=== PATIENT | female | born 1940 | race Two or more races ===

== ENCOUNTER 2019-12-03 10:56 | Outpatient (REF) | payer MEDICARE, SELFPAY ==
--- NOTE | 2019-12-03 | MM_ITS ---
EXAMINATION: MM SCREENING DIGITAL BREAST TOMOSYNTHESIS, BILATERAL CLINICAL INFORMATION: Screening. Asymptomatic. The lifetime risk of breast cancer based on the Tyrer-Cuzick Model is under 2%. COMPARISON: Mammography: 11/30/2018, 11/28/2017, 11/18/2016, 11/13/2015, 11/04/2014 TECHNIQUE: Digital breast tomosynthesis is performed in both the craniocaudal and mediolateral oblique views along with computer-aided detection (CAD). Synthesized 2D images are generated from the tomosynthesis. FINDINGS: There are scattered areas of fibroglandular density (ACR BI-RADS breast composition Category b). Parenchymal pattern is similar to prior studies. Bilateral parenchymal asymmetries are stable. There is no developing density or interval mass or architectural abnormality. There are bilateral vascular calcifications again seen. The skin contours are smooth. No significant changes. MM/MM tomosynthesis screening BI IMPRESSION: No significant changes from prior exams. ASSESSMENT: BI-RADS 2: Benign RECOMMENDATION: Routine annual mammography screening. This patient's information was entered into a reminder system with a target due date for their next mammogram.
== END 2019-12-03 10:57 | disposition home or self-care (01) ==
LOC: HO.MAMMO 10:56
PROVIDERS: PCP Internal Medicine; Visit Provider Internal Medicine
DX: Z12.31 Encounter for screening mammogram for malignant neoplasm of breast (principal)
CPT/HCPCS: 77063; 77067

== ENCOUNTER 2020-12-17 13:21 | Outpatient (REF) | payer MEDICARE, SELFPAY ==
--- NOTE | ~2020-12-17 | MM_ITS ---
EXAMINATION: MM SCREENING DIGITAL BREAST TOMOSYNTHESIS, BILATERAL CLINICAL INFORMATION: Screening. Asymptomatic. The lifetime risk of breast cancer based on the Tyrer-Cuzick Model is 2%. COMPARISON: Mammography: 12/03/2019, 11/30/2018, 11/28/2017 TECHNIQUE: Digital breast tomosynthesis is performed in both the craniocaudal and mediolateral oblique views along with computer-aided detection (CAD). Synthesized 2D images are generated from the tomosynthesis. FINDINGS: There are scattered areas of fibroglandular density (ACR BI-RADS breast composition Category b). There are no significant masses, abnormal calcifications, or other abnormalities. MM/MM tomosynthesis screening BI IMPRESSION: No mammographic evidence of malignancy. ASSESSMENT: BI-RADS 1: Negative RECOMMENDATION: Routine annual mammography screening. This patient's information was entered into a reminder system with a target due date for their next mammogram.
== END 2020-12-17 13:22 | disposition home or self-care (01) ==
LOC: HO.MAMMO 13:21
PROVIDERS: Visit Provider Internal Medicine
DX: Z12.31 Encounter for screening mammogram for malignant neoplasm of breast (principal)
CPT/HCPCS: 77063; 77067

== ENCOUNTER 2021-03-26 08:59 | Outpatient (REF) | payer MEDICARE, SELFPAY ==
[2021-03-26 10:32] LABS: MANUAL DIFF FLAG NO
[2021-03-26 10:38] LABS: Basophils Absolute Auto 0.1 X10*3/uL (0.0-0.2); Eosinophils Absolute Auto 0.3 X10*3/uL (0.0-0.4); Eosinophils Percent Auto 4.9 % (0-4); Hematocrit 37.6 % (37.0-47.0); Hemoglobin 11.9 g/dl (12.0-16.0); Imm Gran Abs Auto 0.01 X10*3/uL (0.00-0.03); Imm Gran Pct Auto 0.2 % (0.0-0.4); Lymphocytes Absolute Auto 1.3 X10*3/uL (1.2-4.9); Mean Corpuscular HGB Conc 31.6 g/dl (31.0-35.0); Mean Corpuscular Volume 85.3 fL (80.0-98.0); Mean Platelet Volume 12.7 fL (9.4-12.3); Monocytes Absolute Auto 0.5 X10*3/uL (0.1-1.2); Monocytes Percent Auto 9.8 % (2-11); Neutrophils Percent Auto 59.1 % (45-73); Platelet Count 167 X10*3/uL (160-400); Red Blood Count 4.41 X10*6/uL (4.20-5.50); Red Cell Distribution Width 14.4 % (11.0-16.0); White Blood Count 5.1 X10*3/uL (4.8-10.8)
[2021-03-26 10:46] LABS: Estimated Average Glucose 143 mg/dL; Hemoglobin A1c % 6.6 %
[2021-03-26 11:13] LABS: Alanine Aminotransferase 11 U/L (0-31); Alkaline Phosphatase 44 U/L (39-117); Anion Gap 10 (12-20); Aspartate Amino Transferase 18 U/L (5-31); Bilirubin Total 1.4 mg/dL (0.0-1.0); Blood Urea Nitrogen 22 mg/dL (9-16); Calcium 9.7 mg/dL (8.4-10.2); Carbon Dioxide 34 mmol/L (22-29); Chloride 102 mmol/L (96-108); Cholesterol 155 mg/dL; Estimated Glomerular Filt Rate 50; Glucose Fasting 134 mg/dL (60-99); HDL Cholesterol 28 mg/dL; LDL Cholesterol Calculated 92 mg/dl; Potassium 3.9 mmol/L (3.3-5.1); Sodium 142 mmol/L (135-145); Triglycerides 177 mg/dL
== END 2021-03-26 09:00 | disposition home or self-care (01) ==
LOC: HO.10HDL 08:59
PROVIDERS: Visit Provider Internal Medicine
DX: E11.9 Type 2 diabetes mellitus without complications (principal); E78.00 Pure hypercholesterolemia, unspecified; J20.9 Acute bronchitis, unspecified; R80.0 Isolated proteinuria
CPT/HCPCS: 36415; 80053; 80061; 83036; 85025

== ENCOUNTER 2021-06-24 10:01 | Outpatient (REF) | payer MEDICARE, SELFPAY ==
[2021-06-24 10:52] LABS: Estimated Average Glucose 134 mg/dL; Hemoglobin A1c % 6.3 %
[2021-06-24 11:03] LABS: Alanine Aminotransferase 11 U/L (0-31); Albumin Level 3.9 g/dL (3.5-5.0); Alkaline Phosphatase 42 U/L (39-117); Anion Gap 13 (12-20); Aspartate Amino Transferase 16 U/L (5-31); Bilirubin Total 1.6 mg/dL (0.0-1.0); Blood Urea Nitrogen 16 mg/dL (9-16); Calcium 9.6 mg/dL (8.4-10.2); Carbon Dioxide 28 mmol/L (22-29); Chloride 103 mmol/L (96-108); Estimated Glomerular Filt Rate 59; Glucose Random 121 mg/dL (60-115); Potassium 3.9 mmol/L (3.3-5.1); Sodium 140 mmol/L (135-145)
== END 2021-06-24 10:02 | disposition home or self-care (01) ==
LOC: HO.10HDL 10:01
PROVIDERS: Visit Provider Internal Medicine
DX: E11.9 Type 2 diabetes mellitus without complications (principal); N18.9 Chronic kidney disease, unspecified; R80.0 Isolated proteinuria; E78.00 Pure hypercholesterolemia, unspecified; M54.50 Low back pain, unspecified
CPT/HCPCS: 36415; 80053; 83036

== ENCOUNTER 2021-06-25 14:18 | Outpatient (REF) | payer OTHER, SELFPAY ==
--- NOTE | ~2021-06-25 | XR_ITS ---
EXAMINATION: XR CHEST CLINICAL INFORMATION: Pneumonia COMPARISON: None TECHNIQUE: 2 views of the chest were obtained. FINDINGS: No significant abnormality is noted involving the heart, lungs, mediastinum, bony thorax or soft tissues. XR/XR chest 2V IMPRESSION: Unremarkable examination.
== END 2021-06-25 14:19 | disposition home or self-care (01) ==
LOC: HO.XRAY 14:18
PROVIDERS: PCP Internal Medicine; Visit Provider Internal Medicine
DX: J18.9 Pneumonia, unspecified organism (principal)
CPT/HCPCS: 71046

== ENCOUNTER 2021-06-29 11:52 | Outpatient (REF) | payer OTHER, SELFPAY ==
[2021-06-29 12:01] VITALS: BP 152/68; PULSE 61; RESP 16; TEMP 36.6; O2SAT 98
[2021-06-29 12:19] VITALS: BMI 21.6
== END 2021-06-29 11:53 | disposition home or self-care (01) ==
LOC: HO.MS 11:52
PROVIDERS: PCP Internal Medicine; Visit Provider Ophthalmology
PROC: (CPT 66821; principal; 2021-06-29 13:00)
DX: H26.491 Other secondary cataract, right eye (principal); Z96.1 Presence of intraocular lens; H35.09 Other intraretinal microvascular abnormalities; I10 Essential (primary) hypertension; E11.9 Type 2 diabetes mellitus without complications; Z79.84 Long term (current) use of oral hypoglycemic drugs; Z79.899 Other long term (current) drug therapy; Z88.8 Allergy status to other drugs, medicaments and biological substances
CPT/HCPCS: 66821

== ENCOUNTER 2022-01-11 12:51 | Emergency (ER) | payer OTHER, SELFPAY ==
--- NOTE | ~2022-01-11 | CT_ITS ---
EXAMINATION: CT ANGIOGRAM OF THE CHEST WITH AND WITHOUT CONTRAST (CT PULMONARY ANGIOGRAM FOR PE) CLINICAL INFORMATION: Reason for Exam pleuritic CP COMPARISON: CT chest earlier today TECHNIQUE: Prior to contrast administration, noncontrast localization images were obtained. Subsequently, multidetector volumetric imaging was performed from the thoracic inlet to below the diaphragms following the administration of 65 mL Omnipaque 350 intravenous contrast. No contrast reaction reported Sagittal, coronal, and MIP oblique sagittal reformatted images were obtained on the CT workstation, uploaded to PACS, and reviewed. This CT examination was performed using dose optimization techniques as appropriate, variously including the following: *Automated exposure control *Adjustment of mA and/or kV according to patient size (this includes techniques or standardized protocols for targeted exams where dose is matched to indication/reason for exam; i.e. extremities or head) *Use of iterative reconstruction technique Total exam dose-length product 227 mGy-cm FINDINGS: QUALITY OF STUDY/CONTRAST BOLUS: Satisfactory. PULMONARY ARTERIES: There is a small saddle embolus extending into the right upper lobe pulmonary artery as well as the right lower lobe pulmonary artery. No other definite emboli are seen. 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 No aortic dissection is seen. LUNG: Pulmonary changes are similar to that noted a few hours ago with a right upper lobe posterolateral infiltrate along with chronic lingular atelectasis/bronchiectasis and scattered tree-in-bud opacities PLEURA: No pleural effusion or pneumothorax. MEDIASTINUM: Heart size upper limits of normal. No pericardial effusion. No hilar or mediastinal lymphadenopathy. No evidence of septal bowing or right heart strain. CHEST WALL/AXILLA: No axillary or internal mammary lymphadenopathy. OSSEOUS STRUCTURES: Mild degenerative changes present throughout the spine. No acute or suspicious osseous abnormality. UPPER ABDOMEN: Unremarkable. No reflux of contrast into the hepatic veins to suggest elevated right heart pressures. CT/CT angio chest PE protocol IMPRESSION: Acute pulmonary emboli with small saddle embolus on the right involving the upper and lower lobe. No evidence of right heart strain. VTE: positive
--- NOTE | ~2022-01-11 | CT_ITS ---
EXAMINATION: CT CHEST WITHOUT CONTRAST CLINICAL INFORMATION: Right chest wall pain. COMPARISON: None TECHNIQUE: Multidetector volumetric CT imaging of the chest was done. Axial MIP volume rendering provided. Sagittal and coronal reformatted images were obtained. This CT examination was performed using dose optimization techniques as appropriate, variously including the following: *Automated exposure control *Adjustment of mA and/or kV according to patient size (this includes techniques or standardized protocols for targeted exams where dose is matched to indication/reason for exam; i.e. extremities or head) *Use of iterative reconstruction technique DLP: 738 mGy-cm FINDINGS: LUNGS: Focal, posterolateral right upper lobe interstitial and alveolar infiltrate (images 18 through 23, series 5). Scattered foci of bronchiectasis with associated fibrotic change and tree-in-bud densities, most notably involving the right upper lobe anterolaterally as well as the left upper lobe. The lingula is most involved of bronchiectasis with associated airspace disease. A cluster of tree-in-bud densities involves the superior segment right lower lobe medially as well. There are biapical fibrotic changes. The central bronchi appear patent. 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 Heart normal in size. No pericardial effusion. No evidence of adenopathy by size criteria. Approximately 1.7 cm left thyroid nodule (image 10, series 7). Calcification of the right carotid bulb, only partially imaged. CORONARY ARTERY CALCIFICATION: Moderate. PLEURA: Trace right pleural fluid. No pleural mass or thickening. AXILLA: No lymphadenopathy by size criteria. UPPER ABDOMEN: Please see separately dictated report of CT scan of the abdomen obtained the same day. OSSEOUS STRUCTURES: Unremarkable. 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 Focal, posterolateral right upper lobe interstitial and alveolar infiltrate. Cannot exclude pneumonia. Scattered foci of bronchiectasis with associated fibrotic change and tree-in-bud densities, most notably involving the right upper lobe anterolaterally as well as the left upper lobe. The lingula is most involved of bronchiectasis with associated airspace disease. A cluster of tree-in-bud densities involves the superior segment right lower lobe medially as well. Differential diagnosis includes, but is not limited to, infectious/inflammatory. Trace right pleural fluid. Approximately 1.7 cm left thyroid nodule. Dedicated thyroid ultrasound may be of use for further evaluation if clinically indicated. Additional findings, as above.
--- NOTE | ~2022-01-11 | CT_ITS ---
EXAMINATION: CT ABDOMEN AND PELVIS WITHOUT CONTRAST CLINICAL INFORMATION: Right upper quadrant pain. COMPARISON: CT scans dating between February 14, 2019 and October 20, 2006. TECHNIQUE: Multidetector volumetric imaging was performed from the superior aspect of the liver through the pubic symphysis. Sagittal and coronal reformatted images were obtained on the technologist's workstation. This CT examination was performed using dose optimization techniques as appropriate, variously including the following: *Automated exposure control *Adjustment of mA and/or kV according to patient size (this includes techniques or standardized protocols for targeted exams where dose is matched to indication/reason for exam; i.e. extremities or head) *Use of iterative reconstruction technique DLP: 738 mGy-cm FINDINGS: LUNG BASES: Please see separately dictated report for chest CT obtained the same day. LIVER, GALLBLADDER, AND BILIARY TREE: The liver appears unremarkable in size, shape, and attenuation. No focal hepatic lesion or biliary ductal dilatation is appreciated. Status post cholecystectomy. PANCREAS: Unremarkable SPLEEN: Unremarkable ADRENAL GLANDS: Unremarkable KIDNEYS AND URETERS: The kidneys appear unremarkable in size, shape, and attenuation. No hydronephrosis, hydroureter, or calculi seen. BLADDER: Incompletely distended, therefore suboptimally evaluated. Question mild diffuse thickening of the wall the urinary bladder, anteriorly more than posteriorly, difficult to compare with prior due to differences in distention, equivocal. GASTROINTESTINAL TRACT: The small and large bowel appear unremarkable. No diverticulosis. Normal-appearing distal ileum. No evidence of appendicitis. ABDOMINAL WALL: No significant hernia is appreciated. LYMPH NODES: No evidence of adenopathy by size criteria. VASCULAR: Atherosclerotic, mildly ectatic aorta. PELVIC VISCERA: Status post hysterectomy. OSSEOUS STRUCTURES: Unremarkable CT/CT abdomen pelvis wo IV con IMPRESSION: No right upper quadrant abdominal pathology identified. Incompletely distended urinary bladder, therefore suboptimally evaluated. Question mild diffuse thickening of the wall the urinary bladder, anteriorly more than posteriorly, difficult to compare with prior due to differences in distention, equivocal. Otherwise essentially unremarkable study.
[2022-01-11 13:00] VITALS: BP 164/78; PULSE 74; RESP 14; TEMP 36.4; O2SAT 97; BMI 21.1
--- NOTE | 2022-01-11 13:04 | ED_ITS ---
HPI - General Adult General Chief complaint: General Medical <Daya Lin MD - Last Filed: 01/11/22 13:10> Stated complaint: diff breathing <Daya Lin MD - Last Filed: 01/11/22 13:10> Time Seen by Provider: 01/11/22 16:31 <Daya Lin MD - Last Filed: 01/11/22 13:10> Source: patient <QUINTON Garcia - Last Filed: 01/11/22 19:26> Mode of arrival: ambulatory <QUINTON Garcia - Last Filed: 01/11/22 19:26> Limitations: other (poor historian patient and family ) <QUINTON Garcia - Last Filed: 01/11/22 19:26> History of Present Illness HPI narrative: This is an 81-year-old female past medical history significant for diabets, hypertension, hyperlipidemia, pulmonary embolism anticoagulated on Coumadin (per patient and family) presenting to the emergency department complaints of pleuritic chest pain, shortness of breath, abdominal pain x3 days.? Patient tells me they have all been gradually worsening over the past few days.? Patient tells me chest pain is worse with deep breathing, she reports shortness of breath both at rest and with exertion, she tells me she was recently placed on Coumadin because she had a pulmonary embolism last month.? Patient also reports abdominal pain but has a hard time telling me exactly rate is, she tells me she can not tell that her abdomen or if the pain is underneath her right rib, worse with deep breathing.? Patient also has vague complaints of weakness, fatigue malaise.? Patient denies nausea, vomiting, diarrhea, headache, vision changes, trauma. <QUINTON Garcia - Last Filed: 01/11/22 19:26> Related Data Allergies/adverse reactions: Allergies Allergy/AdvReac Type Severity Reaction Status Date / Time atorvastatin [Lipitor] Allergy Unknown body Verified 01/11/22 13:05 ache,rash,anorexia lisinopril Allergy Unknown cough Verified 01/11/22 13:05 nitrofurantoin [Macrobid] Allergy Unknown rash Verified 01/11/22 13:05 <Daya Lin MD - Last Filed: 01/11/22 13:10> Review of Systems Review of Systems: Constitutional : No Weight loss, No Fever, No Chills, No Fatigue, No Malaise ENT/Mouth : No sore throat, No Rhinorrhea Eyes: No Eye Pain, No Swelling, No Redness Cardiovascular : + Chest Pain, + SOB, No Dyspnea on Exertion, No Orthopnea, No Edema, No Palpitations Respiratory : No Cough, No Sputum, No Wheezing Gastrointestinal : No Nausea, No Vomiting, No Diarrhea, No Constipation, + abdominal Pain, No Hematochezia, No Melena Genitourinary : No Dysuria, No Urinary Frequency, No Hematuria, Musculoskeletal : No joint pain, No Myalgias, No Joint Swelling Skin : No Skin Lesions, No rash Neuro : No Weakness, No Numbness, No Dizziness, No Headache Psych : No Anxiety/Panic, No Depression <QUINTON Garcia - Last Filed: 01/11/22 19:26> Yes all other systems are reviewed and are negative <QUINTON Garcia - Last Filed: 01/11/22 19:26> [facility] Past Medical History Attestation statement: The following information was validated with the patient. <QUINTON Garcia - Last Filed: 01/11/22 19:26> Source: old records reviewed and nursing notes reviewed <QUINTON Garcia - Last Filed: 01/11/22 19:26> Social History Social History: Social History Alcohol intake: never Smoked in Last 30 Days: No Use of substances other than those prescribed or required for medical reasons: No Advance Directives: No Advance Directives Information Provided: No <Daya Lin MD - Last Filed: 01/11/22 13:10> Physical Exam ED Vital Signs: Vital Signs - 24 hr 01/11/22 13:00 01/11/22 16:27 01/11/22 18:00 Temperature 97.5 F 97.9 F 98.4 F Pulse Rate 74 72 85 Respiratory Rate 14 16 16 Blood Pressure 164/78 H 165/84 H 141/70 H Pulse Oximetry 97 98 97 Oxygen Delivery Method Room Air Room Air Room Air BMI result Body Mass Index 21.1 <Daya Lin MD - Last Filed: 01/11/22 13:10> Vital Signs - 24 hr 01/11/22 13:00 01/11/22 16:27 01/11/22 18:00 Temperature 97.5 F 97.9 F 98.4 F Pulse Rate 74 72 85 Respiratory Rate 14 16 16 Blood Pressure 164/78 H 165/84 H 141/70 H Pulse Oximetry 97 98 97 Oxygen Delivery Method Room Air Room Air Room Air BMI result Body Mass Index 21.1 vss <QUINTON Garcia - Last Filed: 01/11/22 19:26> Appearance: Alert.? Oriented X3.? No acute distress.? Head:? Normocephalic, atraumatic, no step-offs or deformities Eyes: Pupils equal, round and reactive to light.? CVS: Normal heart rate and rhythm.? Pulses normal.? Respiratory: No respiratory distress.? Breath sounds diminished b/l.? Abdomen: Soft and nontender, distended abd w/ normoactive bowel sounds Skin: Skin warm and dry.? Normal skin color.? Normal skin turgor.? Extremities: No lower extremity edema.? No calf ttp, negative melida b/l.? 5/5 strength to bilateral upper and lower extremities Neuro: Oriented X 3.? No motor deficit.? No sensory deficit. CN 2-12 intact <QUINTON Garcia - Last Filed: 01/11/22 19:26> Course Course Course Narrative: 81-year-old female with recent diagnosis of PE (01/05 at [facility]) and started on warfarin/Coumadin, now presents with lower right chest wall pain that started last night and worsenes with deep breathing and denies any traumatic event and denies any fever, chills, nausea, vomiting, urinary symptoms and is status post cholecystectomy several years back and is otherwise noted have a history of hypertension, diabetes. Patient has been taking all medications as prescribed. Vital signs reviewed GEN: moderate distress due to pain at right chest on deep breath HEENT: NC/AT, PERRLA, EOMI, ears wnl, throat wnl PULM: CTAB, no rales/wheeze/rhonchi, SpO2-97%, reproducible chest pain on palpation over anterolateral lower ribs without crepitus CVS: RRR, no murmurs - labs, imaging, EKG <Daya Lin MD - Last Filed: 01/11/22 13:10> Reevaluation(s) Reevaluation #1: CBC appears to be around patient's baseline within normocytic anemia, chemistry with electrolyte abnormalities requiring intervention, carbon dioxide 32 likely underlying COPD inpatient retaining.? Patient is noted have an elevated bilirubin 1.5, abdomen is not tender on palpation on physical exam.? Troponin negative, EKG nonischemic unlikely ACS.? Urine clean flu/COVID/RSV negative.? Patient noted to be supratherapeutic PTT 29.8, INR 2.5.? CT of the abdomen pelvis with no upper quadrant abdominal pathology, unremarkable study.? 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 There are focal and posterior lateral right upper lobe interstitial and alveolar infiltrates, steady states that cannot exclude pneumonia patient is not hypoxic, no fever satting well on room air clear breath sounds, no elevated white blood cell count therefore low suspicion for pneumonia.? There is a trace right pleural effusion noted.? And a left thyroid nodule.? Educated patient and family members on findings.? BNP and CTA of the chest to rule out PE pending. Since patient was recently discharged from [facility] will try to obtain records from [facility] as patient poor historian and unaware of her medical history. <QUINTON Garcia - Last Filed: 01/11/22 19:26> Time: 16:53 <QUINTON Garcia - Last Filed: 01/11/22 19:26> Reevaluation #2: CTA w/ kennethdle PE. [place] hospitalist tell me patient should go to another hospital with higher level of care. [facility] closed. [facility] closed. Spoke to family about transferring patient to a different state, [place], family verbalizes understanding of need of transfer. [facility] also closed to transfers patients family requesting call out to [facility]. Concerns for difficulties with transport via ambulance due to limited number of ambulances in town. [facility] declined transfer. Family telling me that patient is on Coumadin, patient also stating she is on Coumadin. Med rec shows that patient was last on Eliquis. Some confusion and patient's anticoagulation status. Patient will go to Medical ICU at [facility] ED Dr. William. <QUINTON Garcia - Last Filed: 01/11/22 19:26> Time: 18:56 <QUINTON Garcia - Last Filed: 01/11/22 19:26> Reevaluation #3: Per [facility] Dr. Lemus since patient hypodermically stable start heparin drip w/o bolus. Drip ordered, dose verified with my attending. ALS transport being arranged at this time. <QUINTON Garcia - Last Filed: 01/11/22 19:26> Time: 19:04 <QUINTON Garcia - Last Filed: 01/11/22 19:26> Medications Administered Discontinued Medications Generic Name Dose Route Start Last Admin Trade Name Freq PRN Reason Stop Dose Admin Iohexol 100 ml 01/11/22 17:50 01/11/22 17:50 Iohexol 350 Mg/Ml 100 Ml Infus..Btl IV 01/11/22 17:51 65 ml ONCE ONE Administration <Daya Lin MD - Last Filed: 01/11/22 13:10> Medications Administered Discontinued Medications Generic Name Dose Route Start Last Admin Trade Name Freq PRN Reason Stop Dose Admin Iohexol 100 ml 01/11/22 17:50 01/11/22 17:50 Iohexol 350 Mg/Ml 100 Ml Infus..Btl IV 01/11/22 17:51 65 ml ONCE ONE Administration <QUINTON Garcia - Last Filed: 01/11/22 19:26> Medical Decision Making Medical Decision Making [facility] Narrative: [id number] 81 year old female recently diagnosed with pulmonary embolism and started on Coumadin presents with pleuritic chest pain, shortness of breath, abdominal pain/right rib pain with deep breathing x3 days worsening. Physical examination diminished bs b/l. Distended abd w/ normal BS in all 4 quadrants . Concerns for possible recurrence of PE, pneumonia, CHF.? Unlikely ACS patient denies any chest pain however will obtain troponin, EKG. Plan at this time is labs, imaging, urine. <QUINTON Garcia - Last Filed: 01/11/22 19:26> Critical Care Time Critical Care Time Critical Care Time: Yes <QUINTON Garcia - Last Filed: 01/11/22 19:26> Total Critical Care Time: 60 <QUINTON Garcia - Last Filed: 01/11/22 19:26> Attestation: I attest to this time spent taking care of the patient, obtaining history, physical, reviewing labs, imaging, speaking to my attending, speaking to specialist. <QUINTON Garcia - Last Filed: 01/11/22 19:26> Discharge Plan Discharge Clinical Impression: Acute saddle pulmonary embolism, Chest pain, Shortness of breath <Daya Lin MD - Last Filed: 01/11/22 13:10> Patient Disposition: Still a Patient <Daya Lin MD - Last Filed: 01/11/22 13:10>
--- NOTE | 2022-01-11 13:04 | ECG_ITS ---
Test Reason : sob Blood Pressure : / mmHG Vent. Rate : 079 BPM Atrial Rate : 079 BPM P-R Int : 124 ms QRS Dur : 074 ms QT Int : 396 ms P-R-T Axes : -13 -12 068 degrees QTc Int : 454 ms Sinus rhythm with occasional Premature ventricular complexes Septal infarct , age undetermined Abnormal ECG When compared with ECG of 18-SEP-2007 15:42, Premature ventricular complexes are now Present Septal infarct is now Present Nonspecific T wave abnormality now evident in Lateral leads Referred By: Daya Lin Electronically Signed By:ROMERO CARRERA MD
[2022-01-11 13:35] LABS: MANUAL DIFF FLAG NO
[2022-01-11 13:38] LABS: Basophils Absolute Auto 0.1 X10*3/uL (0.0-0.2); Basophils Percent Auto 0.7 % (0-2); Eosinophils Absolute Auto 0.1 X10*3/uL (0.0-0.4); Eosinophils Percent Auto 1.7 % (0-4); Hematocrit 35.6 % (37.0-47.0); Hemoglobin 11.3 g/dl (12.0-16.0); Imm Gran Abs Auto 0.02 X10*3/uL (0.00-0.03); Imm Gran Pct Auto 0.3 % (0.0-0.4); Lymphocytes Absolute Auto 1.7 X10*3/uL (1.2-4.9); Lymphocytes Percent Auto 22.7 % (20-40); Mean Corpuscular HGB Conc 31.7 g/dl (31.0-35.0); Mean Corpuscular Hemoglobin 25.6 pg (27.0-33.0); Mean Corpuscular Volume 80.5 fL (80.0-98.0); Mean Platelet Volume 11.1 fL (9.4-12.3); Monocytes Absolute Auto 0.8 X10*3/uL (0.1-1.2); Monocytes Percent Auto 10.3 % (2-11); Neutrophils Absolute Auto 4.7 x10*3/uL (2.0-8.3); Neutrophils Percent Auto 64.3 % (45-73); Platelet Count 247 X10*3/uL (160-400); Red Blood Count 4.42 X10*6/uL (4.20-5.50); Red Cell Distribution Width 15.6 % (11.0-16.0); White Blood Count 7.3 X10*3/uL (4.8-10.8)
[2022-01-11 13:39] LABS: Appearance Urine Clear; Color Urine Yellow; Glucose Urine UA Negative (Negative); Leukocyte Esterase Urine Negative (Negative); Nitrite Urine Negative (Negative); Specific Gravity - Urine 1.015 (1.005-1.025); UMIC TRIGGER UACC YES; Urine Blood Negative (Negative); Urine Ketones Negative (Negative); Urine Protein 30 (1+) mg/dL (Neg-Trace)
[2022-01-11 13:44] LABS: Bacteria Urine None Seen (None Seen); Hyaline Casts Urine 0-2 /LPF (0-2); RBC Urine 0-2 /HPF (0-2); Squamous Epithelial Cell Urine 0-2 /HPF (0-2); WBC Urine 0-5 /HPF (0-5)
[2022-01-11 13:50] LABS: INTERNATIONAL NORM RATIO 2.5 (0.9-1.1); Prothrombin Time 29.8 SEC (10.0-13.1)
[2022-01-11 13:58] LABS: Troponin-I High Sensitivity < 3.5 ng/L (<3.5-17.0)
[2022-01-11 14:00] LABS: Alanine Aminotransferase 13 U/L (0-31); Alkaline Phosphatase 60 U/L (39-117); Anion Gap 11 (12-20); Aspartate Amino Transferase 15 U/L (5-31); Bilirubin Total 1.5 mg/dL (0.0-1.0); Blood Urea Nitrogen 14 mg/dL (9-16); Calcium 9.4 mg/dL (8.4-10.2); Carbon Dioxide 32 mmol/L (22-29); Chloride 102 mmol/L (96-108); Creatinine Clr Calc Pharmacy 47.3; Estimated Glomerular Filt Rate > 60; Glucose Random 107 mg/dL (60-115); Potassium 4.5 mmol/L (3.3-5.1); Sodium 140 mmol/L (135-145); Total Protein 7.3 g/dL (6.5-8.0)
[2022-01-11 14:04] LABS: IDNOW Serial# BCCEAD1C
[2022-01-11 14:05] LABS: COVID-19 Test Negative (Negative); IDNOW Serial# 16C4AD1C; Influenza A Negative (Negative); Influenza B2 Negative (Negative)
[2022-01-11 16:27] VITALS: BP 165/84; PULSE 72; RESP 16; TEMP 36.6; O2SAT 98
--- NOTE | 2022-01-11 16:37 | ED.GENADULT ---
HPI - General Adult General Chief complaint: General Medical Stated complaint: diff breathing Time Seen by Provider: 01/11/22 16:31 Source: patient Mode of arrival: ambulatory Limitations: other (Poor historian) History of Present Illness HPI narrative: This is an 81-year-old female past medical history significant for hypertension, pulmonary embolism anticoagulated on Coumadin presenting to the emergency department complaints of pleuritic chest pain, shortness of breath, abdominal pain pain x3 days. Patient tells me they have all been gradually worsening over the past few days. Patient tells me chest pain is worse with deep breathing, she reports shortness of breath both at rest and with exertion, she tells me she was recently placed on Coumadin because she had a pulmonary embolism last month. Patient also reports abdominal pain but has a hard time telling me exactly rate is, she tells me she can not tell that her abdomen or if the pain is underneath her right rib, worse with deep breathing. Patient also has vague complaints of weakness, fatigue malaise. Patient denies nausea, vomiting, diarrhea, headache, vision changes, trauma. Related Data Allergies Allergy/AdvReac Type Severity Reaction Status Date / Time atorvastatin [Lipitor] Allergy Unknown body Verified 01/11/22 13:05 ache,rash,anorexia lisinopril Allergy Unknown cough Verified 01/11/22 13:05 nitrofurantoin [Macrobid] Allergy Unknown rash Verified 01/11/22 13:05 Review of Systems Review of Systems: Constitutional : No Weight loss, No Fever, No Chills, No Fatigue, No Malaise ENT/Mouth : No sore throat, No Rhinorrhea Eyes: No Eye Pain, No Swelling, No Redness Cardiovascular : + Chest Pain, + SOB, No Dyspnea on Exertion, No Orthopnea, No Edema, No Palpitations Respiratory : No Cough, No Sputum, No Wheezing Gastrointestinal : No Nausea, No Vomiting, No Diarrhea, No Constipation, + abdominal Pain, No Hematochezia, No Melena Genitourinary : No Dysuria, No Urinary Frequency, No Hematuria, Musculoskeletal : No joint pain, No Myalgias, No Joint Swelling Skin : No Skin Lesions, No rash Neuro : No Weakness, No Numbness, No Dizziness, No Headache Psych : No Anxiety/Panic, No Depression All other systems reviewed and are negative Yes all other systems are reviewed and are negative [facility] Past Medical History Attestation statement: The following information was validated with the patient. Source: old records reviewed and nursing notes reviewed Physical Exam ED Vital Signs: Vital Signs - 24 hr 01/11/22 13:00 01/11/22 16:27 Temperature 97.5 F 97.9 F Pulse Rate 74 72 Respiratory Rate 14 16 Blood Pressure 164/78 H 165/84 H Pulse Oximetry 97 98 Oxygen Delivery Method Room Air Room Air BMI result Body Mass Index 21.1 vss Appearance: Alert.? Oriented X3.? No acute distress.? Head: Normocephalic, atraumatic, no step-offs or deformities Eyes: Pupils equal, round and reactive to light.? CVS: Normal heart rate and rhythm.? Pulses normal.? Respiratory: No respiratory distress.? Breath sounds diminished b/l.? Abdomen: Soft and nontender, distended abd w/ normoactive bowel sounds Skin: Skin warm and dry.? Normal skin color.? Normal skin turgor.? Extremities: No lower extremity edema.? No calf ttp, negative melida b/l. 5/5 strength to bilateral upper and lower extremities Neuro: Oriented X 3.? No motor deficit.? No sensory deficit. CN 2-12 intact Course Reevaluation(s) Reevaluation #1: CBC appears to be around patient's baseline within normocytic anemia, chemistry with electrolyte abnormalities requiring intervention, carbon dioxide 32 likely underlying COPD inpatient retaining. Patient is noted have an elevated bilirubin 1.5, abdomen is not tender on palpation on physical exam. Troponin negative, EKG nonischemic unlikely ACS. Urine clean flu/COVID/RSV negative. Patient noted to be supratherapeutic PTT 29.8, INR 2.5. CT of the abdomen pelvis with no upper quadrant abdominal pathology, unremarkable study. 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 There are focal and posterior lateral right upper lobe interstitial and alveolar infiltrates, steady states that cannot exclude pneumonia patient is not hypoxic, no fever satting well on room air clear breath sounds, no elevated white blood cell count therefore low suspicion for pneumonia. There is a trace right pleural effusion noted. And a left thyroid nodule. Educated patient and family members on findings. BNP and CTA of the chest to rule out PE pending. Since patient was recently discharged from [facility] will try to obtain records from [facility] as patient poor historian and unaware of her medical history. Time: 16:53 Medical Decision Making Medical Decision Making [facility] Narrative: [id number] 81 year old female recently diagnosed with pulmonary embolism and started on Coumadin presents with pleuritic chest pain, shortness of breath, abdominal pain/right rib pain with deep breathing x3 days worsening. Physical examination diminished bs b/l. Distended abd w/ normal BS in all 4 quadrants . Concerns for possible recurrence of PE, pneumonia, CHF. Unlikely ACS patient denies any chest pain however will obtain troponin, EKG. Plan at this time is labs, imaging, urine.
--- OUTSIDE RECORDS SUMMARY | 2022-01-11 17:00 | XMS_ITS | Continuity of Care Document ---
:1940 Author Organization [facility] Address [address] [address]- Care Team Providers Name Role Phone Demi Yost MD Primary Care Physician Encounter [facility] [place] Date(s): 08/04/21 - 09/03/21 [facility] [address] [facility] [address] [place] [id number] Allergies, Adverse Reactions, Alerts Substance Reaction Severity Status hydrochlorothiazide Active lisinopril Active Macrobid Lisinopril adverse reaction Acti ve Lipitor Active Immunizations Given and Recorded Vaccine Date Status Refusal Reason influenza virus vaccine, inactivated 11/14/19 Recorded influenza virus vaccine, inactivated 12/20/18 Recorded pneumococcal 23-valent vaccine 06/16/18 Recorded pneumococcal 13-valent vaccine 01/04/16 Recorded Not Given Vaccine Date Status Refusal Reason influenza virus vaccine, inactivated 04/19/21 Not Given Patient Refuses Medications Albuterol (Eqv-ProAir HFA) 90 mcg/inh inhalation aerosol INHALE 2 PUFFS BY MOUTH 4 TIMES A DAY Start Date: 07/15/21 Status: OrderedCrestor 20 mg oral tablet 1 tablet = 20 mg, By Mouth, Daily, # 30 tablet, 0 Refills, Maintenance, 02/13/20 21:57:00 EST, Tablet, Partial fill upon patient request if the prescription is for a schedule II opioid drug. Start Date: 02/13/20 Status: Orderedlidocaine 4% topical film 1 patch, Topically, 2 times a day, # 6 each, 3 Refills, Maintenance, 07/24/21 13:21:00 EDT, Film, [id number], Partial fill upon patient request if the prescription is for a schedule II opioid drug., 1 patch Topically 2 times a day, 165, cm, 06... Start Date: 07/24/21 Status: Orderedlidocaine 5% topical film 1 patch, Topically, Daily, PRN Pain , Mild, remove after 12 hours, # 13 each, 0 Refills, Maintenance, 07/23/21 11:32:00 EDT, Film, [facility], Partial fill upon patient request if the prescription is for a schedule II opioid drug., 1 pat... Start Date: 07/23/21 Status: OrderedmetFORMIN 850 mg oral tablet 1 tablet = 850 mg, By Mouth, 2 times a day, # 60 tablet, 0 Refills, Maintenance, 02/13/20 21:57:00 EST, Tablet, Partial fill upon patient request if the prescription is for a schedule II opioid drug. Start Date: 02/13/20 Status: OrderedMetoprolol Succinate ER 100 mg oral tablet, extended release 1 tablet = 100 mg, By Mouth, Daily, # 90 tablet, 0 Refills, Maintenance, 07/17/21 9:27:00 EDT, ER Tablet, Partial fill upon patient request if the prescription is for a schedule II opioid drug. Start Date: 07/17/21 Status: OrderedOxacillin IV 12 grams daily via continuous infusion for 14 days for MSSA bacteremia R78.81 Oxacillin IV 12 grams daily via continuous infusion for 14 days for MSSA bacteremia R78.81, See Instructions, # 168 Gm, Refills 0, Tot. Refills 0, Maintenance, Oxacillin IV 12 grams daily via continuous infusion through PICC line for 14 days for MSSA... Start Date: 07/16/21 Status: Orderedvalsartan 320 mg oral tablet 1 tablet = 320 mg, By Mouth, Daily, Take half tablet by mouth daily, until follow-up with primary care provider, # 30 tablet, 0 Refills, Maintenance, 02/13/20 21:54:00 EST, Tablet, Partial fill upon patient request if the prescription is for a schedul... Start Date: 02/13/20 Status: Ordered Problem List Condition Effective Dates Status Health Status Informant Asthma(Confirmed) Active Diabetes mellitus(Confirmed) Active Hyperlipidemia(Confirmed) Active Hypertension(Confirmed) Active Social History Social History Type Response Smoking Status Never (less than 100 in life time) entered on: 04/18/21 Sex
--- OUTSIDE RECORDS SUMMARY | 2022-01-11 17:00 | XMS_ITS | Continuity of Care Document ---
:1940 Author Organization [facility] Address [address] [place] [address]- Care Team Providers Name Role Phone Demi Yost MD Primary Care Physician [place] [facility] 07/28[place]21 - 08/27/21 [facility] [address] [place], [place] [id number] Allergies, Adverse Reactions, Alerts Substance Reaction [...] Refills, Maintenance, 07/24/21 13:21:00 EDT, Film, [id number], Partial fill upon patient request if the prescription is for a schedule II opioid drug., 1 patch Topically 2 times a day, 165, cm, 06... Start Date: 07/24/21 Status: Orderedlidocaine 5% topical film 1 patch, Topically, Daily, PRN Pain , Mild, remove after 12 hours, # 13 each, 0 Refills, Maintenance, 07/23/21 11:32:00 EDT, Film, [facility], Partial fill upon patient request if [...]
--- OUTSIDE RECORDS SUMMARY | 2022-01-11 17:00 | XMS_ITS | Continuity of Care Document ---
:1940 Author Organization [facility] Address [address] [place] [address]- Care Team Providers Name Role Phone Not on Staff, PCP Primary Care Physician Unavailable Encounter [place] Date(s): 10/02/21 - 11/01/21 [facility] [address] [place], [place] [address] Allergies, Adverse Reactions, Alerts Substance Reaction [...] Refills, Maintenance, 07/24/21 13:21:00 EDT, Film, [id number], Partial fill upon patient request if the prescription is for a schedule II opioid drug., 1 patch Topically 2 times a day, 165, cm, 06... Start Date: 07/24/21 Status: Orderedlidocaine 5% topical film 1 patch, Topically, Daily, PRN Pain , Mild, remove after 12 hours, # 13 each, 0 Refills, Maintenance, 07/23/21 11:32:00 EDT, Film, [facility], Partial fill upon patient request if [...] in life time) entered on: 04/18/21 Sex Care Team PersonnelName: Not on Staff, PCP
--- OUTSIDE RECORDS SUMMARY | 2022-01-11 17:00 | XMS_ITS | Continuity of Care Document ---
:1940 Author Organization [facility] Address [address] [place] [address]- Care Team Providers Name Role Phone Ritika EVANS, Demi Pena Primary Care Physician Encounter [facility] Date(s): 07/14/21 - 07/17/[address] [address] Discharge Disposition: A-D/C Home Attending Physician: Jesse Miller MD Admitting Physician: Cristhian De La Cruz MD Referring Physician: Not on Staff, Referring MD Allergies, Adverse Reactions, Alerts Substance Reaction Severity [...] opioid drug. Start Date: 02/13/20 Status: Orderedlidocaine 5% topical film See Instructions, 1 patch topically daily to left shoulder, # 14 patch, 0 Refills, Maintenance, 04/20/21 9:45:00 EDT[facility] upon patient request if the prescription is for a schedule II opioid drug., 1 patch top... Start Date: 04/20/21 Status: OrderedmetFORMIN 850 mg oral tablet 1 tablet = 850 mg, By Mouth, 2 times a day, # 60 tablet, 0 Refills, Maintenance, 02/13/20 21:57:00 EST, Tablet, Partial fill upon patient request if the prescription is for a schedule II opioid drug. Start Date: 02/13/20 Status: Orderedmetoprolol 25 mg oral tablet, extended release 100 mg, XL Tablet, By Mouth, 07/17/21 9:00:00 EDT Start Date: 07/17/21 Stop Date: 07/17/21 Status: CompletedMetoprolol Succinate ER 100 mg oral tablet, extended [...] for MSSA... Start Date: 07/16/21 Status: Orderedvalsartan 160 mg oral tablet 320 mg, Tablet, By Mouth, 07/17/21 9:00:00 EDT Start Date: 07/17/21 Stop Date: 07/17/21 Status: Completedvalsartan 320 mg oral tablet 1 tablet = [...] Diabetes mellitus(Confirmed) Active Hyperlipidemia(Confirmed) Active Hypertension(Confirmed) Active Results Orders for Microbiology Reports Name Date Blood Culture #2 07/14/21 Blood Culture 07/13/21 Blood Culture #2 07/13/21 Microbiology Reports TEST:Blood Culture, Second Order STATUS:Unauthenticated BODY SITE: SOURCE:Blood COLLECTED DATE/TIME:07/14/21 2:53 PMBlood Culture, Second Order SPECIMEN DESCRIPTION : BLOOD L HAND SPECIAL REQUESTS : NONE CULTURE : NO GROWTH 3 DAYS REPORT STATUS : PRELIMINARY REPORT TEST:Blood Culture STATUS:Auth (Verified) BODY SITE: SOURCE:Blood COLLECTED DATE/TIME:07/14/21 12:33 AMBlood Culture SPECIMEN DESCRIPTION : BLOOD L AC SPECIAL REQUESTS : CRITICAL VALUE CALLED AND VERIFIED BY READBACK FOR: GRAM POSITIVE RODS TO D3, 51956, 07/14/21, [id number] CRITICAL VALUE CALLED AND VERIFIED BY READBACK FOR: GRAM POSITIVE COCCI CALLED TO [id number] BY TECH [id number] CULTURE : STAPHYLOCOCCUS AUREUS. This isolate was identified using Maldi-TOF system BACILLUS SPECIES SUSCEPTIBILITY TESTING NOT ROUTINELY PERFORMED ON THIS ISOLATE. S. aureus was identified by multi-plex PCR. MecA NOT detected. The absence of the mecA gene is associated with susceptibility to methicillin (MSSA). REPORT STATUS : FINAL 07/16/2021 ORGANISM STAPHYLOCOCCUS AUREUS. This isolate was identified using Maldi-TOF system METHOD MIN. INHIB. CONC. (MCG/ML) CIPROFLOXACIN SUSCEPTIBLE CLINDAMYCIN RESISTANT ERYTHROMYCIN RESISTANT INDUCIBLE CLINDAMYCI POSITIVE LEVOFLOXACIN SUSCEPTIBLE OXACILLIN SUSCEPTIBLE PENICILLIN RESISTANT RIFAMPIN SUSCEPTIBLE RIFAMPIN RIFAMPIN SHOULD NOT BE USED ALONE FOR ANTIMICROBIAL RIFAMPIN THERAPY. TETRACYCLINE SUSCEPTIBLE TRIMETH/SULFAMETHOX SUSCEPTIBLE VANCOMYCIN SUSCEPTIBLETEST:Blood Culture, Second Order STATUS:Unauthenticated BODY SITE: SOURCE:Blood COLLECTED DATE/TIME:07/14/21 12:33 AMBlood Culture, Second Order SPECIMEN DESCRIPTION : BLOOD R ARM SPECIAL REQUESTS : NONE CULTURE : NO GROWTH 3 DAYS REPORT STATUS : PRELIMINARY REPORT Radiology Reports Exam Date Time Procedure Performing Provider Status 07/13/21 2:01 PM Chest 2 Views Frontal and Lat Cam Bazzi; Auth (Verified) Notes:(Chest 2 Views Frontal and Lat) Reason For Exam: AnginaRESULT: Chest 2 Views Frontal and Lat Chest 2 Views Frontal and Lat REASON: Angina; Clinical Question(s): CHF Hx of Present Illness: Pt presenting with chest pain q3hrs. Pt describes pain as pinching, pulling sesation. Pain comes and goes and is at a 9 10 at its worst. Pt states no percipitating factors; COMPARISON: Multiple priors, most recent chest x-ray 04/17/2021. Chest CT 04/18/2021. FINDINGS: LINES AND TUBES: None. LUNGS AND PLEURA: Left-sided airspace opacities in the lingula has increased from prior. Large lung volumes. No pleural effusion. No pneumothorax. HEART, MEDIASTINUM AND EDYTA: Heart is normal in size. Aorta is tortuous and partially calcified. BONES AND SOFT TISSUES: No acute abnormality. IMPRESSION: Patchy lingular airspace consolidations has increased from prior radiograph. Given nonresolution resolution from prior exam despite antibiotic treatment, consider chronic infectious causes such as fungal or nontuberculous mycobacterial. This should again be followed to ensure resolution. I have personally reviewed the images and I agree with this report. WSN: [id number] Ordering Physician: Sherry Saldana Dictated By: Gaurav Rendon DO Dictated Date/Time: 07/13/21 3:06 pm Reviewed By: Carlos Coto MD Signed By: Carlos Coto MD Signed Date/Time: 07/13/21 3:11 pm Transcribed By: BECKY Transcribed Date/Time: 07/13/21 2:13 pm Vital Signs Most recent to oldest 1 2 3 [Reference Range]: Height 165 cm 165 cm 165 cm (07/17/21 4:00 AM) (07/16/21 11:25 PM) (07/16/21 8:00 PM) Weight 59 kg 68.1 kg (07/14/21 1:48 AM) (07/14/21 1:46 AM) Oxygen Saturation [94-100 %] 99 % 100 % 100 % (07/17/21 9:00 AM) (07/17/21 7:34 AM) (07/17/21 4:0 0 AM) Pulse Rate [55-90 bpm] 69 bpm 69 bpm 65 bpm (07/17/21 10:04 AM) (07/17/21 9:00 AM) (07/17/21 7: 34 AM) Body Mass Index [18.5-24.99] 21.67 (07/14/21 1:48 AM) Blood Pressure [90-138/55-84 128/69 mm Hg 128/69 mm Hg 128 /69 mm Hg mm Hg] (07/17/21 10:04 AM) (07/17/21 10:04 AM) (07/17/21 9 :00 AM) Respiratory Rate [16-30 18 br/min 18 br/min 18 br/mi n br/min] (07/17/21 9:00 AM) (07/17/21 7:34 AM) (07/17/21 7:0 4 AM) Temperature [96.8-100.4 DegF] 97.4 DegF 98.6 DegF 98 .2 DegF (07/17/21 9:00 AM) (07/17/21 7:34 AM) (07/17/21 4:0 0 AM) Liters per Minute 0 L/min (07/13/21 2:56 PM) Mode of Delivery (Oxygen) Room air Room air Room a ir (07/17/21 9:00 AM) (07/17/21 7:34 AM) (07/17/21 4:0 0 AM) Blood pressure sites Arm, left Arm, left Arm, left (07/17/21 9:00 AM) (07/17/21 7:34 AM) (07/17/21 4:0 0 AM) Temperature Route Oral Oral Oral (07/17/21 9:00 AM) (07/17/21 7:34 AM) (07/17/21 4:0 0 AM) Dry Weight 59 kg (07/14/21 1:48 AM) Weight Obtained Via Bed scale (07/14/21 1:46 AM) Social History Social History Type Response Smoking Status Never (less than 100 in life time) entered on: 04/18/21 Sex
--- OUTSIDE RECORDS SUMMARY | 2022-01-11 17:00 | XMS_ITS ---
:1940 Author Care Team Providers Name Role Phone [facility] Referring Provider [phone] Allergies None recorded. Medications Name Status Start Date Stop Date ? ? acetaminophen 325 mg tablet Active ? Not available TAKE 3 TABLETS (975 MG) BY MOUTH EVERY 8 HOURS NEEDED FOR TEMPERATURE GREATER THAN 100.5. albuterol sulfate HFA 90 mcg/actuation aerosol inhaler Active ? Not available amlodipine 2.5 mg tablet Active ? Not kassie ilable amoxicillin 875 mg-potassium clavulanate 125 mg tablet Active ? Not available TAKE 1 TABLET BY MOUTH EVERY 12 HOURS FOR 7 DAYS azithromycin 250 mg tablet Active ? Not a vailable TAKE 2 TABLETS BY MOUTH TODAY, THEN TAKE 1 TABLET DAILY FOR 4 D AYS benzonatate 100 mg capsule Active ? Not a vailable TAKE 1 CAPSULE BY MOUTH THREE TIMES A DAY FOR 10 DAYS *NOT COVE RED* cephalexin 500 mg capsule Active ? Not av ailable TAKE 1 CAPSULE BY MOUTH EVERY 12 HOURS FOR 14 DAYS clobetasol 0.05 % topical cream Active ? Not available APPLY TO AFFECTED AREA(S) BY TOPICAL RO CIERRA TWICE DAILY FOR 14 DAYS THEN USE TWICE WEEKLY Flovent HFA 110 mcg/actuation aerosol inhaler Active ? Not available INHALE 2 PUFFS BY MOUTH TWICE A DAY FreeStyle Lancets 28 gauge Active ? Not a vailable USE DIRECTED TO CHECK BLOOD SUGAR TWICE DAILY. FreeStyle Lite Strips Active ? Not availa ble USE DIRECTED TO CHECK BLOOD SUGAR ONCE DAILY. loratadine 10 mg tablet Active ? Not avai lable TAKE 1 TABLET BY MOUTH EVERY DAY metformin 850 mg tablet Active ? Not avai lable TAKE 1 TABLET BY MOUTH TWICE A DAY metoprolol succinate ER 100 mg tablet,extended release 24 hr Act charles ? Not available TAKE 1 TABLET BY MOUTH EVERY DAY mirtazapine 7.5 mg tablet Active ? Not av ailable TAKE 1 TABLET BY MOUTH EVERYDAY AT BEDTIME oxacillin 10 gram solution for injection Active ? Not available oxycodone 5 mg tablet Active ? Not availa ble TAKE 1 TABLET BY MOUTH EVERY 6 HOURS NEEDED FOR SEVERE PAIN Paxlovid 300 mg (150 mg x 2)-100 mg tablets in a dose pack (EUA) Active ? Not available TAKE BY MOUTH DIRECTED ON PACKAGE TWICE DAILY prednisolone acetate 1 % eye drops,suspension Active ? Not available PLEASE SEE ATTACHED FOR DETAILED DIRECTIONS rosuvastatin 20 mg tablet Active ? Not av ailable TAKE 1 TABLET BY MOUTH EVERYDAY AT BEDTIME valsartan 320 mg-hydrochlorothiazide 25 mg tablet Active ? Not available TAKE 1 TABLET BY MOUTH EVERY DAY Problems None recorded. Procedures None recorded. Results Lab Results Date Name Specimen Result Interpretation Description Value Range Status Address ? 12/17/2021 Rapid SARS CoV 2 ? Rapid SARS CoV 2 positi ve ? ? Main - Ag, QL [place], Ag, QL [place], In sted: 30 Respiratory Respiratory [place] Specimen [facility] Past Encounters Encounter Date Diagnosis Provider 01/11/2022 History of Pulmonary Embolus Magno driscoll MD: [address] [place] [address] 0, Ph. 12/17/2021 Covid-19 Tae Mondragon MD: [address] [place] [address], Ph. Social History None recorded. Vaccine List None recorded. Plan of Care Reminders Provider Appointments None recorded. ? ? Lab None recorded. ? ? Referral None recorded. ? ? Procedures None recorded. ? ? Surgeries None recorded. ? ? Imaging None recorded. ? ? Vitals Height Weight Blood Pressure (1) 5 ft 6 in (1) 131 lbs (1) 105/63 mm[Hg] (2) 5 ft 6 in (2) 131 lbs (2) 105/63 mm[Hg]
--- OUTSIDE RECORDS SUMMARY | 2022-01-11 17:00 | XMS_ITS | Continuity of Care Document ---
:1940 Author Organization [facility] Address [address] [place] [address]- Care Team Providers Name Role Phone Demi Yost MD Primary Care Physician Encounter [facility] Date(s): 02/12/20 - 02/14/[address] [address] Discharge Disposition: A-D/C Home Attending Physician: Angela EVANS, Jesse Admitting Physician: Markos Trujillo MD Referring Physician: Not on Staff, Referring MD Allergies, Adverse Reactions, Alerts Substance Reaction Severity Status hydrochlorothiazide Active lisinopril Active Macrobid Lisinopril adverse reaction Acti ve Lipitor Active Medications Crestor 20 mg oral tablet 1 tablet = 20 mg, By Mouth, Daily, # 30 tablet, 0 Refills, Maintenance, 02/13/20 21:57:00 EST, Tablet, Partial fill upon patient request if the prescription is for a schedule II opioid drug. Start Date: 02/13/20 Status: OrderedmetFORMIN 850 mg oral tablet 1 tablet = 850 mg, By Mouth, 2 times a day, # 60 tablet, 0 Refills, Maintenance, 02/13/20 21:57:00 EST, Tablet, Partial fill upon patient request if the prescription is for a schedule II opioid drug. Start Date: 02/13/20 Status: Orderedmetoprolol 25 mg oral tablet, extended release 25 mg, XL Tablet, By Mouth, 02/14/20 9:00:00 EST Start Date: 02/14/20 Stop Date: 02/14/20 Status: Completedmetoprolol succinate 25 mg oral capsule, extended release 1 capsule = 25 mg, By Mouth, Daily, # 30 capsule, 0 Refills, Maintenance, 02/13/20 21:54:00 EST, ER Capsule, Partial fill upon patient request if the prescription is for a schedule II opioid drug. Start Date: 02/13/20 Status: Orderedvalsartan 320 mg oral tablet 1 tablet = 320 mg, By Mouth, Daily, # 30 tablet, 0 Refills, Maintenance, 02/13/20 21:54:00 EST, Tablet, Partial fill upon patient request if the prescription is for a schedule II opioid drug. Start Date: 02/13/20 Status: Ordered Results Radiology Reports Exam Date Time Procedure Performing Provider Status 02/13/20 6:04 PM Chest 2 Views Frontal and Lat Nichol Villaseñor; Harry (Verified) Notes:(Chest 2 Views Frontal and Lat) Reason For Exam: Pleuritic PainRESULT: Chest 2 Views Frontal and Lat Chest 2 Views Frontal and Lat Hx of Present Illness: 2-3 days of chest pain radiating to L posterior ribs flank. Headache, took BPat home, SBP 171 i got scared . Lives home alone, takes meds as prescribed; Reason: Pleuritic Pain;Clinical Question(s): Pneumothorax COMPARISON: 05/01/2015 FINDINGS: LINES AND TUBES: None. LUNGS AND PLEURA: Biapical pleural parenchymal scarring reidentified. No definite consolidation or overt pulmonary edema. Hyperinflation consistent with COPD. HEART, MEDIASTINUM AND EDYTA: Prominence of aortic knob more conspicuous than on the prior study. BONES AND SOFT TISSUES: No acute abnormality. IMPRESSION: No definite acute abnormality identified but aortic knob appears more slightly more prominent than on the prior study. Clinically correlate. Further imaging may be indicated. A [employer] message has been communicated via the [employer] system on 02/13/2020 6:08 PM, Message ID [id number]. WSN: [id number] Ordering Physician: Cam Alvarez Dictated By: Stephane Chaparro MD Dictated Date/Time: 02/13/20 6:08 pm Reviewed By: Stephane Chaparro MD Signed By: Stephane Chaparro MD Signed Date/Time: 02/13/20 6:08 pm Transcribed By: BECKY Transcribed Date/Time: 02/13/20 6:05 pm Vital Signs Most recent to oldest [Reference 1 2 3 Range]: Height 165 cm 165 cm 165 cm (02/14/20 11:59 AM) (02/14/20 8:13 AM) (02/14/20 3:45 AM) Weight 60.7 kg 61 kg (02/13/20 11:29 PM) (02/13/20 11:01 PM) Oxygen Saturation [94-100 %] 100 % 99 % 98 % (02/14/20 11:59 AM) (02/14/20 8:13 AM) (02/14/20 3:45 AM) Pulse Rate [55-90 bpm] 63 bpm 74 bpm 55 bpm (02/14/20 11:59 AM) (02/14/20 9:12 AM) (02/14/20 8:13 AM) Body Mass Index [18.5-24.99] 22.41 (02/13/20 11:01 PM) Blood Pressure [90-138/55-84 mm 146/67 mm Hg 134/62 mm Hg 134/62 mm Hg Hg] *H* (02/14/20 9:12 AM) (02/14/20 8:13 AM ) (02/14/20 11:59 AM) Respiratory Rate [16-30 br/min] 18 br/min 18 br/min 18 br/min (02/14/20 11:59 AM) (02/14/20 8:13 AM) (02/14/20 7:00 AM) Temperature [96.8-100.4 DegF] 98.2 DegF 98.2 DegF 98 .1 DegF (02/14/20 11:59 AM) (02/14/20 8:13 AM) (02/14/20 3:45 AM) Mode of Delivery (Oxygen) Room air Room air Room a ir (02/14/20 11:59 AM) (02/14/20 8:13 AM) (02/14/20 3:45 AM) Blood pressure sites Arm, left Arm, left Arm, left (02/14/20 11:59 AM) (02/14/20 8:13 AM) (02/14/20 3:45 AM) Temperature Route Oral Oral Oral (02/14/20 11:59 AM) (02/14/20 8:13 AM) (02/14/20 3:45 AM) Dry Weight 61 kg (02/13/20 11:01 PM) Weight Obtained Via Bed scale (02/13/20 11:29 PM)
--- OUTSIDE RECORDS SUMMARY | 2022-01-11 17:00 | XMS_ITS | Continuity of Care Document ---
:1940 Author Organization [facility] Address [address] [place] [address]- Care Team Providers Name Role Phone Demi Yost MD Primary Care Physician [place] [facility] [place] 07/16/21 - 08/15/[address] [address]- Attending Physician: Not on Staff, Attending MD Admitting Physician: Not on Staff, Admitting MD Referring Physician: Not on Staff, Referring [...] Refills, Maintenance, 07/24/21 13:21:00 EDT, Film, [id number], Partial fill upon patient request if the prescription is for a schedule II opioid drug., 1 patch Topically 2 times a day, 165, cm, 06... Start Date: 07/24/21 Status: Orderedlidocaine 5% topical film 1 patch, Topically, Daily, PRN Pain , Mild, remove after 12 hours, # 13 each, 0 Refills, Maintenance, 07/23/21 11:32:00 EDT, Film, [facility], Partial fill upon patient [...]
--- OUTSIDE RECORDS SUMMARY | 2022-01-11 17:00 | XMS_ITS | Continuity of Care Document ---
:1940 Author Organization [facility] Address [address] [place] [address]- Care Team Providers Name Role Phone Demi Yost MD Primary Care Physician Encounter 07/17/21 - 08/12/21 [facility] [address] [place] [address]- Discharge Disposition: CLIENT NO LONGER REQUIRES SKILLED CARE Allergies, Adverse Reactions, Alerts Substance Reaction Severity [...] Refills, Maintenance, 07/24/21 13:21:00 EDT, Film, [id number], Partial fill upon patient request if the prescription is for a schedule II opioid drug., 1 patch Topically 2 times a day, 165, cm, 06... Start Date: 07/24/21 Status: Orderedlidocaine 5% topical film 1 patch, Topically, Daily, PRN Pain , Mild, remove after 12 hours, # 13 each, 0 Refills, Maintenance, 07/23/21 11:32:00 EDT, Film, [facility], Partial fill upon patient [...]
--- OUTSIDE RECORDS SUMMARY | 2022-01-11 17:00 | XMS_ITS | Continuity of Care Document ---
:1940 Author Organization [facility] Address [address] [place] [address]- Care Team Providers Name Role Phone Not on Staff, PCP Primary Care Physician Unavailable Encounter [facility] Date(s): 01/05/22 - 01/06/[address] [address] Encounter Diagnosis Pulmonary embolism (Final) - 01/05/22 Discharge Disposition: A-D/C Home Attending Physician: Bradley EVANS, Reynaldo Admitting Physician: Perry Shepard MD Referring Physician: Not on Staff, Referring [...] TIMES A DAY Start Date: 07/15/21 Status: OrderedamLODIPine 2.5 mg oral tablet 1 tablet = 2.5 mg, By Mouth, Daily, 0 Refills, Maintenance, 01/05/22 21:20:00 EST, Partial fill uponpatient request if the prescription is for a schedule II opioid drug. Start Date: 01/05/22 Status: OrderedamLODIPine 5 mg oral tablet 5 mg, Tablet, By Mouth, 01/06/22 9:00:00 EST Start Date: 01/06/22 Stop Date: 01/06/22 Status: Completedapixaban Starter Pack 5 mg oral tablet 2 tablet = 10 mg, By Mouth, 2 times a day, take from 01/06 to 01/12., # 28 tablet, 0 Refills, Maintenance, 01/06/22 15:21:00 EST, Tablet, [facility]/pharmacy #[id number], Partial fill upon patient request if the prescription is for a schedule II opioid drug., 165,... Start Date: 01/06/22 Stop Date: 01/13/22 Status: Orderedapixaban Starter Pack 5 mg oral tablet 1 tablet = 5 mg, By Mouth, 2 times a day, take from 01/13 . for total 3 months ( last day 04/09/22), # 166 tablet, 2 Refills, Maintenance, 01/06/22 15:22:00 EST, Tablet, [facility]/pharmacy #[id number], Partial fillupon patient request if the prescription is for a... Start Date: 01/06/22 Stop Date: 09/12/22 Status: OrderedCrestor 20 mg oral tablet 1 tablet = 20 mg, By Mouth, Daily, # 30 tablet, 0 Refills, Maintenance, 02/13/20 21:57:00 EST, Tablet, Partial fill upon patient request if the prescription is for a schedule II opioid drug. Start Date: 02/13/20 Status: Orderedhydrochlorothiazide-valsartan 25 mg-320 mg oral tablet 1 tablet, By Mouth, Daily, # 30 tablet, 0 Refills, Maintenance, 01/05/22 21:19:00 EST, Tablet, Partial fill upon patient request if the prescription is for a schedule II opioid drug. Start Date: 01/05/22 Status: OrderedmetFORMIN 850 mg oral tablet 1 tablet = 850 mg, By Mouth, 2 times a day, # 60 tablet, 0 Refills, Maintenance, 02/13/20 21:57:00 EST, Tablet, Partial fill upon patient request if the prescription is for a schedule II opioid drug. Start Date: 02/13/20 Status: Orderedmetoprolol 100 mg oral tablet, extended release 100 mg, XL Tablet, By Mouth, 01/06/22 9:00:00 EST Start Date: 01/06/22 Stop Date: 01/06/22 Status: CompletedMetoprolol Succinate ER 100 mg oral tablet, extended release 1 tablet = 100 mg, By Mouth, Daily, # 90 tablet, 0 Refills, Maintenance, 07/17/21 9:27:00 EDT, ER Tablet, Partial fill upon patient request if the prescription is for a schedule II opioid drug. Start Date: 07/17/21 Status: Orderedmirtazapine 7.5 mg oral tablet TAKE 1 TABLET BY MOUTH EVERYDAY AT BEDTIME Start Date: 01/05/22 Status: OrderedTylenol 325 mg oral tablet 650 mg, 2, tablet, By Mouth, Every 6 hours, # 30 tablet, Refills 0, Tot. Refills 0, Acute 01/13/22 15:24:00 EST, 01/06/22 15:23:00 EST, Route to Pharmacy Electronically, [facility]/pharmacy #[id number], Partial fill upon patient request if the prescription is for... Start Date: 01/06/22 Stop Date: 01/13/22 Status: OrderedTylenol 325 mg oral tablet 975 mg, Tablet, By Mouth, 01/06/22 8:31:00 EST Start Date: 01/06/22 Stop Date: 01/06/22 Status: Completedvalsartan 320 mg oral tablet 1 tablet = 320 mg, By Mouth, Daily, # 90 tablet, 0 Refills, Maintenance, 01/05/22 21:30:00 EST, Tablet, Partial fill upon patient request if the prescription is for a schedule II opioid drug. Start Date: 01/05/22 Status: Ordered Problem List Condition Confirmation Course Effective Dates Status Health Stat us Informant Asthma Confirmed Active Diabetes mellitus Confirmed Active Hyperlipidemia Confirmed Active Hypertension Confirmed Active Results Radiology Reports Exam Date Time Procedure Performing Provider Status 01/05/22 4:[address] Lumbar Spine W/ Contrast Colon , Cyndee; Au th (Verified) Notes:(CT Lumbar Spine W/ Contrast) Reason For Exam: Spine fracture, lumbar, traumatic;Other:RESULT: CT Lumbar Spine W/ Contrast CT Abd/Pelvis W/ IV Contrast Only, CT Lumbar Spine W/ Contrast Hx of Present Illness: R back rib pain; Reason: Other:; RUQ abdomen; Clinical Question(s): Calculus;Order Comment: TECHNIQUE: Spiral CT through the abdomen and pelvis with IV contrast formatted in 3 planes. 100 cc of Omnipaque 300 was administered intravenously. This study was performed without oral contrast. Weight-based protocol using automatic tube modulation was used to optimize exposure parameters. CTDIvol Body: 12.00 mGy, DLP Body: 660 mGy*cm. COMPARISON: None. FINDINGS: Cardiac Cath Lab Technologist View Findings, Lines and Tubes: None. Visualized Chest: Acute pulmonary embolism in the right subsegmental arteries (coronal image 60 and axial images 1 and 5). Right pleural effusion with associated compressive atelectasis. Airless lung and bronchiectasis in the inferior left upper lobe. The heart is normal in size. No pericardial effusion. Diaphragm: Normal. Liver: Normal. Gallbladder: Absent consistent with prior cholecystectomy. Bile ducts: No biliary ductal dilation. Spleen: Normal. Pancreas: Normal. Adrenal glands: Normal. Kidneys and ureters: Bilateral renal cortical thinning. No hydronephrosis, stones, or suspicious masses. Bladder: Normal. Reproductive organs: Status post hysterectomy. Stomach, small bowel, and large bowel: Normal. Appendix: Normal. Peritoneum and retroperitoneum: No ascites or pneumoperitoneum. No omental or mesenteric lesions. Lymph nodes: No enlarged lymph nodes. Blood vessels: Moderate atherosclerotic vascular calcification. No aortic aneurysm. No evidence of venous thrombosis. Abdominal and pelvic wall: Unremarkable. Bones: Normal alignment of the lumbar spine. No acute fractures/dislocation. No spondylolysis or spondylolisthesis. Mild degenerative changes including degenerative disc disease at the levels of L1-L2 and L2-L3. IMPRESSION: Acute pulmonary embolism in the right subsegmental arteries. Right pleural effusion and probable atelectasis in the inferior left upper lobe. Bilateral renal cortical thinning. This result was communicated to Maria Teresa Lanier DO at 01/05/2022 4:31 PM. I have personally reviewed the images and I agree with this report. WSN: [id number] Ordering Physician: Maria Teresa Lanier Dictated By: Stanley Cho MD Dictated Date/Time: 01/05/22 5:21 pm Reviewed By: Nico Rivas MD Signed By: Nico Rivas MD Signed Date/Time: 01/05/22 5:26 pm Transcribed By: BECKY Transcribed Date/Time: 01/05/22 4:45 pm Exam Date Time Procedure Performing Provider Status 01/05/22 4:[address] Abd/Pelvis W/ IV Contrast Colon , Cyndee; A uth (Verified) Only Notes:(CT Abd/Pelvis W/ IV Contrast Only) Reason For Exam: RUQ abdomen;Other: RESULT: CT Abd/Pelvis W/ IV Contrast Only CT Abd/Pelvis W/ IV Contrast Only, CT Lumbar Spine W/ Contrast Hx of Present Illness: R back rib pain; Reason: Other:; RUQ abdomen; Clinical Question(s): Calculus;Order Comment: TECHNIQUE: Spiral CT through the abdomen and pelvis with IV contrast formatted in 3 planes. 100 cc of Omnipaque 300 was administered intravenously. This study was performed without oral contrast. Weight-based protocol using automatic tube modulation was used to optimize exposure parameters. CTDIvol Body: 12.00 mGy, DLP Body: 660 mGy*cm. COMPARISON: None. FINDINGS: Cardiac Cath Lab Technologist View Findings, Lines and Tubes: None. Visualized Chest: Acute pulmonary embolism in the right subsegmental arteries (coronal image 60 and axial images 1 and 5). Right pleural effusion with associated compressive atelectasis. Airless lung and bronchiectasis in the inferior left upper lobe. The heart is normal in size. No pericardial effusion. Diaphragm: Normal. Liver: Normal. Gallbladder: Absent consistent with prior cholecystectomy. Bile ducts: No biliary ductal dilation. Spleen: Normal. Pancreas: Normal. Adrenal glands: Normal. Kidneys and ureters: Bilateral renal cortical thinning. No hydronephrosis, stones, or suspicious masses. Bladder: Normal. Reproductive organs: Status post hysterectomy. Stomach, small bowel, and large bowel: Normal. Appendix: Normal. Peritoneum and retroperitoneum: No ascites or pneumoperitoneum. No omental or mesenteric lesions. Lymph nodes: No enlarged lymph nodes. Blood vessels: Moderate atherosclerotic vascular calcification. No aortic aneurysm. No evidence of venous thrombosis. Abdominal and pelvic wall: Unremarkable. Bones: Normal alignment of the lumbar spine. No acute fractures/dislocation. No spondylolysis or spondylolisthesis. Mild degenerative changes including degenerative disc disease at the levels of L1-L2 and L2-L3. IMPRESSION: Acute pulmonary embolism in the right subsegmental arteries. Right pleural effusion and probable atelectasis in the inferior left upper lobe. Bilateral renal cortical thinning. This result was communicated to Maria Teresa Lanier DO at 01/05/2022 4:31 PM. I have personally reviewed the images and I agree with this report. WSN: [id number] Ordering Physician: Maria Teresa Lanier Dictated By: Stanley Cho MD Dictated Date/Time: 01/05/22 5:21 pm Reviewed By: Nico Rivas MD Signed By: Nico Rivas MD Signed Date/Time: 01/05/22 5:26 pm Transcribed By: BECKY Transcribed Date/Time: 01/05/22 4:45 pm Exam Date Time Procedure Performing Provider Status 01/05/22 3:53 PM Chest 2 Views Frontal and Lat Cam Bazzi ; Harry (Verified) Notes:(Chest 2 Views Frontal and Lat) Reason For Exam: Chest Pain;Other:RESULT: Chest 2 Views Frontal and Lat Chest 2 Views Frontal and Lat HISTORY: Chest pain. COMPARISON: 07/13/2021. FINDINGS: LINES AND TUBES: None. LUNGS AND PLEURA: Persistent biapical pleural parenchymal scarring. Improved inferior lingular lobe consolidation, however mild persistent opacity. Trace bilateral pleural effusions. No pneumothorax. HEART, MEDIASTINUM AND EDYTA: Heart is normal in size. Aorta is mildly calcified. BONES AND SOFT TISSUES: No acute abnormality. Mild degenerative change at mid to lower thoracic spine. IMPRESSION: Trace bilateral pleural effusions. Mildly improved inferior lingular lobe consolidation, however mild persistent opacities. I have personally reviewed the images and I agree with this report. WSN: [id number] Ordering Physician: Adama Hernandez Dictated By: David Mcclure MD Dictated Date/Time: 01/05/22 4:13 pm Reviewed By: Dwayne Rojas MD, V Signed By: Dwayne Rojas MD, V Signed Date/Time: 01/05/22 4:18 pm Transcribed By: BECKY Transcribed Date/Time: 01/05/22 4:08 pm Vital Signs Most recent to oldest 1 2 3 [Reference Range]: Height 165 cm 165 cm (01/06/22 4:19 PM) (01/06/22 9:58 AM) Weight 59 kg (01/06/22 9:58 AM) Oxygen Saturation [94-100 100 % 99 % 99 % %] (01/06/22 4:19 PM) (01/06/22 9:58 AM) (01/06/22 9:01 AM) Pulse Rate [55-90 bpm] 79 bpm 77 bpm 81 bpm (01/06/22 4:19 PM) (01/06/22 9:58 AM) (01/06/22 9:44 AM) Body Mass Index 21.67 kg/m2 [18.5-24.99 kg/m2] (01/06/22 9:58 AM) Blood Pressure 118/61 mm Hg 154/77 mm Hg 142/80 mm Hg [90-138/55-84 mm Hg] (01/06/22 4:19 PM) *H* *H* (01/06/22 9:58 AM) (01/06/22 9:4 5 AM) Respiratory Rate [16-30 18 br/min 14 br/min 18 br/mi n br/min] (01/06/22 4:19 PM) *L* (01/06/22 9:5 8 AM) (01/06/22 10:44 AM) Temperature [96.8-100.4 97.4 DegF 97.6 DegF 97.6 Deg F DegF] (01/06/22 4:19 PM) (01/06/22 9:58 AM) (01/06/22 9:01 AM) Mode of Delivery (Oxygen) Room air Room air Room a ir (01/06/22 4:19 PM) (01/06/22 9:58 AM) (01/06/22 9:01 AM) Blood pressure sites Arm, left Arm, right Arm, right (01/06/22 4:19 PM) (01/06/22 9:58 AM) (01/06/22 9:01 AM) Temperature Route Oral Oral Oral (01/06/22 4:19 PM) (01/06/22 9:58 AM) (01/06/22 9:01 AM) Dry Weight 59 kg (01/06/22 9:58 AM) Weight Obtained Via Patient/family stated (01/06/22 9:58 AM) Dry Weight Obtained Via Patient/family stated (01/06/22 9:58 AM) Social History Social History Type Response Smoking Status Never (less than 100 in life time) entered on: 04/18/21 Sex History and physical note Gus Badillo MD: MODIFY, MODIFY, PERFORM Event Display: History and Physical Hospital Authored Date: [id number] Patient: ??GOMEZ NOLASCO ? Age:??81 Years?Sex:??Female?:??1940?? Chief Complaint/Reason for Consultation Pt is ghanaian speaking, coming from home c/o right sided flank pain since last night, denies any fever, no N/V. Pt called granddaughter crying in pain. Pt is able to stand and pivot for EMS.Pt also c/o chest pain History of Present Illness ?? 81-year-old female with a past medical history of hyperlipidemia, hypertension, diabetes mellitus who is Turkish-speaking female so information is obtained with the help of commission associate. ??She did come with a complaint of right flank pain from last 2 days. ??It was pleuritic pain getting worse 10/10 grade with a deep breath. ??She denied any fever, chills, dysuria, hematuria, diarrhea, constipation, abdominal pain. ? Complaint of some pressure-like chest discomfort lasted for 1 hour. ??Recently she was diagnosed COVID-19 infection and she was treated with Paxlovid. ??Complaint of mild shortness of breath. ?? Denies any calf tenderness, immobility, long drive, long flight.She is up-to-date with her mammogram, colonoscopy, Pap smear and as per her everything was normal. ? Chest x-ray showed minimal bilateral pleural effusion. ??CT lumbar spine was negative for any acutepathology. ??CT of the abdomen and pelvis was concerning of acute pulmonary embolism in the right subsegmental arteries. ??Lab work-up showed chronic anemia with negative troponin. ??She denied any blood in the stool. ? EKG showed normal sinus rhythm with occasional PVCs. ??She was given therapeutic dose of the Lovenox and admitted for further management. ??During my examination she was feeling much better but still have ongoing pleuritic kind of chest pain with deep breath. ? Review of Systems History of on and off dry cough but denied any fever, chills, nausea, vomiting, diarrhea, lightheadedness, dizziness. ??Denied any exertional anginal symptoms at her baseline. ??No history of any dysuria, hematuria. ??Otherwise all other review of system are obtained from the patient and are negativefor except as mentioned above. Objective Vital Signs?? Temperature: 98.7 DegF (01/05/22 21:47:00) Temperature Route: Oral (01/05/22:47:00) Pulse Rate: 72 bpm (01/05/22 21:47:00) Respiratory Rate: 18 br/min (01/05/22:47:00) Systolic Blood Pressure:??157 mm Hg??High (01/05/22:47:00) Diastolic Blood Pressure: 70 mm Hg (01/05/22:47:00) Blood pressure sites: Arm, left (01/05/22:47:00) Mean Arterial Pressure: 121 mm Hg (01/05/22 12:52:00) Pulse Pressure: 93 mm Hg (01/05/22 12:52:00) Oxygen Saturation: 96 % (01/05/22:47:00) Mode of Delivery (Oxygen): Room air (01/05/22:47:00) Early Warning Score: 3 (01/05/22:50:52) ? Physical Exam General Appearance: Moderately nourished, not in any apparent distress, alert, awake and oriented x3. Skin: No rash. ??Warm, dry, pink, no pallor, intact. Eye: ??Normal conjunctiva.?? HEENT: No JVP. ??Moist mucous membrane. Heart: ??S1, S2. ??Grade??1 systolic murmur??in the aortic area. ?On palpation of the right sideof the chest patient have significant tenderness. Respiratory: ??Clear to auscultation, no rhonchi, no wheezing, no crackles. GI: ??Abdomen is soft, nontender, nondistended. ??Bowel sounds are positive. ??No organomegaly. ??Right flank tenderness positive. Neurologic: ??Nonfocal neurological examination. ??Cranial nerves II through XII normal. ??Deep tendon reflexes normal. Extremities: ??No calf tenderness, no clubbing, no edema. Psychiatric: ??Appropriate affect. Musculoskeletal: Moving all extremities. Lymphatic system: No cervical lymphadenopathy. Assessment/Plan ? 81-year-old female with a past medical history of hyperlipidemia, hypertension, diabetes mellitus with a complaint of right-sided pleuritic kind of chest pain found to have right subsegmental pulmonary embolism. ?? Acute pulmonary embolism in the right subsegmental arteries. Pleuritic right-sided chest pain. Recent COVID-19 infection Patient is hemodynamically stable. ??No documented hypoxia. ??No concern of right heart strain. ??We will continue to monitor her in the telemetry unit. ??Right-sided chest discomfort is most likely due to PE. ??We will continue with the Lovenox and will have her transition to Eliquis in the morning time. ??Most likely patient have provoked pulmonary embolism due to recent COVID-19 infection. ??She is up-to-date with her mammogram, colonoscopy, Pap smear and as per her everything was normal.?? We will hold for echocardiogram now because it is not going to change the management. Diabetes mellitus type 2 [id number] Will continue to hold metformin and will continue insulin lispro sliding scale as per POC. Hyperlipidemia Depression Will continue with the mirtazapine, Crestor, amlodipine, metoprolol and Diovan. ??Will hold hydrochlorothiazide while in the hospital. ??At the time of discharge she can continue the combination of hydrochlorothiazide/valsartan. DVT prophylaxis. Patient is on therapeutic dose of Lovenox. ?? CODE STATUS: Full code. Disposition: To home in the morning time on Eliquis. ??Plan I discussed with her daughter. Disclaimer: ??This note ??was accomplished with use of [employer] voice recognition software, which is prone to medical and other word misidentifications and grammatical errors. ??The physician does strive to identify and correct these, but some could still be present. ??Please do not hesitate to contactthe physician for clarifications . ? Histories Allergies Allergies ?(Active and Proposed Allergies Only) hydrochlorothiazide? (Severity: Unknown severity, Onset: Unknown) Lipitor? (Severity: Unknown severity, Onset: Unknown) lisinopril? (Severity: Unknown severity, Onset: Unknown) Macrobid? (Severity: Unknown severity, Onset: Unknown) ?Reactions: Lisinopril adverse reaction ? Past Medical History/Problem List Recent COVID-19 infection Asthma Diabetes mellitus Hyperlipidemia Hypertension ? Past Surgical History Cholecystectomy Hysterectomy ?? Social History Alcohol Details:??Use: Never. Substance Abuse Details:??Use: Never. Tobacco Details:??Use: Never (less than 100 in lifetime). Electronic Cigarette/Vaping Details:??Electronic Cigarette Use: Never. ? Family History Mother: Diabetes mellitus ? Medications Home Medications Albuterol (Albuterol (Eqv-ProAir HFA) 90 mcg/inh inhalation aerosol)?INHALE 2 PUFFS BY MOUTH 4 TIMES A DAY Amlodipine (amLODIPine 2.5 mg oral tablet)?1?tab(s)?2.5?Milligram?By Mouth?Daily Hydrochlorothiazide-Valsartan (hydrochlorothiazide-valsartan 25 mg-320 mg oral tablet)?1?tab(s)?By Mouth?Daily Metformin (metFORMIN 850 mg oral tablet)?1?tab(s)?850?Milligram?By Mouth?2 times a day Metoprolol (Metoprolol Succinate ER 100 mg oral tablet, extended release)?1?tab(s)?100?Milligram?By Mouth?Daily Mirtazapine (mirtazapine 7.5 mg oral tablet)?TAKE 1 TABLET BY MOUTH EVERYDAY AT BEDTIME Rosuvastatin (Crestor 20 mg oral tablet)?1?tab(s)?20?Milligram?By Mouth?Daily Valsartan (valsartan 320 mg oral tablet)?1?tab(s)?320?Milligram?By Mouth?Daily ? Results Recent Labs BLOOD COUNT & DIFF WBC 7.9 k/mm3 ()?? 01/05/2022 13:42 RBC 4.24 m/mm3 ()?? 01/05/2022 13:42 Hgb 10.8 Gm/dL (Low)?? 01/05/2022 13:42 Hct 33.9 % (Low)?? 01/05/2022 13:42 MCV 80.0 femtoliters ()?? 01/05/2022 13:42 MCH 25.5 pg (Low)?? 01/05/2022 13:42 MCHC 31.9 g/dL (Low)?? 01/05/2022 13:42 Platelet Count 82 k/mm3 (Low)?? 01/05/2022 13:42 RDW-SD 43.9 femtoliters ()?? 01/05/2022 13:42 MPV 12.3 femtoliters ()?? 01/05/2022 13:42 Nucleated RBC (Automated) 0.0 #/100 WBC'S ()?? 01/05/2022 13:42 Abs. NRBC 0.0 k/mm3 ()?? 01/05/2022 13:42 Abs. Neut 6.0 k/mm3 ()?? 01/05/2022 13:42 Abs. Lymph 1.2 k/mm3 ()?? 01/05/2022 13:42 Abs. [place] 0.6 k/mm3 ()?? 01/05/2022 13:42 Abs. Eo 0.1 k/mm3 ()?? 01/05/2022 13:42 Abs. Baso 0.0 k/mm3 ()?? 01/05/2022 13:42 Neut % 75.5 % ()?? 01/05/2022 13:42 Lymph % 15.1 % ()?? 01/05/2022 13:42 [place] % 7.8 % ()?? 01/05/2022 13:42 Eos % 0.6 % ()?? 01/05/2022 13:42 Baso % 0.5 % ()?? 01/05/2022 13:42 Platelet Estimate DECREASED ()?? 01/05/2022 13:42 Imm Gran 0.5 % ()?? 01/05/2022 13:42 Abs. Imm Gran 0.0 k/mm3 ()?? 01/05/2022 13:42 ?? CARDIAC Nt-Probnp 569 pg/mL (High)?? 01/05/2022 13:42 High Sensitivity Troponin (HSTnT) 8 ng/L ()?? 01/05/2022 13:42 ?? CHEM GENERAL Sodium 140 mmol/L ()?? 01/05/2022 13:42 Potassium 4.1 mmol/L ()?? 01/05/2022 13:42 Chloride 101 mmol/L ()?? 01/05/2022 13:42 Bicarbonate Level 28 mmol/L ()?? 01/05/2022 13:42 Anion Gap 11 ()?? 01/05/2022 13:42 Glucose Level 133 mg/dL (High)?? 01/05/2022 13:42 Glucose, POC 126 mg/dL (High)?? 01/05/2022 13:01 BUN 15 mg/dL ()?? 01/05/2022 13:42 Creatinine-Blood 0.8 mg/dL ()?? 01/05/2022 13:42 Estimated GFR Creatinine 80 ML/MIN/1.73 M2 ()?? 01/05/2022 13:42 Calcium 9.4 mg/dL ()?? 01/05/2022 13:42 ?? HEME OTHER Hold Blue Top SPECIMEN DISCARDED AFTER 4 HOURS. ()?? 01/05/2022 13:42 ?? UA/URINALYSIS Appear/Color, Urine COLORLESS ()?? 01/05/2022 17:00 Specific [place], Urine 1.036 (High)?? 01/05/2022 17:00 pH, Urine 7.5 ()?? 01/05/2022 17:00 Albumin, Urine 1+ (Abnormal)?? 01/05/2022 17:00 Glucose, Urine NEGATIVE ()?? 01/05/2022 17:00 Ketones, Urine NEGATIVE ()?? 01/05/2022 17:00 Bilirubin, Urine NEGATIVE ()?? 01/05/2022 17:00 Hemoglobin, Urine NEGATIVE ()?? 01/05/2022 17:00 Nitrite, Urine NEGATIVE ()?? 01/05/2022 17:00 Leukocyte, Urine NEGATIVE ()?? 01/05/2022 17:00 Urobilinogen NORMAL mg/dL ()?? 01/05/2022 17:00 WBC's, Urine 2 /HPF ()?? 01/05/2022 17:00 RBC's, Urine 1 /HPF ()?? 01/05/2022 17:00 Squamous Epith 3 /HPF ()?? 01/05/2022 17:00 Hold Urine Culture Testing available 48 hours from time of collection. ()?? 01/05/2022 17:00 ?? VIROLOGY Influenza A PCR NEGATIVE ()?? 01/05/2022 16:22 Influenza B PCR NEGATIVE ()?? 01/05/2022 16:22 RSV PCR NEGATIVE ()?? 01/05/2022 16:22 COVID-19 PCR Specimen Source NASAL ()?? 01/05/2022 16:22 COVID-19 PCR Result NEGATIVE ()?? 01/05/2022 16:[address] ? [address] of the abdomen and pelvis:IMPRESSION:? Acute pulmonary embolism in the right subsegmental arteries. Right pleural effusion and probable atelectasis in the inferior left upper lobe. Bilateral renal cortical thinning. Hospital Progress note Mattie Amador RN: PERFORM, SIGN, VERIFY Event Display: Progress Note Hospital Authored Date: Patient: GOMEZ NOLASCO Age: 81 years Sex: Female : 1940 Associated Diagnoses: None Author: Mattie Amador RN Findings Narrative/Incidental Patient transferred to pending discharge;report given to Margoth Cuevas. Discharge Information Rehabilitation Discharge : Rehab Discharge Index 01/06/2022 8:31 EST Comments on treatment indicated 81 F admitted 2' right-sided pleuritic kind of chest pain found to have right subsegmental PE. WBAT. Skilled PT for amb c RW, transfers, strength, balance, safety. Rec home c services Walker: distance >50 Distance pt will ambulate > 100 feet c LRAD Full chart review completed Yes Other findings see comment Plan of care PT Gait training, Transfer training, Therapeutic exercise, Functional Activities, Balance training, Neuromuscular educationMattie Amador RN: PERFORM, SIGN, VERIFY Event Display: Progress Note Hospital Authored Date: Patient: GOMEZ NOLASCO Age: 81 years Sex: Female : 1940 Associated Diagnoses: None Author: Mattie Amador RN Findings Nursing Data Vital Signs : VITAL SIGNS SECTION 01/06/2022 9:58 EST Temperature 97.6 DegF Temperature Route Oral Pulse Rate 77 bpm Respiratory Rate 18 br/min Systolic Blood Pressure 154 mm Hg H Diastolic Blood Pressure 77 mm Hg Blood pressure sites Arm, right Mean Arterial Pressure 103 mm Hg Pulse Pressure 77 mm Hg Oxygen Saturation 99 % Mode of Delivery (Oxygen) Room air . Narrative/Incidental Patient admitted to unit from ED; A/O, ghanaian speaking; use of stratus for admssion. Oriented to room, bed function and call light; safety measures in place and call light within reach. . Discharge Information Rehabilitation Discharge : Rehab Discharge Index 01/06/2022 8:31 EST Comments on treatment indicated 81 F admitted 2' right-sided pleuritic kind of chest pain found to have right subsegmental PE. WBAT. Skilled PT for amb c RW, transfers, strength, balance, safety. Rec home c services Walker: distance >50 Distance pt will ambulate > 100 feet c LRAD Full chart review completed Yes Other findings see comment Plan of care PT Gait training, Transfer training, Therapeutic exercise, Functional Activities, Balance training, Neuromuscular educationCa Lopez RN: PERFORM, SIGN, VERIFY Event Display: Progress Note Hospital Authored Date: Patient: GOMEZ NOLASCO Age: 81 years Sex: Female : 1940 Associated Diagnoses: None Author: Ca Lopez RN Findings Evaluation Patient is alert and oriented she is primarily ghanaian speaking .Pt complains of pain to her upper mid back to the right side. MD made aware lidocaine patch applied and tylenol given results pending.Ptlung sounds are clear she is stand by assist out of bed she is ambulatory and continent of urine. Ptskin is intact she moves all extremities moderate strength equal .Call [facility] bed alarm on .Will continue to monitor at this time.. Note Jojo Huff RN: PERFORM Event Display: Discharge/Transfer Note Hospital Authored Date: Nursing Discharge Note Entered On: 01/06/2022 17:27 EST Performed On: 01/06/2022 17:26 EST by Jojo Huff RN Nursing Discharge Note 2 Discharge Time : 01/06/2022 18:02 EST Jojo Huff RN - 01/06/2022 18:02 EST Discharge Level of Care at Discharge : Home/Shelter/Foster Care Patient Left Unit Via : Wheelchair Patient Accompanied Off Unit with : Responsible adult DC Instructions Provided & Signed by Pt : Yes Jojo Huff RN - 01/06/2022 17:32 EST Patient Understands D/C Instructions : Yes Jojo Huff RN - 01/06/2022 17:26 EST Verbalized Understanding of D/C Plan By : Family, Patient Patient Instructions Discharge Signed : Yes Jojo Huff RN - 01/06/2022 17:32 EST Did Pt have Specialty Bed or Wound Vac : Yes Jojo Huff RN - 01/06/2022 17:26 ESTBradley EVANS, Noor: PERFORM Event Display: Discharge/Transfer Note Hospital Authored Date: Patient: ??GOMEZ NOLASCO ? Age:??81 Years?Sex:??Female?:??1940?? Patient Information Discharge Location: Primary Care Physician: Not on Staff, PCP Admit Date/Time: 01/05/22 17:43 Discharge Disposition Discharge Disposition: Home with Home Health Discharge Diagnosis Pulmonary embolism (I26.99) ?? _ Discharge Medications Acetaminophen (Tylenol 325 mg oral tablet)?650?Milligram?2?tablet?By Mouth?Every 6hours Albuterol (Albuterol (Eqv-ProAir HFA) 90 mcg/inh inhalation aerosol)?INHALE 2 PUFFS BY MOUTH 4 TIMES A DAY Amlodipine (amLODIPine 2.5 mg oral tablet)?1?tab(s)?2.5?Milligram?By Mouth?Daily apixaban (apixaban Starter Pack 5 mg oral tablet)?2?tab(s)?10?Milligram?By Mouth?2times a day?for 7?Days?take from 01/06 to 01/12. apixaban (apixaban Starter Pack 5 mg oral tablet)?1?tab(s)?5?Milligram?By Mouth?2 times a day?for 83?Days?take from 01/13 . for total 3 months ( last day 04/09/22) Hydrochlorothiazide-Valsartan (hydrochlorothiazide-valsartan 25 mg-320 mg oral tablet)?1?tab(s)?By Mouth?Daily Metformin (metFORMIN 850 mg oral tablet)?1?tab(s)?850?Milligram?By Mouth?2 times aday Metoprolol (Metoprolol Succinate ER 100 mg oral tablet, extended release)?1?tab(s)?100?Milligram?By Mouth?Daily Mirtazapine (mirtazapine 7.5 mg oral tablet)?TAKE 1 TABLET BY MOUTH EVERYDAY AT BEDTIME Rosuvastatin (Crestor 20 mg oral tablet)?1?tab(s)?20?Milligram?By Mouth?Daily Valsartan (valsartan 320 mg oral tablet)?1?tab(s)?320?Milligram?By Mouth?Daily ? Medications Started Eliquis starter pack??for acute PE for 3 months Allergies Allergies ?(Active and Proposed Allergies Only) hydrochlorothiazide? (Severity: Unknown severity, Onset: Unknown) Lipitor? (Severity: Unknown severity, Onset: Unknown) lisinopril? (Severity: Unknown severity, Onset: Unknown) Macrobid? (Severity: Unknown severity, Onset: Unknown) ?Reactions: Lisinopril adverse reaction ? PCP Follow-Up/Heads-Up Follow-up for PE Future Appointments Tuesday 11:00 AM EST ?? With: Cortez EVANS, Lois Cortes Where: [facility] [address] [place] [address]- Hospital Course 81-year-old female with a past medical history of hyperlipidemia, hypertension, diabetes mellitus with a complaint of right-sided pleuritic kind of chest pain found to have right subsegmental pulmonaryembolism??on CTA chest.?Patient has had recent COVID-19 infection. Patient is hemodynamically stable. No documented hypoxia. No concern of right heart strain.??Right-sided chest discomfort is most likely due to PE.??She was started on therapeutic dose of Lovenox??which is now being transitioned to Eliquis??.?I confirmed with??pharmacy??she has 0 co-pay for Eliquis.?held echocardiogram now because it is not going to change the management. Currently patient is hemodynamically stable her pain is controlled.??Labs??unremarkable,??PT recommended home with [facility]??has patient is being discharged home with following recommendations. ?? -Her Pulmonary elbolism??seems to be provoked in the setting of recent COVID infection.??She will need to be on anticoagulation for at least 3 months -Take Eliquis??10 mg??twice daily starting from tonight??after discharge.??And take it for total 7 days. -After 7 days:??Start taking 5 mg??Eliquis twice daily??for total of 3 months. -Meanwhile follow-up with your primary care physician??for follow-up. -Continue taking rest of home medications as before ?? Objective Assessment and Plan Assessment:? Acute pulmonary embolism in the right subsegmental arteries. Pleuritic right-sided chest pain. Recent COVID-19 infection Patient is hemodynamically stable. No documented hypoxia. No concern of right heart strain. We will continue to monitor her in the telemetry unit. Right-sided chest discomfort is most likely due to PE.We will continue with the Lovenox and will have her transition to Eliquis in the morning time. Most likely patient have provoked pulmonary embolism due to recent COVID-19 infection. She is up-to-date with her mammogram, colonoscopy, Pap smear and as per her everything was normal. We will hold for echocardiogram now because it is not going to change the management. ?? Diabetes mellitus type 2 [id number] Hyperlipidemia Depression Will continue with the mirtazapine, Crestor, amlodipine, metoprolol and Diovan.? Vital Signs?? Temperature: 97.6 DegF (01/06/22 09:58:00) Temperature Route: Oral (01/06/22 09:58:00) Pulse Rate: 77 bpm (01/06/22 09:58:00) Respiratory Rate:??14 br/min??Low (01/06/22 10:44:00) Systolic Blood Pressure:??154 mm Hg??High (01/06/22 09:58:00) Diastolic Blood Pressure: 77 mm Hg (01/06/22 09:58:00) Blood pressure sites: Arm, right (01/06/22 09:58:00) Mean Arterial Pressure: 103 mm Hg (01/06/22 09:58:00) Pulse Pressure: 77 mm Hg (01/06/22 09:58:00) Oxygen Saturation: 99 % (01/06/22 09:58:00) Mode of Delivery (Oxygen): Room air (01/06/22 09:58:00) Early Warning Score: 2 (01/06/22 13:37:40) ? . Physical Exam Heart: ??S1, S2. ??Grade??1 systolic murmur??in the aortic area.? Respiratory: ??Clear to auscultation, no rhonchi, no wheezing, no crackles. GI: ??Abdomen is soft, nontender, nondistended. ??Bowel sounds are positive. Pending Results No Pending Results Follow-Up Appointments Added Follow Up ?Time Frame ?Comments Not on Staff, PCP?1 to 2 weeks Patient Instructions -Her Pulmonary elbolism??seems to be provoked in the setting of recent COVID infection. She will need to be on anticoagulation for at least 3 months -Take Eliquis 10 mg twice daily starting from tonight after discharge. And take it for total 7 days. -After 7 days: Start taking 5 mg Eliquis twice daily for total of 3 months. -Meanwhile follow-up with your primary care physician for follow-up. -Continue taking rest of home medications as before Post Discharge Care Diet: Diabetic Diet Code Status: ?? Full Resuscitation Condition: ?? Fair Prognosis: Fair Discharge ?01/06/22 15:09:00 EST Discharge Prescriptions ?ePrescribed, ??01/06/22 15:09:00 EST Home Health Face to Face *Denotes mandatory bertrand ?? *I certify that this patient is under my care and that I or an allowed non- physician working with jarethd a face to face encounter with the patient on this date:??01/06/2022 15:30 ?? *The encounter with the patient was in whole, or in part, for the following medical condition, whichis the primary diagnosis(es) for home health care:??Pulmonary embolism (I26.99) ? *Select the indications for the discipline/s that are being arranged for this patient. Nursing (select all that apply): [_] None [_x] Medication management (reconciliation, teaching)?? [_x] Chronic disease management?? [_] Wound care and treatment?? [_] Home safety evaluation [_] Administer SQ/IM/IV medications?? [_] Cath care?? [_] Drain care?? [_] Trach or GT care?? Other _ Occupation Therapy (select all that apply): [_] None [_] ADL Management [_] Fall prevention training [_] Energy conservation [_] Cognitive training Other _ Physical Therapy (select all that apply): [_] None [x_] Functional mobility training [x_] Home exercise program to strengthen [x_] Increase ROM?? [_] Falls prevention training [_] Home maintenance program for chronic disease Other _ Speech Therapy (select all that apply): [_] None [_] Swallow evaluation and training [_] Speech and language training [_] Cognitive training to process, organize, and/or recall information Other _ ? *Homebound due to (select all that apply): [_] Inability to leave home without assistance/supervision [_] Inability to ambulate without assistance [_] Pain [x_] Decreased strength and endurance [x_] Unsteady gait [_] Severe SOB and fatigue [_] Impaired transfers [_] Inability to negotiate stairs [_] Limited weight bearing [_] Mental status change? *Physician Signature: _ reynaldo huerta ?? *By signing this, I certify that I have personally evaluated the patient and agree with the findingsand recommendations as documented above. ? Results Discharge Labs BLOOD COUNT & DIFF WBC 7.1 k/mm3 ()?? 01/06/2022 08:21 RBC 4.67 m/mm3 ()?? 01/06/2022 08:21 Hgb 11.7 Gm/dL ()?? 01/06/2022 08:21 Hct 37.2 % ()?? 01/06/2022 08:21 MCV 79.7 femtoliters (Low)?? 01/06/2022 08:21 MCH 25.1 pg (Low)?? 01/06/2022 08:21 MCHC 31.5 g/dL (Low)?? 01/06/2022 08:21 Platelet Count 193 k/mm3 ()?? 01/06/2022 08:21 RDW-SD 44.1 femtoliters ()?? 01/06/2022 08:21 MPV 11.8 femtoliters ()?? 01/06/2022 08:21 Nucleated RBC (Automated) 0.0 #/100 WBC'S ()?? 01/06/2022 08:21 Abs. NRBC 0.0 k/mm3 ()?? 01/06/2022 08:21 Abs. Neut 4.7 k/mm3 ()?? 01/06/2022 08:21 Abs. Lymph 1.5 k/mm3 ()?? 01/06/2022 08:21 Abs. [place] 0.7 k/mm3 ()?? 01/06/2022 08:21 Abs. Eo 0.2 k/mm3 ()?? 01/06/2022 08:21 Abs. Baso 0.1 k/mm3 ()?? 01/06/2022 08:21 Neut % 65.8 % ()?? 01/06/2022 08:21 Lymph % 21.0 % ()?? 01/06/2022 08:21 [place] % 9.5 % ()?? 01/06/2022 08:21 Eos % 2.7 % ()?? 01/06/2022 08:21 Baso % 0.7 % ()?? 01/06/2022 08:21 Platelet Estimate DECREASED ()?? 01/05/2022 13:42 Imm Gran 0.3 % ()?? 01/06/2022 08:21 Abs. Imm Gran 0.0 k/mm3 ()?? 01/06/2022 08:21 ? CARDIAC Nt-Probnp 569 pg/mL (High)?? 01/05/2022 13:42 High Sensitivity Troponin (HSTnT) 10 ng/L ()?? 01/06/2022 02:08 ?? CHEM GENERAL Sodium 141 mmol/L ()?? 01/06/2022 08:21 Potassium 3.9 mmol/L ()?? 01/06/2022 08:21 Chloride 102 mmol/L ()?? 01/06/2022 08:21 Bicarbonate Level 30 mmol/L (High)?? 01/06/2022 08:21 Anion Gap 9 ()?? 01/06/2022 08:21 Glucose Level 133 mg/dL (High)?? 01/05/2022 13:42 Glucose, POC 113 mg/dL (High)?? 01/06/2022 12:24 BUN 14 mg/dL ()?? 01/06/2022 08:21 Creatinine-Blood 0.7 mg/dL ()?? 01/06/2022 08:21 Estimated GFR Creatinine 87 ML/MIN/1.73 M2 ()?? 01/06/2022 08:21 Calcium 9.4 mg/dL ()?? 01/05/2022 13:42 ? HEME OTHER Hold Blue Top SPECIMEN DISCARDED AFTER 4 HOURS. ()?? 01/05/2022 13:42 ? UA/URINALYSIS Appear/Color, Urine COLORLESS ()?? 01/05/2022 17:00 Specific [place], Urine 1.036 (High)?? 01/05/2022 17:00 pH, Urine 7.5 ()?? 01/05/2022 17:00 Albumin, Urine 1+ (Abnormal)?? 01/05/2022 17:00 Glucose, Urine NEGATIVE ()?? 01/05/2022 17:00 Ketones, Urine NEGATIVE ()?? 01/05/2022 17:00 Bilirubin, Urine NEGATIVE ()?? 01/05/2022 17:00 Hemoglobin, Urine NEGATIVE ()?? 01/05/2022 17:00 Nitrite, Urine NEGATIVE ()?? 01/05/2022 17:00 Leukocyte, Urine NEGATIVE ()?? 01/05/2022 17:00 Urobilinogen NORMAL mg/dL ()?? 01/05/2022 17:00 WBC's, Urine 2 /HPF ()?? 01/05/2022 17:00 RBC's, Urine 1 /HPF ()?? 01/05/2022 17:00 Squamous Epith 3 /HPF ()?? 01/05/2022 17:00 Hold Urine Culture Testing available 48 hours from time of collection. ()?? 01/05/2022 17:00 ? VIROLOGY Influenza A PCR NEGATIVE ()?? 01/05/2022 16:22 Influenza B PCR NEGATIVE ()?? 01/05/2022 16:22 RSV PCR NEGATIVE ()?? 01/05/2022 16:22 COVID-19 PCR Specimen Source NASAL ()?? 01/05/2022 16:22 COVID-19 PCR Result NEGATIVE ()?? 01/05/2022 16:22 ? 25 ??minutes spent on discharge Jojo Huff RN: PERFORM Event Display: Patient Education/Instruction Authored Date: [id number] Inpatient Adult Discharge Instructions [address] [address] Name: GOMEZ NOLASCO : 1940 Visit: 01/05/2022 17:43:00 Current Date: 01/06/2022 17:22 Account: [id number] Inpatient Adult Discharge Instructions We would like to thank you for allowing us to assist you with your healthcare needs. The following includes patient education materials and information regarding your injury/illness. Our entire staff strives to provide an excellent experience for our patients and their families. PLEASE ENSURE YOU FOLLOW-UP PER THE INSTRUCTIONS BELOW! ?? YOUR OPINION IS IMPORTANT TO US! Please complete the survey you may receive by mail or email. Your feedback will be used to make improvements to the healthcare experiences of our patients and their families. Surveys are administered by [employer] ?? If further treatment with your primary care physician or another doctor is recommended, it is important for you to keep the appointment. Call your primary care physician or return to the Emergency Department immediately if your condition worsens, fails to improve, or new symptoms develop. If you need to find a doctor, you can call [facility] [employer] for a referral at [phone] or toll free at [phone] ([phone]) or log in to [email or web address].. ?? You can view and manage your care through the patient portal or by using a health care taurus of your choosing. [employer] is a website that allows you to securely view your medical information including your hospital discharge summary, office visit summaries, medications and follow-up visits. You can also request appointments, renew medications, and request access to your medical information using a health care taurus of your choosing, or just ask a question. You can enroll at [email or web address] or register during your next office visit. You have been discharged from [facility], Patient Care Unit: S3. If you have any questions regarding these instructions after you leave, please call us and we will be happy to assist you. [facility] Your Care Team Attending Physician Bradley EVANS, Reynaldo Discharging Providers Lou Huerta MDor Reason for Admission Pt is ghanaian speaking, coming from home c/o right sided flank pain since last night, denies any fever, no N/V. Pt called granddaughter crying in pain. Pt is able to stand and pivot for EMS.Pt also c/o chest pain Your Diagnosis Pulmonary embolism Tests Performed Below is a partial list of the tests performed during your hospitalization. You may have had other tests and procedures not included in this list. Please discuss all test results with your provider. B Type Natriuretic Peptide Basic Metabolic Panel BUN CBC w/ Differential COVID-19, RSV, and Flu A/B, Rapid PCR Creatinine Electrolytes GLUCOSE POC High??Sensitivity??Troponin T Hold Blue Top Tube Troponin T, High Sensitivity Urinalysis w/hold for Urine Culture CT Abd/Pelvis W/ IV Contrast Only CT Lumbar Spine W/ Contrast XR Chest 2 Views Frontal and Lat Primary Care Provider Not on Staff, PCP Advance Directive Health Care Proxy on File Yes - Health Care Proxy No qualifying data available. Discharge Vitals Temperature: 97.4 DegF Height: 165 cm Pulse Rate: 79 bpm Weight: 59 kg Respiratory Rate: 18 br/min Body Mass Index: 21.67 kg/m2 Systolic Blood Pressure: 118 mm Hg Body surface area: 1.64 Diastolic Blood Pressure: 61 mm Hg ?? Oxygen Saturation: 100 % ?? Studies Pending All tests and labs ordered during this hospital stay have been completed unless listed below. Pleasediscuss all pending results with your provider listed above in these instructions. ?? No incomplete studies found What to do next Instructions From Your Doctor -Her Pulmonary elbolism??seems to be provoked in the setting of recent COVID infection. She will need to be on anticoagulation for at least 3 months -Take Eliquis 10 mg twice daily starting from tonight after discharge. And take it for total 7 days. -After 7 days: Start taking 5 mg Eliquis twice daily for total of 3 months. -Meanwhile follow-up with your primary care physician for follow-up. -Continue taking rest of home medications as before Discharge Orders Diet:??Diabetic Diet Code Status:?? Full Resuscitation Condition:?? Fair Prognosis:??Fair Scheduled Follow-Up Appointments Tuesday 11:00 AM EST ?? With: Cortez EVANS, Lois Cortes Where: [facility] [address] [place] [address]- You Need to Schedule the Following Appointments Follow Up with??Not on Staff, PCP When??Within 1 to 2 weeks Where: Discharge Medications CONSTANCEGOMEZ :1940 Visit Date:01/05/2022 Medications: Please continue your medications until treatment is completed or stopped by your provider. Medications not listed below should be discontinued. Discuss any questions related to medications with your provider. What How Much When Instructions Next Dose New Acetaminophen (Tylenol 325 mg oral tablet) 2 tab(s) Oral Every 6 hours Pickup at [facility]/pharmacy #[id number] New apixaban (apixaban Starter Pack 5 mg oral tablet) 2 tab(s) Oral Twice a day Duration: 7 Days take from to 01/12. ?? Pickup at [facility]/pharmacy #[id number] 01/06?? PM New apixaban (apixaban Starter Pack 5 mg oral tablet) 1 tab(s) Oral Twice a day Duration: 83 Days Refills: 2 take from 01/13 . for total 3 months ( last day ) ?? Pickup at [facility]/pharmacy #[id number] start 01/13 Changed Valsartan (valsartan 320 mg oral tablet) 1 tab(s) Oral Daily as prescribed Unchanged Albuterol (Albuterol (Eqv-ProAir HFA) 90 mcg/ inh inhalation aerosol) INHALE 2 PUFFS BY MOUTH 4 TIMES A DAY ?? as prescribed Unchanged Amlodipine (amLODIPine 2.5 mg oral tablet) 1 tab(s) Oral Daily 01/07?? AM Unchanged Hydrochlorothiazide-Valsartan (hydrochlorothiazide-valsartan 25 mg- 320 mg oral tablet) 1 tab(s) Oral Daily as prescribed Unchanged Metformin (metFORMIN 850 mg oral tablet) 1 tab(s) Oral Twice a day as prescribed Unchanged Metoprolol (Metoprolol Succinate ER 100 mg oral tablet, extended release) 1 tab(s) Oral Daily 01/07?? AM Unchanged Mirtazapine (mirtazapine 7.5 mg oral tablet) TAKE 1 TABLET BY MOUTH EVERYDAY AT BEDTIME ?? 01/07?? PM Unchanged Rosuvastatin (Crestor 20 mg oral tablet) 1 tab(s) Oral Daily 01/07?? PM Pharmacy Information [facility]/pharmacy #[id number]: [address] [place] [address] [phone] ?? What How Much When Comments Stop Taking Lidocaine Topical (lidocaine 4% topical film) 1 patch(es) Topically Twice a day Stop Taking Lidocaine Topical (lidocaine 5% topical film) 1 patch(es) Topically Daily as needed for Pain , Mild remove after 12 hours ?? Test Results Below is a partial list of the most recent Laboratory test results done prior to this discharge. You may have had other tests and procedures not included in this list. Please discuss all test results with your provider. B Type Natriuretic Peptide (01/05/2022) ???Nt-Probnp - 569 pg/mL Basic Metabolic Panel (01/05/2022) ???Sodium - 140 mmol/L???Potassium - 4.1 mmol/L???Chloride - 101 mmol/L???Bicarbonate Level - 28 mmol/L???Anion Gap - 11???Glucose Level - 133 mg/dL???BUN - 15 mg/dL???Creatinine-Blood - 0.8 mg/dL???Estimated GFR Creatinine - 80 ML/MIN/1.73 M2???Calcium - 9.4 mg/dL BUN (01/06/2022) ???BUN - 14 mg/dL CBC w/ Differential (01/06/2022) ???WBC - 7.1 k/mm3???RBC - 4.67 m/mm3???Hgb - 11.7 Gm/dL???Hct - 37.2 %???MCV - 79.7 femtoliters???MCH - 25.1 pg???MCHC - 31.5 g/dL???Platelet Count - 193 k/mm3???RDW-SD - 44.1 femtoliters???MPV - 11.8femtoliters???Nucleated RBC (Automated) - 0.0 #/100 WBC'S???Abs. NRBC - 0.0 k/mm3???Abs. Neut - 4.7 k /mm3???Abs. Lymph - 1.5 k/mm3???Abs. [place] - 0.7 k/mm3???Abs. Eo - 0.2 k/mm3???Abs. Baso - 0.1 k/mm3???Neut % - 65.8 %???Lymph % - 21.0 %???[place] % - 9.5 %???Eos % - 2.7 %???Baso % - 0.7 %???Imm Gran - 0.3 %???Abs. Imm Gran - 0.0 k/mm3 COVID-19, RSV, and Flu A/B, Rapid PCR (01/05/2022) ???Influenza A PCR - NEGATIVE???Influenza B PCR - NEGATIVE???RSV PCR - NEGATIVE???COVID-19 PCR Specimen Source - NASAL???COVID-19 PCR Result - NEGATIVE Creatinine (01/06/2022) ???Creatinine-Blood - 0.7 mg/dL???Estimated GFR Creatinine - 87 ML/MIN/1.73 M2 Electrolytes (01/06/2022) ???Sodium - 141 mmol/L???Potassium - 3.9 mmol/L???Chloride - 102 mmol/L???Bicarbonate Level - 30 mmol/L???Anion Gap - 9 GLUCOSE POC (01/06/2022) ???Glucose, POC - 149 mg/dL High??Sensitivity??Troponin T (01/05/2022) ???High Sensitivity Troponin (HSTnT) - 8 ng/L Hold Blue Top Tube (01/05/2022) ???Hold Blue Top - SPECIMEN DISCARDED AFTER 4 HOURS. Troponin T, High Sensitivity (01/06/2022) ???High Sensitivity Troponin (HSTnT) - 10 ng/L Urinalysis w/hold for Urine Culture (01/05/2022) ???Appear/Color, Urine - COLORLESS???Specific [place], Urine - 1.036???pH, Urine - 7.5???Albumin, Urine - 1+???Glucose, Urine - NEGATIVE???Ketones, Urine - NEGATIVE???Bilirubin, Urine - NEGATIVE???Hemoglobin, Urine - NEGATIVE???Nitrite, Urine - NEGATIVE???Leukocyte, Urine - NEGATIVE???Urobilinogen - NORMAL???WBC's, Urine - 2 /HPF???RBC's, Urine - 1 /HPF???Squamous Epith - 3 /HPF???Hold Urine Culture - Testing available 48 hours from time of collection. Allergies (NKA means No Known Allergies) Lipitor Macrobid??(Lisinopril adverse reaction) hydrochlorothiazide lisinopril Problems Active Problems??(4) Asthma?? Diabetes mellitus?? Hyperlipidemia?? Hypertension?? Education Materials Below is the list of Educational Leaflet Providered with your Discharge Instructions. Discharge Instructions for Pulmonary Embolism?? Pulmonary Embolism (PE)?? Valuables and Belongings I fully understand and agree that [facility] accepts no responsibility for all my personal property including clothing, toilet articles, radios, jewelry, dentures, hearing aids, rings, money, or any other property that is in my possession or is brought to me after admission. I understand certain valuables may be placed in a hospital safe for a short period of time. I understand that the hospital is not liable for loss or damage due to accident, fire, or other natural occurrence while said property is in the safe. I accept full responsibility for any personal property that I keep with me, and will not hold the hospital responsible in case of loss or disappearance. I acknowledge that i have been encouraged to send valuables and belongings home. ?? No Valuables/Belongings: No valuables/belongings present Review of Valuable and Belonging List: With patient Date for Pt to Sign Valuables/Belongings: 01/06/22 16:19:00 ?? Other Discharge Information ? Pulmonary Rehab Status?? Pulmonary Rehab Discharge Status?? Respiratory Rate: 18 br/min ? Common Emergency Awareness Tips IS IT A STROKE? Act FAST and Check for these signs: FACE Does the face look uneven? ARM Does one arm drift down? SPEECH Does their speech sound strange? TIME Call at any sign of stroke ?? Heart Attack Signs Chest discomfort: Most heart attacks involve discomfort in the center of the chest and lasts more than a few minutes, or goes away and comes back. It can feel like uncomfortable pressure, squeezing, fullness or pain. Discomfort in upper body: Symptoms can include pain or discomfort in one or both arms, back, neck, jaw or stomach. Shortness of breath: With or without discomfort. Other signs: Breaking out in a cold sweat, nausea, or lightheaded. Remember, MINUTES DO MATTER. If you experience any of these heart attack warning signs, call to get immediate medical attention! ?? Smoking can increase your chances of developing chronic health problems and can cause harmful effects to other family members in your house. If you smoke, you are strongly encouraged to quit. Please call [employer] at 575-449-6231 or 2-683-235-[facility] (1956) or log in to [email or web address] for referrals to smoking cessation programs. ?? The National Suicide Prevention Hotline is available 30/08 if you or someone you know needs to find areason to keep living. By calling 9-709-845-tfji (0752) you'll be connected to a skilled, trained counselor at a crisis center in your area. INPATIENT DISCHARGE INSTRUCTIONS SIGNATURE PAGE GOMEZ NOLASCO Location:[facility] Registration Date and Time:01/05/2022 17:43 EST Primary Care Physician: Not on Staff, PCP Martha NOLASCOGOMEZ, have received the above patient education materials/instructions and have verbalizedunderstanding. If ambulance or transport services are being used I further acknowledge being given achoice of service. ?? If you need to contact me, please call me at this number: . Patient/Critical Care Clinical Nurse Specialist Name: Patient/Critical Care Clinical Nurse Specialist Signature: Relationship to Patient: Witness Name/Signature: Date: Jojo Huff RN: PERFORM Event Display: Patient Education Leaflets Authored Date: [id number] Discharge Instructions for Pulmonary Embolism ?? 85786 Discharge Instructions for Pulmonary Embolism A deep vein thrombosis (DVT) is a blood clot in a large vein deep in a leg, arm, or elsewhere in the body. The clot can separate from the vein, travel to the lungs, and cut off blood flow. This is a pulmonary embolism (PE).??Pulmonary embolism is very serious and may cause if the clot is large or there are multiple clots.?? Home care Taking care of yourself is very important. To help prevent more blood clots from forming, follow your healthcare provider's instructions. Do the following: ??? Take your medicines exactly??as instructed. Don???t skip doses.??If you miss a dose, call your healthcare provider and ask what you should do. ??? Have all lab tests as recommended. This is very important when you take medicines to prevent blood clots.? If your healthcare provider has instructed you to do so, wear elastic (compression stockings). ??? Get up and get moving. ??? While sitting for long periods of time, move your knees, ankles, feet, and toes. ?? Lifestyle changes To help prevent problems with your heart and blood vessels, do the following:? If you smoke, get help to quit. Talk with your healthcare provider about medicines and programs that can help. ??? Stay at a healthy weight.??If you are overweight, talk to your healthcare provider about losing weight. ??? Try to exercise at least 30 minutes on most days. Before starting an exercise program,??talk with your healthcare provider. ??? When traveling by car, make frequent stops??to??get??up??and move around. ??? On long airplane rides,??get up and move around when possible.??If you can???t get up, wiggle your toes, move your ankles, and tighten your calves to keep your blood moving. ?? Follow-up care Make a follow-up appointment as directed. Have your lab work done as directed. ?? When to call your healthcare provider Call your healthcare provider right away??if you have: ??? Pain, swelling, and redness in your leg,arm, or other body area. These symptoms may mean another blood clot. ??? Blood in your urine ??? Bleeding with bowel movements ??? Bleeding from the nose, gums, a cut, or vagina ?? Call 911 Call?? 911 if you have??symptoms of a blood clot in the lungs:? Chest pain ??? Trouble breathing ??? Coughing (may cough up blood) ??? Fast heartbeat ??? Sweating ??? Fainting Also call 911 if you have heavy or uncontrolled bleeding. If you are taking a blood thinner, you have an increased chance of bleeding. ?? Last Reviewed Date: 2021 ?? [employer]. All rights reserved. This information is not intended as a substitute for professional medical care. Always follow your healthcare professional's instructions. ??Jojo Huff RN: PERFORM Event Display: Patient Education Leaflets Authored Date: [id number] Pulmonary Embolism (PE) ?? 02606 Pulmonary Embolism (PE) A pulmonary embolus is most often due to a blood clot that develops in a deep vein of the leg (deepvein thrombosis). If that clot breaks loose and travels to the lung, it's called a pulmonary embolism (PE). This can cut off blood flow in the lungs. A blood clot in the lungs is a medical emergency and may cause .?? Healthcare providers use the term??venous thromboembolism (VTE)??to describe these 2 conditions: deep vein thrombosis and??pulmonary embolism.??They use the term VTE because the 2 conditions are very closely linked. And because their prevention and treatment are also closely linked.?? A pulmonary embolism occurs when a blood clot forms in a vein and travels to the lungs. How is pulmonary embolism diagnosed? Your healthcare provider examines you and asks about your??symptoms and health history. You may also have one or more of the following: ??? Blood tests??to check for blood clotting or other problems ??? Imaging tests??to??look for clots in the veins or lung ??? Electrocardiography (ECG)??to test how well the heart is working ?? How is pulmonary embolism treated? Blood-thinning medicines (anticoagulants). These medicines thin the blood. They may be given as a pill,??as an injection, or through a tube into a vein??(intravenous or??IV). Blood thinners help prevent more blood clots from forming. They also help to??prevent an existing clot from getting larger. ??? Thrombolysis. Thrombolytic medicines are??used to quickly dissolve a blood clot. A long, narrow tube (catheter) is used to deliver medicine directly to the clot.??Thrombolytic medicines increase the risk of bleeding. So they are used very carefully. ??? Inferiorvena cava (IVC) filter surgery. The vena cava is the body???s largest vein. It carries blood from the body to the heart. A small filter traps blood clots in the lower body and prevents them from traveling to the lungs. The filter is inserted into the vein through a catheter. The filter may be used if?? blood thinners can't be taken or if they don't work.? Pulmonary embolectomy. This is a procedure to remove a blood clot in the lungs. It may be done with surgery or with a catheter inserted in thebody. It may be done when other treatments aren't safe or don't work. ?? What are the long-term concerns? With treatment, blood clots are often dissolved or removed. Some treatments can even help prevent future clots. But??having a PE can put you at risk for another life-threatening blood clot. So, you will likely need to take anticoagulants to help keep blood clots from forming again. You may need to take this medicine for months or years. You may also need to make lifestyle changes. This may include getting more active and eating healthier.??You may??need to wear elastic (compression) stockings and take breaks on long trips. ?? Call 911 Call 911 or get emergency help if you have: ??? Heavy or uncontrolled bleeding ??? Symptoms of a blood clot that has traveled to the lungs, including: o Chest pain o Trouble breathing o Coughing (may cough up blood) o Fainting o Fast heartbeat o Sweating ?? When to call your healthcare provider Call your healthcare provider if you have swelling or pain in your leg, arm, or other area. These are symptoms of a blood clot. You may have bleeding if you take medicine to help prevent blood clots. Call your provider if you have symptoms of bleeding. This includes: ??? Blood in your pee ??? Bleeding with your poop (stool or bowel movements) ??? Bleeding from the nose, gums, vagina, or a cut ?? Last Reviewed Date: 2021 ?? [employer]. All rights reserved. This information is not intended as a substitute for professional medical care. Always follow your healthcare professional's instructions. ??[facility] , CIS S: TRANSCRIDavid Galicia MD: SIGN Dwayne Rojas MD, V: VERIFY Event Display: Result: Authored Date: Chest 2 Views Frontal and Lat HISTORY: Chest pain. COMPARISON: 07/13/2021. FINDINGS: LINES AND TUBES: None. LUNGS AND PLEURA: Persistent biapical pleural parenchymal scarring. Improved inferior lingular lobe consolidation, however mild persistent opacity. Trace bilateral pleural effusions. No pneumothorax. HEART, MEDIASTINUM AND EDYTA: Heart is normal in size. Aorta is mildly calcified. BONES AND SOFT TISSUES: No acute abnormality. Mild degenerative change at mid to lower thoracic spine. IMPRESSION: Trace bilateral pleural effusions. Mildly improved inferior lingular lobe consolidation, however mild persistent opacities. I have personally reviewed the images and I agree with this report. WSN: [id number] Ordering Physician: Adama Hernandez Dictated By: David Mcclure MD Dictated Date/Time: 01/05/22 4:13 pm Reviewed By: Dwayne Rojas MD, V Signed By: Dwayne Rojas MD, V Signed Date/Time: 01/05/22 4:18 pm Transcribed By: BECKY Transcribed Date/Time: 01/05/22 4:[address] Lumbar spine W contrast IV [facility] , CIS S: TRANSCNico Negrete MD: VERIFY Stanley Cho MD: SIGN Event Display: Result: Authored Date: CT Abd/Pelvis W/ IV Contrast Only, CT Lumbar Spine W/ Contrast Hx of Present Illness: R back rib pain; Reason: Other:; RUQ abdomen; Clinical Question(s): Calculus;Order Comment: TECHNIQUE: Spiral CT through the abdomen and pelvis with IV contrast formatted in 3 planes. 100 cc of Omnipaque 300 was administered intravenously. This study was performed without oral contrast. Weight-based protocol using automatic tube modulation was used to optimize exposure parameters. CTDIvol Body: 12.00 mGy, DLP Body: 660 mGy*cm. COMPARISON: None. FINDINGS: Cardiac Cath Lab Technologist View Findings, Lines and Tubes: None. Visualized Chest: Acute pulmonary embolism in the right subsegmental arteries (coronal image 60 and axial images 1 and 5). Right pleural effusion with associated compressive atelectasis. Airless lung and bronchiectasis in the inferior left upper lobe. The heart is normal in size. No pericardial effusion. Diaphragm: Normal. Liver: Normal. Gallbladder: Absent consistent with prior cholecystectomy. Bile ducts: No biliary ductal dilation. Spleen: Normal. Pancreas: Normal. Adrenal glands: Normal. Kidneys and ureters: Bilateral renal cortical thinning. No hydronephrosis, stones, or suspicious masses. Bladder: Normal. Reproductive organs: Status post hysterectomy. Stomach, small bowel, and large bowel: Normal. Appendix: Normal. Peritoneum and retroperitoneum: No ascites or pneumoperitoneum. No omental or mesenteric lesions. Lymph nodes: No enlarged lymph nodes. Blood vessels: Moderate atherosclerotic vascular calcification. No aortic aneurysm. No evidence of venous thrombosis. Abdominal and pelvic wall: Unremarkable. Bones: Normal alignment of the lumbar spine. No acute fractures/dislocation. No spondylolysis or spondylolisthesis. Mild degenerative changes including degenerative disc disease at the levels of L1-L2 and L2-L3. IMPRESSION: Acute pulmonary embolism in the right subsegmental arteries. Right pleural effusion and probable atelectasis in the inferior left upper lobe. Bilateral renal cortical thinning. This result was communicated to Maria Teresa Lanier DO at 01/05/2022 4:31 PM. I have personally reviewed the images and I agree with this report. WSN: [id number] Ordering Physician: Maria Teresa Lanier Dictated By: Stanley Cho MD Dictated Date/Time: 01/05/22 5:21 pm Reviewed By: Nico Rivas MD Signed By: Nico Rivas MD Signed Date/Time: 01/05/22 5:26 pm Transcribed By: BECKY Transcribed Date/Time: 01/05/22 4:[address] Abdomen and Pelvis W contrast IV [facility] , CIS S: TRANSCRIBE Nico Rivas MD: VERIFY Stanley Cho MD: SIGN Event Display: Result: Authored Date: [id number] CT Abd/Pelvis W/ IV Contrast Only, CT Lumbar Spine W/ Contrast Hx of Present Illness: R back rib pain; Reason: Other:; RUQ abdomen; Clinical Question(s): Calculus;Order Comment: TECHNIQUE: Spiral CT through the abdomen and pelvis with IV contrast formatted in 3 planes. 100 cc of Omnipaque 300 was administered intravenously. This study was performed without oral contrast. Weight-based protocol using automatic tube modulation was used to optimize exposure parameters. CTDIvol Body: 12.00 mGy, DLP Body: 660 mGy*cm. COMPARISON: None. FINDINGS: Cardiac Cath Lab Technologist View Findings, Lines and Tubes: None. Visualized Chest: Acute pulmonary embolism in the right subsegmental arteries (coronal image 60 and axial images 1 and 5). Right pleural effusion with associated compressive atelectasis. Airless lung and bronchiectasis in the inferior left upper lobe. The heart is normal in size. No pericardial effusion. Diaphragm: Normal. Liver: Normal. Gallbladder: Absent consistent with prior cholecystectomy. Bile ducts: No biliary ductal dilation. Spleen: Normal. Pancreas: Normal. Adrenal glands: Normal. Kidneys and ureters: Bilateral renal cortical thinning. No hydronephrosis, stones, or suspicious masses. Bladder: Normal. Reproductive organs: Status post hysterectomy. Stomach, small bowel, and large bowel: Normal. Appendix: Normal. Peritoneum and retroperitoneum: No ascites or pneumoperitoneum. No omental or mesenteric lesions. Lymph nodes: No enlarged lymph nodes. Blood vessels: Moderate atherosclerotic vascular calcification. No aortic aneurysm. No evidence of venous thrombosis. Abdominal and pelvic wall: Unremarkable. Bones: Normal alignment of the lumbar spine. No acute fractures/dislocation. No spondylolysis or spondylolisthesis. Mild degenerative changes including degenerative disc disease at the levels of L1-L2 and L2-L3. IMPRESSION: Acute pulmonary embolism in the right subsegmental arteries. Right pleural effusion and probable atelectasis in the inferior left upper lobe. Bilateral renal cortical thinning. This result was communicated to Maria Teresa Lanier DO at 01/05/2022 4:31 PM. I have personally reviewed the images and I agree with this report. WSN: [id number] Ordering Physician: Maria Teresa Lanier Dictated By: Stanley Cho MD Dictated Date/Time: 01/05/22 5:21 pm Reviewed By: Nico Rivas MD Signed By: Nico Rivas MD Signed Date/Time: 01/05/22 5:26 pm Transcribed By: BECKY Transcribed Date/Time: 01/05/22 4:45 pm Patient Care team information Care Team PersonnelName: Gomez Castillo RN Position: [facility] RN Member Role: Primary Care Nurse Name: Robel Miranda Position: [facility] Outreach Member Role: Lifetime Consulting Physician Name: Ca Lopez RN Position: [facility] RN Member Role: Primary Care Nurse Name: Verna Guerrero RN Position: [facility] RN Member Role: Primary Care Nurse Name: Not on Staff, PCP Position: [facility] Physician (General Medicine) Member Role: PCP Name: Myriam Moy RN Position: [facility] RN Member Role: Primary Care Nurse Name: Maria Teresa Santos RN Position: [facility] RN Member Role: Primary Care Nurse Name: Irma Motta RN Position: [facility] RN Member Role: Primary Care Nurse Name: [facility] Attending Position: [facility] ED Medicine MD Name: Radha Mondragon Position: [facility] ED TA [facility] Member Role: Patient Care Provider Name: Alonzo Fraser RN Position: [facility] ED RN W/OE and Tasks Member Role: Patient Care Provider Name: Maria Teresa Lanier DO Position: [facility] Resident Member Role: ED Resident Address: Address: [address] [place] [address] Emergency [place], [place] [address]R[place] Name: Flavio Wong RN Position: [facility] ED RN W/OE and Tasks Member Role: Patient Care Provider Care Team Related PersonsName: OSIEL OAKLEY Name: MAVIS GARCIA Address: [place] [address]
--- OUTSIDE RECORDS SUMMARY | 2022-01-11 17:00 | XMS_ITS | Continuity of Care Document ---
:1940 Author Organization [facility] Address [address] [place] [id number]- Care Team Providers Name Role Phone Ritika EVANS, Demi S Primary Care Physician Encounter [facility] [place] [place] Date(s): 04/20/21 - 04/21/[address] [id number] Encounter Diagnosis Chest pain (Final) - 04/18/21 Discharge Disposition: A-D/C Home Attending Physician: Emil EVANS, [facility] Admitting Physician: Jennifer Hoff MD Referring Physician: Not on Staff, Referring [...] inactivated 04/19/21 Not Given Patient Refuses Medications acetaminophen 325 mg oral tablet 975 mg, By Mouth, Every 8 hours, for 7 days, Temperature Greater than 100.5, # 63 tablet, Refills 0,Tot. Refills 0, Acute 04/27/21 10:06:00 EDT, 04/20/21 10:06:00 EDT, Route to Pharmacy Electronically, [facility], Partial fill upon steve... Start Date: 04/20/21 Stop Date: 04/27/21 Status: OrderedAugmentin 875 mg-125 mg oral tablet 1 tablet, By Mouth, Every 12 hours, for 7 days, # 14 tablet, 0 Refills, Acute 04/27/21 9:44:00 EDT, 04/20/21 9:44:00 EDT, Tablet, [facility], Partial fill upon patient request if the prescription is for a schedule II opioid drug., 165, c... Start Date: 04/20/21 Stop Date: 04/27/21 Status: OrderedCrestor 20 mg oral tablet 1 [...] 0 Refills, Maintenance, 04/20/21 9:45:00 EDT, Patch, [facility], Partial fill upon patient request [...] mg oral tablet, extended release 25 mg, Tablet, By Mouth, Hold for: sbp<100, 04/21/21 9:00:00 EDT Start Date: 04/21/21 Stop Date: 04/21/21 Status: Completedmetoprolol succinate 25 mg oral capsule, extended release 1 capsule = 25 mg, By Mouth, Daily, # 30 capsule, 0 Refills, Maintenance, 02/13/20 21:54:00 EST, ER Capsule, Partial fill upon patient request if the prescription is for a schedule II opioid drug. Start Date: 02/13/20 Status: OrderedoxyCODONE 5 mg oral tablet 5 mg, Tablet, By Mouth, Every 6 hours, Hold for: hold for sbp or oversedation or rr<1 2, PRN for Pain , Severe, Routine, 04/19/21 8:54:00 EDT Start Date: 04/19/21 Stop Date: 04/26/21 Status: OrderedoxyCODONE 5 mg oral tablet 5 mg, 1, tablet, By Mouth, Every 6 hours, PRN, for 5 days, # 20 tablet, Refills 0, Tot. Refills 0, Acute 04/25/21 9:38:00 EDT, Pain , Severe, 04/20/21 9:38:00 EDT, Print Requisition, Partial fill upon patient request if the prescription is for a sched... Start Date: 04/20/21 Stop Date: 04/25/21 Status: Orderedvalsartan 160 mg oral tablet 160 mg, Tablet, By Mouth, Hold for: sbp<100, 04/21/21 9:00:00 EDT Start Date: 04/21/21 Stop Date: 04/21/21 Status: Completedvalsartan 320 mg oral tablet 1 tablet = 320 mg, By Mouth, Daily, Take half tablet by mouth daily, until follow-up with primary care provider, # 30 tablet, 0 Refills, Maintenance, 02/13/20 21:54:00 EST, Tablet, Partial fill upon patient request if the prescription is for a schedul... Start Date: 02/13/20 Status: Ordered Results Orders for Microbiology Reports Name Date Sputum Culture w/ Gram Smear 04/18/21 Microbiology Reports TEST:Sputum Culture STATUS:Auth (Verified) BODY SITE: SOURCE:EXPECT COLLECTED DATE/TIME:04/18/21 5:06 PMSputum Culture SPECIMEN DESCRIPTION : EXPECTORATED SPUTUM SPECIAL REQUESTS : NONE GRAM STAIN : 3+ SQ.EPITHELIAL CELLS 2+ POLYMORPHONUCLEAR LEUKOCYTES 4+ GRAM POSITIVE RODS 4+ GRAM NEGATIVE RODS 3+ GRAM POSITIVE COCCI CULTURE : MICROSCOPIC EXAM SHOWS SQUAMOUS EPITHELIAL CELLS INDICATIVE OF OROPHARYNGEAL CONTAMINATION. PLEASE RECOLLECT APPROPRIATE SPECIMEN FOR CULTURE IF CLINICALLY INDICATED. REPORT STATUS : FINAL 2Radiology Reports Exam Date Time Procedure Performing Provider Status 04/19/21 5:08 PM Shoulder Min 2 Views Left Ajay Santoyo; Auth ( Verified) Notes:(Shoulder Min 2 Views Left) Reason For Exam: PainRESULT: Shoulder Min 2 Views Left Shoulder Min 2 Views Left Reason: Pain; Clinical Question(s): Fracture COMPARISON: None. FINDINGS: Bones are osteopenic. No fracture or dislocation. No arthritic change of the glenohumeral joint. Mild degenerative changes of the acromioclavicular joint. The portion of the clavicle included on the exam is normal. Minor calcific tendinopathy at lateral humeral head. Degenerative changes involve the visualized thoracic spine. IMPRESSION: No acute osseous abnormality. Mild degenerative changes. WSN: [id number] Ordering Physician: Mehrdad Stein Dictated By: Ryland Magana MD Dictated Date/Time: 04/19/21 5:39 pm Reviewed By: Ryland Magana MD Signed By: Ryland Magana MD Signed Date/Time: 04/19/21 5:39 pm Transcribed By: BECKY Transcribed Date/Time: 04/19/21 5:38 pm Exam Date Time Procedure Performing Provider Status 04/17/21 11:48 PM Chest 2 Views Frontal and Lat Ephraim Ortega ; Harry (Verified) Notes:(Chest 2 Views Frontal and Lat) Reason For Exam: Pleuritic PainRESULT: Chest 2 Views Frontal and Lat Chest 2 Views Frontal and Lat Hx of Present Illness: Had sudden onset of midsternal CP with nausea tonight. Denies SOB. Was given asa and one SL nitro in route; Reason: Pleuritic Pain; Clinical Question(s): CHF COMPARISON: 02/13/2020 FINDINGS: LINES AND TUBES: None. LUNGS AND PLEURA: Clear lungs. Normal pulmonary vascularity. No pleural effusion. No pneumothorax. HEART, MEDIASTINUM AND EDYTA: Heart is normal in size. Aorta is tortuous and partially calcified. BONES AND SOFT TISSUES: No acute abnormality. IMPRESSION: No acute abnormality. WSN: [id number] Ordering Physician: Miquel Arthur Dictated By: Tristin Ivory MD Dictated Date/Time: 04/17/21 11:51 p Reviewed By: Tristin Ivory MD Signed By: Tristin Ivory MD Signed Date/Time: 04/17/21 11:51 pm Transcribed By: BECKY Transcribed Date/Time: 04/17/21 11:49 pm Vital Signs Most recent to oldest 1 2 3 [Reference Range]: Height 165 cm 165 cm 165 cm (04/21/21 11:08 AM) (04/21/21 7:37 AM) (04/21/21 3: 36 AM) Weight 62.2 kg (04/18/21 2:57 AM) Oxygen Saturation [94-100 %] 96 % 96 % 95 % (04/21/21 11:08 AM) (04/21/21 7:37 AM) (04/21/21 3: 36 AM) Pulse Rate [55-90 bpm] 76 bpm 77 bpm 72 bpm (04/21/21 11:08 AM) (04/21/21 10:11 AM) (04/21/21 7 :37 AM) Body Mass Index [18.5-24.99] 22.85 (04/18/21 2:57 AM) Blood Pressure [90-138/55-84 104/49 mm Hg 113/62 mm Hg 113 /58 mm Hg mm Hg] (04/21/21 11:08 AM) (04/21/21 10:11 AM) (04/21/21 1 0:11 AM) Respiratory Rate [16-30 18 br/min 18 br/min 18 br/mi n br/min] (04/21/21 1:04 PM) (04/21/21 11:08 AM) (04/21/21 7: 50 AM) Temperature [96.8-100.4 97.6 DegF 97.9 DegF 97.9 Deg F DegF] (04/21/21 11:08 AM) (04/21/21 7:37 AM) (04/21/21 3: 36 AM) Mode of Delivery (Oxygen) Room air Room air Room a ir (04/21/21 11:08 AM) (04/21/21 7:37 AM) (04/21/21 3: 36 AM) Blood pressure sites Arm, left Arm, left Arm, left (04/21/21 11:08 AM) (04/21/21 7:37 AM) (04/21/21 3: 36 AM) Temperature Route Oral Oral Oral (04/21/21 11:08 AM) (04/21/21 7:37 AM) (04/21/21 3: 36 AM) Dry Weight 61 kg (04/18/21 2:57 AM) Weight Obtained Via Bed scale (04/18/21 2:57 AM) Social History Social History Type Response Smoking Status Never (less than 100 in life time) entered on: 04/18/21 Sex
--- OUTSIDE RECORDS SUMMARY | 2022-01-11 17:00 | XMS_ITS | Encounter Summary ---
:1940 Author Care Team Providers Name Role Phone Cca Primary Care Referring Provider [phone] Reason for Visit cough Cough, Shortness of Breath/Dyspnea Assessment and Plan Assessment Note I have reviewed and agree with the asse ssment and plan as documented by the cmv driver. I provided real time medical direction for this encounter and was immediately available to provide additional phon e based assistance as needed. History as noted by cmv driver. Pt with 3 days of cough productive of wh ite sputum, chest pain with cough only, and intermittent SOB. She is also feeling feverish. She has had mild nausea and some loose stool but no vomiting or documented fevers. On exam, pt appears well and comfortable , no distress. Vitals are normal, O2 sat normal 97%. Lungs clear. Rapid Covid-19 Ag positive. Impression: Pt with acute Covid-19 infection with 3 days of symptoms. She appears well with normal vitals and clear lungs. No indication for ED visit or hospitalization. Pt is unvaccinated for Covid-19. I discuss treatment with Paxlovid with t he pt and she is interested (family is helping to translate). Adverse effects of paxlovid discussed. Pt with no known history of renal diseas e. I review the pt's current medication lis t. She is told that she will have to stop taking her rosuvastatin and amlodipine (only taking 2.5 mg dose) for 8 days after starting the Paxlovid. Pt is also taki ng Valsartan. This can continued but the recommendation is that the pt's K+ be monitored. Paxlovid is prescribed as well as benzon atate prn cough. Patient's primary care team needs to f/u with the pt in the next 2-3 days to ensure she is improved on the Paxlovid. They also need to arrange a home visit t o have her BMP checked to monitor her K+ on the Paxlovid. Pt and her son instructed to go to the E D if she develops any worsening symptoms. 1. COVID-19 ? rapid SARS CoV 2 Ag, QL IA, respirato ry specimen ? Paxlovid 300 mg (150 mg x 2)-100 mg t ablets in a dose pack (EUA) ? benzonatate 100 mg capsule Discussion Note: None recorded.Patient educational handouts: No information available. Plan of Care Reminders Provider Appointments None recorded. ? ? Lab Rapid SARS CoV 2 Ag, QL IA, 12/17/2021 Ma in - Inst[facility] Respiratory Specimen Referral None recorded. ? ? Procedures None recorded. ? ? Surgeries None recorded. ? ? Imaging None recorded. ? ? Medications Name Start Date ? ? acetaminophen 325 mg tablet ? TAKE 3 TABLETS (975 MG) BY MOUTH EVERY 8 HOURS NEEDED FOR TEMPERATURE GREATER THAN 100.5. albuterol sulfate HFA 90 mcg/actuation aerosol inhaler ? INHALE 2 PUFFS BY MOUTH 4 TIMES A DAY amlodipine 2.5 mg tablet ? TAKE 1 TABLET BY MOUTH EVERY DAY amoxicillin 875 mg-potassium clavulanate 125 mg tablet ? TAKE 1 TABLET BY MOUTH EVERY 12 HOURS FOR 7 DAYS azithromycin 250 mg tablet ? TAKE 2 TABLETS BY MOUTH TODAY, THEN TAKE 1 TABLET RAYMOND LY FOR 4 DAYS benzonatate 100 mg capsule ? TAKE 1 CAPSULE BY MOUTH THREE TIMES A DAY FOR 10 DAYS *NOT COVERED* cephalexin 500 mg capsule ? TAKE 1 CAPSULE BY MOUTH EVERY 12 HOURS FOR 14 DAYS clobetasol 0.05 % topical cream ? APPLY TO AFFECTED AREA(S) BY TOPICAL RO CIERRA TWICE DAILY FOR 14 DAYS THEN USE TWICE WEEKLY Flovent HFA 110 mcg/actuation aerosol inhaler ? INHALE 2 PUFFS BY MOUTH TWICE A DAY FreeStyle Lancets 28 gauge ? USE DIRECTED TO CHECK BLOOD SUGAR TWICE DAILY. FreeStyle Lite Strips ? USE DIRECTED TO CHECK BLOOD SUGAR ONCE DAILY. loratadine 10 mg tablet ? TAKE 1 TABLET BY MOUTH EVERY DAY metformin 850 mg tablet ? TAKE 1 TABLET BY MOUTH TWICE A DAY metoprolol succinate ER 100 mg tablet,extended release 24 hr ? TAKE 1 TABLET BY MOUTH EVERY DAY mirtazapine 7.5 mg tablet ? TAKE 1 TABLET BY MOUTH EVERYDAY AT BEDTIME oxacillin 10 gram solution for injection ? oxycodone 5 mg tablet ? TAKE 1 TABLET BY MOUTH EVERY 6 HOURS NEEDED FOR SE ALMA PAIN Paxlovid 300 mg (150 mg x 2)-100 mg tablets in a dose pack (EUA) ? TAKE BY MOUTH DIRECTED ON PACKAGE TWICE DAILY prednisolone acetate 1 % eye drops,suspension ? PLEASE SEE ATTACHED FOR DETAILED DIRECTIONS rosuvastatin 20 mg tablet ? TAKE 1 TABLET BY MOUTH EVERYDAY AT BEDTIME valsartan 320 mg-hydrochlorothiazide 25 mg tablet ? TAKE 1 TABLET BY MOUTH EVERY DAY Medications Administered None recorded. Vitals Height Weight Blood Pressure (1) 5 ft 6 in (1) 131 lbs (1) 105/63 mm[Hg] (2) 5 ft 6 in (2) 131 lbs (2) 105/63 mm[Hg] Results Lab Results Date Name Specimen Result Interpretation Description Value Range Status Address ? 12/17/2021 Rapid SARS CoV 2 ? Rapid SARS CoV 2 positi ve ? ? Main - Ag, QL IA, Ag, QL IA, In sted: 30 Respiratory Respiratory [place] Specimen [facility] Allergies None recorded. Problems None recorded. Procedures None recorded. Vaccine List None recorded. Social History None recorded. Functional Status Unknown. Past Encounters Encounter Date Diagnosis Provider 12/17/2021 Covid-19 Tae Mondragon MD: [address] [place] [address], Ph. History of Present Illness Note: <div>This was a supervised home visit with cmv driver Emily Rivera. </div><div>
</div><div>
</div><p><strong>CRC Nursing Assessment: < /strong></p><div>
</div><p>Patient Reports: Cough, fever greaterthan 2 days ; Sputum increase ; Cough; Shortness of breath with exertion</p><div><div& gt;Denies:</div><div>
</div></div><ul><li><div>Lower extremity swelling</div><div>
</div></li><li><div>History of asthma, increased use of inhaler</div><div>
</div></li><l i><div>COPD</div><div>
</div></li><li><div>COVID Exposure</div><div>
</div></li><li><div>Pain with insp iration</div><div>
</div><div>Chief Complaints: Cough, Shortness of Breath/Dyspnea</div><div>PMH: Diabetes, Hypertension, Other</div><div>Allergies: No Known</div><div>Comments: Member c/o Cough/ SOB / F/C for 3 days . Member c/o Nausea , loose stool yesterday .Member is unable to eat or drink well . Member has a PMH OF HLD / HTN / D M</div></li></ul><div>
</div><p>........................ ................................................................................ .....................................

<strong>Machine Candle Molder Note: </strong>

Sent to a call for a pt complaining of cough, sob, and fever/chills x 3 days. SC8 arrives on scene, pt is alert and oriented. Airway is patent. No respiratory distress noted. Pt complains of headache, rhinorrhea, productive cough (white phlegm), sore throat, cp w/coughing, intermittent sob x 3 days; nausea, and diffuse abd pain, loose stool (2 BM) yesterday. Pt reports a normal BM today. Pt denies dizziness, vomiting, or fever. Pt has decreased appetite, but is staying hydrated. BP:105/63, P:68, RR:18, SpO2:97% RA, T:97.7; Head: no sinus tenderness; Oropharynx: erythema, no edema or exudate; Lung so unds: clear bilaterally; Abdomen: soft, slight tenderness (epigastric), no distention, (+)bowel sounds; Skin: pink, warm, dry; Rapid flu test: neg, rapid strep test: neg, rapid covid test: positive; [facility] sends script to pt's pharmacy for Paxlovid and cough medicine. Pt advised to stop Rosuvastatin and Amlodipine x 1 week. [facility] will request PCP to follow up with pt to check K+ level due to Valsartan. Red flags discussed. Pt/family has no further questions.
............................. ................................................................................ ................................

<strong>Disposition: </strong>

Fulfilled</p>Review of Systems: ROS as noted in the HPI Review of Systems None recorded. Physical Exam ? Notes: <div>Alert, no respiratory d istress. Vital signs normal, afebrile, O2 sat normal. Lungs clear. Abdomen soft and non tender. </div>
--- OUTSIDE RECORDS SUMMARY | 2022-01-11 17:00 | XMS_ITS | Continuity of Care Document ---
:1940 Author Organization [facility] Address [address] [address]- Care Team Providers Name Role Phone Not on Staff, PCP Primary Care Physician Unavailable [place] [facility] [place] 11/16/21 - 12/16/21 [facility] [address] [facility] [address] [place], [place] [address] Allergies, Adverse Reactions, Alerts Substance Reaction Severity [...] Refills, Maintenance, 07/24/21 13:21:00 EDT, Film, [id number], Partial fill upon patient request if the prescription is for a schedule II opioid drug., 1 patch Topically 2 times a day, 165, cm, 06... Start Date: 07/24/21 Status: Orderedlidocaine 5% topical film 1 patch, Topically, Daily, PRN Pain , Mild, remove after 12 hours, # 13 each, 0 Refills, Maintenance, 07/23/21 11:32:00 EDT, Film, [facility], Partial fill upon patient [...] Date: 02/13/20 Status: Ordered Problem List Condition Confirmation Course Effective Dates Status Health Stat us Informant Asthma Confirmed Active Diabetes mellitus Confirmed Active Hyperlipidemia Confirmed Active Hypertension Confirmed Active Social History Social History Type Response Smoking Status Never (less than 100 in life time) entered on: 04/18/21 Sex Patient Care team information Care Team PersonnelName: Gomez Castillo RN Position: [facility] RN Member Role: Primary Care Nurse Name: Miranda Huston Position: [facility] Outreach Member Role: Lifetime Consulting Physician Name: Verna Guerrero RN Position: [facility] RN Member Role: Primary Care Nurse Name: Not on Staff, PCP Position: [facility] Physician (General Medicine) Member Role: PCP Name: Myriam Moy RN Position: [facility] RN Member Role: Primary Care Nurse Name: Maria Teresa Santos RN Position: [facility] RN Member Role: Primary Care Nurse Name: Irma Motta RN Position: [facility] RN Member Role: Primary Care Nurse Care Team Related PersonsName: OSIEL OAKLEY Name: MAVIS GARCIA Address: [place] [id number]
--- OUTSIDE RECORDS SUMMARY | 2022-01-11 17:00 | XMS_ITS | Encounter Summary ---
:1940 Author Care Team Providers Name Role Phone Cca Primary Care Referring Provider [phone] Reason for Visit Chest Pain, Shortness of Breath/Dyspnea Assessment and Plan 1. History of pulmonary embolus This 81-year-old female was recently ho spitalized with a PE and treatment was initiated with Eliquis. Today she called [facility] complaining of right sided pleuritic chest pain and dyspnea. I am concerned a bout another PE and recommended she be sent to the ER for further evaluation and parish atment. The patient agreed with this plan. Discussion Note: None recorded.Patient educational handouts: No [...] EVERY DAY Medications Administered None recorded. Vitals None recorded. Results Lab Results None recorded. Allergies None recorded. Problems None recorded. Procedures None recorded. Vaccine List None recorded. Social History None recorded. Functional Status Unknown. Past Encounters Encounter Date Diagnosis Provider 01/11/2022 History of Pulmonary Embolus Magno driscoll MD: [address] [place], [place] [phone], Ph. 12/17/2021 Covid-19 Tae Mondragon MD: [address] [place], [place] [phone], Ph. History of Present Illness Note: <p><strong>CRC Nursing Assessment: </strong>

Chief Complaints:Chest Pain, Shortness of Breath/Dyspnea
PMH: Diabetes, Hypertension, Other
Allergies: No Known
Comments: Daughter states that member was recently hospitalized last week with dx of a heart embolism. Started taking coumadin. Since yesterday, member has been experiencing constant R sided chest pain with sob. Member refusing 911 after education of life threatening risks, verbalize understanding. Would like [facility] visit today after education of recommendation to go to ER </p>Review of Systems: ROS as noted in the HPI Review of Systems None recorded. Physical Exam ? Notes: <div>Her exam is at her base line.</div>
--- OUTSIDE RECORDS SUMMARY | 2022-01-11 17:00 | XMS_ITS | Continuity of Care Document ---
:1940 Author Organization [facility] Address [address] [place] [address]- Care Team Providers Name Role Phone Demi Yost MD Primary Care Physician [place] [facility] [place](s[place] 07/22/21 - 07/24/[address] [address] Discharge Disposition: A-D/C Home Attending Physician: Joana Dhillon DO Admitting Physician: Rene Fink DO Referring Physician: Not on Staff, Referring MD Allergies, Adverse Reactions, Alerts Substance Reaction Severity Status hydrochlorothiazide Active lisinopril Active Lipitor Active Macrobid Lisinopril adverse reaction Acti ve Immunizations Given and Recorded Vaccine Date Status [...] Refills, Maintenance, 07/24/21 13:21:00 EDT, Film, [id number], Partial fill upon patient request if the prescription is for a schedule II opioid drug., 1 patch Topically 2 times a day, 165, cm, 06... Start Date: 07/24/21 Status: Orderedlidocaine 5% topical film 1 patch, Topically, Daily, PRN Pain , Mild, remove after 12 hours, # 13 each, 0 Refills, Maintenance, 07/23/21 11:32:00 EDT, Film, [facility], Partial fill upon patient request [...] release 100 mg, XL Tablet, By Mouth, 07/24/21 9:00:00 EDT Start Date: 07/24/21 Stop Date: 07/24/21 Status: CompletedMetoprolol Succinate ER 100 mg oral [...] 07/16/21 Status: Orderedvalsartan 160 mg oral tablet 160 mg, Tablet, By Mouth, 07/24/21 9:00:00 EDT Start Date: 07/24/21 Stop Date: 07/24/21 Status: Completedvalsartan 320 mg oral tablet 1 [...] Diabetes mellitus(Confirmed) Active Hyperlipidemia(Confirmed) Active Hypertension(Confirmed) Active Procedures Procedure Date Related Diagnosis Body Site Status Cholecystectomy1 Completed 115 years ago Results Orders for Microbiology Reports Name Date Blood Culture 07/22/21 Blood Culture #2 07/22/21 Microbiology Reports TEST:Blood Culture, Second Order STATUS:Unauthenticated BODY SITE: SOURCE:Blood COLLECTED DATE/TIME:07/22/21 5:25 PMBlood Culture, Second Order SPECIMEN DESCRIPTION : BLOOD NO SITE SPECIAL REQUESTS : NONE CULTURE : NO GROWTH AFTER 48 HOURS REPORT STATUS : PRELIMINARY REPORT TEST:Blood Culture STATUS:Unauthenticated BODY SITE: SOURCE:Blood COLLECTED DATE/TIME:07/22/21 4:11 PMBlood Culture SPECIMEN DESCRIPTION : BLOOD L HAND SPECIAL REQUESTS : NONE CULTURE : NO GROWTH AFTER 48 HOURS REPORT STATUS : PRELIMINARY REPORT Vital Signs Most recent to oldest 1 2 3 [Reference Range]: Height 165 cm 165 cm 165 cm (07/24/21 7:29 AM) (07/24/21 4:38 AM) (07/23/21 11: 06 PM) Weight 59 kg (07/22/21 11:11 PM) Oxygen Saturation [94-100 %] 97 % 100 % 98 % (07/24/21 9:00 AM) (07/24/21 7:29 AM) (07/24/21 4:3 8 AM) Pulse Rate [55-90 bpm] 60 bpm 53 bpm 54 bpm (07/24/21 11:00 AM) *L* *L* (07/24/21 9:00 AM) (07/24/21 9:00 AM) Body Mass Index [18.5-24.99] 21.67 (07/22/21 11:11 PM) Blood Pressure [90-138/55-84 153/61 mm Hg 153/61 mm Hg 153 /61 mm Hg mm Hg] *H* *H* *H* (07/24/21 10:08 AM) (07/24/21 9:00 AM) (07/24/21 9: 00 AM) Respiratory Rate [16-30 18 br/min 18 br/min 19 br/mi n br/min] (07/24/21 9:00 AM) (07/24/21 7:44 AM) (07/24/21 7:2 9 AM) Temperature [96.8-100.4 DegF] 97.8 DegF 97.6 DegF 97 .9 DegF (07/24/21 9:00 AM) (07/24/21 7:29 AM) (07/24/21 4:3 8 AM) Mode of Delivery (Oxygen) Room air Room air Room a ir (07/24/21 9:00 AM) (07/24/21 7:29 AM) (07/24/21 4:3 8 AM) Blood pressure sites Arm, left Arm, left Arm, left (07/24/21 9:00 AM) (07/24/21 7:29 AM) (07/24/21 4:3 8 AM) Temperature Route Oral Oral Oral (07/24/21 9:00 AM) (07/24/21 7:29 AM) (07/24/21 4:3 8 AM) Dry Weight 59 kg (07/22/21 11:11 PM) Social History Social History Type Response Smoking Status Never (less than 100 in life time) entered on: 04/18/21 Sex
--- OUTSIDE RECORDS SUMMARY | 2022-01-11 17:00 | XMS_ITS | Continuity of Care Document ---
:1940 Author Organization [facility] Address [address] [address]- Care Team Providers Name Role Phone Not on Staff, PCP Primary Care Physician Unavailable [place] [facility] [place]s): 09/21/21 - 10/21/21 [facility] [address] [facility] [address] [place], [place] [address] Attending Physician: Fran Gary Admitting Physician: Fran Gary Referring Physician: Fran Gary Allergies, Adverse Reactions, Alerts Substance Reaction Severity [...] Refills, Maintenance, 07/24/21 13:21:00 EDT, Film, [id number], Partial fill upon patient request if the prescription is for a schedule II opioid drug., 1 patch Topically 2 times a day, 165, cm, 06... Start Date: 07/24/21 Status: Orderedlidocaine 5% topical film 1 patch, Topically, Daily, PRN Pain , Mild, remove after 12 hours, # 13 each, 0 Refills, Maintenance, 07/23/21 11:32:00 EDT, Film, [facility], Partial fill upon patient [...]
--- OUTSIDE RECORDS SUMMARY | 2022-01-11 17:00 | XMS_ITS | Continuity of Care Document ---
:1940 Author Organization [facility] Address [address] [place] [address]- Care Team Providers Name Role Phone Not on Staff, PCP Primary Care Physician Unavailable Encounter [facility] [place] Date(s): 09/23/21 - 09/23/[address] [address] Discharge Disposition: A-D/C Home Attending Physician: Rosario Garcia MD Admitting Physician: Rosario Garcia MD Referring Physician: Rosario Garcia MD Allergies, Adverse Reactions, Alerts Substance Reaction [...] Refills, Maintenance, 07/24/21 13:21:00 EDT, Film, [id number], Partial fill upon patient request if the prescription is for a schedule II opioid drug., 1 patch Topically 2 times a day, 165, cm, 06... Start Date: 07/24/21 Status: Orderedlidocaine 5% topical film 1 patch, Topically, Daily, PRN Pain , Mild, remove after 12 hours, # 13 each, 0 Refills, Maintenance, 07/23/21 11:32:00 EDT, Film, [facility], Partial fill upon patient [...] Results Orders for Microbiology Reports Name Date Lower Resp Tract Culture w/ Gram Smear 09/23/21 Microbiology Reports TEST:Lower Respiratory Tract Culture STATUS:Unauthenticated BODY SITE: SOURCE:BRONCH COLLECTED DATE/TIME:09/23/21 1:30 PMLower Respiratory Tract Culture SPECIMEN DESCRIPTION : BRONCHIAL ALVEOLAR LAVAGE LUNG LT UPPER LOBE SPECIAL REQUESTS : NONE GRAM STAIN : 4+ POLYMORPHONUCLEAR LEUKOCYTES NO ORGANISMS SEEN REPORT STATUS : PRELIMINARY REPORT Vital Signs Most recent to oldest 1 2 3 [Reference Range]: Height 167.6 cm (09/23/21 11:45 AM) Weight 58 kg (09/23/21 11:45 AM) Oxygen Saturation [94-100 %] 100 % 100 % 100 % (09/23/21 2:03 PM) (09/23/21 2:01 PM) (09/23/21 1:5 2 PM) Pulse Rate [55-90 bpm] 69 bpm (09/23/21 11:45 AM) Body Mass Index [18.5-24.99] 20.65 (09/23/21 11:45 AM) Blood Pressure [90-138/55-84 139/71 mm Hg 139/72 mm Hg 142 /67 mm Hg mm Hg] *H* *H* *H* (09/23/21 2:03 PM) (09/23/21 2:01 PM) (09/23/21 1:5 2 PM) Respiratory Rate [16-30 15 br/min 15 br/min 14 br/mi n br/min] *L* *L* *L* (09/23/21 2:03 PM) (09/23/21 2:01 PM) (09/23/21 1:5 2 PM) Temperature [96.8-100.4 DegF] 96.5 DegF 97.9 DegF *L* (09/23/21 11:45 AM) (09/23/21 1:52 PM) Liters per Minute 3 L/min (09/23/21 1:52 PM) Mode of Delivery (Oxygen) Room air Room air Simple face mask (09/23/21 2:03 PM) (09/23/21 2:01 PM) (09/23/21 1:5 2 PM) Blood pressure sites Arm, left Arm, left Arm, left (09/23/21 2:03 PM) (09/23/21 2:01 PM) (09/23/21 1:5 2 PM) Temperature Route Temporal Temporal (09/23/21 1:52 PM) (09/23/21 11:45 AM) Social History Social History Type Response Smoking Status Never (less than 100 in life time) entered on: 04/18/21 Sex
--- NOTE | 2022-01-11 17:20 | PC.NURSE ---
[facility] Medical Records called [address] for records on last visit per Taty ALCANTARA
[2022-01-11 17:21] LABS: B Type Natriuretic Peptide 52 pg/mL (<100)
[2022-01-11] MEDS: iohexoL 350 MG/ML 100 ML INFUS..BTL IV (17:50)
[2022-01-11 18:00] VITALS: BP 141/70; PULSE 85; RESP 16; TEMP 36.9; O2SAT 97
--- NOTE | 2022-01-11 18:34 | PC.NURSE ---
[facility] Transfer Line called [address] per Taty ALCANTARA.spoke with Tomasa barone pt demographics,awaiting a call back.
--- NOTE | 2022-01-11 18:36 | PC.NURSE ---
At 1834 [facility] called and spoke with Taty ALCANTARA was told they are closed to Medical Transfers.
--- NOTE | 2022-01-11 18:53 | PC.NURSE ---
Addendum entered by Vera Snow RN 01/11/22 21:44: per Dr. Mendosa, not to give pt heparin bolus, just to start the drip Addendum entered by Vera Snow RN 01/11/22 20:31: per Ray Harrison to start pt at 57.6kg, this RN told her that her actual weight is 56.8kg. pharmacy stated that is ok to start pt at ordered weight. this RN made supervisor propellant charge loading aware report given to transport team report given to PENELOPE Horner at [facility] Original Note: report received from PENELOPE Barrientos
--- NOTE | 2022-01-11 19:22 | PC.NURSE ---
[facility] Transfer Line called at 1838 per Taty ALCANTARA,Gave patient demographics speaking with provider at this time. At 1845 accepted patient to the ER at [place].
--- NOTE | 2022-01-11 19:27 | PC.NURSE ---
[facility] Transfer Line was called at 1921 per Taty Christiansen,spoke with Karlee she stated that they are closed to transfers. Kuldip Posey aware.
--- NOTE | 2022-01-11 19:39 | PC.NURSE ---
[facility] called for a stat transfer at 1931 per Taty ALCANTARA patient is going to [facility] ER to ER. ETA within 30mins RN aware
--- NOTE | 2022-01-11 19:39 | PC.NURSE ---
Iv placed, pt weight on bed scale, notified pharmacy for heparin drip protocol. PENELOPE Gamez notified
[2022-01-11 19:40] VITALS: BMI 20.8
[2022-01-11] MEDS: Heparin Sodium,Porcine/1/2NS 25,000 UNIT/250 ML IV.SOLN 8.07 UNIT IVCONT (19:47)
--- NOTE | 2022-01-11 19:49 | PC.NURSE ---
[facility] arrived [facility] [address] to transport patient.Rn at bedside
[2022-01-11 19:53] VITALS: BP 165/78; PULSE 82; RESP 15; TEMP 37; O2SAT 96
[2022-01-11 19:57] LABS: Troponin-I High Sensitivity 3.9 ng/L (<3.5-17.0)
== END 2022-01-11 20:00 | disposition short-term general hospital (02) ==
PROVIDERS: Physician Assistant; Student in an Organized Health Care Education/Training Program; Emergency Provider Emergency Medicine; PCP Internal Medicine
DX: I26.92 Saddle embolus of pulmonary artery without acute cor pulmonale (principal); R07.89 Other chest pain; R06.02 Shortness of breath; R10.2 Pelvic and perineal pain; Z20.822 Contact with and (suspected) exposure to COVID-19; Z79.899 Other long term (current) drug therapy
CPT/HCPCS: 36415; 71250; 71275; 74176; 80053; 81001; 83880; 84484; 85025; 85610; 87502; 87635; 93005; 96374; 99285; Q9967

== ENCOUNTER 2022-07-28 14:27 | Outpatient (REF) | payer OTHER, SELFPAY ==
--- NOTE | ~2022-07-28 | MM_ITS ---
EXAMINATION: MM SCREENING DIGITAL BREAST TOMOSYNTHESIS, BILATERAL CLINICAL INFORMATION: Screening. Asymptomatic. The lifetime risk of breast cancer based on the Tyrer-Cuzick Model is 1%. COMPARISON: Mammography: 12/17/2020, 12/03/2019, 11/30/2018, 11/28/2017. TECHNIQUE: Digital breast tomosynthesis is performed in both the craniocaudal and mediolateral oblique views along with computer-aided detection (CAD). Synthesized 2D images are generated from the tomosynthesis. Additional right exaggerated CC view is provided. FINDINGS: There are scattered areas of fibroglandular density (ACR BI-RADS breast composition Category b). Parenchymal pattern is similar to prior studies and there is no developing density or architectural abnormality. Again, there are scattered bilateral asymmetries similar to prior studies. There are no significant masses, abnormal calcifications, or other abnormalities. Bilateral vascular calcifications again seen. The axilla and skin contours are unremarkable. MM/MM tomosynthesis screening BI IMPRESSION: No mammographic evidence of malignancy. ASSESSMENT: BI-RADS 2: Benign RECOMMENDATION: Routine annual mammography screening. This patient's information was entered into a reminder system with a target due date for their next mammogram.
== END 2022-07-28 14:28 | disposition home or self-care (01) ==
LOC: HO.MAMMO 14:27
PROVIDERS: Visit Provider Internal Medicine
DX: Z12.31 Encounter for screening mammogram for malignant neoplasm of breast (principal)
CPT/HCPCS: 77063; 77067

== ENCOUNTER 2023-08-12 11:04 | Outpatient (REF) | payer OTHER, SELFPAY | END 2023-08-12 11:05 | disposition home or self-care (01) | LOC: HO.MAMMO 11:04 | PROVIDERS: PCP Internal Medicine; Visit Provider Internal Medicine | DX: Z12.31 Encounter for screening mammogram for malignant neoplasm of breast (principal) | CPT/HCPCS: 77063; 77067 ==

== ENCOUNTER → 2023-08-12 11:30 | Outpatient (BNV) | payer OTHER, SELFPAY | PROVIDERS: PCP Internal Medicine; Visit Provider Radiology Diagnostic Radiology | DX: Z12.31 Encounter for screening mammogram for malignant neoplasm of breast (principal) | CPT/HCPCS: 77063; 77067 ==

== ENCOUNTER 2024-08-02 19:16 | Inpatient (IN) | payer OTHER, SELFPAY ==
--- NOTE | ~2024-08-02 | US_ITS ---
CLINICAL HISTORY: hx PE, r o DVT Bilateral lower extremity venous duplex ultrasound Comparison: None available Findings: The visualized deep veins are fully compressible with normal flow. No popliteal cyst. Impression: No deep vein thrombosis. This document has been electronically signed by: Mague Barnes MD on 08/05/2024 16:25:08
--- NOTE | ~2024-08-02 | CT_ITS ---
CLINICAL HISTORY: New onset seizure CT head without contrast Comparison: None provided Findings: No intra-axial mass, midline shift, hydrocephalus, or acute hemorrhage. [id number] atrophy-like change and white matter disease. There is no sinus or mastoid fluid. The orbits are within normal limits. There is no acute fracture. IMPRESSION: 1. No acute intracranial findings. This document has been electronically signed by: Bonita Boyd MD on 08/02/2024 22:32:21
--- NOTE | ~2024-08-02 | CT_ITS ---
CLINICAL HISTORY: Syncope episode? PE CT angiography chest with contrast. With MIP MPR Postprocessing. Comparison: None provided Findings: No central pulmonary embolism accounting for artifacts. Abnormal soft tissue of the upper mediastinum is nonspecific and may reflect aortic arch anatomy variant with essentially ectasia of the common origin of the brachiocephalic artery and left common carotid artery in this PE study. Calcified and noncalcified plaque involving the imaged aorta and its branches. Coronary artery calcifications noted with mild-moderate cardiomegaly. Bilateral pulmonary opacities are nonspecific and multifocal. Differential considerations include pneumonitis and multifocal pneumonia. Bronchiectasis also noted including laterally in the right upper lobe. Predominately centrilobular opacities include lateral segment of the lingula. Mild bibasilar atelectasis and scarring noted. Mild emphysematous changes and moderate scarring of the lucencies. No pneumothorax. No pleural effusion. Degenerative changes include imaged shoulders and imaged spine. Contrast refluxes into hepatic veins as can be seen with poor cardiac output. Mild volume loss of the partially imaged pancreas in the imaged abdomen. Mild rib deformities appear old/chronic. IMPRESSION: 1. No central pulmonary embolism. 2. 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 Considered dedicated aorta imaged, if clinically indicated. 3. Multifocal pulmonary opacities nonspecific. Differential considerations include pneumonitis and multifocal pneumonia. Recommend attention on follow-up to ensure resolution. This document has been electronically signed by: Rodrigue Figueroa MD on 08/03/2024 02:54:56
--- NOTE | ~2024-08-02 | US_ITS ---
CLINICAL HISTORY: near syncope event US Bilateral Carotid Duplex Comparison: None provided Findings: [id number] atherosclerotic echogenic plaquing of the carotid systems bilaterally. Peak systolic velocities: Right CCA: 59 cm/s. Right ICA: 67 cm/s. ICA/CCA ratio: Normal. Right ECA: 99.3 cm/s. Right vertebral artery flow antegrade. Left CCA: 65 cm/s. Left ICA: 72 cm/s. ICA/CCA ratio: Normal. Left ECA: 62.4 cm/s. Left vertebral artery flow antegrade. IMPRESSION: [id number] atherosclerotic plaquing of the carotid systems bilaterally without hemodynamically significant stenosis (0-49% stenosis). This document has been electronically signed by: Sedrick Malhotra MD on 08/04/2024 11:17:48
[2024-08-02 19:25] VITALS: BP 179/77; BP 180/73; PULSE 69; PULSE 71; RESP 16; TEMP 36.8; O2SAT 97; O2SAT 99; BMI 22.7
--- NOTE | 2024-08-02 19:44 | PC.NURSE ---
Pt NGOCA from home, A&OX3, pt reported feeling dizzy, cold, and stiff to family members who called EMS for her. VSS w/ some HTN. 22g placed n right forearm, labs drawn and sent to lab, EKG performed and given to provider. No acute distress noted at this time, call light given for safety.
[2024-08-02 19:55] LABS: Basophils Absolute Auto 0.1 X10*3/uL (0.0-0.2); Basophils Percent Auto 1.4 % (0-2); Eosinophils Absolute Auto 0.2 X10*3/uL (0.0-0.4); Eosinophils Percent Auto 3.9 % (0-4); Hematocrit 36.5 % (37.0-47.0); Hemoglobin 11.9 g/dl (12.0-16.0); Imm Gran Abs Auto 0.01 X10*3/uL (0.00-0.03); Imm Gran Pct Auto 0.2 % (0.0-0.4); Lymphocytes Absolute Auto 1.7 X10*3/uL (1.2-4.9); Lymphocytes Percent Auto 33.9 % (20-40); Mean Corpuscular HGB Conc 32.6 g/dl (31.0-35.0); Mean Corpuscular Hemoglobin 26.2 pg (27.0-33.0); Mean Corpuscular Volume 80.2 fL (80.0-98.0); Mean Platelet Volume 12.2 fL (9.4-12.3); Monocytes Absolute Auto 0.4 X10*3/uL (0.1-1.2); Monocytes Percent Auto 7.8 % (2-11); Neutrophils Absolute Auto 2.7 x10*3/uL (2.0-8.3); Neutrophils Percent Auto 52.8 % (45-73); Platelet Count 140 X10*3/uL (160-400); Red Blood Count 4.55 X10*6/uL (4.20-5.50); White Blood Count 5.1 X10*3/uL (4.8-10.8)
[2024-08-02 20:00] LABS: MANUAL DIFF FLAG NO
[2024-08-02 20:01] LABS: SLIDE REVIEW VERIFIED
[2024-08-02 20:13] LABS: Troponin-I High Sensitivity < 2.7 ng/L (<3.5-17.0)
[2024-08-02 20:30] LABS: Influenza A PCR NEGATIVE (Negative); Influenza B PCR NEGATIVE (Negative); Resp Syncy Virus RNA Qual PCR NEGATIVE (Negative); SARS COV2 PCR INHOUSE NEGATIVE (Negative)
[2024-08-02 20:37] LABS: Appearance Urine Clear; Color Urine Yellow; Glucose Urine UA Negative (Negative); Leukocyte Esterase Urine Negative (Negative); Nitrite Urine Negative (Negative); PH 8.5 (5.0-9.0); Specific Gravity - Urine <= 1.005 (1.005-1.025); Urine Blood Negative (Negative); Urine Ketones Negative (Negative); Urine Protein Trace mg/dL (Neg-Trace)
[2024-08-02 20:42] LABS: Bacteria Urine None Seen (None Seen); Hyaline Casts Urine 0-2 /LPF (0-2); RBC Urine 0-2 /HPF (0-2); Squamous Epithelial Cell Urine 0-2 /HPF (0-2); WBC Urine 0-5 /HPF (0-5)
--- NOTE | 2024-08-02 20:46 | ED_ITS ---
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 at this time with a apparently in stable health having get together for the birthday alliance party at home fell lightheaded and passed out family was next to her and held her in the room without any significant injuries patient is was laid down slowly family noticed that patient had little twitching movements with up rolling of the eyes patient is confused after the episode and more lethargic no incontinence no tongue bite patient denied any shortness a breath no history of seizures in the past saturating 99% at room air Related Data Allergies Allergy/AdvReac Type Severity Reaction Status Date / Time atorvastatin (Lipitor) Allergy Unknown body Verified 08/02/24 19:30 ache,rash,anorexia lisinopril Allergy Unknown cough Verified 08/02/24 19:30 nitrofurantoin (Macrobid) Allergy Unknown rash Verified 08/02/24 19:30 Review of Systems 2 Review of Systems: Yes all other systems are reviewed and are negative [facility] Past Medical History Medical History (Updated 08/03/24 @ 01:26 by David Domínguez MD) Saddle pulmonary embolus Hypertension Diabetes mellitus Social History Social History Alcohol intake: never Smoked in Last 30 Days: No Use of substances other than those prescribed or required for medical reasons: No Advance Directives: No Advance Directives Information Provided: Yes Physical Exam ED Vital Signs: Vital Signs - 24 hr 08/02/24 19:25 08/02/24 23:20 Temperature 98.3 F 98.0 F Pulse Rate 71 60 Respiratory Rate 16 15 Blood Pressure 179/77 H 158/68 H Pulse Oximetry 99 98 Oxygen Delivery Method Room Air Room Air BMI result Body Mass Index 22.7 Appearance: Alert. Oriented X3. No acute distress. Eyes: PERRLA, No Nystagmus ENT: Pharynx normal. Oral Mucosa moist Neck: Normal inspection. Neck supple. CVS: Normal heart rate and rhythm. Pulses normal. Respiratory: No respiratory distress. Equal air entry bilateral, no wheezing/rales/rhonchi Abdomen: Soft and nontender. Bowel sounds are present, no mass palpable, no CVA tenderness Skin: Skin warm and dry. Normal skin color. Normal skin turgor. Extremities: No lower extremity edema. No calf tenderness Neuro: Oriented X 3. No motor deficit. No sensory deficit.No cerebellar signs , cranial nerves II-XII intact Medications Administered Discontinued Medications Generic Name Dose Route Start Last Admin Trade Name Miltonq PRN Reason Stop Dose Admin Iohexol 75 ml 08/03/24 01:26 08/03/24 01: Iohexol 350 Mg/Ml 100 Ml Infus..Btl IV 08/03/24: 75 ml ONCE ONE Administration Medical Decision Making Medical Decision Making [facility] Narrative: Patient with syncope episode with questionable up rolling of the eyes and jerking movements possible she had a seizure patient does have history of saddle emboli in 2021 not on any anticoagulation at this time saturating 99% at room air possibly patient has a seizure episode, will do D-dimer. To rule out saddle emboli of the patient's does not have any shortness a breath Patient's D-dimer was elevated CTA chest did not reveal any saddle emboli will admit patient for syncope Differential Diagnosis Differential Diagnoses: The differential diagnosis associated with the presentation includes Syncope/seizure/saddle emboli/cardiac arrhythmia Admission/Observation Consideration of admission/observation: Escalation of care including admission/observation considered Consult Healthcare Provider Management of the patient was discussed with: Hospitalist Lab Data [facility] Lab Attestation statement: I reviewed the patient's lab results. 08/02/24 19:39 08/02/24 20:24 Labs: Lab Results 08/02/24 08/02/24 08/02/24 Range/Units 19:39 20:24 20:31 WBC 5.1 (4.8-10.8) X10*3/uL RBC 4.55 (4.20-5.50) X10*6/uL Hgb 11.9 L (12.0-16.0) g/dl Hct 36.5 L (37.0-47.0) % MCV 80.2 (80.0-98.0) fL MCH 26.2 L (27.0-33.0) pg MCHC 32.6 (31.0-35.0) g/dl RDW 15.0 (11.0-16.0) % Plt Count 140 L D (160-400) X10*3/uL MPV 12.2 (9.4-12.3) fL Immature Gran % (Auto) 0.2 (0.0-0.4) % Neut % (Auto) 52.8 (45-73) % Lymph % (Auto) 33.9 (20-40) % [place] % (Auto) 7.8 (2-11) % Eos % (Auto) 3.9 (0-4) % Baso % (Auto) 1.4 (0-2) % Lymph # (Auto) 1.7 (1.2-4.9) X10*3/uL [place] # (Auto) 0.4 (0.1-1.2) X10*3/uL Eos # (Auto) 0.2 (0.0-0.4) X10*3/uL Baso # (Auto) 0.1 (0.0-0.2) X10*3/uL Abs Immat Gran (auto) 0.01 (0.00-0.03) X10*3/uL Absolute Neuts (auto) 2.7 (2.0-8.3) x10*3/uL Absolute Nucleated RBC 0.000 (0.0-0.012) X10*3/uL Nucleated RBC % (auto) 0.0 (0.0-0.2) /100WBC Smear Tech's Comments VERIFIED PT (10.9-12.4) SEC INR (0.9-1.1) APTT (26.0-36.8) SEC D-Dimer High Sensitivty NG/ML Sodium 140 (135-145) mmol/L Potassium 4.4 (3.3-5.1) mmol/L Chloride 104 (96-108) mmol/L Carbon Dioxide 30 H (22-29) mmol/L Anion Gap 10 L (12-20) BUN 15 (9-16) mg/dL Creatinine 0.95 (0.5-1.4) mg/dL Estim Creat Clear Calc 39.6 Estimated GFR 56 Random Glucose 172 H (60-115) mg/dL Calcium 9.7 (8.4-10.2) mg/dL Total Bilirubin 1.6 H (0.0-1.0) mg/dL AST 30 (5-31) U/L ALT 20 (0-31) U/L Alkaline Phosphatase 38 L (39-117) U/L Troponin I High Sens < 2.7 (<3.5-17.0) ng/L Total Protein 7.1 (6.5-8.0) g/dL Albumin 4.1 (3.5-5.0) g/dL Lipase 42 (8-78) U/L Urine Color Yellow Urine Appearance Clear Urine pH 8.5 (5.0-9.0) Ur Specific [place] <= 1.005 (1.005-1.025) Urine Protein Trace (Neg-Trace) mg/dL Urine Glucose (UA) Negative (Negative) mg/dL Urine Ketones Negative (Negative) mg/dL Urine Blood Negative (Negative) Urine Nitrite Negative (Negative) Ur Leukocyte Esterase Negative (Negative) Urine RBC 0-2 (0-2) /HPF Urine WBC 0-5 (0-5) /HPF Ur Squamous Epith Cells 0-2 (0-2) /HPF Urine Bacteria None Seen (None Seen) Hyaline Casts 0-2 (0-2) /LPF Influenza Type A (PCR) NEGATIVE (Negative) Influenza Type B (PCR) NEGATIVE (Negative) RSV RNA Qual (PCR) NEGATIVE (Negative) SARS-CoV-2 RNA (RT-PCR) NEGATIVE (Negative) 08/02/24 Range/Units 23:19 WBC (4.8-10.8) X10*3/uL RBC (4.20-5.50) X10*6/uL Hgb (12.0-16.0) g/dl Hct (37.0-47.0) % MCV (80.0-98.0) fL MCH (27.0-33.0) pg MCHC (31.0-35.0) g/dl RDW (11.0-16.0) % Plt Count (160-400) X10*3/uL MPV (9.4-12.3) fL Immature Gran % (Auto) (0.0-0.4) % Neut % (Auto) (45-73) % Lymph % (Auto) (20-40) % [place] % (Auto) (2-11) % Eos % (Auto) (0-4) % Baso % (Auto) (0-2) % Lymph # (Auto) (1.2-4.9) X10*3/uL [place] # (Auto) (0.1-1.2) X10*3/uL Eos # (Auto) (0.0-0.4) X10*3/uL Baso # (Auto) (0.0-0.2) X10*3/uL Abs Immat Gran (auto) (0.00-0.03) X10*3/uL Absolute Neuts (auto) (2.0-8.3) x10*3/uL Absolute Nucleated RBC (0.0-0.012) X10*3/uL Nucleated RBC % (auto) (0.0-0.2) /100WBC Smear Tech's Comments PT 10.7 L (10.9-12.4) SEC INR 0.9 (0.9-1.1) APTT 27.0 (26.0-36.8) SEC D-Dimer High Sensitivty 1119 NG/ML Sodium (135-145) mmol/L Potassium (3.3-5.1) mmol/L Chloride (96-108) mmol/L Carbon Dioxide (22-29) mmol/L Anion Gap (12-20) BUN (9-16) mg/dL Creatinine (0.5-1.4) mg/dL Estim Creat Clear Calc Estimated GFR Random Glucose (60-115) mg/dL Calcium (8.4-10.2) mg/dL Total Bilirubin (0.0-1.0) mg/dL AST (5-31) U/L ALT (0-31) U/L Alkaline Phosphatase (39-117) U/L Troponin I High Sens (<3.5-17.0) ng/L Total Protein (6.5-8.0) g/dL Albumin (3.5-5.0) g/dL Lipase (8-78) U/L Urine Color Urine Appearance Urine pH (5.0-9.0) Ur Specific [place] (1.005-1.025) Urine Protein (Neg-Trace) mg/dL Urine Glucose (UA) (Negative) mg/dL Urine Ketones (Negative) mg/dL Urine Blood (Negative) Urine Nitrite (Negative) Ur Leukocyte Esterase (Negative) Urine RBC (0-2) /HPF Urine WBC (0-5) /HPF Ur Squamous Epith Cells (0-2) /HPF Urine Bacteria (None Seen) Hyaline Casts (0-2) /LPF Influenza Type A (PCR) (Negative) Influenza Type B (PCR) (Negative) RSV RNA Qual (PCR) (Negative) SARS-CoV-2 RNA (RT-PCR) (Negative) Independent Interpretation I performed an independent interpretation of an: EKG Interpretation: Normal sinus rhythm ventricular rate 72 beats per minute poor progression of R- wave no acute STT wave changes no acute ischemia Critical Care Time Critical Care Time Critical Care Time: Yes Total Critical Care Time: 55 Attestation: Time is exclusive of separately billable procedures. Time includes: direct patient care, patient reassessment, coordination of patient care, interpretation of data (laboratory data, pulse oximetry, arterial blood gases and chest xrays), review of patient's medical records, medical consultation and documentation of patient care. Procedures excluded from critical care time: central intravenous line placement and electrocardiography. Discharge Plan Discharge Clinical Impression: Syncope and collapse Patient Disposition: Admitted As Inpatient Print Language: Faroese
[2024-08-02 21:05] LABS: Alanine Aminotransferase 20 U/L (0-31); Albumin Level 4.1 g/dL (3.5-5.0); Alkaline Phosphatase 38 U/L (39-117); Anion Gap 10 (12-20); Aspartate Amino Transferase 30 U/L (5-31); Bilirubin Total 1.6 mg/dL (0.0-1.0); Blood Urea Nitrogen 15 mg/dL (9-16); Calcium 9.7 mg/dL (8.4-10.2); Carbon Dioxide 30 mmol/L (22-29); Chloride 104 mmol/L (96-108); Creatinine Clr Calc Pharmacy 39.6; Estimated Glomerular Filt Rate 56; Glucose Random 172 mg/dL (60-115); Lipase 42 U/L (8-78); Potassium 4.4 mmol/L (3.3-5.1); Sodium 140 mmol/L (135-145); Total Protein 7.1 g/dL (6.5-8.0)
--- NOTE | 2024-08-02 22:35 | PC.NURSE ---
purewick placed per pt request, tolerated well.
[2024-08-02 23:20] VITALS: BP 158/68; PULSE 60; RESP 15; TEMP 36.7; O2SAT 98
[2024-08-02 23:54] LABS: INTERNATIONAL NORM RATIO 0.9 (0.9-1.1); Prothrombin Time 10.7 SEC (10.9-12.4)
[2024-08-02 23:56] LABS: D Dimer High Sensitivity 1119 NG/ML
[2024-08-03] VITALS (14 sets, daily range): BP systolic 139–168; BP diastolic 68–77; PULSE 59–78; RESP 12–22; TEMP 36.6–37.3; O2SAT 93–98
--- NOTE | 2024-08-03 | ECG_ITS ---
Test Reason : CP Blood Pressure : */* mmHG Vent. Rate : 69 BPM Atrial Rate : 69 BPM P-R Int : 142 ms QRS Dur : 88 ms QT Int : 420 ms P-R-T Axes : * 2 47 degrees QTcB Int : 450 ms Normal sinus rhythm Nonspecific ST abnormality Borderline ECG When compared with ECG of 02-Aug-2024 19:26, No significant change was found Referred By: Darnell Mcclellan Electronically Signed By: DAYDAY BOWDEN
--- NOTE | 2024-08-03 | ECG_ITS ---
Test Reason : DIZZY Blood Pressure : */* mmHG Vent. Rate : 72 BPM Atrial Rate : 72 BPM P-R Int : 156 ms QRS Dur : 80 ms QT Int : 398 ms P-R-T Axes : 104 7 55 degrees QTcB Int : 435 ms Normal sinus rhythm Cannot rule out Anterior infarct (cited on or before 11-Jan-2022) Abnormal ECG When compared with ECG of 11-Jan-2022 13:20, Premature ventricular complexes are no longer Present Referred By: Liliana Cox Electronically Signed By: DAYDAY BOWDEN
[2024-08-03] MEDS: iohexoL 350 MG/ML 100 ML INFUS..BTL 75 ML IV (01:26)
--- NOTE | 2024-08-03 02:28 | P.HPHOSP_ITS ---
History of Present Illness Date of Service: 08/03/24 Attending physician on admission: Darnell Mcclellan Chief Complaint: witnessed syncopal event possible seizure Paper Plate Machine Tender used for HPI and exam. Pt is an 84 yo female Turkish- speaking only with PMH DMII, ascending aortic aneurysm, chronic kidney disease, hysterectomy, hypoglycemia, urinary tract infection, atrophic vaginitis, cholecystectomy, sinus surgery, umbilical hernia repair, saddle PE stopped anticoagulation 3-6 months prior was brought in by ambulance status post a witnessed near syncopal episode that occurred with her family during the birthday republican. Patient states she was walking from the kitchen to the living room and began to feel very dizzy. Patient's son-in-law was able to catch patient before she fell to the floor. Patient states she denies any loss of consciousness. Patient does remember the entire event. Patient was feeling tremulous afterwards. Patient denied any chest pain or sweating. Patient states she has been feeling quite a bit of phlegm prior to the episode and continues to experience production of phlegm, white in color. Pt denies dyspahgia but is edentualous. Patient states she has had pneumonia in the past. There was consideration that patient may have also had a seizure but based on patient's history of events and clinical examination, low threshold for seizure activity. Patient states she had a similar episode 1 month prior and was seen at [facility]. Records from [facility] have been requested. Initially chest x-ray was negative for any acute findings. Based on patient's history of previous PE and no longer on anticoagulation, CTA was ordered and is currently negative for central PE. There is evidence of multifocal pneumonia. 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 Patient is not having any hypoxia. Patient has been on room air since arrival. Cardiology consulted, Echo and carotid dopplers ordered. Neurology also consulted as there is consideration of possible seizure like activity. Review of Systems 2 Review of Systems: Patient currently denies any chest pain, chest pressure or shortness breath at rest. Patient is reporting some mild abdominal discomfort nonspecific. Patient denies any current nausea or vomiting, diarrhea or constipation. Patient denies any flank pain or burning with urination. Patient does have chronic itching in the vaginal area and received treatment in the outpatient setting. Yes all other systems are reviewed and are negative [facility] Medical History (Updated 08/03/24 @ 03:19 by BRISEYDA Alvarez) UTI (urinary tract infection) Hypoglycemia Atrophic vaginitis HLD (hyperlipidemia) Saddle pulmonary embolus Hypertension Diabetes mellitus Cognitive capacity: Alert and orientated x3 Functional capacity: uses cane/walker Patient : No Surgical History (Updated 08/03/24 @ 03:17 by BRISEYDA Alvarez) H/O sinus surgery H/O umbilical hernia repair H/O hysterectomy for benign disease Social History Alcohol intake: never Smoked in Last 30 Days: No Use of substances other than those prescribed or required for medical reasons: No Advance Directives: No Advance Directives Information Provided: Yes Patient : No Ebola Risk: Travel/Contact With Anyone From Affected Area/s: No Has Patient Experienced Ebola Symptoms: No Meds Allergies Allergy/AdvReac Type Severity Reaction Status Date / Time atorvastatin (Lipitor) Allergy Unknown body Verified 08/02/24 19:30 ache,rash,anorexia lisinopril Allergy Unknown cough Verified 08/02/24 19:30 nitrofurantoin (Macrobid) Allergy Unknown rash Verified 08/02/24 19:30 Active Medications: Current Medications Acetaminophen (Acetaminophen 325 Mg Tablet) 650 mg PO Q6H PRN PRN Reason: Pain, Mild 1-3,fever,headache Albuterol/Ipratropium (Albuterol/Iprat 2.5/0.5mg 3 Ml Ampul.Neb) 3 ml INHALE Q4H PRN PRN Reason: Shortness of Breath/Wheezing Calcium Carbonate (Calcium Carbonate 750 Mg Tab.Chew) 750 mg PO Q4H PRN PRN Reason: Heartburn Enoxaparin Sodium (Enoxaparin Sodium 40 Mg/0.4 Ml Syringe) 40 mg SUBCUT Q24H LORETA Magnesium Hydroxide (Milk Of Magnesia 30 Ml Oral.Susp) 30 ml PO DAILY PRN PRN Reason: Constipation Melatonin (Melatonin 3 Mg Tablet) 6 mg PO BEDTIME PRN PRN Reason: Insomnia Ondansetron HCl (Ondansetron Hcl 4 Mg/2 Ml Vial) 4 mg IVPUSH Q8H PRN PRN Reason: Nausea and Vomiting Polyethylene Glycol (Polyethylene Glycol 3350 17 Gm Powd.Pack) 17 gm PO DAILY PRN PRN Reason: Constipation Senna (Sennosides 8.6 Mg Tablet) 17.2 mg PO BEDTIME LORETA Sodium Chloride (0.9 % Sodium Chloride Flush 3 Ml Syringe) 3 ml IVFLUSH QSHIFT LORETA Physical Exam 2 Vital Signs and Narrative: Vital Signs: Last Vital Signs Temp 98.5 F 08/03/24 02:07 Pulse 59 08/03/24 02:07 Resp 15 08/03/24 02:07 BP 168/69 H 08/03/24 02:07 Pulse Ox 98 08/03/24 02:07 O2 Del Method Room Air 08/03/24 02:07 BMI result Body Mass Index 22.7 Alert and orientated X3, able to give good history. 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 Neuro: CN II-X11 intact, no deficits, visual acuity intact m right eye proptosis, otherwise neuro exam reassuring EYES: PERRLA, EOM intact, sclerae nonicteric, conjunctiva pink ENT: hearing intact, no issues with swallowing, uvula midline, lips moist, nares patent no epistaxis Cardiac: S1 S2 RRR, no murmur, no JVD, no edema in Lower ext Pulmonary: lungs diminished bilaterally, rhonchi upper left lobe Abdominal: BS active in all 4 quadrants, no guarding, tenderness, rebounding, mild distention MSK: strength 3/5 upper and lower extremities : no CVA tenderness no bladder distension Extremities: no edema in lower extremities, PT and DP pulses palpable +2 Psych: mood stable, judgement and insight good Skin: Intact no report of open wounds Results Labs 08/02/24 19:39 08/02/24 20:24 Labs: Laboratory Results - last 24 hr 08/02/24 08/02/24 08/02/24 19:39 20:24 20:31 MCV 80.2 MCH 26.2 L MCHC 32.6 RDW 15.0 Plt Count 140 L D MPV 12.2 Immature Gran % (Auto) 0.2 Neut % (Auto) 52.8 Lymph % (Auto) 33.9 Saunders % (Auto) 7.8 Eos % (Auto) 3.9 Baso % (Auto) 1.4 Lymph # (Auto) 1.7 Saunders # (Auto) 0.4 Eos # (Auto) 0.2 Baso # (Auto) 0.1 Abs Immat Gran (auto) 0.01 Absolute Neuts (auto) 2.7 Absolute Nucleated RBC 0.000 Nucleated RBC % (auto) 0.0 Smear Tech's Comments VERIFIED PT INR APTT D-Dimer High Sensitivty Anion Gap 10 L Estim Creat Clear Calc 39.6 Estimated GFR 56 Random Glucose 172 H Calcium 9.7 Total Bilirubin 1.6 H AST 30 ALT 20 Alkaline Phosphatase 38 L Troponin I High Sens < 2.7 Total Protein 7.1 Albumin 4.1 Lipase 42 Urine Color Yellow Urine Appearance Clear Urine pH 8.5 Ur Specific [place] <= 1.005 Urine Protein Trace Urine Glucose (UA) Negative Urine Ketones Negative Urine Blood Negative Urine Nitrite Negative Ur Leukocyte Esterase Negative Urine RBC 0-2 Urine WBC 0-5 Ur Squamous Epith Cells 0-2 Urine Bacteria None Seen Hyaline Casts 0-2 Influenza Type A (PCR) NEGATIVE Influenza Type B (PCR) NEGATIVE RSV RNA Qual (PCR) NEGATIVE SARS-CoV-2 RNA (RT-PCR) NEGATIVE 08/02/24 23:19 MCV MCH MCHC RDW Plt Count MPV Immature Gran % (Auto) Neut % (Auto) Lymph % (Auto) Saunders % (Auto) Eos % (Auto) Baso % (Auto) Lymph # (Auto) Saunders # (Auto) Eos # (Auto) Baso # (Auto) Abs Immat Gran (auto) Absolute Neuts (auto) Absolute Nucleated RBC Nucleated RBC % (auto) Smear Tech's Comments PT 10.7 L INR 0.9 APTT 27.0 D-Dimer High Sensitivty 1119 Anion Gap Estim Creat Clear Calc Estimated GFR Random Glucose Calcium Total Bilirubin AST ALT Alkaline Phosphatase Troponin I High Sens Total Protein Albumin Lipase Urine Color Urine Appearance Urine pH Ur Specific [place] Urine Protein Urine Glucose (UA) Urine Ketones Urine Blood Urine Nitrite Ur Leukocyte Esterase Urine RBC Urine WBC Ur Squamous Epith Cells Urine Bacteria Hyaline Casts Influenza Type A (PCR) Influenza Type B (PCR) RSV RNA Qual (PCR) SARS-CoV-2 RNA (RT-PCR) ECG Attestation: I personally reviewed and interpreted this ECG as follows: Prior ECG tracings: not available for review Imaging Radiologist's Impressions: CTA IMPRESSION: 1. No central pulmonary embolism. 2. 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 Considered dedicated aorta imaged, if clinically indicated. 3. Multifocal pulmonary opacities nonspecific. Differential considerations include pneumonitis and multifocal pneumonia. Recommend attention on follow-up to ensure resolution. CXR no acute findings Assessment and Plan (1) PNA (pneumonia): Qualifiers: Laterality: left Lung location: lower lobe of lung Pneumonia type: due to unspecified organism Qualified Code(s): J18.9 - Pneumonia, unspecified organism Status: Acute (2) Near syncope: Status: Acute Plan Paper Plate Machine Tender used for HPI and exam. Pt is an 84 yo female Turkish- speaking only with PMH DMII, ascending aortic aneurysm, chronic kidney disease, hysterectomy, hypoglycemia, urinary tract infection, atrophic vaginitis, cholecystectomy, sinus surgery, umbilical hernia repair, saddle PE stopped anticoagulation 3-6 months prior being admitted with near syncopal event, rule out seizure activity and pneumonia multifocal. New PE ruled out. Multifocal PNA -Low likelihood of aspiration, Bedside swallow and ST eval ordered - pt is partially edentulous -Aspiration Precautions -Ceftriaxone and Azithromycin ordered -BC X2 done prior -Sputum culture ordered (pt may not be able to produce sample) -Duo Nebds -Budesonide BID -Mucinex -Incentive Spirometer -Supportive Care -No issues with sepsis or hypoxia Near Syncope Vs Seizure -Previosu near syncopal episode 1 month prior, records from [facility] requested -Cardiology consult -Neurology consulted -Seizure precautions -No indication for antiseizure medications at this time as patient can recall all events -Orthostatics ordered to start in the a.m. -TEDS -Telemetry and continuous pulse ox -CT of the head negative for any acute findings -Carotid Dopplers ordered -CTA notes ascending aortic aneurysm with left artery and brachiocephalic artery involvement, no current echocardiogram -Echo ordered Hx of Saddle PE, not on AC - DDIMER elevated, R/O PE -CTA negative for new PE DMII -SSI -Diabetic Diet HLD -Allergy to Statin -Lipid panel in AM HTN -Hydrlazine prn -MED REC pending CKD (pt reports she follows with branch officer) -GFR 56, CR CL 39.6 -UA neg for UTI, Trace proteinuria -Use caution with nephrotoxic meds -Avoid hypotension DVT prophylaxis: lovenox PPI prophylaixs: omeperazole MED REC pending Full Code Status Quality Stroke Does the patient have a stroke diagnosis?: No Reason for No Anti-thrombotic by Day Two: N/A - Med Ordered VTE Prior VTE?: Yes VTE Risk Level:: Medical - moderate - high VTE Device Contraindication: N/A - Device Ordered VTE Drug Contraindication: N/A - Med Ordered
--- NOTE | 2024-08-03 03:17 | PC.NURSE ---
poultry hatchery manager at bedside, swallow eval completed with pt, pt tolerated well with no difficulty.
[2024-08-03] MEDS: Azithromycin 500 MG in 0.9 % Sodium Chloride 250 ML 125 MG IV (03:46)
[2024-08-03] MEDS: cefTRIAXone sodium 1 GM VIAL IVPUSH (03:46)
--- NOTE | 2024-08-03 03:57 | PC.NURSE ---
Addendum entered by Mague Iqbal 08/03/24 04:01: provider Kat duran Original Note: phlebotomy at the bedside to recieve AM labs, pt refused
--- NOTE | 2024-08-03 07:00 | CA_ITS ---
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 The visually estimated ejection fraction is between 55-60%. - No obvious valvular pathology seen on this study. Findings Procedure Information Contrast agent, definity, is being given per protocol without apparent complications. Left Ventricle Normal left ventricular cavity size. There is mildly increased left ventricular wall thickness. The left ventricular systolic function is normal. The visually estimated ejection fraction is between 55-60%. There is no evidence of regional wall motion abnormalities. Evidence suggests grade I (mild) diastolic dysfunction. Right Ventricle Normal right ventricular cavity size and systolic function. Atria Both atria are normal in size. Aortic Valve There is a normal trileaflet aortic valve. There is no aortic valve stenosis. There is mild aortic valve regurgitation. Mitral Valve The mitral valve appears normal. There is trace mitral valve regurgitation. There is no mitral valve stenosis. Pulmonic Valve The pulmonic valve is likely normal. Tricuspid Valve There is no tricuspid valve regurgitation. Tricuspid regurgitation envelope is inadequate for calculation of right ventricular systolic pressure. Great Vessels The asc aorta is normal in size. Venous The inferior vena cava is normal in size and collapses greater than 50% with inspiration. Pericardium/Pleural There is no evidence of pericardial effusion. Prior Study Comparison No significant change compared to prior study dated: 10/01/2014. Recommendations, Care & Conclusions No obvious valvular pathology seen on this study. Measurements 2D Linear Measurements IVSd: 1.22 0.6-0.9/0.6-1.0 cm LVIDd: 3.92 3.9-5.3/4.2-5.9 cm LVIDd Index: 2.33 2.4-3.2/2.2-3.1 cm/m2 LVIDs: 2.43 2.0-3.6 cm LVPWd: 1.24 0.7-1.1 cm Ao Root: 3.70 2.1-3.5 cm LA Diam: 2.10 2.7-3.8/3.0-4.0 cm LAIDs Index: 1.25 1.5-2.3 cm/m2 LV Mass: 207.44 67-162/88-224 g LV Mass Index: 123.47 43-95/49-115 g/m2 LVOT Diam: 2.10 3.0+(-)1.3 cm 2D Systolic Function EF 4C: 61.00 >55% EF 2C: 57.70 >55% EF BiP: 60.40 >55% Mitral Valve MV Pk E: 0.60 MV PK A: 0.89 MV Decel Time: 319.00 E/A: 0.70 E'Medial: 3.70 E/E' Med: 16.20 PHT: 93.00 MVA PHT: 2.37 Decel [place]: 1.88 Aortic Valve AoV Pk Gianluca: 1.39 AoV Mn Gianluca: 0.82 AoV VTI: 0.34 AoV Pk Grad: 8.00 Aov Mn Grad: 3.00 ELIN Cont.VTI: 2.04 LVOT LVOT Pk Gianluca: 0.69 LVOT Mn Gianluca: 0.45 LVOT VTI: 0.20 LVOT Pk Grad: 2.00 LVOT Mn Grad: 1.00 LVOT Diam: 2.10 LVOT Area: 3.46 Diastolic Function MV Pk E: 0.60 MV Pk A: 0.89 E/A: 0.70 E'Medial: 3.70 E/E' Med: 16.20 Right Ventricle TAPSE (mm): 19.00 TVS' Gianluca: 14.80 Tricuspid Valve TR Pk Gianluca: 1.77 TR Pk Grad: 13.00 Great Vessels Aorta Ao Root-2D: 3.70 2.0-3.7 cm Ao Asc: 3.60 2.1-3.4 cm Pulmonary Valve PV Pk Gianluca: 0.79 Peak PV Grad: 2.00 Updated in Other Vendor System with Status of Final Lenin Gonzalez MD electronically signed on 08/04/2024 10:41:49 AM with status of Final
[2024-08-03 07:16] LABS: Glucose, Whole Blood 124 mg/dL (60-115)
[2024-08-03] MEDS: Budesonide 0.5 MG/2 ML AMPUL.NEB INHALE ×2 (07:53→20:34)
[2024-08-03 08:54] LABS: MANUAL DIFF FLAG NO
[2024-08-03 08:56] LABS: Basophils Percent Auto 0.5 % (0-2); Eosinophils Absolute Auto 0.1 X10*3/uL (0.0-0.4); Eosinophils Percent Auto 2.1 % (0-4); Hematocrit 33.8 % (37.0-47.0); Hemoglobin 11.2 g/dl (12.0-16.0); Imm Gran Abs Auto 0.02 X10*3/uL (0.00-0.03); Imm Gran Pct Auto 0.4 % (0.0-0.4); Lymphocytes Absolute Auto 1.1 X10*3/uL (1.2-4.9); Lymphocytes Percent Auto 19.3 % (20-40); Mean Corpuscular HGB Conc 33.1 g/dl (31.0-35.0); Mean Corpuscular Volume 78.6 fL (80.0-98.0); Mean Platelet Volume 11.3 fL (9.4-12.3); Monocytes Absolute Auto 0.4 X10*3/uL (0.1-1.2); Monocytes Percent Auto 6.9 % (2-11); Neutrophils Percent Auto 70.8 % (45-73); Platelet Count 144 X10*3/uL (160-400); Red Cell Distribution Width 14.9 % (11.0-16.0); White Blood Count 5.6 X10*3/uL (4.8-10.8)
[2024-08-03] MEDS: 0.9 % Sodium Chloride Flush 3 ML SYRINGE IVFLUSH ×2 (09:11→17:18)
[2024-08-03] MEDS: Enoxaparin Sodium 40 MG/0.4 ML SYRINGE SUBCUT (09:12)
[2024-08-03] MEDS: guaiFENesin LA 600 MG TAB.ER.12H PO ×2 (09:12→21:40)
--- NOTE | 2024-08-03 09:12 | PHA.MEDREC ---
Pharmacy Consult ? Medication Reconciliation Pharmacy has completed the medication reconciliation. Spoke with pt at bedside to confirm medications. She confirmed she splits chlorhtadidone. Metfromin was confirmed by pt, but has not filled since 01/02/24; but pt did state it was previously 850mg, but is now 500mg BID, which claims shows to be accurate.
[2024-08-03 09:18] LABS: Alanine Aminotransferase 19 U/L (0-31); Albumin Level 3.8 g/dL (3.5-5.0); Alkaline Phosphatase 36 U/L (39-117); Aspartate Amino Transferase 29 U/L (5-31); Bilirubin Total 1.2 mg/dL (0.0-1.0); Blood Urea Nitrogen 12 mg/dL (9-16); Cholesterol 100 mg/dL (<200); Creatinine Clr Calc Pharmacy 43.8; Estimated Glomerular Filt Rate > 60; Glucose Random 185 mg/dL (60-115); HDL Cholesterol 29 mg/dL (>40); LDL Cholesterol Calculated 51 mg/dL (<100); Total Protein 6.6 g/dL (6.5-8.0); Triglycerides 100 mg/dL (<150)
[2024-08-03 09:28] LABS: Anion Gap 13 (12-20); Carbon Dioxide 29 mmol/L (22-29); Chloride 103 mmol/L (96-108); Potassium 3.5 mmol/L (3.3-5.1); Sodium 141 mmol/L (135-145)
--- NOTE | 2024-08-03 10:41 | P.CONCA_ITS ---
History of Present Illness History of Present Illness Date of Service: 08/03/24 Chief complaint: syncope Narrative: This is a cardiology consultation regarding question of syncope. Discussed with patient using foreign language interpreter. Patient with many comorbidities. She has been brought with a question of witnessed syncopal episode. She was apparently at about the body and it seems she was walking from the kitchen to the living room when she became dizzy. Patient's son-in-law was able to catch her before she fell to the floor. Patient was feeling tremulous after that. She has been having some expectoration. She has had pneumonia in the past. Apparently a similar episode a month ago and was seen at [facility]. Currently, just nonspecific weakness but nothing clear-cut cardiac. Denies any angina or shortness of breath or anything specific from the cardiac standpoint. Discussed with the physical therapist who was at her bedside. Apparently when she tried to walk her, she almost fell back and that is suggestive of weakness and losing balance. Review of Systems 2 Review of Systems: Yes all other systems are reviewed and are negative Constitutional: Constitutional: Reports as per HPI, Reports no additional constitutional complaints and Reports weakness Eyes: Eyes: Reports as per HPI and Denies no additional eye complaints ENT: Denies system reviewed and no additional complaints, except as documented and Reports as per HPI Cardiovascular: Cardiovascular: Reports as per HPI, Reports no additional cardiovascular complaints, Denies acrocyanosis, Denies cool extremities, Denies chest pain, Denies leg edema, Denies lightheadedness, Denies palpitations and Denies dyspnea Respiratory: Respiratory: Reports as per HPI, Denies no additional respiratory complaints and Denies dyspnea Gastrointestinal: Gastrointestinal: Reports as per HPI and Denies no additional gastrointestinal complaints Genitourinary: Genitourinary: Reports as per HPI Musculoskeletal: Musculoskeletal: Reports no additional musculoskeletal complaints and Reports as per HPI Integumentary/Breasts: Skin/Breast: Reports system reviewed and no additional complaints, except as docu Neurologic: Reports system reviewed and no additional complaints, except as documented, Reports as per HPI and Reports weakness Psychiatric: Psychiatric: Reports no additional psychiatric complaints and Reports as per HPI Endocrine: Endocrine: Reports no additional endocrine complaints, Reports as per HPI and Denies palpitations Hematologic/Lymphatic: Hematologic/Lymphatic: Reports no additional hematologic/lymphatic complaints and Reports as per HPI Allergic/Immunologic: Allergic/Immunologic: Reports no additional allergic/immunologic complaints and Reports as per HPI PMFSH Past Medical History Medical History (Updated 08/03/24 @ 03:19 by BRISEYDA Alvarez) UTI (urinary tract infection) Hypoglycemia Atrophic vaginitis HLD (hyperlipidemia) Saddle pulmonary embolus Hypertension Diabetes mellitus Family History Pertinent family history: No pertinent family history Surgical History Surgical History (Updated 08/03/24 @ 03:17 by BRISEYDA Alvarez) H/O sinus surgery H/O umbilical hernia repair H/O hysterectomy for benign disease Social History Social History Alcohol intake: never Patient Tobacco Use Status: Never used Tobacco Smoked in Last 30 Days: No Use of substances other than those prescribed or required for medical reasons: No Advance Directives: No Advance Directives Information Provided: Yes Nutrition Risks: No Nutritional Risk Patient : No Travel History Ebola Risk: Travel/Contact With Anyone From Affected Area/s: No Has Patient Experienced Ebola Symptoms: No Meds Allergies Allergy/AdvReac Type Severity Reaction Status Date / Time atorvastatin (Lipitor) Allergy Unknown body Verified 08/02/24 19:30 ache,rash,anorexia lisinopril Allergy Unknown cough Verified 08/02/24 19:30 nitrofurantoin (Macrobid) Allergy Unknown rash Verified 08/02/24 19:30 Active Medications: Current Medications Acetaminophen (Acetaminophen 325 Mg Tablet) 650 mg PO Q6H PRN PRN Reason: Pain, Mild 1-3,fever,headache Albuterol/Ipratropium (Albuterol/Iprat 2.5/0.5mg 3 Ml Ampul.Neb) 3 ml INHALE Q4H PRN PRN Reason: Shortness of Breath/Wheezing Budesonide (Budesonide 0.5 Mg/2 Ml Ampul.Neb) 0.5 mg INHALE RBID [facility] Last Admin: 08/03/24 07:53 Dose: 0.5 mg Calcium Carbonate (Calcium Carbonate 750 Mg Tab.Chew) 750 mg PO Q4H PRN PRN Reason: Heartburn Ceftriaxone Sodium (Ceftriaxone Sodium 1 Gm Vial) 1 gm IVPUSH Q24H [facility] Last Admin: 08/03/24 03:46 Dose: 1 gm Dextrose (Dextrose 50 % 25 Gm/50 Ml Syringe) 25 gm IVPUSH Q15M PRN; Protocol PRN Reason: per Hypoglycemia Standing Ord. Enoxaparin Sodium (Enoxaparin Sodium 40 Mg/0.4 Ml Syringe) 40 mg SUBCUT Q24H [facility] Last Admin: 08/03/24 09:12 Dose: 40 mg Glucose (Glucose Gel 15 Gm Gel..Gram.) 15 gm PO Q15M PRN; Protocol PRN Reason: per Hypoglycemia Standing Ord. Guaifenesin (Guaifenesin La 600 Mg Tab.Er.12h) 600 mg PO BID [facility] Last Admin: 08/03/24 09:12 Dose: 600 mg Hydralazine HCl (Hydralazine Hcl 20 Mg/Ml Vial) 10 mg IVPUSH Q6H PRN; Protocol PRN Reason: SBP > 160 Azithromycin 500 mg/ Sodium (Chloride) 250 mls @ 125 mls/hr IV Q24H [facility] Last Infusion: 08/03/24 05:46 Dose: Infused Insulin Human Lispro (Insulin Lispro 100 Unit/Ml 3 Ml Vial) 0 unit SUBCUT QIDACHS [facility]; Protocol Last Admin: 08/03/24 08:33 Dose: Not Given Magnesium Hydroxide (Milk Of Magnesia 30 Ml Oral.Susp) 30 ml PO DAILY PRN PRN Reason: Constipation Melatonin (Melatonin 3 Mg Tablet) 6 mg PO BEDTIME PRN PRN Reason: Insomnia Ondansetron HCl (Ondansetron Hcl 4 Mg/2 Ml Vial) 4 mg IVPUSH Q8H PRN PRN Reason: Nausea and Vomiting Polyethylene Glycol (Polyethylene Glycol 3350 17 Gm Powd.Pack) 17 gm PO DAILY PRN PRN Reason: Constipation Senna (Sennosides 8.6 Mg Tablet) 17.2 mg PO BEDTIME [facility] Sodium Chloride (0.9 % Sodium Chloride Flush 3 Ml Syringe) 3 ml IVFLUSH QSHIFT [facility] Last Admin: 08/03/24 09:11 Dose: 3 ml Home Medications ?Medication ?Instructions ?Recorded ?Confirmed ?Last Taken ?Type chlorthalidone 25 mg tablet 12.5 mg PO DAILY 08/03/24 08/03/24 Unknown History metformin 500 mg tablet 500 mg PO BID 08/03/2408/03 Unknown History olmesartan 40 mg tablet 40 mg PO DAILY 08/03/24/08/31 Unknown History Physical Exam 2 Vital Signs: Vital Signs: Last Vital Signs Temp 98.4 F 08/03/24 05:04 Pulse 68 08/03/24 07:54 Resp 16 08/03/24 07:54 BP 152/77 H 08/03/24 07:08 Pulse Ox 98 08/03/24 07:08 O2 Del Method Room Air 08/03/24 07:08 BMI result Body Mass Index 22.7 Const: General: comfortable and no acute distress O rientation/consciousness: patient oriented x3 HEENT: Other: Unremarkable Head: Yes normal to inspection Neck: Neck: Yes normal visual inspection Chest: Chest palpation & inspection: normal inspection of the chest Resp: Auscultation: clear to auscultation bilaterally Cardio: Palpation: normal PMI Heart sounds: S1 normal heart sound present, S2 normal heart sound present, no gallops, no murmurs and no rubs GI: Palpation (GI): Soft to palpation Back/Spine/Pelvis: Other: unremarkable Skin: General skin exam: no rashes or lesions noted Neuro: General: patient oriented x3 Extrem: General: Yes normal to inspection Psych: Mental Status: mental status grossly normal Objective Labs and Meds 08/03/24 08:49 08/03/24 08:49 Lab results: Laboratory Results - last 24 hr 08/02/24 08/02/24 08/02/24 19:39 20:24 20:31 WBC 5.1 RBC 4.55 Hgb 11.9 L Hct 36.5 L MCV 80.2 MCH 26.2 L MCHC 32.6 RDW 15.0 Plt Count 140 L D MPV 12.2 Immature Gran % (Auto) 0.2 Neut % (Auto) 52.8 Lymph % (Auto) 33.9 [place] % (Auto) 7.8 Eos % (Auto) 3.9 Baso % (Auto) 1.4 Lymph # (Auto) 1.7 [place] # (Auto) 0.4 Eos # (Auto) 0.2 Baso # (Auto) 0.1 Abs Immat Gran (auto) 0.01 Absolute Neuts (auto) 2.7 Absolute Nucleated RBC 0.000 Nucleated RBC % (auto) 0.0 Smear Tech's Comments VERIFIED PT INR APTT D-Dimer High Sensitivty Sodium 140 Potassium 4.4 Chloride 104 Carbon Dioxide 30 H Anion Gap 10 L BUN 15 Creatinine 0.95 Estim Creat Clear Calc 39.6 Estimated GFR 56 POC Glucose Random Glucose 172 H Calcium 9.7 Total Bilirubin 1.6 H AST 30 ALT 20 Alkaline Phosphatase 38 L Troponin I High Sens < 2.7 Total Protein 7.1 Albumin 4.1 Triglycerides Cholesterol LDL Cholesterol, Calc HDL Cholesterol Lipase 42 Urine Color Yellow Urine Appearance Clear Urine pH 8.5 Ur Specific [place] <= 1.005 Urine Protein Trace Urine Glucose (UA) Negative Urine Ketones Negative Urine Blood Negative Urine Nitrite Negative Ur Leukocyte Esterase Negative Urine RBC 0-2 Urine WBC 0-5 Ur Squamous Epith Cells 0-2 Urine Bacteria None Seen Hyaline Casts 0-2 Influenza Type A (PCR) NEGATIVE Influenza Type B (PCR) NEGATIVE RSV RNA Qual (PCR) NEGATIVE SARS-CoV-2 RNA (RT-PCR) NEGATIVE 08/02/24 08/03/24 08/03/24 23:19 07:07 08:49 WBC 5.6 RBC 4.30 Hgb 11.2 L Hct 33.8 L MCV 78.6 L MCH 26.0 L MCHC 33.1 RDW 14.9 Plt Count 144 L MPV 11.3 Immature Gran % (Auto) 0.4 Neut % (Auto) 70.8 Lymph % (Auto) 19.3 L [place] % (Auto) 6.9 Eos % (Auto) 2.1 Baso % (Auto) 0.5 Lymph # (Auto) 1.1 L [place] # (Auto) 0.4 Eos # (Auto) 0.1 Baso # (Auto) 0.0 Abs Immat Gran (auto) 0.02 Absolute Neuts (auto) 4.0 Absolute Nucleated RBC 0.000 Nucleated RBC % (auto) 0.0 Smear Tech's Comments PT 10.7 L INR 0.9 APTT 27.0 D-Dimer High Sensitivty 1119 Sodium 141 Potassium 3.5 D Chloride 103 Carbon Dioxide 29 Anion Gap 13 BUN 12 Creatinine 0.86 Estim Creat Clear Calc 43.8 Estimated GFR > 60 POC Glucose 124 H Random Glucose 185 H Calcium 9.0 D Total Bilirubin 1.2 H AST 29 ALT 19 Alkaline Phosphatase 36 L Troponin I High Sens Total Protein 6.6 Albumin 3.8 Triglycerides 100 Cholesterol 100 LDL Cholesterol, Calc 51 HDL Cholesterol 29 L Lipase Urine Color Urine Appearance Urine pH Ur Specific [place] Urine Protein Urine Glucose (UA) Urine Ketones Urine Blood Urine Nitrite Ur Leukocyte Esterase Urine RBC Urine WBC Ur Squamous Epith Cells Urine Bacteria Hyaline Casts Influenza Type A (PCR) Influenza Type B (PCR) RSV RNA Qual (PCR) SARS-CoV-2 RNA (RT-PCR) ECG Interpretation: EKG with underlying sinus rhythm at 72/Min; cannot exclude old anterior infarct; normal AK and corrected QT. Assessment and Plan (1) Near syncope: Status: Acute Plan Recorded blood pressures seem to be rather on the higher side and there is no low blood pressure readings. Unremarkable EKG. Unremarkable high sensitivity troponin. When physical therapy tried to ambulate her, it seems she almost fell back. Hence suspect she may just have generalized weakness and lack of strength and less likely true cardiogenic syncope. So far no definitive evidence of the same. We will review the echocardiogram once completed. Procedures Date of Service Date of Service: 08/03/24
--- NOTE | 2024-08-03 10:44 | PM.NEUROCN ---
History of Present Illness Data of Consult Service Date: 08/03/24 Primary Care Provider: Demi Yost MD [facility] Reason for consult: Syncope 84 years old woman with multiple underlying medical issues was with family in a constitution party when apparently she was noted to be almost passed out while walking. She did not pass out and was supported by family member to avoid fall. She remembered the event. There was no previous history of seizure disorder. There was no headache. There was no neck pain or loss of bowel bladder control. Review of Systems Review of Systems: No recent cold or flu-like illness PMFSH Past Medical History Medical History (Updated 08/03/24 @ 03:19 by BRISEYDA Alvarez) UTI (urinary tract infection) Hypoglycemia Atrophic vaginitis HLD (hyperlipidemia) Saddle pulmonary embolus Hypertension Diabetes mellitus Surgical History Surgical History (Updated 08/03/24 @ 03:17 by BRISEYDA Alvarez) H/O sinus surgery H/O umbilical hernia repair H/O hysterectomy for benign disease Social History Social History Alcohol intake: never Patient Tobacco Use Status: Never used Tobacco Smoked in Last 30 Days: No Use of substances other than those prescribed or required for medical reasons: No Advance Directives: No Advance Directives Information Provided: Yes Nutrition Risks: No Nutritional Risk Patient : No Travel History Ebola Risk: Travel/Contact With Anyone From Affected Area/s: No Has Patient Experienced Ebola Symptoms: No Meds Allergies Allergy/AdvReac Type Severity Reaction Status Date / Time atorvastatin (Lipitor) Allergy Unknown body Verified 08/02/24 19:30 ache,rash,anorexia lisinopril Allergy Unknown cough Verified 08/02/24 19:30 nitrofurantoin (Macrobid) Allergy Unknown rash Verified 08/02/24 19:30 Active Medications: Current Medications Acetaminophen (Acetaminophen 325 Mg Tablet) 650 mg PO Q6H PRN PRN Reason: Pain, Mild 1-3,fever,headache Albuterol/Ipratropium (Albuterol/Iprat 2.5/0.5mg 3 Ml Ampul.Neb) 3 ml INHALE Q4H PRN PRN Reason: Shortness of Breath/Wheezing Budesonide (Budesonide 0.5 Mg/2 Ml Ampul.Neb) 0.5 mg INHALE RBID [facility] Last Admin: 08/03/24 07:53 Dose: 0.5 mg Calcium Carbonate (Calcium Carbonate 750 Mg Tab.Chew) 750 mg PO Q4H PRN PRN Reason: Heartburn Ceftriaxone Sodium (Ceftriaxone Sodium 1 Gm Vial) 1 gm IVPUSH Q24H [facility] Last Admin: 08/03/24 03:46 Dose: 1 gm Dextrose (Dextrose 50 % 25 Gm/50 Ml Syringe) 25 gm IVPUSH Q15M PRN; Protocol PRN Reason: per Hypoglycemia Standing Ord. Enoxaparin Sodium (Enoxaparin Sodium 40 Mg/0.4 Ml Syringe) 40 mg SUBCUT Q24H [facility] Last Admin: 08/03/24 09:12 Dose: 40 mg Glucose (Glucose Gel 15 Gm Gel..Gram.) 15 gm PO Q15M PRN; Protocol PRN Reason: per Hypoglycemia Standing Ord. Guaifenesin (Guaifenesin La 600 Mg Tab.Er.12h) 600 mg PO BID [facility] Last Admin: 08/03/24 09:12 Dose: 600 mg Hydralazine HCl (Hydralazine Hcl 20 Mg/Ml Vial) 10 mg IVPUSH Q6H PRN; Protocol PRN Reason: SBP > 160 Azithromycin 500 mg/ Sodium (Chloride) 250 mls @ 125 mls/hr IV Q24H [facility] Last Infusion: 08/03/24 05:46 Dose: Infused Insulin Human Lispro (Insulin Lispro 100 Unit/Ml 3 Ml Vial) 0 unit SUBCUT QIDACHS [facility]; Protocol Last Admin: 08/03/24 08:33 Dose: Not Given Magnesium Hydroxide (Milk Of Magnesia 30 Ml Oral.Susp) 30 ml PO DAILY PRN PRN Reason: Constipation Melatonin (Melatonin 3 Mg Tablet) 6 mg PO BEDTIME PRN PRN Reason: Insomnia Ondansetron HCl (Ondansetron Hcl 4 Mg/2 Ml Vial) 4 mg IVPUSH Q8H PRN PRN Reason: Nausea and Vomiting Polyethylene Glycol (Polyethylene Glycol 3350 17 Gm Powd.Pack) 17 gm PO DAILY PRN PRN Reason: Constipation Senna (Sennosides 8.6 Mg Tablet) 17.2 mg PO BEDTIME [facility] Sodium Chloride (0.9 % Sodium Chloride Flush 3 Ml Syringe) 3 ml IVFLUSH QSHIFT [facility] Last Admin: 08/03/24 09:11 Dose: 3 ml Home Medications ?Medication ?Instructions ?Recorded ?Confirmed ?Last Taken ?Type chlorthalidone 25 mg tablet 12.5 mg PO DAILY 08/03/24 08/03/24 Unknown History metformin 500 mg tablet 500 mg PO BID 08/03/24 08/03/24 Unknown History olmesartan 40 mg tablet 40 mg PO DAILY 08/03/24 08/03/24 Unknown History Physical Exam Vital Signs: Vital Signs: Last Vital Signs Temp 98.4 F 08/03/24 05:04 Pulse 68 08/03/24 07:54 Resp 16 08/03/24 07:54 BP 152/77 H 08/03/24 07:08 Pulse Ox 98 08/03/24 07:08 O2 Del Method Room Air 08/03/24 07:08 BMI result Body Mass Index 22.7 Neuro: Other: She is alert and awake following commands with normal speech or language. Face is symmetrical. Visual bertrand are full. There was no focal arm or leg weakness. Plantars are flexor. Results Labs 08/03/24 08:49 08/03/24 08:49 Labs: Short CBC 08/02/24 08/03/24 Range/Units 19:39 08:49 WBC 5.1 5.6 (4.8-10.8) X10*3/uL Hgb 11.9 L 11.2 L (12.0-16.0) g/dl Hct 36.5 L 33.8 L (37.0-47.0) % Plt Count 140 L D 144 L (160-400) X10*3/uL BMP 08/02/24 08/03/24 20:24 08:49 Sodium 140 141 Potassium 4.4 3.5 D Chloride 104 103 Carbon Dioxide 30 H 29 BUN 15 12 Creatinine 0.95 0.86 Calcium 9.7 9.0 D Liver Function 08/02/24 08/03/24 Range/Units 20:24 08:49 Total Bilirubin 1.6 H 1.2 H (0.0-1.0) mg/dL AST 30 29 (5-31) U/L ALT 20 19 (0-31) U/L Alkaline Phosphatase 38 L 36 L (39-117) U/L Albumin 4.1 3.8 (3.5-5.0) g/dL Urine 06/26/25 Range/Units 20:31 Urine Color Yellow Urine Appearance Clear Urine pH 8.5 (5.0-9.0) Ur Specific [place] <= 1.005 (1.005-1.025) Urine Protein Trace (Neg-Trace) mg/dL Urine Glucose (UA) Negative (Negative) mg/dL Head CT revealed moderate chronic microvascular ischemic changes. CTA did not reveal any cerebral vascular stenosis. Assessment and Plan (1) Syncope and collapse: Status: Acute Unclear etiology of symptoms. Differential diagnosis is broad and included seizure disorder. An EEG can be considered for screening and can be schedule as an outpatient if that was not a possibility today. She was at risk for seizure disorder because of previous significant chronic microvascular cerebral disease. Procedures Date of Service Date of Service: 08/03/24
--- NOTE | 2024-08-03 11:34 | MHC.EDTECH ---
new purewick placed, pt repositioned to right lateral d/t slight pink/redness on coccyx bone, vitals obtained, call walters and bedside table within reach. RN aware
[2024-08-03 13:28] LABS: Glucose, Whole Blood 101 mg/dL (60-115)
--- NOTE | 2024-08-03 13:30 | PC.NURSE ---
Patient noted to have cramping in feet, Foot massage was able to alleviate the cramps. Will monitor for additional cramps
--- NOTE | 2024-08-03 14:48 | MHC.CM.PN ---
IMM 08/03/24, Pt lives alone, she has [employer] assistance 14 hrs per week. Her PCP is Ba Abraham at [facility] in [place]. For DME, she has a cane, walker and a nebulizer. Dtr to transport home at DC. DCP: home, with services. CM to follow for DC needs.
--- NOTE | 2024-08-03 15:05 | MHC.EDTECH ---
pt is clean, repositioned to left lateral, vitals obtained, orthostatics documented
--- NOTE | 2024-08-03 17:55 | PC.NURSE ---
Patient room changed to ED22 and placed in hospital bed for comfort.
--- NOTE | 2024-08-03 17:55 | MHC.EDTECH ---
pt transferred from ED4 to ED22, transferred into a hospital bed, repositioned to right lateral with pillows behind her
[2024-08-03 17:57] LABS: Glucose, Whole Blood 189 mg/dL (60-115)
[2024-08-03] MEDS: Insulin Lispro 100 UNIT/ML 3 ML VIAL SUBCUT (18:37)
--- NOTE | 2024-08-03 19:16 | HO.PM.IMPN ---
Subjective Subjective Date of Service: 08/03/24 Interval History: Feeling a little bit better Feels weak and feet hurt, reports could not stand or walk more than 2 steps with PT Chronic abdominal pain around baseline Breathing okay, little cough Review of Systems Review of Systems: Yes all other systems are reviewed and are negative Physical Exam Vital Signs: Vital Signs: Last Vital Signs Temp 98.4 F 08/03/24 18:03 Pulse 68 08/03/24 18:03 Resp 19 08/03/24 18:03 BP 162/72 H 08/03/24 18:03 Pulse Ox 94 08/03/24 18:03 O2 Del Method Room Air 08/03/24 18:03 BMI result Body Mass Index 22.7 General: AOx3, appears chronically weak and frail, in no acute distress Resp: CTA bilaterally though diminished CVS: S1, S2, RRR GI: +BS, NT, no distention Skin: Warm, dry Neuro: Cranial nerves II-XII grossly intact bilaterally. Motor grossly intact bilaterally. Sensation to light touch intact of lower extremities bilaterally. 2/5 symmetric strength of lower extremities bilaterally Extremities: No edema Psych: Appropriate affect Objective Data Active Medications Acetaminophen (Acetaminophen 325 Mg Tablet) 650 mg PO Q6H PRN PRN Reason: Pain, Mild 1-3,fever,headache Albuterol/Ipratropium (Albuterol/Iprat 2.5/0.5mg 3 Ml Ampul.Neb) 3 ml INHALE Q4H PRN PRN Reason: Shortness of Breath/Wheezing Budesonide (Budesonide 0.5 Mg/2 Ml Ampul.Neb) 0.5 mg INHALE RBID [facility] Last Admin: 08/03/24 07:53 Dose: 0.5 mg Documented By: OG Calcium Carbonate (Calcium Carbonate 750 Mg Tab.Chew) 750 mg PO Q4H PRN PRN Reason: Heartburn Ceftriaxone Sodium (Ceftriaxone Sodium 1 Gm Vial) 1 gm IVPUSH Q24H [facility] Last Admin: 08/03/24 03:46 Dose: 1 gm Documented By: KLEVER Dextrose (Dextrose 50 % 25 Gm/50 Ml Syringe) 25 gm IVPUSH Q15M PRN; Protocol PRN Reason: per Hypoglycemia Standing Ord. Enoxaparin Sodium (Enoxaparin Sodium 40 Mg/0.4 Ml Syringe) 40 mg SUBCUT Q24H [facility] Last Admin: 08/03/24 09:12 Dose: 40 mg Documented By: DAMIEN Glucose (Glucose Gel 15 Gm Gel..Gram.) 15 gm PO Q15M PRN; Protocol PRN Reason: per Hypoglycemia Standing Ord. Guaifenesin (Guaifenesin La 600 Mg Tab.Er.12h) 600 mg PO BID [facility] Last Admin: 08/03/24 09:12 Dose: 600 mg Documented By: DAMIEN Hydralazine HCl (Hydralazine Hcl 20 Mg/Ml Vial) 10 mg IVPUSH Q6H PRN; Protocol PRN Reason: SBP > 160 Azithromycin 500 mg/ Sodium (Chloride) 250 mls @ 125 mls/hr IV Q24H [facility] Last Infusion: 08/03/24 05:46 Dose: Infused Documented By: KLEVER Insulin Human Lispro (Insulin Lispro 100 Unit/Ml 3 Ml Vial) 0 unit SUBCUT QIDACHS [facility]; Protocol Last Admin: 08/03/24 18:37 Dose: 2 unit Documented By: REANNA Magnesium Hydroxide (Milk Of Magnesia 30 Ml Oral.Susp) 30 ml PO DAILY PRN PRN Reason: Constipation Melatonin (Melatonin 3 Mg Tablet) 6 mg PO BEDTIME PRN PRN Reason: Insomnia Ondansetron HCl (Ondansetron Hcl 4 Mg/2 Ml Vial) 4 mg IVPUSH Q8H PRN PRN Reason: Nausea and Vomiting Polyethylene Glycol (Polyethylene Glycol 3350 17 Gm Powd.Pack) 17 gm PO DAILY PRN PRN Reason: Constipation Senna (Sennosides 8.6 Mg Tablet) 17.2 mg PO BEDTIME [facility] Sodium Chloride (0.9 % Sodium Chloride Flush 3 Ml Syringe) 3 ml IVFLUSH QSHIFT [facility] Last Admin: 08/03/24 17:18 Dose: 3 ml Documented By: DAMIEN Labs 08/03/24 08:49 08/03/24 08:49 Labs: Laboratory Results - last 24 hr 08/02/24 08/02/24 08/02/24 19:39 20:24 20:31 MCV 80.2 MCH 26.2 L MCHC 32.6 RDW 15.0 Plt Count 140 L D MPV 12.2 Immature Gran % (Auto) 0.2 Neut % (Auto) 52.8 Lymph % (Auto) 33.9 Glad[place] % (Auto) 7.8 Eos % (Auto) 3.9 Baso % (Auto) 1.4 Lymph # (Auto) 1.7 [place] # (Auto) 0.4 Eos # (Auto) 0.2 Baso # (Auto) 0.1 Abs Immat Gran (auto) 0.01 Absolute Neuts (auto) 2.7 Absolute Nucleated RBC 0.000 Nucleated RBC % (auto) 0.0 Smear Tech's Comments VERIFIED PT INR APTT D-Dimer High Sensitivty Anion Gap 10 L Estim Creat Clear Calc 39.6 Estimated GFR 56 POC Glucose Random Glucose 172 H Calcium 9.7 Total Bilirubin 1.6 H AST 30 ALT 20 Alkaline Phosphatase 38 L Troponin I High Sens < 2.7 Total Protein 7.1 Albumin 4.1 Triglycerides Cholesterol LDL Cholesterol, Calc HDL Cholesterol Lipase 42 Urine Color Yellow Urine Appearance Clear Urine pH 8.5 Ur Specific [place] <= 1.005 Urine Protein Trace Urine Glucose (UA) Negative Urine Ketones Negative Urine Blood Negative Urine Nitrite Negative Ur Leukocyte Esterase Negative Urine RBC 0-2 Urine WBC 0-5 Ur Squamous Epith Cells 0-2 Urine Bacteria None Seen Hyaline Casts 0-2 Influenza Type A (PCR) NEGATIVE Influenza Type B (PCR) NEGATIVE RSV RNA Qual (PCR) NEGATIVE SARS-CoV-2 RNA (RT-PCR) NEGATIVE 08/02/24 08/03/24 08/03/24 23:19 07:07 08:49 MCV 78.6 L MCH 26.0 L MCHC 33.1 RDW 14.9 Plt Count 144 L MPV 11.3 Immature Gran % (Auto) 0.4 Neut % (Auto) 70.8 Lymph % (Auto) 19.3 L Glad[place] % (Auto) 6.9 Eos % (Auto) 2.1 Baso % (Auto) 0.5 Lymph # (Auto) 1.1 L [place] # (Auto) 0.4 Eos # (Auto) 0.1 Baso # (Auto) 0.0 Abs Immat Gran (auto) 0.02 Absolute Neuts (auto) 4.0 Absolute Nucleated RBC 0.000 Nucleated RBC % (auto) 0.0 Smear Tech's Comments PT 10.7 L INR 0.9 APTT 27.0 D-Dimer High Sensitivty 1119 Anion Gap 13 Estim Creat Clear Calc 43.8 Estimated GFR > 60 POC Glucose 124 H Random Glucose 185 H Calcium 9.0 D Total Bilirubin 1.2 H AST 29 ALT 19 Alkaline Phosphatase 36 L Troponin I High Sens Total Protein 6.6 Albumin 3.8 Triglycerides 100 Cholesterol 100 LDL Cholesterol, Calc 51 HDL Cholesterol 29 L Lipase Urine Color Urine Appearance Urine pH Ur Specific [place] Urine Protein Urine Glucose (UA) Urine Ketones Urine Blood Urine Nitrite Ur Leukocyte Esterase Urine RBC Urine WBC Ur Squamous Epith Cells Urine Bacteria Hyaline Casts Influenza Type A (PCR) Influenza Type B (PCR) RSV RNA Qual (PCR) SARS-CoV-2 RNA (RT-PCR) 08/03/24 08/03/24 13:21 17:53 MCV MCH MCHC RDW Plt Count MPV Immature Gran % (Auto) Neut % (Auto) Lymph % (Auto) Gladwin % (Auto) Eos % (Auto) Baso % (Auto) Lymph # (Auto) Gladwin # (Auto) Eos # (Auto) Baso # (Auto) Abs Immat Gran (auto) Absolute Neuts (auto) Absolute Nucleated RBC Nucleated RBC % (auto) Smear Tech's Comments PT INR APTT D-Dimer High Sensitivty Anion Gap Estim Creat Clear Calc Estimated GFR POC Glucose 101 189 H Random Glucose Calcium Total Bilirubin AST ALT Alkaline Phosphatase Troponin I High Sens Total Protein Albumin Triglycerides Cholesterol LDL Cholesterol, Calc HDL Cholesterol Lipase Urine Color Urine Appearance Urine pH Ur Specific [place] Urine Protein Urine Glucose (UA) Urine Ketones Urine Blood Urine Nitrite Ur Leukocyte Esterase Urine RBC Urine WBC Ur Squamous Epith Cells Urine Bacteria Hyaline Casts Influenza Type A (PCR) Influenza Type B (PCR) RSV RNA Qual (PCR) SARS-CoV-2 RNA (RT-PCR) Assessment and Plan (1) Near syncope: Status: Acute Plan Pt is an 84 yo female Bel[place]an-speaking only with PMH DMII, ascending aortic aneurysm, chronic kidney disease, hysterectomy, hypoglycemia, urinary tract infection, atrophic vaginitis, cholecystectomy, sinus surgery, umbilical hernia repair, saddle PE stopped anticoagulation 3-6 months prior being admitted with near syncopal event, rule out seizure activity and pneumonia multifocal. New PE ruled out. Multifocal PNA Continue ceftriaxone and Azithromycin, day 2 Duonebs, Budesonide BID, Mucinex, Incentive Spirometer Supportive Care No sepsis or hypoxia Near Syncope Vs Seizure Previous near syncopal episode 1 month prior at [facility] No indication for antiseizure medications at this time as patient can recall all events TA notes ascending aortic aneurysm with left artery and brachiocephalic artery involvement, no current echocardiogram Orthostatics negative CT of the head negative for any acute findings Seizure precautions Check Carotid Dopplers and echo Cardiology consulted, thinks cardiogenic cause unlikely; more likely physical deconditioning Neurology consulted, seizure unlikely but not ruled out; EEG outpatient PT evalaution Monitor on telemetry Hx of Saddle PE, not on AC - DDIMER elevated, R/O PE CTA negative for new PE DMII SSI Diabetic Diet HLD Allergy to Statin Lipid panel with low HDL HTN Hydrlazine prn MED REC pending CKD (pt reports she follows with manager assessment) GFR 56, CR CL 39.6 UA neg for UTI, Trace proteinuria Use caution with nephrotoxic meds Avoid hypotension DVT prophylaxis: lovenox PPI prophylaixs: omeperazole Full Code Status Pt will require continued hospitalization for near syncope workup, cardiac monitoring, and PT evaluation for safe disposition Quality Stroke Does the patient have a stroke diagnosis?: No Reason for No Anti-thrombotic by Day Two: N/A - Med Ordered VTE Prior VTE?: Yes VTE Risk Level:: Medical - moderate - high VTE Device Contraindication: N/A - Device Ordered VTE Drug Contraindication: N/A - Med Ordered
--- NOTE | 2024-08-03 20:28 | PC.NURSE ---
Update given to family.
[2024-08-03] MEDS: Acetaminophen 325 MG TABLET 650 MG PO (21:40)
[2024-08-03] MEDS: Sennosides 8.6 MG TABLET 17.2 MG PO (21:40)
--- NOTE | 2024-08-03 21:50 | PC.NURSE ---
assumed care of pt. Daughters at bedside. Pt medicated per APR.Tolerated medication and water well. no insulin given per protocol as POC was 95
--- NOTE | 2024-08-03 22:00 | PC.NURSE ---
late entry- pt medicated with prn tylenol for 6/10 pain reported by pt. pt family and pt requested tylenol for pain management
[2024-08-03 22:05] LABS: Glucose, Whole Blood 95 mg/dL (60-115)
[2024-08-03 22:08] LABS: Troponin-I High Sensitivity 7.8 ng/L (<3.5-17.0)
--- NOTE | 2024-08-03 23:20 | MHC.EDTECH ---
unable to obtain orthos, patient is extremely unsteady and weak. RN aware
[2024-08-04] VITALS (12 sets, daily range): BP systolic 156–185; BP diastolic 70–97; PULSE 63–110; RESP 16–20; TEMP 36.3–36.9; O2SAT 94–97; BMI 22.5
[2024-08-04] MEDS: cefTRIAXone sodium 1 GM VIAL IVPUSH (03:50)
[2024-08-04] MEDS: Azithromycin 500 MG in 0.9 % Sodium Chloride 250 ML 125 MG IV (03:50)
[2024-08-04 07:04] LABS: Glucose, Whole Blood 117 mg/dL (60-115)
[2024-08-04] MEDS: Budesonide 0.5 MG/2 ML AMPUL.NEB INHALE ×2 (08:13→21:03)
[2024-08-04] MEDS: Valsartan 160 MG TABLET PO (08:27)
[2024-08-04] MEDS: Enoxaparin Sodium 40 MG/0.4 ML SYRINGE SUBCUT (08:28)
[2024-08-04] MEDS: hydroCHLOROthiazide 25 MG TABLET PO (08:28)
[2024-08-04] MEDS: 0.9 % Sodium Chloride Flush 3 ML SYRINGE IVFLUSH ×3 (08:29→20:37)
[2024-08-04] MEDS: guaiFENesin LA 600 MG TAB.ER.12H PO ×2 (08:29→20:35)
[2024-08-04 11:00] LABS: Glucose, Whole Blood 140 mg/dL (60-115)
--- NOTE | 2024-08-04 14:00 | P.PNIM_ITS ---
Subjective Subjective Date of Service: 08/04/24 Interval History: no dizziness no seizure-like activity no chest pain very weak This history was taken in Cambodian from the patient. Review of Systems Review of Systems: Yes all other systems are reviewed and are negative Physical Exam 2 Vital Signs: Vital Signs: Last Vital Signs Temp 97.3 F 08/04/24 11:05 Pulse 73 08/04/24 11:05 Resp 18 08/04/24 11:05 BP 170/70 H 08/04/24 11:05 Pulse Ox 94 08/04/24 11:05 O2 Del Method Room Air 08/04/24 11:05 BMI result Body Mass Index 22.5 Gen: in no acute distress HEENT: sclera anicteric, moist mucus membranes Neck: supple Lungs: clear to auscultation bilaterally Heart: regular rate and rhythm, no murmurs Abd: soft, non-tender, non-distended Ext: no edema Skin: warm/well-perfused Neuro: alert and oriented x3, no focal findings Psych: appropriate affect Objective Data Active Medications Acetaminophen (Acetaminophen 325 Mg Tablet) 650 mg PO Q6H PRN PRN Reason: Pain, Mild 1-3,fever,headache Last Admin: 08/03/24 21:40 Dose: 650 mg Documented By: DAVID Albuterol/Ipratropium (Albuterol/Iprat 2.5/0.5mg 3 Ml Ampul.Neb) 3 ml INHALE Q4H PRN PRN Reason: Shortness of Breath/Wheezing Budesonide (Budesonide 0.5 Mg/2 Ml Ampul.Neb) 0.5 mg INHALE ID [facility] Last Admin: 08/04/24 08:13 Dose: 0.5 mg Documented By: ADRIANA Calcium Carbonate (Calcium Carbonate 750 Mg Tab.Chew) 750 mg PO Q4H PRN PRN Reason: Heartburn Ceftriaxone Sodium (Ceftriaxone Sodium 1 Gm Vial) 1 gm IVPUSH Q24H [facility] Last Admin: 08/04/24 03:50 Dose: 1 gm Documented By: SOCORRO Dextrose (Dextrose 50 % 25 Gm/50 Ml Syringe) 25 gm IVPUSH Q15M PRN; Protocol PRN Reason: per Hypoglycemia Standing Ord. Enoxaparin Sodium (Enoxaparin Sodium 40 Mg/0.4 Ml Syringe) 40 mg SUBCUT Q24H [facility] Last Admin: 08/04/24 08:28 Dose: 40 mg Documented By: RONNADIAN Glucose (Glucose Gel 15 Gm Gel..Gram.) 15 gm PO Q15M PRN; Protocol PRN Reason: per Hypoglycemia Standing Ord. Guaifenesin (Guaifenesin La 600 Mg Tab.Er.12h) 600 mg PO BID [facility] Last Admin: 08/04/24 08:29 Dose: 600 mg Documented By: RONNADIAN Hydralazine HCl (Hydralazine Hcl 20 Mg/Ml Vial) 10 mg IVPUSH Q6H PRN; Protocol PRN Reason: SBP > 160 Hydrochlorothiazide (Hydrochlorothiazide 25 Mg Tablet) 25 mg PO DAILY [facility] Last Admin: 08/04/24 08:28 Dose: 25 mg Documented By: RONNADIROSA ISELA Azithromycin 500 mg/ Sodium (Chloride) 250 mls @ 125 mls/hr IV Q24H [facility] Last Infusion: 08/04/24 08:43 Dose: Infused Documented By: LORETO Insulin Human Lispro (Insulin Lispro 100 Unit/Ml 3 Ml Vial) 0 unit SUBCUT QIDACHS [facility]; Protocol Last Admin: 08/04/24 11:53 Dose: Not Given Documented By: FELECIA.ARNOLD Non-Admin Reason: No Insulin Coverage Magnesium Hydroxide (Milk Of Magnesia 30 Ml Oral.Susp) 30 ml PO DAILY PRN PRN Reason: Constipation Melatonin (Melatonin 3 Mg Tablet) 6 mg PO BEDTIME PRN PRN Reason: Insomnia Ondansetron HCl (Ondansetron Hcl 4 Mg/2 Ml Vial) 4 mg IVPUSH Q8H PRN PRN Reason: Nausea and Vomiting Polyethylene Glycol (Polyethylene Glycol 3350 17 Gm Powd.Pack) 17 gm PO DAILY PRN PRN Reason: Constipation Senna (Sennosides 8.6 Mg Tablet) 17.2 mg PO BEDTIME [facility] Last Admin: 08/03/24 21:40 Dose: 17.2 mg Documented By: DAVID Sodium Chloride (0.9 % Sodium Chloride Flush 3 Ml Syringe) 3 ml IVFLUSH QSHIFT [facility] Last Admin: 08/04/24 08:29 Dose: 3 ml Documented By: RONNADIROSA ISELA Valsartan (Valsartan 160 Mg Tablet) 160 mg PO DAILY [facility] Last Admin: 08/04/24 08:27 Dose: 160 mg Documented By: LORETO Labs 08/03/24 08:49 08/03/24 08:49 Labs: Laboratory Results - last 24 hr 08/03/24 08/03/24 08/03/24 17:53 21:35 21:39 POC Glucose 189 H 95 Troponin I High Sens 7.8 D 08/04/24 08/04/24 07:00 10:50 POC Glucose 117 H 140 H Troponin I High Sens Microbiology Microbiology Results: Microbiology 08/03/24 23:10 Gram Stain - Final Sputum - Expectorated 08/03/24 03:38 Blood Culture - Preliminary Blood - Venous No growth after 24 hours. 08/03/24 03:38 Blood Culture - Preliminary Blood - Venous No growth after 24 hours. Assessment and Plan (1) Near syncope: Status: Acute Plan d2 for 84yo F with DM2, ascending aortic aneurysm, CKD3, hx saddle PE now off anticoagulation, admitted with near-syncopal episode with possibility of seizure, also found to have multifocal PNA; no new PE on CTA multifocal PNA - 08/03- ceftriaxone + azithromycin, nebs, pulmonary toilet, not septic or hypoxic; follow BCx near-syncope vs seizure - prior near-syncopal episode worked up at [facility] - no full LOC - TTE 08/03: - The left ventricular systolic function is normal. The visually estimated ejection fraction is between 55-60%. - No obvious valvular pathology seen on this study. - Cardiology consulted; likely physical deconditioning - Neurology consulted; unlikely seizure but can do EEG, outpatient if necessary - PT eval: was not unable to walk, recommend STR hx saddle PE - CTA negative for new PE DM2 - mynor-dose lispro CKD3 - SCr at baseline HTN - valsartan + HCTZ VTE ppx - enoxaparin dispo - STR recommended In my clinical judgment, the patient requires continued inpatient hospitalization for the following reasons: placement, IV ABX Total time managing care of this patient today: 35 minutes. Quality Stroke Does the patient have a stroke diagnosis?: No Reason for No Anti-thrombotic by Day Two: N/A - Med Ordered VTE Prior VTE?: Yes VTE Risk Level:: Medical - moderate - high VTE Device Contraindication: N/A - Device Ordered VTE Drug Contraindication: N/A - Med Ordered
[2024-08-04 16:02] LABS: Glucose, Whole Blood 122 mg/dL (60-115)
[2024-08-04 21:06] LABS: Glucose, Whole Blood 135 mg/dL (60-115)
[2024-08-05] VITALS (16 sets, daily range): BP systolic 126–167; BP diastolic 67–80; PULSE 87–138; RESP 16–20; TEMP 36.3–37.4; O2SAT 94–98; BMI 22.1
[2024-08-05] MEDS: cefTRIAXone sodium 1 GM VIAL IVPUSH (04:30)
[2024-08-05] MEDS: Azithromycin 500 MG in 0.9 % Sodium Chloride 250 ML 125 MG IV (04:33)
[2024-08-05 07:03] LABS: Glucose, Whole Blood 125 mg/dL (60-115)
[2024-08-05 08:00] LABS: Hemoglobin 12.3 g/dl (12.0-16.0); Mean Corpuscular HGB Conc 32.4 g/dl (31.0-35.0); Mean Corpuscular Hemoglobin 25.7 pg (27.0-33.0); Mean Corpuscular Volume 79.5 fL (80.0-98.0); Mean Platelet Volume 10.8 fL (9.4-12.3); Platelet Count 156 X10*3/uL (160-400); Red Blood Count 4.78 X10*6/uL (4.20-5.50); Red Cell Distribution Width 15.1 % (11.0-16.0); White Blood Count 6.4 X10*3/uL (4.8-10.8)
[2024-08-05 08:14] LABS: B Type Natriuretic Peptide 19 pg/mL (<100)
[2024-08-05 08:15] LABS: Anion Gap 12 (12-20); Blood Urea Nitrogen 18 mg/dL (9-16); Calcium 9.4 mg/dL (8.4-10.2); Carbon Dioxide 27 mmol/L (22-29); Chloride 104 mmol/L (96-108); Creatinine Clr Calc Pharmacy 39.6; Estimated Glomerular Filt Rate 56; Glucose Random 125 mg/dL (60-115); Potassium 3.4 mmol/L (3.3-5.1); Sodium 140 mmol/L (135-145)
[2024-08-05] MEDS: Budesonide 0.5 MG/2 ML AMPUL.NEB INHALE ×2 (08:18→20:13)
[2024-08-05 08:32] LABS: Procalcitonin 0.04 ng/mL
[2024-08-05] MEDS: 0.9 % Sodium Chloride Flush 3 ML SYRINGE IVFLUSH ×2 (09:45→16:52)
[2024-08-05] MEDS: Enoxaparin Sodium 40 MG/0.4 ML SYRINGE SUBCUT (09:45)
[2024-08-05] MEDS: Valsartan 160 MG TABLET PO (09:46)
[2024-08-05] MEDS: guaiFENesin LA 600 MG TAB.ER.12H PO ×2 (09:47→22:07)
[2024-08-05 10:59] LABS: Glucose, Whole Blood 167 mg/dL (60-115)
[2024-08-05] MEDS: Insulin Lispro 100 UNIT/ML 3 ML VIAL SUBCUT (11:33)
--- NOTE | 2024-08-05 12:11 | P.PNIM_ITS ---
Subjective Subjective Date of Service: 08/05/24 Interval History: This history was taken in Albanian from the patient. Minimal cough, feels much better; no dizziness/lightheadedness. A little tachycardic. Lives alone. Still quite weak. Review of Systems Review of Systems: Yes all other systems are reviewed and are negative Physical Exam 2 Vital Signs: Vital Signs: Last Vital Signs Temp 97.9 F 08/05/24 11:09 Pulse 108 H 08/05/24 11:09 Resp 18 08/05/24 11:09 BP 137/71 08/05/24 11:09 Pulse Ox 95 08/05/24 11:09 O2 Del Method Room Air 08/05/24 11:09 BMI result Body Mass Index 22.1 Gen: in no acute distress HEENT: sclera anicteric, moist mucus membranes Neck: supple Lungs: clear to auscultation bilaterally Heart: regular rate and rhythm, no murmurs Abd: soft, non-tender, non-distended Ext: no edema Skin: warm/well-perfused Neuro: alert and oriented x3, no focal findings Psych: appropriate affect Objective Data Active Medications Acetaminophen (Acetaminophen 325 Mg Tablet) 650 mg PO Q6H PRN PRN Reason: Pain, Mild 1-3,fever,headache Last Admin: 08/03/24 21:40 Dose: 650 mg Documented By: DAVID Albuterol/Ipratropium (Albuterol/Iprat 2.5/0.5mg 3 Ml Ampul.Neb) 3 ml INHALE Q4H PRN PRN Reason: Shortness of Breath/Wheezing Budesonide (Budesonide 0.5 Mg/2 Ml Ampul.Neb) 0.5 mg INHALE RBID [facility] Last Admin: 08/05/24 08:18 Dose: 0.5 mg Documented By: CEASAR Calcium Carbonate (Calcium Carbonate 750 Mg Tab.Chew) 750 mg PO Q4H PRN PRN Reason: Heartburn Ceftriaxone Sodium (Ceftriaxone Sodium 1 Gm Vial) 1 gm IVPUSH Q24H [facility] Last Admin: 08/05/24 04:30 Dose: 1 gm Documented By: SHEY Dextrose (Dextrose 50 % 25 Gm/50 Ml Syringe) 25 gm IVPUSH Q15M PRN; Protocol PRN Reason: per Hypoglycemia Standing Ord. Enoxaparin Sodium (Enoxaparin Sodium 40 Mg/0.4 Ml Syringe) 40 mg SUBCUT Q24H [facility] Last Admin: 08/05/24 09:45 Dose: 40 mg Documented By: LORETO Glucose (Glucose Gel 15 Gm Gel..Gram.) 15 gm PO Q15M PRN; Protocol PRN Reason: per Hypoglycemia Standing Ord. Guaifenesin (Guaifenesin La 600 Mg Tab.Er.12h) 600 mg PO BID [facility] Last Admin: 08/05/24 09:47 Dose: 600 mg Documented By: LORETO Hydralazine HCl (Hydralazine Hcl 20 Mg/Ml Vial) 10 mg IVPUSH Q6H PRN; Protocol PRN Reason: SBP > 160 Hydrochlorothiazide (Hydrochlorothiazide 25 Mg Tablet) 25 mg PO DAILY [facility] On Hold: 08/05/24 07:50 Last Admin: 08/04/24 08:28 Dose: 25 mg Documented By: LORETO Azithromycin 500 mg/ Sodium (Chloride) 250 mls @ 125 mls/hr IV Q24H [facility] Last Infusion: 08/05/24 06:33 Dose: Infused Documented By: SHEY Insulin Human Lispro (Insulin Lispro 100 Unit/Ml 3 Ml Vial) 0 unit SUBCUT QIDACHS [facility]; Protocol Last Admin: 08/05/24 11:33 Dose: 2 unit Documented By: LORETO Magnesium Hydroxide (Milk Of Magnesia 30 Ml Oral.Susp) 30 ml PO DAILY PRN PRN Reason: Constipation Melatonin (Melatonin 3 Mg Tablet) 6 mg PO BEDTIME PRN PRN Reason: Insomnia Ondansetron HCl (Ondansetron Hcl 4 Mg/2 Ml Vial) 4 mg IVPUSH Q8H PRN PRN Reason: Nausea and Vomiting Polyethylene Glycol (Polyethylene Glycol 3350 17 Gm Powd.Pack) 17 gm PO DAILY PRN PRN Reason: Constipation Senna (Sennosides 8.6 Mg Tablet) 17.2 mg PO BEDTIME [facility] Last Admin: 08/04/24 20:38 Dose: Not Given Documented By: SHEY Non-Admin Reason: Patient Refused Sodium Chloride (0.9 % Sodium Chloride Flush 3 Ml Syringe) 3 ml IVFLUSH QSHIFT [facility] Last Admin: 08/05/24 09:45 Dose: 3 ml Documented By: LORETO Valsartan (Valsartan 160 Mg Tablet) 160 mg PO DAILY [facility] Last Admin: 08/05/24 09:46 Dose: 160 mg Documented By: LORETO Labs 08/05/24 07:43 08/05/24 07:43 Labs: Laboratory Results - last 24 hr 08/04/24 08/04/24 08/05/24 15:59 21:00 06:53 MCV MCH MCHC RDW Plt Count MPV Absolute Nucleated RBC Nucleated RBC % (auto) Anion Gap Estim Creat Clear Calc Estimated GFR POC Glucose 122 H 135 H 125 H Random Glucose Calcium B-Natriuretic Peptide Procalcitonin 08/05/24 08/05/24 07:43 10:50 MCV 79.5 L MCH 25.7 L MCHC 32.4 RDW 15.1 Plt Count 156 L MPV 10.8 Absolute Nucleated RBC 0.000 Nucleated RBC % (auto) 0.0 Anion Gap 12 Estim Creat Clear Calc 39.6 Estimated GFR 56 POC Glucose 167 H Random Glucose 125 H Calcium 9.4 B-Natriuretic Peptide 19 Procalcitonin 0.04 Microbiology Microbiology Results: Microbiology 08/03/24 23:10 Gram Stain - Final Sputum - Expectorated Sputum Culture - Preliminary Culture in progress. 08/03/24 03:38 Blood Culture - Preliminary Blood - Venous No growth after 48 hours. 08/03/24 03:38 Blood Culture - Preliminary Blood - Venous No growth after 48 hours. Assessment and Plan (1) Near syncope: Status: Acute Plan d3 for 84yo F with DM2, ascending aortic aneurysm, CKD3, hx saddle PE now off anticoagulation, admitted with near-syncopal episode with possibility of seizure, also found to have multifocal PNA; no new PE on CTA multifocal PNA - 08/03- ceftriaxone + azithromycin, nebs, pulmonary toilet, not septic or hypoxic; BCx negative, PCT low; MRSA swab + urinary antigens for Legionella and pneumococcus near-syncope vs seizure - prior near-syncopal episode worked up at [facility] - no full LOC - TTE 08/03: - The left ventricular systolic function is normal. The visually estimated ejection fraction is between 55-60%. - No obvious valvular pathology seen on this study. - Cardiology consulted; likely physical deconditioning - Neurology consulted; unlikely seizure but can do EEG, outpatient if necessary - PT eval: was not unable to walk, recommend STR hx saddle PE - CTA negative for new PE DM2 - mynor-dose lispro CKD3 - SCr at baseline HTN - valsartan; hold HCTZ and will give 1L NS as appears a little dehydrated VTE ppx - enoxaparin dispo - STR recommended In my clinical judgment, the patient requires continued inpatient hospitalization for the following reasons: placement, IV ABX Total time managing care of this patient today: 35 minutes. Quality Stroke Does the patient have a stroke diagnosis?: No Reason for No Anti-thrombotic by Day Two: N/A - Med Ordered VTE Prior VTE?: Yes VTE Risk Level:: Medical - moderate - high VTE Device Contraindication: N/A - Device Ordered VTE Drug Contraindication: N/A - Med Ordered
[2024-08-05] MEDS: 0.9 % Sodium Chloride 1,000 ML 50 ML IVCONT (12:18)
[2024-08-05 13:57] LABS: MRSA Nasal PCR NEGATIVE (Negative); SA Nasal PCR NEGATIVE (Negative)
[2024-08-05 15:27] LABS: TSH reflex Free T4 1.17 uIU/mL (0.32-4.0)
[2024-08-05 16:05] LABS: Glucose, Whole Blood 124 mg/dL (60-115)
[2024-08-05 20:48] LABS: Glucose, Whole Blood 133 mg/dL (60-115)
--- NOTE | 2024-08-06 | EEG_ITS ---
This is a 16-channel EEG with an EKG lead. The patient is reported awake during the tracing. Background EEG rhythm is mixed theta beta, medium amplitude with no obvious asymmetry or paroxysmal tendency. Photic stimulation does not produce any significant abnormality. Hyperventilation is not performed. Cardiac lead does not reveal any obvious abnormality. No definite sharp wave spikes or paroxysmal tendency noted. Some lead and muscle artifacts are noted. IMPRESSION: Generalized slowing with no evidence of seizure disorder. MD LEONIDAS Addison/JARED / [phone]
[2024-08-06 03:03] VITALS: BP 134/64; PULSE 101; RESP 20; TEMP 36.9; O2SAT 96
[2024-08-06] MEDS: cefTRIAXone sodium 1 GM VIAL IVPUSH (03:30)
[2024-08-06] MEDS: Azithromycin 500 MG in 0.9 % Sodium Chloride 250 ML 125 MG IV (03:30)
[2024-08-06 06:00] VITALS: BP 148/76; PULSE 95; BMI 20.8
[2024-08-06 07:20] VITALS: BP 140/71; PULSE 98; RESP 18; TEMP 36.6; O2SAT 97
[2024-08-06] MEDS: Budesonide 0.5 MG/2 ML AMPUL.NEB INHALE (07:28)
[2024-08-06 07:29] VITALS: PULSE 98; RESP 18; O2SAT 95
[2024-08-06 07:30] LABS: Glucose, Whole Blood 107 mg/dL (60-115)
[2024-08-06] MEDS: Valsartan 160 MG TABLET PO (08:13)
[2024-08-06] MEDS: guaiFENesin LA 600 MG TAB.ER.12H PO (08:13)
[2024-08-06] MEDS: Enoxaparin Sodium 40 MG/0.4 ML SYRINGE SUBCUT (08:13)
[2024-08-06] MEDS: 0.9 % Sodium Chloride Flush 3 ML SYRINGE IVFLUSH (08:14)
[2024-08-06 11:13] VITALS: BP 146/73; PULSE 100; RESP 17; TEMP 36.5; O2SAT 97
[2024-08-06 11:16] VITALS: BP 151/73; PULSE 81; RESP 16; TEMP 36.1; O2SAT 95
[2024-08-06 11:18] LABS: Glucose, Whole Blood 131 mg/dL (60-115)
--- NOTE | 2024-08-06 11:55 | P.F2F_ITS ---
Service Date Service Date: 08/06/24 Encounter Date of encounter: 08/06/24 Reasons for Services Signs and symptoms assessed: balance, weakness Reason for assisted: medication management, medication treatment and teach disease management Reason for physical therapy: home safety and mobility, therapeutic exercises, gait/transfer training, assess need for DME, ADL training and energy conservation Overseeing Care: Demi Yost Homebound: Leaving the home is medically contraindicated at this time without the asist of a device and/or another person due th the listed conditions above and below. Reason homebound: weakness related to hospital stay and unable to drive Certification: Based on the above findings, I certify that this patient is confined to the home and needs intermittent assisted care, physical therapy and/or speech therapy, or continues to need occupational therapy. The patient is under my care, and I have initiated the establishment of the plan of care. The patient will be followed by a physician who will periodically review the plan of care. Time Spent With Patient Time: Total time managing care of this patient today ____ minutes.
--- NOTE | 2024-08-06 11:56 | PM.DS ---
DS: Providers Provider Date of Service: 08/06/24 Date of admission: 08/03/24 01:52 Date of discharge: 08/06/24 Primary care physician: Demi Yost MD Consults: 08/03/24 02:27 Consult to Cardiology Routine Consulting Provider: [facility] Reason for consultation: syncope witnessed vs seizure Has provider been notified: No Consult to Neurology Routine Consulting Provider: [facility] Reason for consultation: seizure vs syncope Has provider been notified: No DS: Diagnosis Discharge Diagnosis (1) Near syncope: Status: Acute (2) PNA (pneumonia): Status: Acute DS: Summary Hospital Course Hospital Course: From the history and physical by the admitting hospitalist, Kat Cox NP, 08/03/24: Pt is an 84 yo female Yi-speaking only with PMH DMII, ascending aortic aneurysm, chronic kidney disease, hysterectomy, hypoglycemia, urinary tract infection, atrophic vaginitis, cholecystectomy, sinus surgery, umbilical hernia repair, saddle PE stopped anticoagulation 3-6 months prior was brought in by ambulance status post a witnessed near syncopal episode that occurred with her family during the birthday alliance party. Patient states she was walking from the kitchen to the living room and began to feel very dizzy. Patient's son-in-law was able to catch patient before she fell to the floor. Patient states she denies any loss of consciousness. Patient does remember the entire event. Patient was feeling tremulous afterwards. Patient denied any chest pain or sweating. Patient states she has been feeling quite a bit of phlegm prior to the episode and continues to experience production of phlegm, white in color. Pt denies dyspahgia but is edentualous. Patient states she has had pneumonia in the past. There was consideration that patient may have also had a seizure but based on patient's history of events and clinical examination, low threshold for seizure activity. Patient states she had a similar episode 1 month prior and was seen at [facility]. Records from [facility] have been requested. Initially chest x-ray was negative for any acute findings. Based on patient's history of previous PE and no longer on anticoagulation, CTA was ordered and is currently negative for central PE. There is evidence of multifocal pneumonia. 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 Patient is not having any hypoxia. Patient has been on room air since arrival. Cardiology consulted, Echo and carotid dopplers ordered. Neurology also consulted as there is consideration of possible seizure like activity. 84yo F with DM2, ascending aortic aneurysm, CKD3, hx saddle PE now off anticoagulation, admitted with near-syncopal episode with possibility of seizure, also found to have multifocal PNA; no new PE on CTA and no DVT on Duplex US. Hospital course by problem: multifocal PNA - Treated with ceftriaxone + azithromycin 08/03-08/06. Not septic or hypoxic. Blood cultures negative; procalcitonin low. MRSA swab negative; urinary antigens for Legionella and pneumococcus pending at the time of discharge. near-syncope vs seizure - prior near-syncopal episode worked up at [facility] - no full LOC per history - TTE 08/03: - The left ventricular systolic function is normal. The visually estimated ejection fraction is between 55-60%. - No obvious valvular pathology seen on this study. - Cardiology consulted; episode likely physical deconditioning; doubt cardiogenic - Neurology consulted; unlikely seizure; EEG pending at the time of discahrge - STR recommended by PT and medical team but patient adamantly refused and instead was discharged home with VNA services/ home PT CKD3 - SCr at baseline HTN - valsartan; d/c'ed chlorthalidone to avoid dehydration Time Attestation Discharge Coordination Time (in mins): 45 Quality: Safe Use of Opioids Does Pt have an Active Cancer Diagnosis on the Problem List?: No Quality: Stroke Does the patient have a stroke diagnosis?: No Physical Exam Vital Signs: Vital Signs: Last Vital Signs Temp 97.0 F 08/06/24 11:16 Pulse 81 08/06/24 11:16 Resp 16 08/06/24 11:16 BP 151/73 H 08/06/24 11:16 Pulse Ox 95 08/06/24 11:16 O2 Del Method Room Air 08/06/24 11:16 BMI result Body Mass Index 20.8 Gen: in no acute distress HEENT: sclera anicteric, moist mucus membranes Neck: supple Lungs: clear to auscultation bilaterally Heart: regular rate and rhythm, no murmurs Abd: soft, non-tender, non-distended Ext: no edema Skin: warm/well-perfused Neuro: alert and oriented x3, no focal findings Psych: appropriate affect DS: Data Data Completed and Pending Labs on day of discharge: Laboratory Results WBC 6.4 X10*3/uL (4.8-10.8) 08/05/24 07:43 RBC 4.78 X10*6/uL (4.20-5.50) 08/05/24 07:43 Hgb 12.3 g/dl (12.0-16.0) 08/05/24 07:43 Hct 38.0 % (37.0-47.0) 08/05/24 07:43 MCV 79.5 fL (80.0-98.0) L 08/05/24 07:43 MCH 25.7 pg (27.0-33.0) L 08/05/24 07:43 MCHC 32.4 g/dl (31.0-35.0) 08/05/24 07:43 RDW 15.1 % (11.0-16.0) 08/05/24 07:43 Plt Count 156 X10*3/uL (160-400) L 08/05/24 07:43 MPV 10.8 fL (9.4-12.3) 08/05/24 07:43 Immature Gran % (Auto) 0.4 % (0.0-0.4) 08/03/24 08:49 Neut % (Auto) 70.8 % (45-73) 08/03/24 08:49 Lymph % (Auto) 19.3 % (20-40) L 08/03/24 08:49 [place] % (Auto) 6.9 % (2-11) 08/03/24 08:49 Eos % (Auto) 2.1 % (0-4) 08/03/24 08:49 Baso % (Auto) 0.5 % (0-2) 08/03/24 08:49 Lymph # (Auto) 1.1 X10*3/uL (1.2-4.9) L 08/03/24 08:49 [place] # (Auto) 0.4 X10*3/uL (0.1-1.2) 08/03/24 08:49 Eos # (Auto) 0.1 X10*3/uL (0.0-0.4) 08/03/24 08:49 Baso # (Auto) 0.0 X10*3/uL (0.0-0.2) 08/03/24 08:49 Abs Immat Gran (auto) 0.02 X10*3/uL (0.00-0.03) 08/03/24 08:49 Absolute Neuts (auto) 4.0 x10*3/uL (2.0-8.3) 08/03/24 08:49 Absolute Nucleated RBC 0.000 X10*3/uL (0.0-0.012) 08/05/24 07:43 Nucleated RBC % (auto) 0.0 /100WBC (0.0-0.2) 08/05/24 07:43 Smear Tech's Comments VERIFIED 08/02/24 19:39 PT 10.7 SEC (10.9-12.4) L 08/02/24 23:19 INR 0.9 (0.9-1.1) 08/02/24 23:19 APTT 27.0 SEC (26.0-36.8) 08/02/24 23:19 D-Dimer High Sensitivty 1119 NG/ML 08/02/24 23:19 Sodium 140 mmol/L (135-145) 08/05/24 07:43 Potassium 3.4 mmol/L (3.3-5.1) 08/05/24 07:43 Chloride 104 mmol/L (96-108) 08/05/24 07:43 Carbon Dioxide 27 mmol/L (22-29) 08/05/24 07:43 Anion Gap 12 (12-20) 08/05/24 07:43 BUN 18 mg/dL (9-16) H 08/05/24 07:43 Creatinine 0.95 mg/dL (0.5-1.4) 08/05/24 07:43 Estim Creat Clear Calc 39.6 08/05/24 07:43 Estimated GFR 56 08/05/24 07:43 POC Glucose 131 mg/dL (60-115) H 08/06/24 11:13 Random Glucose 125 mg/dL (60-115) H 08/05/24 07:43 Calcium 9.4 mg/dL (8.4-10.2) 08/05/24 07:43 Total Bilirubin 1.2 mg/dL (0.0-1.0) H 08/03/24 08:49 AST 29 U/L (5-31) 08/03/24 08:49 ALT 19 U/L (0-31) 08/03/24 08:49 Alkaline Phosphatase 36 U/L (39-117) L 08/03/24 08:49 Troponin I High Sens 7.8 ng/L (<3.5-17.0) D 08/03/24 21:39 B-Natriuretic Peptide 19 pg/mL (<100) 08/05/24 07:43 Total Protein 6.6 g/dL (6.5-8.0) 08/03/24 08:49 Albumin 3.8 g/dL (3.5-5.0) 08/03/24 08:49 Triglycerides 100 mg/dL (<150) 08/03/24 08:49 Cholesterol 100 mg/dL (<200) 08/03/24 08:49 LDL Cholesterol, Calc 51 mg/dL (<100) 08/03/24 08:49 HDL Cholesterol 29 mg/dL (>40) L 08/03/24 08:49 Lipase 42 U/L (8-78) 08/02/24 20:24 Procalcitonin 0.04 ng/mL 08/05/24 07:43 TSH 1.17 uIU/mL (0.32-4.0) 08/05/24 07:43 Urine Color Yellow 08/02/24 20:31 Urine Appearance Clear 08/02/24 20:31 Urine pH 8.5 (5.0-9.0) 08/02/24 20:31 Ur Specific [place] <= 1.005 (1.005-1.025) 08/02/24 20:31 Urine Protein Trace mg/dL (Neg-Trace) 08/02/24 20:31 Urine Glucose (UA) Negative mg/dL (Negative) 08/02/24 20:31 Urine Ketones Negative mg/dL (Negative) 08/02/24 20:31 Urine Blood Negative (Negative) 08/02/24 20:31 Urine Nitrite Negative (Negative) 08/02/24 20:31 Ur Leukocyte Esterase Negative (Negative) 08/02/24 20:31 Urine RBC 0-2 /HPF (0-2) 08/02/24 20:31 Urine WBC 0-5 /HPF (0-5) 08/02/24 20:31 Ur Squamous Epith Cells 0-2 /HPF (0-2) 08/02/24 20:31 Urine Bacteria None Seen (None Seen) 08/02/24 20:31 Hyaline Casts 0-2 /LPF (0-2) 08/02/24 20:31 Nasal Screen MRSA (PCR) NEGATIVE (Negative) 08/05/24 12:33 Nasal S. aureus Screen NEGATIVE (Negative) 08/05/24 12:33 Nasal MRSA/S.aureus Interp SEE NOTE 08/05/24 12:33 Influenza Type A (PCR) NEGATIVE (Negative) 08/02/24 19:39 Influenza Type B (PCR) NEGATIVE (Negative) 08/02/24 19:39 RSV RNA Qual (PCR) NEGATIVE (Negative) 08/02/24 19:39 SARS-CoV-2 RNA (RT-PCR) NEGATIVE (Negative) 08/02/24 19:39 Discharge Plan Discharge Anticipated Discharge Date/Time: 08/06/24 11:51 Patient Disposition: Home Health Service Discharge Diagnosis: near-syncope, pneumonia Referrals: Demi Yost MD [Primary Care Provider, Internal Medicine] - 1 Week Discharge Medications: New cefdinir 300 mg capsule 300 mg PO BID Qty: 8 0RF azithromycin 250 mg tablet 250 mg PO DAILY 2 Days Qty: 2 0RF Rx Instructions: start on day 2 of therapy Continued olmesartan 40 mg tablet 40 mg PO DAILY metformin 500 mg tablet 500 mg PO BID Discontinued chlorthalidone 25 mg tablet 12.5 mg PO DAILY Discharge Orders: Discharge Order (Routine); Ordered 08/06/24 Ordered By: Jessica Winkler Diet: Low salt diet Activity on Discharge: As tolerated Stand Alone Forms: Patient Portal Discharge page Print Language: Yi Care Plan Goals: treat pneumonia avoid syncope Health Concerns: near-syncope, pneumonia Plan of Treatment: Recommended short-term rehab but declined; home with VNA/home PT take cefdinir 300 mg twice daily for 4 days plus azithromycin 250 mg once daily for 2 days stop chlorthalidone Please follow up with your primary care doctor within 1 week. Return to the hospital if you experience recurrent or worsening symptoms. EEG results pending; follow up with primary care doctor for results Assessment: See Discharge Summary.
--- NOTE | 2024-08-06 12:40 | MHC.CM.PN ---
Second IMM 08/06/24, Pt declined to go to [facility], her family is in agreement. She will go home via family transport and have home care services from [facility].
[2024-08-09 01:18] LABS: Strep Pneumo Ag urine Not Detected (Not Detected)
[2024-08-13 01:08] LABS: Legionella Ag Urine Not Detected (Not Detected)
== END 2024-08-06 14:17 | disposition home health service (06) | DRG 195 ==
LOC: HO.ED 08-03 01:26 → HO.EDOVER 08-03 02:34 → HO.IMC 08-04 00:34
PROVIDERS: Nurse Practitioner Family; Student in an Organized Health Care Education/Training Program; Admitting Provider Student in an Organized Health Care Education/Training Program; Emergency Provider Internal Medicine; Visit Provider Family Medicine
DX: J18.9 Pneumonia, unspecified organism (principal); I12.9 Hypertensive chronic kidney disease with stage 1 through stage 4 chronic kidney disease, or unspecified chronic kidney disease; R55 Syncope and collapse; N18.30 Chronic kidney disease, stage 3 unspecified; E11.22 Type 2 diabetes mellitus with diabetic chronic kidney disease; Z20.822 Contact with and (suspected) exposure to COVID-19; Z86.711 Personal history of pulmonary embolism; Z79.84 Long term (current) use of oral hypoglycemic drugs; Z79.899 Other long term (current) drug therapy
CPT/HCPCS: 0241U; 36415; 70450; 71275; 80048; 80053; 80061; 81001; 82947; 83690; 83880; 84145; 84443; 84484; 85025; 85027; 85379; 85610; 85730; 87040; 87070; 87205; 87449; 87640; 87641; 87899; 93005; 93306; 93880; 93970; 94640; 95816; 97161; 99285; J0456; J0696; J1650; Q9967

== ENCOUNTER → 2024-08-02 21:16 | Outpatient (BNV) | payer OTHER, SELFPAY | PROVIDERS: Emergency Provider Internal Medicine; PCP Internal Medicine; Visit Provider Radiology Diagnostic Radiology | DX: R56.9 Unspecified convulsions (principal) | CPT/HCPCS: 70450 ==

== ENCOUNTER → 2024-08-03 00:10 | Outpatient (BNV) | payer OTHER, SELFPAY | PROVIDERS: Admitting Provider Student in an Organized Health Care Education/Training Program; Emergency Provider Internal Medicine; PCP Internal Medicine; Visit Provider Radiology Neuroradiology | DX: R55 Syncope and collapse (principal) | CPT/HCPCS: 71275; 93880 ==

== ENCOUNTER 2024-08-03 01:52 | Outpatient (BNV) | payer OTHER, SELFPAY | END 2024-08-05 14:48 | PROVIDERS: Admitting Provider Student in an Organized Health Care Education/Training Program; Emergency Provider Internal Medicine; PCP Internal Medicine; Visit Provider Radiology Diagnostic Radiology | DX: Z86.711 Personal history of pulmonary embolism (principal) | CPT/HCPCS: 93970 ==

== ENCOUNTER → 2024-08-03 01:52 | Outpatient (BNV) | payer OTHER, SELFPAY | PROVIDERS: Admitting Provider Student in an Organized Health Care Education/Training Program; Emergency Provider Internal Medicine; PCP Internal Medicine; Visit Provider Internal Medicine | DX: R55 Syncope and collapse (principal); R94.31 Abnormal electrocardiogram [ECG] [EKG] | CPT/HCPCS: 93010; 93306; 99223 ==

== ENCOUNTER → 2024-08-03 01:52 | Outpatient (BNV) | payer OTHER, SELFPAY | PROVIDERS: Admitting Provider Student in an Organized Health Care Education/Training Program; Emergency Provider Internal Medicine; PCP Internal Medicine; Visit Provider Psychiatry & Neurology Neurology | DX: R55 Syncope and collapse (principal) | CPT/HCPCS: 99221 ==

== ENCOUNTER → 2024-08-03 01:52 | Outpatient (BNV) | payer OTHER, SELFPAY | PROVIDERS: Admitting Provider Student in an Organized Health Care Education/Training Program; Emergency Provider Internal Medicine; PCP Internal Medicine; Visit Provider Nurse Practitioner Family | DX: J18.9 Pneumonia, unspecified organism (principal); R55 Syncope and collapse | CPT/HCPCS: 99223; 99232 ==

== ENCOUNTER 2024-08-14 17:18 | Emergency (ER) | payer OTHER, SELFPAY ==
[2024-08-14 17:37] VITALS: BP 160/90; PULSE 113; O2SAT 97
[2024-08-14 17:44] VITALS: BP 143/85; PULSE 108; RESP 16; O2SAT 98; BMI 21.4
--- NOTE | 2024-08-14 17:49 | ECG_ITS ---
Test Reason : TACHYCARDIA Blood Pressure : */* mmHG Vent. Rate : 98 BPM Atrial Rate : 98 BPM P-R Int : 162 ms QRS Dur : 82 ms QT Int : 364 ms P-R-T Axes : 32 14 59 degrees QTcB Int : 464 ms Normal sinus rhythm Septal infarct , age undetermined Abnormal ECG When compared with ECG of 03-Aug-2024 21:19, Septal infarct is now Present Referred By: Generic ED Physician Electronically Signed By: Arslan Mohr
[2024-08-14 17:56] LABS: Glucose, Whole Blood 113 mg/dL (60-115)
--- NOTE | 2024-08-14 17:58 | PC.NURSE ---
Patient's daughter Ofelia called asking for patient update, informed ofelia work up has just started, not even seen by a provider yet. Asked Ofelia if she had any insight into why patient is in the hospital today. Per Ofelia, NAJMAA suddenly stopped metoprolol at home by unknown doctor's orders, sent to ED because VNA Nurse said that patient's BP is elevated and pulse is elevated. Informed Ofelia BP and pulse are okay at this time. Ofelia requesting to be called w/ updates [phone]
--- NOTE | 2024-08-14 18:04 | ED.GENADULT ---
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 Patient has [employer] services to her home, they called for assistance secondary to noted elevated blood pressures. Per EMS, the [employer] was advised to discontinue her metoprolol, by an unknown ??. She is now on olmesartan. The patient states she has had palpitations today. Denies cough or cold symptoms, fever, chest pain, shortness of breath, abdominal pain, nausea vomiting. She does states it palacios when she urinates at times. Related Data Home Medications ?Medication ?Instructions ?Recorded ?Confirmed metformin 500 mg tablet 500 mg PO BID 08/03/24 08/03/24 olmesartan 40 mg tablet 40 mg PO DAILY 08/03/24 08/03/24 Previous Rx's ?Medication ?Instructions ?Recorded azithromycin 250 mg tablet 250 mg PO DAILY 2 days #2 tabs 08/06/24 cefdinir 300 mg capsule 300 mg PO BID #8 caps 08/06/24 Allergies Allergy/AdvReac Type Severity Reaction Status Date / Time atorvastatin (Lipitor) Allergy Unknown body Verified 08/14/24 17:48 ache,rash,anorexia lisinopril Allergy Unknown cough Verified 08/14/24 17:48 nitrofurantoin (Macrobid) Allergy Unknown rash Verified 08/14/24 17:48 Review of Systems Review of Systems: Yes all other systems are reviewed and are negative Constitutional: Constitutional: Denies fatigue and Denies fever(s) Cardiovascular: Cardiovascular: Denies chest pain, Reports palpitations and Denies dyspnea Respiratory: Respiratory: Denies cough and Denies dyspnea Gastrointestinal: Gastrointestinal: Denies abdominal pain, Denies nausea and Denies vomiting Genitourinary: Genitourinary: Reports dysuria Endocrine: Endocrine: Denies fatigue and Reports palpitations PMFSH Past Medical History Attestation statement: The following information was validated with the patient. Medical History (Updated 08/14/24 @ 19:28 by QUINTON Ventura) Syncope and collapse UTI (urinary tract infection) Hypoglycemia Atrophic vaginitis HLD (hyperlipidemia) Saddle pulmonary embolus Hypertension Diabetes mellitus Surgical History (Updated 08/03/24 @ 03:17 by BRISEYDA Alvarez) H/O sinus surgery H/O umbilical hernia repair H/O hysterectomy for benign disease Social History Social History Household Members: None Housing: Apartment Do you presently have visiting nurse or other home services: Yes Alcohol intake: never Patient Tobacco Use Status: Never used Tobacco Do you have a plan to hurt others: No Plan service: No Physical Exam ED Vital Signs: Vital Signs - 24 hr 08/14/24 17:44 08/14/24 19:13 08/14/24 19:21 Temperature 98.7 F 98.1 F Pulse Rate 108 H 98 Respiratory Rate 16 15 Blood Pressure 143/85 H 139/71 Pulse Oximetry 98 99 Oxygen Delivery Method Room Air Room Air BMI result Body Mass Index 21.4 Const Other: Alert well-appearing Orientation/consciousness: patient oriented x3 Resp Effort & Inspection: normal respiratory effort Cardio Other: Normal peripheral perfusion GI Other: Abdomen is soft nontender no guarding Skin Other: Warm dry no rash Neuro General: patient oriented x3, gait normal, no focal motor deficits and CN's II-XI intact bilaterally Psych Other: Cooperative Medical Decision Making Medical Decision Making MDM Narrative: 84-year-old female with a history of hyperlipidemia, hypertension, diabetes who presents with elevated blood pressure. Patient has [employer] services to her home, they called for assistance secondary to noted elevated blood pressures. Per EMS, the [employer] was advised to discontinue her metoprolol, by an unknown ??. She is now on olmesartan. The patient states she has had palpitations today. Denies cough or cold symptoms, fever, chest pain, shortness of breath, abdominal pain, nausea vomiting. She does states it palacios when she urinates at times. Problem: Age, diabetes History: Per patient and EMS I have considered the following differential diagnoses: Palpitations, rebound tachycardia secondary to abrupt cessation of a beta srikanth, UTI, anemia, dehydration, ACS , fever Plan: The patient's blood pressure is not elevated, she is mildly tachycardic at 98. Checked a rectal temp she is not febrile to account for the tachycardia. She does state she has had medication changes, this is the likely cause. to err on the side of caution, screening basic labs, assessing for underlying organic causes that could be contributing to tachycardia, IE dehydration, electrolyte abnormality, anemia, I am including a cardiac enzyme as we do not know how long she has been tachycardic,, EKG already obtained, and reveals an old septal infarct that was not present days ago.......... obtaining a UA as she does have dysuria. I have independently reviewed the following tests: Labs: No leukocytosis, not anemic, no electrolyte abnormality, troponin at baseline, urine not infected EKG: Normal sinus rhythm, rate of 98, no active ischemic changes no ectopy, old septal infarct now present Lab Data 08/14/24 18:38 08/14/24 18:38 Labs: Lab Results 08/14/24 08/14/24 08/14/24 Range/Units 17:52 18:38 18:56 WBC 4.6 L (4.8-10.8) X10*3/uL RBC 4.11 L (4.20-5.50) X10*6/uL Hgb 10.7 L (12.0-16.0) g/dl Hct 33.0 L (37.0-47.0) % MCV 80.3 (80.0-98.0) fL MCH 26.0 L (27.0-33.0) pg MCHC 32.4 (31.0-35.0) g/dl RDW 15.4 (11.0-16.0) % Plt Count 168 (160-400) X10*3/uL MPV 10.9 (9.4-12.3) fL Immature Gran % (Auto) 0.2 (0.0-0.4) % Neut % (Auto) 62.3 (45-73) % Lymph % (Auto) 25.2 (20-40) % [place] % (Auto) 9.0 (2-11) % Eos % (Auto) 2.4 (0-4) % Baso % (Auto) 0.9 (0-2) % Lymph # (Auto) 1.2 (1.2-4.9) X10*3/uL [place] # (Auto) 0.4 (0.1-1.2) X10*3/uL Eos # (Auto) 0.1 (0.0-0.4) X10*3/uL Baso # (Auto) 0.0 (0.0-0.2) X10*3/uL Abs Immat Gran (auto) 0.01 (0.00-0.03) X10*3/uL Absolute Neuts (auto) 2.9 (2.0-8.3) x10*3/uL Absolute Nucleated RBC 0.000 (0.0-0.012) X10*3/uL Nucleated RBC % (auto) 0.0 (0.0-0.2) /100WBC Sodium 142 (135-145) mmol/L Potassium 3.9 (3.3-5.1) mmol/L Chloride 107 (96-108) mmol/L Carbon Dioxide 30 H (22-29) mmol/L Anion Gap 9 L (12-20) BUN 12 (9-16) mg/dL Creatinine 1.07 (0.5-1.4) mg/dL Estim Creat Clear Calc 35.2 Estimated GFR 49 POC Glucose 113 (60-115) mg/dL Random Glucose 108 (60-115) mg/dL Calcium 9.2 (8.4-10.2) mg/dL Magnesium 2.0 (1.6-2.6) mg/dL Total Bilirubin 0.9 (0.0-1.0) mg/dL AST 25 (5-31) U/L ALT 18 (0-31) U/L Alkaline Phosphatase 38 L (39-117) U/L Troponin I High Sens 5.3 (<3.5-17.0) ng/L Total Protein 6.5 (6.5-8.0) g/dL Albumin 3.8 (3.5-5.0) g/dL Urine Color Yellow Urine Appearance Clear Urine pH 8.0 (5.0-9.0) Ur Specific [place] <= 1.005 (1.005-1.025) Urine Protein 100 (2+) H (Neg-Trace) mg/dL Urine Glucose (UA) Negative (Negative) mg/dL Urine Ketones Negative (Negative) mg/dL Urine Blood Negative (Negative) Urine Nitrite Negative (Negative) Ur Leukocyte Esterase Negative (Negative) Discharge Plan Discharge Clinical Impression: Palpitations Patient Disposition: Home, Self-Care Instructions: Heart Palpitations (ED) Additional Instructions: All of your screening labs including a cardiac enzymes were normal, your urine is not infected. There were no concerning changes on the EKG. You are likely having palpitations due to your blood pressure medication change, this can cause rebound elevated heart rate. You should speak with your primary care provider about this issue. And, your blood pressure has been normal here in the emergency room. Call tomorrow to schedule a follow up appointment. Prescriptions: No Action olmesartan 40 mg tablet 40 mg PO DAILY metformin 500 mg tablet 500 mg PO BID cefdinir 300 mg capsule 300 mg PO BID Qty: 8 0RF azithromycin 250 mg tablet 250 mg PO DAILY 2 Days Qty: 2 0RF Rx Instructions: start on day 2 of therapy Print Language: Yi
[2024-08-14 18:42] LABS: MANUAL DIFF FLAG NO
[2024-08-14 18:43] LABS: Hematocrit 33.0 % (37.0-47.0); Hemoglobin 10.7 g/dl (12.0-16.0); Imm Gran Abs Auto 0.01 X10*3/uL (0.00-0.03); Imm Gran Pct Auto 0.2 % (0.0-0.4); Lymphocytes Absolute Auto 1.2 X10*3/uL (1.2-4.9); Mean Corpuscular HGB Conc 32.4 g/dl (31.0-35.0); Mean Corpuscular Hemoglobin 26.0 pg (27.0-33.0); Mean Corpuscular Volume 80.3 fL (80.0-98.0); NRBC Abs Auto 0.000 X10*3/uL (0.0-0.012); NRBC Pct Auto 0.0 /100WBC (0.0-0.2); Platelet Count 168 X10*3/uL (160-400); Red Blood Count 4.11 X10*6/uL (4.20-5.50); White Blood Count 4.6 X10*3/uL (4.8-10.8)
[2024-08-14 18:57] LABS: Alanine Aminotransferase 18 U/L (0-31); Albumin Level 3.8 g/dL (3.5-5.0); Alkaline Phosphatase 38 U/L (39-117); Anion Gap 9 (12-20); Aspartate Amino Transferase 25 U/L (5-31); Blood Urea Nitrogen 12 mg/dL (9-16); Calcium 9.2 mg/dL (8.4-10.2); Carbon Dioxide 30 mmol/L (22-29); Chloride 107 mmol/L (96-108); Creatinine Clr Calc Pharmacy 35.2; Estimated Glomerular Filt Rate 49; Magnesium 2.0 mg/dL (1.6-2.6); Potassium 3.9 mmol/L (3.3-5.1); Sodium 142 mmol/L (135-145); Total Protein 6.5 g/dL (6.5-8.0)
[2024-08-14 19:04] LABS: Appearance Urine Clear; Glucose Urine UA Negative (Negative); PH 8.0 (5.0-9.0); Specific Gravity - Urine <= 1.005 (1.005-1.025); UMIC TRIGGER UACC YES
[2024-08-14 19:04] LABS: Troponin-I High Sensitivity 5.3 ng/L (<3.5-17.0)
[2024-08-14 19:13] VITALS: TEMP 37.1
[2024-08-14 19:21] VITALS: BP 139/71; PULSE 98; RESP 15; TEMP 36.7; O2SAT 99
[2024-08-14 19:55] VITALS: BP 139/71; PULSE 98; RESP 15; TEMP 36.7; O2SAT 99
== END 2024-08-14 19:45 | disposition home or self-care (01) ==
PROVIDERS: Physician Assistant Medical; Emergency Provider Emergency Medicine
DX: R00.2 Palpitations (principal); E11.9 Type 2 diabetes mellitus without complications; I10 Essential (primary) hypertension; E78.5 Hyperlipidemia, unspecified; Z79.84 Long term (current) use of oral hypoglycemic drugs; Z79.899 Other long term (current) drug therapy
CPT/HCPCS: 36415; 80053; 81001; 81003; 82947; 83735; 84484; 85025; 93005; 99283; 99284

== ENCOUNTER → 2024-08-14 17:49 | Outpatient (BNV) | payer OTHER, SELFPAY | PROVIDERS: Emergency Provider Emergency Medicine; Visit Provider Internal Medicine Cardiovascular Disease | DX: R94.31 Abnormal electrocardiogram [ECG] [EKG] (principal); R00.0 Tachycardia, unspecified | CPT/HCPCS: 93010 ==

== ENCOUNTER 2025-02-06 11:55 | Emergency (ER) | payer OTHER, SELFPAY ==
--- OUTSIDE RECORDS SUMMARY | 2025-02-01 08:30 | XMS_ITS | Encounter Summary ---
Author Organization [facility] Address [address] [place] [address] Care Team Providers Care Industrial Custodian Name Role Phone Gloria Whitt MD Primary Care Provider [phone] Reason for Referral * Imaging (Routine) - Pending Review Specialty Diagnoses / Procedures Referred By Contac t Referred To Contact Radiology Diagnoses Subclavian artery stenosis, right ([facility] V24) Procedures CT Angio Chest wo and/or w Contrast Carmel Ta MD [address] [place] [phone] Phone: tel: fax: [address] [phone] Phone: tel: Referral ID Status Reason Start Date Expiration Date V isits Requested Visits Authorized [id number] Pending Review 02/01/2025 02/01/2026 1 1 Reason for Visit * Reason Comments subclavian stenosis * Consultation (Routine) - Closed Specialty Diagnoses / Procedures Referred By Contac t Referred To Contact Vascular Surgery Diagnoses Ascending aorta dilatation ([facility] V24) Zacarias Wisdom MD Phone: tel: fax: [facility] [place] [address] [place] [address] Phone: tel: fax: Referral ID Status Reason Start Date Expiration Date V isits Requested Visits Authorized [id number] Closed Specialty Services Required 08/20/2024 08/20/2025 1 1 Encounter Details Date Type Department Care Team (Late st Contact Info) Description 02/01/2025 8:30 AM EST Office Visit [facility] [place] [address] [place] [address] Carmel Ta MD [address] [place] [phone] Subclavian artery stenosis, right (CMS/HCC V24) (Primary Dx) Social History Tobacco Use Types Packs/Day Years Used Date Smoking Tobacco: Never Smokeless Tobacco: Never Alcohol Use Standard Drinks/Week Comments Not Currently 0 (1 standard drink = 0.6 oz pur e alcohol) Comments No Sex and Gender Information Value Date Recorded Sex Assigned at Not on file Legal Sex Female 10:47 PM EST Gender Identity Not on file Sexual Orientation Not on file documented as of this encounter Last Filed Vital Signs Vital Sign Reading Time Taken Comments Blood Pressure 110/60 02/01/2025 8:39 AM EST Pulse 72 02/01/2025 8:39 AM EST Temperature - - Respiratory Rate 16 02/01/2025 8:39 AM EST Oxygen Saturation - - Inhaled Oxygen Concentration - - Weight 57.6 kg (127 lb) 02/01/2025 8:39 AM EST Height 165.1 cm (5' 5 ) 02/01/2025 8:39 AM EST Body Mass Index 21.13 02/01/2025 8:39 AM EST documented in this encounter Progress Notes * Miosés Rodrigues [place] - 02/01/2025 8:30 AM EST Images from the original note were not included. Dl Gomez Ramírez Procedures: CT Angio Chest wo and/or w Contrast Accession Number: [id number] Date of Study: 06/25/2024 Ordering Provider: Carmel Ta MD Clinical Indications: subclavian stenosis, subclavian stenosis Reading Physicians Performing Staff Nola Badillo MD Tech: Cindy Campbell Patient Information Patient Name Gomez Nolasco Legal Sex Female (84 y.o.) PACS Images Show images for CT Angio Chest wo and/or w Contrast Diagnosis Priority: Routine Subclavian artery stenosis, right (CMS/HCC V24) [I77.1 (ICD-10-CM)] Performing Physician Performing Physician/Midlevel: None Interpretation Summary PROCEDURE: CT ANGIO CHEST INDICATION: subclavian stenosis COMPARISON: 04/27/2023 TECHNIQUE: CT pulmonary angiogram performed following uneventful IV administration of ISOVUE contrast material with bolus timing technique from the thoracic inlet through the lung bases. 3-D multiplanar reformations were obtained by the technologist on an independent workstation. [employer] dose reduction utilizing iterative reconstruction. Total exam DLP 177 (mGy-cm) FINDINGS: There is no acute pulmonary embolism. Coronary artery calcifications. Cardiomegaly. Tortuous aorta with aberrant origin of the right subclavian artery with stable aneurysm of the subclavian artery at its origin with peripheral mural thrombus/atherosclerotic plaque. This roughly measures 3.4 x 2.9 cm on the sagittal view which is similar compared to prior examination accounting for differences in slice selection. Stable descending thoracic aortic dilation measuring up to 3.8 cm. Reactive nodes. Stable dilated azygos vein favored over retrocrural node. Small peripheral consolidations and nodular opacities are stable compared to 2023. No new consolidation. There are no pleural effusions. The visualized portion of the upper abdomen demonstrates no acute findings however technique was not optimized for evaluation for more subtle lesions. Degenerative changes. No acute osseous abnormality. IMPRESSION: No significant change compared to 04/27/2023. Stable aneurysmal dilation at the origin of the aberrant right subclavian artery. -------- FINAL REPORT -------- Dictated By: Nola Badillo Dictated Date: 06/26/2024 00:32 ET Assigned Physician: Nola Badillo Reviewed and Electronically Signed By: Nola Badillo Signed Date: 06/26/2024 00:41 ET Workstation ID: [id number] Transcribed By: Self Edit Transcribed Date: 06/26/2024 00:32 ET * Carmel Ta MD - 02/01/2025 8:30 AM EST PATIENT: Gomez Nolasco ENCOUNTER: 02/01/2025 EMRN: [id number] : 1940 PCP: Gloria Whitt MD CHIEF COMPLAINT: subclavian stenosis HPI: This is a 84 y.o. 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 Patient denies any chest or back pain. Patient denies any right upper extremity symptoms other than intermittent numbness. She denies any difficulty swallowing food. Patient denies any focal neurological deficits. Patient follows up with updated CTA of the chest. See findings below. She also has previous CTA chest abdomen and pelvis. Her daughter is present today. Patient on statin but no antiplatelet. She has no history of smoking. PAST MEDICAL HISTORY: (reviewed and unchanged) Problem List[1] PAST SURGICAL HISTORY: (reviewed and unchanged) Surgical History[2] MEDICATIONS: (reviewed, flow sheet updated) Medications Taking[3] SOCIAL HISTORY: Social History[4] FAMILY HISTORY: Family History[5] ALLERGIES: (reviewed, flow sheet updated) Allergies[6] ROS: GENERAL: No malaise, significant weight loss or fever NECK: No lumps, goiter, pain or significant neck swelling RESPIRATORY: No cough, wheezing or shortness of breath CARDIAC: No chest pain or palpitations GI: No abdominal discomfort MUSCULOSKELETAL: SEE HPI SKIN: No lesions, rash or itching NEURO: No persistent headache, syncope, seizures, weakness or numbness VASCULAR: SEE HPI PHYSICAL EXAM: Vitals: 02/01/25 0839 BP: 110/60 Pulse: 72 Resp: 16 Weight: 57.6 kg (127 lb) Height: 1.651 m (65 ) General: Alert and oriented by 3 no acute distress, xthin but well-nourished HEENT: Normocephalic atraumatic Neck: No JVD, no carotid bruit, carotid pulses present Chest: Clear to auscultation bilaterally Cardiac: Regular rate rhythm Abdomen: Soft, nontender, nondistended, no widened aortic pulse Extremity: -Right upper extremity: 2+ RA -Left upper extremity: 2+ RA -Right lower extremity: 2+ femoral, DP, and PT pulse palpable. Foot warm. Ankle swelling. -Left lower extremity: 2+ femoral, DP, and PT pulse palpable. Foot warm. Ankle swelling. Integumentary: No wounds Lymphatics: No lymphadenopathy Neuro: Grossly intact DIAGNOSTIC TESTING: Gomez Nolasco Procedures: CT Angio Chest wo and/or w Contrast Accession Number: [id number] Date of Study: 06/25/2024 Ordering Provider: Carmel aT MD Clinical Indications: subclavian stenosis, subclavian stenosis Reading Physicians Performing Staff Nola Badillo MD Tech: Cindy Helmsailin Patient Information Patient Name Gomez Nolasco Legal Sex Female (84 y.o.) PACS Images Show images for CT Angio Chest wo and/or w Contrast Diagnosis Priority: Routine Subclavian artery stenosis, right ([facility] V24) [I77.1 (ICD-10-CM)] Performing Physician Performing Physician/Midlevel: None Interpretation Summary PROCEDURE: CT ANGIO CHEST INDICATION: subclavian stenosis COMPARISON: 04/27/2023 TECHNIQUE: CT pulmonary angiogram performed following uneventful IV administration of ISOVUE contrast material with bolus timing technique from the thoracic inlet through the lung bases. 3-D multiplanar reformations were obtained by the technologist on an independent workstation. [employer] V[employer] dose reduction utilizing iterative reconstruction. Total exam DLP 177 (mGy-cm) FINDINGS: There is no acute pulmonary embolism. Coronary artery calcifications. Cardiomegaly. Tortuous aorta with aberrant origin of the right subclavian artery with stable aneurysm of the subclavian artery at its origin with peripheral mural thrombus/atherosclerotic plaque. This roughly measures 3.4 x 2.9 cm on the sagittal view which is similar compared to prior examination accounting for differences in slice selection. Stable descending thoracic aortic dilation measuring up to 3.8 cm. Reactive nodes. Stable dilated azygos vein favored over retrocrural node. Small peripheral consolidations and nodular opacities are stable compared to 2023. No new consolidation. There are no pleural effusions. The visualized portion of the upper abdomen demonstrates no acute findings however technique was not optimized for evaluation for more subtle lesions. Degenerative changes. No acute osseous abnormality. IMPRESSION: No significant change compared to 04/27/2023. Stable aneurysmal dilation at the origin of the aberrant right subclavian artery. -------- FINAL REPORT -------- Dictated By: Nola Badillo Dictated Date: 06/26/2024 00:32 ET Assigned Physician: Nola Badillo Reviewed and Electronically Signed By: Nola Badillo Signed Date: 06/26/2024 00:41 ET Workstation ID: [id number] Transcribed By: Self Edit Transcribed Date: 06/26/2024 00:32 ET [facility] Diagnostic Imaging Department [address] [place] [id number] Patient: GOMEZ NOLASCO Darrell Lara./Age/Sex: 1940 - 83 - F Unit#: [id number] Location/Status: SPDICAT/REG CLI Mnemonic/Ordering Site: CTACHEST/SPCT Ordering Physician: CARMEL TA MD CT Chest Angiography - 04/27/23 - 902 Report Status:Signed PROCEDURE: CT of the chest, abdomen and pelvis with IV contrast INDICATION: Ascending aortic dilatation. Preop EVAR. TECHNIQUE: Chest, abdomen and pelvis CT following the intravenous administration of 90cc ISOVUE. CTangiogram was performed throughout. Multiplanar reformats were created and interpreted. The examination was performed utilizing dose reduction techniques. COMPARISON: CT chest, abdomen and pelvis June 2022. FINDINGS: CT CHEST: LUNGS/PLEURA: Again noted is mild mosaic attenuation in the lungs as well as scattered regions of nodularity and tree-in-bud nodularity in the periphery of the right chest that appear similar to the previous examination and likely represent ongoing infectious/inflammatory process. No effusion. VASCULAR: Again noted is atherosclerotic disease of the aorta. As noted previously, there is an aberrant origin of the right subclavian artery that travels posterior to the esophagus. There is a partially thrombosed aneurysmal dilatation of the origin of the artery that measures 3.1 cm, stable fromprior examination in June 2022. Atherosclerotic disease throughout the thoracic aorta with no other regions of aneurysmal dilatation noted. Ascending aorta measures 3.6 cm at the level the pulmonary arteries. Mid descending thoracic aorta measures 3.2 cm.. MEDIASTINUM: No mediastinal or hilar lymphadenopathy. Heart is normal in size. No pericardial effusion. CHEST WALL: No axillary lymphadenopathy. BONES: Mild degenerative changes in the thoracic spine. CT ABDOMEN AND PELVIS: HEPATOBILIARY: Liver appears normal. Cholecystectomy. No significant biliary dilatation. SPLEEN: Spleen appears normal PANCREAS: Mild atrophy noted of the pancreas. No ductal dilatation. ADRENALS: Appear normal without nodules KIDNEYS/URETERS: No hydronephrosis, stones, or mass. PELVIC ORGANS/BLADDER: Bladder appears normal. RETROPERITONEUM: No retroperitoneal lymphadenopathy. VESSELS: Atherosclerotic disease of the abdominal aorta. Minimal ectasia is noted. Aorta measures up to 2.4 cm. Plaque at the left renal artery causes mild stenosis. Plaque at the origin of the celiac artery appears causes at least mild stenosis. BOWEL: Diverticulosis of the distal colon. No acute inflammatory changes. No obstruction. MESENTERY: Appears normal. No ascites. BONES AND SOFT TISSUES: Mild degenerative changes are noted in the hips as well as in the spine. IMPRESSION: 1. Aortic atherosclerotic disease and aneurysmal dilatation at the origin of an aberrant right subclavian artery that appears stable as detailed above. 2. Stable appearance of ill-defined nodularity in the right chest that likely represents ongoing infectious/inflammatory process. 3. No acute inflammatory process in the abdomen or pelvis. Dictating Physician: ARIANA BARAJAS MD Electronically Signed by: ARIANA BARAJAS MD Dic Date/Time: 04/27/23 1447 Sign date/Time: 04/27/23 [id number] [facility] Diagnostic Imaging Department [address] [place] [address] Patient: GOMEZ NOLASCO /Age/Sex: 1940 - 83 - F Unit#: [id number] Location/Status: SPDICAT/REG CLI Mnemonic/Ordering Site: [facility] Ordering Physician: CARMEL TA MD CT Ang Abd and Pel W WO or W - 04/27/23 - 902 Report Status:Signed PROCEDURE: CT of the chest, abdomen and pelvis with IV contrast INDICATION: Ascending aortic dilatation. Preop EVAR. TECHNIQUE: Chest, abdomen and pelvis CT following the intravenous administration of 90cc ISOVUE. CTangiogram was performed throughout. Multiplanar reformats were created and interpreted. The examination was performed utilizing dose reduction techniques. COMPARISON: CT chest, abdomen and pelvis June 2022. FINDINGS: CT CHEST: LUNGS/PLEURA: Again noted is mild mosaic attenuation in the lungs as well as scattered regions of nodularity and tree-in-bud nodularity in the periphery of the right chest that appear similar to the previous examination and likely represent ongoing infectious/inflammatory process. No effusion. VASCULAR: Again noted is atherosclerotic disease of the aorta. As noted previously, there is an aberrant origin of the right subclavian artery that travels posterior to the esophagus. There is a partially thrombosed aneurysmal dilatation of the origin of the artery that measures 3.1 cm, stable fromprior examination in June 2022. Atherosclerotic disease throughout the thoracic aorta with no other regions of aneurysmal dilatation noted. Ascending aorta measures 3.6 cm at the level the pulmonary arteries. Mid descending thoracic aorta measures 3.2 cm.. MEDIASTINUM: No mediastinal or hilar lymphadenopathy. Heart is normal in size. No pericardial effusion. CHEST WALL: No axillary lymphadenopathy. BONES: Mild degenerative changes in the thoracic spine. CT ABDOMEN AND PELVIS: HEPATOBILIARY: Liver appears normal. Cholecystectomy. No significant biliary dilatation. SPLEEN: Spleen appears normal PANCREAS: Mild atrophy noted of the pancreas. No ductal dilatation. ADRENALS: Appear normal without nodules KIDNEYS/URETERS: No hydronephrosis, stones, or mass. PELVIC ORGANS/BLADDER: Bladder appears normal. RETROPERITONEUM: No retroperitoneal lymphadenopathy. VESSELS: Atherosclerotic disease of the abdominal aorta. Minimal ectasia is noted. Aorta measures up to 2.4 cm. Plaque at the left renal artery causes mild stenosis. Plaque at the origin of the celiac artery appears causes at least mild stenosis. BOWEL: Diverticulosis of the distal colon. No acute inflammatory changes. No obstruction. MESENTERY: Appears normal. No ascites. BONES AND SOFT TISSUES: Mild degenerative changes are noted in the hips as well as in the spine. IMPRESSION: 1. Aortic atherosclerotic disease and aneurysmal dilatation at the origin of an aberrant right subclavian artery that appears stable as detailed above. 2. Stable appearance of ill-defined nodularity in the right chest that likely represents ongoing infectious/inflammatory process. 3. No acute inflammatory process in the abdomen or pelvis. Dictating Physician: ARIANA BARAJAS MD Electronically Signed by: ARIANA BARAJAS MD Dic Date/Time: 04/27/23 1605 Sign date/Time: 04/27/23 [id number] I independently reviewed the studies along with the images. ASSESSMENT: 1. Subclavian artery stenosis, right (CMS/HCC V24) PLAN: 84 y.o. 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 Size of Kommerell diverticulum appears stable since CTA of the chest in June 2022. Findings were discussed with the patient and her daughter. After extensive conversation and reviewing the anatomy and deferred any intervention. I agree as this is reasonable given patient's age and currentlack of symptoms. Whether repair will be recommended in the future or not, will largely be dependant on symptom severity, risk of rupture, patient's overall functional status, and risk versus benefits. Follow-up in 1 year with repeat CTA of the chest. 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 Patient was educated on the disease process. Patient was counseled on risk factor modification. 35 minutes spent on patient encounter including time spent with patient, chart review, review of imaging/diagnostic studies, all necessary communications and documentation. [1] Patient Active Problem List Diagnosis Acute deep vein thrombosis (DVT) of left peroneal vein (CMS/HCC V24, CMS/HCC V28) Age related osteoporosis Ascending aorta dilatation (CMS/HCC V24) Diabetes mellitus, type II (CMS/HCC V24, CMS/HCC V28) Essential hypertension Hyperlipidemia Pulmonary nodule, left Single subsegmental pulmonary embolism without acute cor pulmonale (CMS/HCC V24, CMS/HCC V28) CKD stage 3a, GFR 45-59 ml/min (CMS/HCC V24, CMS/HCC V28) Type 2 DM with CKD stage 3 and hypertension (CMS/HCC V24, CMS/HCC V28) Cyst of right kidney [2] Past Surgical History: Procedure Laterality Date CHOLECYSTECTOMY PROCEDURE: HISTORICAL CHOLECYSTECTOMY HERNIA REPAIR PROCEDURE:HERNIA REPAIR OTHER SURGICAL HISTORY PROCEDURE: DE TOTAL ABDOMINAL HYSTERECT W/WO RMVL TUBE OVARY [3] Outpatient Medications Marked as Taking for the 02/01/25 encounter (Office Visit) with Carmel Ta MD Medication Sig Dispense Refill chlorthalidone (HYGROTON) 25 mg tablet TAKE 1/2 TABLET (12.5 MG) BY MOUTH 1 (ONE) TIME EACH DAY. 15tablet 3 cholecalciferol (Vitamin D3) 25 mcg (1,000 unit) tablet Take 1 tablet (1,000 Units total) by mouth 1 (one) time each day in the morning. 90 tablet 1 cyanocobalamin (VITAMIN B-12) 1,000 mcg tablet Take 1 tablet (1,000 mcg total) by mouth 1 (one) time each day. 90 tablet 1 metFORMIN (GLUCOPHAGE) 500 mg tablet Take 1 tablet (500 mg total) by mouth 2 (two) times a day withmeals. 180 tablet 1 metoprolol succinate (TOPROL-XL) 100 mg 24 hr tablet Take 1 tablet (100 mg total) by mouth at bedtime. 90 tablet 0 olmesartan (BENICAR) 40 mg tablet Take 1 tablet (40 mg total) by mouth 1 (one) time each day. 90 tablet 1 rosuvastatin (CRESTOR) 20 mg tablet Take 1 tablet (20 mg total) by mouth 1 (one) time each day. *blister pack* 90 tablet 0 [4] Social History Tobacco Use Smoking status: Never Smokeless tobacco: Never Substance Use Topics Alcohol use: Not Currently Drug use: Never [5] Family History Problem Relation Name Age of Onset Asthma Sister [6] Allergies Allergen Reactions Atorvastatin Itching Hydrochlorothiazide Lisinopril Nitrofurantoin Monohyd/M-Cryst documented in this encounter Plan of Treatment Upcoming Encounters Date Type Department Care Team (Late st Contact Info) Description 04/22/2025 10:00 AM EDT Office Visit [facility] [address] [place] [address] [place] [phone] Diego Galeana MD [address] [place] [address] [address] [place] [phone] 02/14/2026 1:00 PM EST Office Visit [facility] [place] [address] [place] [phone] Carmel Ta MD [address] [place] [phone] Scheduled Orders Name Type Priority Associated Diagnoses Orde r Schedule CT Angio Chest wo and/or w Contrast Cardiac CT/MRI Routine Subclavian artery stenosis, right ([facility] V24) Expected: 01/02/2026, Expires: 02/01/2027 BUN Lab Routine Subclavian artery stenosis, right ([facility]/HCC V24) Expected: 12/02/2025, Expires: 02/01/2026 Creatinine Lab Routine Subclavian artery stenosis, right ([facility]CC V24) Expected: 12/02/2025, Expires: 02/01/2026 documented as of this encounter Visit Diagnoses Diagnosis Subclavian artery stenosis, right (CMS/HCC V24)- Primary Atherosclerosis of other specified arteries documented in this encounter Orders Outpatient Referral Count Last Ordered Date Fir st Ordered Date AMB REFERRAL TO VASCULAR SURGERY 1 02/02/20 25 documented in this encounter Care Teams Industrial Custodian Relationship Specialty Start Date End Date Gloria Whitt MD [facility] [place] [address] PCP - General Internal Medicine 11/01/24 documented as of this encounter
--- NOTE | ~2025-02-06 | CT_ITS ---
EXAMINATION: CT CHEST ANGIOGRAPHY WITH IV CONTRAST INDICATION: elevated d dimer, dyspnea, chest pain COMPARISON: Previous chest CTA exams most recent July 2024 TECHNIQUE: Helical CT scan of the chest was performed following administration of intravenous contrast (65 mL Omnipaque 350). The contrast bolus was timed to optimally opacify the pulmonary arteries. Thin sections were obtained through the pulmonary arteries. Coronal and sagittal reformatted images were generated. 3D/MIP reconstructed images are also obtained and reviewed. This CT exam was performed with one or more of the following dose reduction techniques: automated exposure control, adjustment of the mA and/or kV according to patient size, use of iterative reconstruction technique. DLP: 263 mGy-cm CHEST: THYROID: 19 cm left thyroid nodule. This is similar to previous exams. Question small right thyroid nodule. PULMONARY ARTERIES: No evidence of acute pulmonary embolism. There is a small filling defect or wall thickening in a subsegmental right lower lobe pulmonary artery branch against the wall questionable for changes from old pulmonary embolism. This is seen axial image 276 series 6. This is new from recent CTA July 2022. No other evidence of pulmonary embolism. Pulmonary arteries are normal in size, and pulmonary artery measuring 2.5 cm. No reflux of contrast into the liver. LUNGS: 2 biapical pleural and parenchymal scarring. There are scattered areas of atelectasis or consolidation, air bronchograms and clustered tree-in-bud nodules and mucous plugging in the right upper lobe, for example axial image 125 series 6 that appears similar to prior exam. An infectious or inflammatory process is favored. Minimal atelectasis or consolidation and bronchiectasis in the inferior segment of the lingula for example axial image 332 series 6 also unchanged. Central airways are clear. MEDIASTINUM: Enlarged heart. In particular, the right ventricle is enlarged. There is borderline evidence of right heart strain. There is no pericardial effusion. There is moderate coronary artery calcification. Normal caliber ascending thoracic aorta. Dilated aortic arch and descending thoracic aorta measuring 3.6 cm. 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 This does not appear appreciably changed from previous exams. Lymph nodes: No enlarged lymph nodes. PLEURA: There is no pleural effusion. No pneumothorax. MAIN AIRWAYS: The mainstem bronchi and proximal branches are patent. AXILLA: No chest wall mass or enlarged axillary lymph nodes. There are collateral vessels seen in the right upper anterior chest wall. UPPER ABDOMEN: Severe atherosclerotic disease. BONES AND SOFT TISSUES: Degenerative changes of the spine. CT/CT angio chest PE protocol IMPRESSION: No evidence of acute pulmonary embolism. Wall thickening or filling defect against the wall of a right lower lobe subsegmental pulmonary artery questionable for changes from old pulmonary embolism. This is new in the interval from July 2024 exam. Enlarged heart with particular enlargement of the right ventricle. Borderline evidence of right heart strain. 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 This does not appear appreciably changed from recent exams. Moderate coronary artery calcification. Patchy infiltrates and areas of bronchiectasis and mucous plugging greatest in the right upper lobe similar to prior exams are to represent an infectious or inflammatory process. No acute pulmonary findings. Stable left thyroid nodule measuring up to 1.9 cm in length. Consider follow-up thyroid ultrasound. Electronically signed by: Daya Guevara MD 02/06/2025 03:58 PM [facility] [place]
--- NOTE | ~2025-02-06 | XR_ITS ---
EXAMINATION: XR CHEST CLINICAL INFORMATION: cough 1 mo COMPARISON: 06/25/2021. TECHNIQUE: 2 views of the chest were obtained. FINDINGS: The cardiac, hilar, and mediastinal contours are normal. Aortic mural calcifications. Lungs are hyperaerated and hyperlucent with flattening of the hemidiaphragms suggesting COPD. There is biapical pleural thickening/scarring, unchanged. There is a nodular opacity in the right upper lung, new from prior. There is opacity in the right lower lung suggesting pneumonia. Left lung appears clear. There is no pneumothorax or pleural effusion. There is no focal osseous or soft tissue abnormality. There are degenerative changes throughout the spine. XR/XR chest 2V IMPRESSION: 1. COPD. Findings suggesting right lower lobe pneumonia. 2. Nodular opacity in the right upper lung, new from prior. Cannot exclude lung nodule versus additional pneumonic process. Recommend close interval follow-up radiographs after treatment. 3. Stable chronic biapical changes. Electronically signed by: Mau Fortune MD 02/06/2025 01:11 PM [facility]
--- NOTE | 2025-02-06 12:08 | ECG_ITS ---
Test Reason : SOB / CHEST PAIN Blood Pressure : */* mmHG Vent. Rate : 71 BPM Atrial Rate : 71 BPM P-R Int : 168 ms QRS Dur : 84 ms QT Int : 392 ms P-R-T Axes : 116 -4 62 degrees QTcB Int : 425 ms Normal sinus rhythm Septal infarct (cited on or before 14-Aug-2024) Abnormal ECG When compared with ECG of 14-Aug-2024 17:53, No significant change was found Referred By: Dorita Almodovar Electronically Signed By: DAYDAY BOWDEN
--- NOTE | 2025-02-06 12:08 | ED_ITS ---
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 She is also complaining of associated chest pain with coughing. She denies fevers. Family reported to EMS that patient recently tested positive for influenza, however, patient denies this. She reports that she also was recently diagnosed and treated for pneumonia. MD complaint: cough and chest pain Related Data Home Medications ?Medication ?Instructions ?Recorded ?Confirmed metformin 500 mg tablet 500 mg PO BID 08/03/2408/03 olmesartan 40 mg tablet 40 mg PO DAILY 08/03/2407/09 Previous Rx's ?Medication ?Instructions ?Recorded azithromycin 250 mg tablet 250 mg PO DAILY 2 days #2 t abs 08/06/24 cefdinir 300 mg capsule 300 mg PO BID #8 caps amoxicillin 500 mg capsule 1,000 mg (2 x 500 mg) PO TI D 5 02/06/25 days #30 caps apixaban 5 mg tablet (Eliquis) 5 mg PO BID #70 tabs azithromycin 250 mg tablet 250 mg PO DAILY 4 days #4 t abs 02/06/25 Allergies Allergy/AdvReac Type Severity Reaction Status Date / Time atorvastatin (Lipitor) Allergy Unknown body Verified 02/06/25 12:15 ache,rash,anorexia lisinopril Allergy Unknown cough Verified 02/06/25 12:15 nitrofurantoin (Macrobid) Allergy Unknown rash Verified 02/06/25 12:15 Review of Systems 2 Review of Systems: as per HPI Yes all other systems are reviewed and are negative Constitutional: Constitutional: Reports as per HPI [facility] Past Medical History Medical History (Updated 02/06/25 @ 16:40 by Dorita Almodovar NP) Syncope and collapse UTI (urinary tract infection) Hypoglycemia Atrophic vaginitis HLD (hyperlipidemia) Saddle pulmonary embolus Hypertension Diabetes mellitus Surgical History (Updated 08/03/24 @ 03:17 by BRISEYDA Alvarez) H/O sinus surgery H/O umbilical hernia repair H/O hysterectomy for benign disease Social History Social History Household Members: None Housing: Apartment Do you presently have visiting nurse or other home services: Yes Alcohol intake: never Patient Tobacco Use Status: Never used Tobacco Advance Directives: No Advance Directives Information Provided: Yes service: No Physical Exam ED Vital Signs: Vital Signs - 24 hr 02/06/25 12:09 Temperature 98.5 F Pulse Rate 75 Respiratory Rate 20 Blood Pressure 157/77 H Pulse Oximetry 98 Oxygen Delivery Method Nasal Cannula BMI result Body Mass Index 21.4 Vital signs have been reviewed and appear to be correct. Blood pressure elevated. Heart rate normal. Respiratory rate normal. Temperature normal. Oxygen saturation normal. Const General: cooperative, healthy appearing and no acute distress Orientation/consciousness: oriented to person, oriented to place, oriented to time and patient oriented x3 Limitations: no limitations HENMT Head: Yes normocephalic and Yes atraumatic Ears: external ears normal General nose exam: Normal external nose present Face and sinus: Yes face symmetric Mouth: oropharynx normal and moist mucous membranes Throat: Yes uvula midline Eyes Pupils: Equal, round and reactive pupils present Neck Neck: Yes normal visual inspection and Yes supple Resp Effort & Inspection: normal respiratory effort and able to speak in complete sentences Auscultation: rhonchi throughout Cardio Rate: regular rate Rhythm: regular rhythm Heart sounds: S1 normal heart sound present and S2 normal heart sound present GI Palpation (GI): Soft to palpation and nontender Auscultation: normoactive bowel sounds General: Yes no CVA tenderness Back/Spine/Pelvis Back: no CVA tenderness Skin General skin exam: elasticity normal and turgor normal Neuro General: oriented to person, oriented to place, oriented to time, patient oriented x3, moves all extremities, no focal motor deficits and CN's II-XI intact bilaterally Cranial nerves: Yes Equal, round and reactive pupils present Cognition (Neuro): normal cognition Extrem General: Yes full ROM, Yes no pedal edema and Yes no calf tenderness Psych Mental Status: mental status grossly normal Affect: normal affect Thought process: Normal thought process present Medications Administered Discontinued Medications Generic Name Dose Route Start Last Admin Trade Name Vijaya PRN Reason Stop Dose Admin Amoxicillin 1,000 mg 02/06/25 13:21 02/06/25 14:11 Amoxicillin 500 Mg Capsule PO 02/06/25 13:22 1,000 mg ONCE ONE Administration Azithromycin 500 mg 02/06/25 13:21 02/06/25 14:11 Azithromycin 500 Mg Tablet PO 02/06/25 13:22 500 mg ONCE ONE Administration Iohexol 100 ml 02/06/25 15:24 02/06/25 15:26 Iohexol 350 Mg/Ml 100 Ml Infus..Btl IV 02/06/25 15:25 65 ml ONCE ONE Administration Medical Decision Making Medical Decision Making MDM Narrative: Patient is an 84-year-old female with 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 On exam patient is awake, A+Ox3, VS WNL, afebrile, normal neurological exam without focal deficits, physical exam findings as above. Given reported symptoms and physical exam findings, initial differential includes but is not limited to viral illness, Covid, flu, RSV, bronchitis, pneumonia. Given pmhx of saddle PE, will check d-dimer. EKG shows normal sinus rhythm. Labs appear at baseline. X-ray chest notable for right lower lobe pneumonia as well as nodular opacity to right upper lung which is new from prior exams. CTA Chest notable for wall thickening or filling defect against the wall of a right lower lobe subsegmental pulmonary artery questionable for changes from old PE, new in the interval from July 27, 2024 exam. My interpretation is in agreement with the radiologist's interpretation. CT results discussed with attending, Dr. Fox, who recommends starting patient on Eliquis if she is not a high fall risk. Patient and family deny that patient is a fall risk. Will refer to Dr. Hercules for follow up. Will also treat with amox and azithromycin for RLL pna. Return precautions discussed at bedside. Patient and family verbalized understanding of and agreement with plan. Differential Diagnosis Differential Diagnoses: The differential diagnosis associated with the presentation includes as per mdm Admission/Observation Consideration of admission/observation: Escalation of care including admission/observation considered Patient would have been admitted to the hospital and transferred to appropriate facility had their clinical presentation warranted hospital admission. Lab Data [facility] Lab Attestation statement: I reviewed the patient's lab results. as per [facility] 02/06/25 12:43 02/06/25 12:43 Labs: Lab Results 02/06/25 02/06/25 02/06/25 Range/Units 12:38 12:43 13:53 WBC 8.4 (4.8-10.8) X10*3/uL RBC 4.54 (4.20-5.50) X10*6/uL Hgb 11.7 L (12.0-16.0) g/dl Hct 36.8 L (37.0-47.0) % MCV 81.1 (80.0-98.0) fL MCH 25.8 L (27.0-33.0) pg MCHC 31.8 (31.0-35.0) g/dl RDW 15.1 (11.0-16.0) % Plt Count 160 (160-400) X10*3/uL MPV 11.3 (9.4-12.3) fL Immature Gran % (Auto) 0.4 (0.0-0.4) % Neut % (Auto) 76.8 H (45-73) % Lymph % (Auto) 13.2 L (20-40) % Grainger % (Auto) 7.5 (2-11) % Eos % (Auto) 1.4 (0-4) % Baso % (Auto) 0.7 (0-2) % Lymph # (Auto) 1.1 L (1.2-4.9) X10*3/uL Grainger # (Auto) 0.6 (0.1-1.2) X10*3/uL Eos # (Auto) 0.1 (0.0-0.4) X10*3/uL Baso # (Auto) 0.1 (0.0-0.2) X10*3/uL Abs Immat Gran (auto) 0.03 (0.00-0.03) X10*3/uL Absolute Neuts (auto) 6.4 (2.0-8.3) x10*3/uL Absolute Nucleated RBC 0.000 (0.0-0.012) X10*3/uL Nucleated RBC % (auto) 0.0 (0.0-0.2) /100WBC D-Dimer High Sensitivty 1152 NG/ML Sodium 142 (135-145) mmol/L Potassium 3.4 (3.3-5.1) mmol/L Chloride 103 (96-108) mmol/L Carbon Dioxide 33 H (22-29) mmol/L Anion Gap 9 L (12-20) BUN 15 (9-16) mg/dL Creatinine 0.94 (0.5-1.4) mg/dL Estim Creat Clear Calc 40.0 Estimated GFR 57 Random Glucose 142 H (60-115) mg/dL Calcium 9.7 (8.4-10.2) mg/dL Total Bilirubin 1.6 H (0.0-1.0) mg/dL AST 22 (5-31) U/L ALT 12 (0-31) U/L Alkaline Phosphatase 36 L (39-117) U/L Troponin I High Sens < 2.7 (<3.5-17.0) ng/L Total Protein 7.3 (6.5-8.0) g/dL Albumin 4.4 (3.5-5.0) g/dL Urine Color Yellow Urine Appearance Clear Urine pH 8.5 (5.0-9.0) Ur Specific [place] 1.010 (1.005-1.025) Urine Protein 30 (1+) H (Neg-Trace) mg/dL Urine Glucose (UA) Negative (Negative) mg/dL Urine Ketones Negative (Negative) mg/dL Urine Blood Negative (Negative) Urine Nitrite Negative (Negative) Ur Leukocyte Esterase Negative (Negative) Urine RBC 0-2 (0-2) /HPF Urine WBC 0-5 (0-5) /HPF Ur Squamous Epith Cells 0-2 (0-2) /HPF Urine Bacteria None Seen (None Seen) Hyaline Casts 0-2 (0-2) /LPF Influenza Type A (PCR) NEGATIVE (Negative) Influenza Type B (PCR) NEGATIVE (Negative) RSV RNA Qual (PCR) NEGATIVE (Negative) SARS-CoV-2 RNA (RT-PCR) NEGATIVE (Negative) Independent Interpretation I performed an independent interpretation of an: EKG (Normal sinus rhythm, rate 71 beats per minute, normal NC interval and QTC), Plain X-Ray and CT Scan Interpretation: Chest x-ray notable for right lower lobe pneumonia as well as nodular opacity to right upper lung which is new from prior exams. CTA Chest notable for wall thickening or filling defect against the wall of a right lower lobe subsegmental pulmonary artery questionable for changes from old PE, new in the interval from July 27, 2024 exam. Radiology Impression Discussion of test interpretation with radiology: I have reviewed the radiologist's reading. Radiologist Impression: XR/XR chest 2V IMPRESSION: 1. COPD. Findings suggesting right lower lobe pneumonia. 2. Nodular opacity in the right upper lung, new from prior. Cannot exclude lung nodule versus additional pneumonic process. Recommend close interval follow-up radiographs after treatment. 3. Stable chronic biapical changes. CT/CT angio chest PE protocol IMPRESSION: No evidence of acute pulmonary embolism. Wall thickening or filling defect against the wall of a right lower lobe subsegmental pulmonary artery questionable for changes from old pulmonary embolism. This is new in the interval from July 2024 exam. Enlarged heart with particular enlargement of the right ventricle. Borderline evidence of right heart strain. 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 This does not appear appreciably changed from recent exams. Moderate coronary artery calcification. Patchy infiltrates and areas of bronchiectasis and mucous plugging greatest in the right upper lobe similar to prior exams are to represent an infectious or inflammatory process. No acute pulmonary findings. Stable left thyroid nodule measuring up to 1.9 cm in length. Consider follow-up thyroid ultrasound. External Record Review External record reviewed: Inpatient record, Office record and Outpatient record Critical Care Time Critical Care Time Critical Care Time: Yes Total Critical Care Time: 39 Attestation: I have personally provided critical care time exclusive of time spent on separately billable procedures. Time includes review of lab data, radiology results, discussion with consultants, and monitoring for potential decompensation. Intervention performed as documented. Discharge Plan Discharge Clinical Impression: Right lower lobe pneumonia, Single subsegmental pulmonary embolism without acute cor pulmonale Patient Disposition: Home, Self-Care Instructions: Pulmonary Embolism (ED), Community Acquired Pneumonia (DC), Blood Thinners (ED) Additional Instructions: You were evaluated in the emergency department for shortness of breath and chest pain. Your chest x-ray shows evidence of pneumonia. You are being treated with a course of antibiotics. Complete the full course as prescribed. Your CT scan of your chest also shows a possible pulmonary embolism and you are being started on a blood thinner called Eliquis. It is important that if you have any falls or head strikes while taking this medication that you come to the emergency department for evaluation. You should also come to the emergency department if you notice any blood in your urine or stool or have any uncontrolled bleeding. You are being referred to the vascular surgeon for further evaluation and management. Prescriptions: New amoxicillin 500 mg capsule 1,000 mg PO TID 5 Days Qty: 30 0RF azithromycin 250 mg tablet 250 mg PO DAILY 4 Days Qty: 4 0RF Eliquis 5 mg tablet 5 mg PO BID Qty: 70 0RF Rx Instructions: 10mg (2 tabs) PO BID x 7 days, then 5mg (1 tab) PO BID after that No Action olmesartan 40 mg tablet 40 mg PO DAILY metformin 500 mg tablet 500 mg PO BID cefdinir 300 mg capsule 300 mg PO BID Qty: 8 0RF azithromycin 250 mg tablet 250 mg PO DAILY 2 Days Qty: 2 0RF Rx Instructions: start on day 2 of therapy Referrals: Surjit Hercules MD [Physician, Vascular Surgery] - 1 week Referral Note: Hx of saddle PE, not currently anticoagulated, CTA chest abnormal, started on Eliquis in the ED Clinical Impression: Single subsegmental pulmonary embolism without acute cor pulmonale Print Language: Swedish
[2025-02-06 12:09] VITALS: BP 157/77; PULSE 75; RESP 20; TEMP 36.9; O2SAT 98; BMI 21.4
--- NOTE | 2025-02-06 12:31 | PC.NURSE ---
Patient is out of bed to bathroom, attempting to provide urine specimen at this time. Labs & IV access to be established by this RN upon return.
[2025-02-06 12:45] LABS: Appearance Urine Clear; Glucose Urine UA Negative (Negative); PH 8.5 (5.0-9.0); Specific Gravity - Urine 1.010 (1.005-1.025); UMIC TRIGGER UACC YES
[2025-02-06 12:48] LABS: MANUAL DIFF FLAG NO
[2025-02-06 12:50] LABS: Hematocrit 36.8 % (37.0-47.0); Hemoglobin 11.7 g/dl (12.0-16.0); Imm Gran Abs Auto 0.03 X10*3/uL (0.00-0.03); Imm Gran Pct Auto 0.4 % (0.0-0.4); Lymphocytes Absolute Auto 1.1 X10*3/uL (1.2-4.9); Mean Corpuscular HGB Conc 31.8 g/dl (31.0-35.0); Mean Corpuscular Hemoglobin 25.8 pg (27.0-33.0); Mean Corpuscular Volume 81.1 fL (80.0-98.0); NRBC Abs Auto 0.000 X10*3/uL (0.0-0.012); NRBC Pct Auto 0.0 /100WBC (0.0-0.2); Platelet Count 160 X10*3/uL (160-400); Red Blood Count 4.54 X10*6/uL (4.20-5.50); White Blood Count 8.4 X10*3/uL (4.8-10.8)
[2025-02-06 13:08] LABS: Alanine Aminotransferase 12 U/L (0-31); Albumin Level 4.4 g/dL (3.5-5.0); Alkaline Phosphatase 36 U/L (39-117); Anion Gap 9 (12-20); Aspartate Amino Transferase 22 U/L (5-31); Blood Urea Nitrogen 15 mg/dL (9-16); Calcium 9.7 mg/dL (8.4-10.2); Carbon Dioxide 33 mmol/L (22-29); Chloride 103 mmol/L (96-108); Creatinine Clr Calc Pharmacy 40.0; Estimated Glomerular Filt Rate 57; Potassium 3.4 mmol/L (3.3-5.1); Sodium 142 mmol/L (135-145); Total Protein 7.3 g/dL (6.5-8.0)
[2025-02-06 13:17] LABS: Troponin-I High Sensitivity < 2.7 ng/L (<3.5-17.0)
[2025-02-06 13:28] LABS: Resp Syncy Virus RNA Qual PCR NEGATIVE (Negative); SARS COV2 PCR INHOUSE NEGATIVE (Negative)
[2025-02-06 14:19] LABS: D Dimer High Sensitivity 1152 NG/ML
--- OUTSIDE RECORDS SUMMARY | 2025-02-06 14:42 | XMS_ITS ---
Author Name [facility] Organization Unknown Encounters Encounter Type Encounter Reason Primary Diagnosis Location Date Inpatient Multiple subsegm ental pulmonary emboli without acute cor pulmonale [facility] 01/11/2022 Care Team Organization Name Specialty Phone Email Start Date End Da te [facility] 01/12/2022 [facility] 01/11/2022 01/13/2022
--- OUTSIDE RECORDS SUMMARY | 2025-02-06 14:42 | XMS_ITS | Encounter Summary ---
Author Organization [facility] Address [address] [place] [address] Care Team Providers Care Sizing Machine Tender Name Role Phone Gloria Whitt MD Primary Care Provider Reason for Visit * Reason Onset Date Comments Request For [facility](s) [email or web address] Encounter Details Date Type Department Care Team (Late st Contact Info) Description 01/15/2025 Telephone Internal Medicine - [facility] [address] [place], [place] [phone] Gloria Whitt MD [address] [place] [address] Social History Tobacco Use Types Packs/Day Years [...] on file documented as of this encounter Progress Notes * Erinn Toro MA - 01/28/2025 2:45 PM EST Signed and Faxed * Chel Ulloa - 01/15/2025 4:12 PM EST Faxed order received from [facility] Orders placed in Gloria Whitt MD bin for signing, please fax to [phone]. documented in this encounter Plan of Treatment Upcoming Encounters Date Type Department Care Team (Late st Contact Info) Description 04/22/2025 10:00 AM EDT Office Visit [facility] [address] [place] [address] [place] [address] Diego Galeana MD [address] [place] [address] [address] [place] [phone] 02/14/2026 1:00 PM EST Office Visit Vascular Surgery - [place] [address] [place] [phone] Davonte Perez MD [address] [place] [address] documented as of this encounter Visit Diagnoses Not on filedocumented in this encounter Care Teams Sizing Machine Tender Relationship Specialty Start Date End Date Gloria Whitt MD [address] [place] [phone] PCP - General Internal Medicine 11/01/24 documented as of this encounter
--- OUTSIDE RECORDS SUMMARY | 2025-02-06 14:42 | XMS_ITS | Clinical Summary ---
Author Organization [employer] [facility] Prior to 07/07/24 Address [address] [place] [address] Care Team Providers Care Worm Farmer Name Role Phone Zacarias Wisdom MD Primary Care Provider [phone] Allergies Active Allergy Reactions Criticality Noted Date Comments Atorvastatin 05/28/2022 Nitrofurantoin 05/28/2022 Medications Medication Sig Dispensed Refills Start Date End Date Status apixaban (ELIQUIS) 5 MG TABS tablet Take by mouth every 12 (twelve) hours. 0 Active metoprolol succinate (TOPROL-XL) 24 hr tablet 100 mg Take by mouth daily. 0 Active valsartan (DIOVAN) tablet 320 mg Take 0.5 tablets (160 mg total) by mouth daily. 0 Active metFORMIN (GLUCOPHAGE) 850 MG tablet Take 1 tablet (850 mg total) by mouth 2 (two) times a day with meals. 0 Active albuterol 108 (90 Base) MCG/ACT inhaler Inhale 2 puffs into the lungs every 6 (six) hours as needed for wheezing. 0 Active Active Problems Problem Noted Date Diagnosed Date Acute deep vein thrombosis (DVT) of left peronea l vein 08/19/2022 Other pulmonary embolism without acute cor pulmo nale 08/19/2022 Family History Relation Name Status Comments Father Mother Social History Tobacco Use Types Packs/Day Years Used Date Smoking Tobacco: Never Smokeless Tobacco: Never Tobacco Cessation:Counseling Given: Not Answered Alcohol Use Standard Drinks/Week Comments Never 0 (1 standard drink = 0.6 oz pur e alcohol) Sex and Gender Information Value Date Recorded Sex Assigned at Not on file Gender Identity Not on file Sexual Orientation Not on file Job Start Date Occupation Industry Not on file Not on file Not on file Last Filed Vital Signs Vital Sign Reading Time Taken Comments Blood Pressure 155/68 12/03/2022 2:43 PM EDT Pulse 61 12/03/2022 2:43 PM EDT Temperature 36.3 C (97.4 F) 12/03/2022 2:43 PM EDT Respiratory Rate - - Oxygen Saturation 100% 12/03/2022 2:43 PM EDT Inhaled Oxygen Concentration - - Weight 57.9 kg (127 lb 9.6 oz) 12/03/2022 2:43 P M EDT Height 165.1 cm (5' 5 ) 12/03/2022 2:43 PM EDT Body Mass Index 21.23 12/03/2022 2:43 PM EDT Plan of Treatment Health Maintenance Due Date Last Done Comments COVID-19 Vaccine (#1) 1940 Depression Screening 1952 Preventative Health Evaluation 1958 DTap / Tdap / Td (1 - Tdap) 1959 Shingrix-Zoster Vaccine (1 o f 2) 1990 Fall Risk Assessment 2005 Osteoporosis Screening (DEXA Scan) 2005 RSV Adult > 60+ Yrs or (1 - 1-dose 75+ series) 2015 Influenza Vaccine (#1) 2024 0, 12/20/2018 Pneumococcal Vaccine Completed 06/16/2018, 01/04/2016 Hepatitis B Vaccines Aged Out No long er eligible based on patient's age to complete this topic RSV Ped < 20 months Aged Out No longe r eligible based on patient's age to complete this topic Care Teams Worm Farmer Relationship Specialty Start Date End Date Zacarias Wisdom MD [address] [place] [id number] PCP - General Internal Medicine 02/11/22
--- OUTSIDE RECORDS SUMMARY | 2025-02-06 14:42 | XMS_ITS | Clinical Summary ---
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 90 tablet 1 11/01/2024 Active cyanocobalamin (VITAMIN B-12) 1,000 mcg tabletIndications :Vitamin B12 deficiency Take 1 tablet (1,000 mcg total) by mouth 1 (one) time each day. 90 tablet 1 11/01/2024 Active metoprolol succinate (TOPROL-XL) 100 mg 24 hr tablet Take 1 tablet (100 mg total) by mouth at bedtime. 90 tablet 11/01/2024 Active olmesartan (BENICAR) 40 mg tablet Take 1 tablet (40 mg total) by mouth 1 (one) time each day. 90 tablet 1 11/01/2024 Active rosuvastatin (CRESTOR) 20 mg tabletIndications :Hyperlipidemia, unspecified Take 1 tablet (20 mg total) by mouth 1 (one) time each day. *blister pack* 90 tablet 11/01/2024 Active metFORMIN (GLUCOPHAGE) 500 mg tablet Take 1 tablet (500 mg total) by mouth 2 (two) times a day with meals. 180 tablet 1 12/11/2024 Active chlorthalidone (HYGROTON) 25 mg tablet TAKE 1/2 TABLET (12.5 MG) BY MOUTH 1 (ONE) TIME EACH DAY. 15 tablet 3 12/31/2024 Active Active Problems Problem Noted Date Diagnosed Date Cyst of right kidney 07/19/2024 CKD stage 3a, GFR 45-59 ml/min 06/12/2024 Assessment & Plan (07/07/2024 12:43 PM EDT): Avoid NSAIDs. She is being monitored by nephrology. Will monitor vitamin D levels. Orders: Vitamin D 25 hydroxy; Future Type 2 DM with CKD stage 3 and hypertension 07/2024 Assessment & Plan (06/12/2024 4:27 PM EDT): Blood sugar was okay. For now, will evaluate her after she has been discharged from the ER. 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 She will follow-up with vascular surgeon referral has been placed. Orders: Ambulatory referral to Vascular Surgery; Future Age related osteoporosis 06/18/2022 Acute deep vein thrombosis (DVT) of left peronea l vein 01/28/2022 Single subsegmental pulmonar y embolism without acute cor pulmonale 01/28/2022 Pulmonary nodule, left 10/13/2021 Overview (11/21/2023): 6x7 mm, stable apical per ct 07/29/21 Diabetes mellitus, type II 08/17/2021 Assessment & Plan (08/20/2024 12:39 PM EDT): She will follow diabetic diet. Continue current regimen of metformin. Will monitor her A1c. Orders: Basic metabolic panel; Future Hemoglobin A1c; Future Assessment & Plan (07/07/2024 12:43 PM EDT): She will follow a diabetic diet. Continue current regimen of metformin. Orders: Hemoglobin A1c; Future Essential hypertension 08/17/2021 Assessment & Plan (08/20/2024 12:39 PM EDT): Blood pressure is elevated but she has been discontinued from chlorthalidone. I have started on amlodipine 5 mg daily. Continue metoprolol, olmesartan. Orders: Nuclear stress test with myocardial perfusion; Future Assessment & Plan (06/12/2024 4:27 PM EDT): No change to current medication regimen for now as she will be going to the ER we will follow-up after that. Orders: ECG 12 lead Hyperlipidemia 08/17/2021 Encounters Date Type Department Care Team Description 02/01/2025 8:30 AM EST Office Visit Vascular Surgery - [place] [address] [place] [address] Davonte Perez MD Subclavian artery stenosis, right (CMS/HCC V24) (Primary Dx) 01/20/2025 8:25 PM EST - 01/20/2025 10:55 PM EST Emergency [facility] Emergency [address] [place] [address] David Domínguez MD Rotator cuff tendinitis, right (Primary Dx) Discharge Disposition: Home or Self Care 01/17/2025 Telephone [facility] [address] [place], [place] [phone] Gloria Whitt MD 01/15/2025 Telephone [facility] [address] [place], [place] [phone] Gloria Whitt MD 01/15/2025 Telephone [facility] [address] [place], [place] [phone] Gloria Whitt MD 01/04/2025 Telephone [facility] [address] [place], [place] [phone] Gloria Whitt MD 11/06/2024 Telephone Internal [facility] - [facility] [address] [place] [phone] Gloria Whitt MD from Last 3 Months Surgical History Surgery Date Site/Laterality Comments HERNIA REPAIR PROCEDURE:HERNIA REPAIR OTHER SURGICAL HISTORY PROCEDURE: VT TOTAL ABDOMINAL HYSTERECT W/WO RMVL TUBE OVARY CHOLECYSTECTOMY PROCEDURE: HISTORICAL CHOLECYSTECTOMY Medical History Medical History Date Comments Diabetes mellitus, type II ( CMS/HCC V24, CMS/HCC V28) 08/17/2021 DX:Diabetes mellitus, type I I (HCC) Essential hypertension 08/17/2021 DX:Essent ial hypertension Hyperlipidemia 08/17/2021 DX:Hyperlipidemi a Pulmonary nodule, left 10/13/2021 DX:Pulmon ruiz nodule, left; COMMENT: 6x7 mm, stable apical per ct 07/29/21 Ascending aorta dilatation ( CMS/HCC V24) 07/28/2022 DX:Ascending aorta dilatatio n ([facility]) Cyst of right kidney 07/19/2024 Family History Medical History Relation Name Comments Asthma Sister Relation Name Status Comments Daughter 6 Alive Father Mother Sister Alive Son 2 Alive Social History Tobacco Use Types Packs/Day Years Used Date Smoking Tobacco: Never Smokeless Tobacco: Never Tobacco Cessation:Counseling Given: Not Answered Alcohol Use Standard Drinks/Week Comments Not Currently 0 (1 standard drink = 0.6 oz pur e alcohol) Comments No Sex and Gender Information Value Date Recorded Sex Assigned at Not on file Legal Sex Female 10:47 PM EST Gender Identity Not on file Sexual Orientation Not on file Last Filed Vital Signs Vital Sign Reading Time Taken Comments Blood Pressure 110/60 02/01/2025 8:39 AM EST Pulse 72 02/01/2025 8:39 AM EST Temperature 36.5 C (97.7 F) 01/20/2025 7:31 PM EST Respiratory Rate 16 02/01/2025 8:39 AM EST Oxygen Saturation 99% 01/20/2025 9:43 PM EST Inhaled Oxygen Concentration - - Weight 57.6 kg (127 lb) 02/01/2025 8:39 AM EST Height 165.1 cm (5' 5 ) 02/01/2025 8:39 AM EST Body Mass Index 21.13 02/01/2025 8:39 AM EST Plan of Treatment Upcoming Encounters Date Type Department Care Team (Late st Contact Info) Description 04/22/2025 10:00 AM EDT Office Visit [facility] [address] [place] [address] Diego Galeana MD [address] [place] [address] [address] [place] [address] 02/14/2026 1:00 PM EST Office Visit Vascular Surgery - [place] [address] [place] [address] Davonte Perez MD [address] [place] [phone] Health Maintenance Due Date Last Done Comments COVID-19 Vaccine (#1) 1945 Diabetes: Annual Foot Exam 1950 Diabetes: Annual Retina Eye Exam 1950 RSV Immunization Adult Patients (1 - 1-dose 75+ series) 2015 Zoster Vaccines (1 of 2) 01/05/2017 11/10/2016 DTaP,Tdap,and Td Vaccines (2 - Td or Tdap) 08/29/2017 08/30/2007 Falls Risk Assessment 01/17/2022 Medicare Annual Wellness Visit 01/17/2022 Social Influencers of Health Screening 01/17/2022 Depression Screening 02/08/2024 Influenza Vaccine (#1) 2024 , 11/14/2019, 12/20/2018, Additional history exists Diabetes: Annual Urine Albumin-Creatinine Ratio (uACR) 11/16/2024 11/17/2023 Diabetes: Blood Sugar Control Test (HGBA1C) 03/07/2025 09/04/2024, 11/17/2023, 11/17/2023, Additional history exists Diabetes: Annual GFR (Glomerular Filtration Rate) 01/20/2026 01/20/2025, 09/04/2024, 06/12/2024, Additional history exists Hypertension/CHF/CAD Annual BMP Blood Test 01/20/2026 01/20/2025, 09/04/2024, 06/12/2024, Additional history exists Cholesterol Screening (Lipid Panel) 10/22/2029 10/22/2024 Osteoporosis Screening (Bone Density Screening) 06/14/2032 06/14/2022 Pneumococcal Vaccine: 50+ Years Completed 06/16/2018, 11/10/2016, 01/04/2016, Additional history exists HIB Vaccines Aged Out No longer eligi ble based on patient's age to complete this topic HPV Vaccines Aged Out No longer eligi ble based on patient's age to complete this topic Hepatitis A Vaccines Aged Out No long er eligible based on patient's age to complete this topic Hepatitis B Vaccines Aged Out No long er eligible based on patient's age to complete this topic IPV Vaccines Aged Out No longer eligi ble based on patient's age to complete this topic MMR Vaccines Aged Out No longer eligi ble based on patient's age to complete this topic Meningococcal ACWY Vaccine Aged Out N o longer eligible based on patient's age to complete this topic Meningococcal B Vaccine Aged Out No l onger eligible based on patient's age to complete this topic RSV Immunization Patients Under 20 months Aged Out No longer eligible based on patient's age to complete this topic Varicella Vaccines Aged Out No longer eligible based on patient's age to complete this topic Procedures Procedure Name Priority Date/Time Associated Diagnosis Comments ECG ANNOTATED 01/22/2025 XR SHOULDER 2+ VIEWS RIGHT STAT 01/20/2025 9:32 PM EST CBC WITH AUTO DIFFERENTIAL STAT 01/20/2025 9:12 PM EST MAGNESIUM STAT 01/20/2025 9:12 PM EST COMPREHENSIVE METABOLIC PANEL STAT 01/20/2025 9:12 PM EST CBC AND DIFFERENTIAL STAT 01/20/2025 9:12 PM EST ECG 12-LEAD STAT 01/20/2025 7:10 PM EST LIPID PANEL WITH REFLEX TO DIRECT LDL Routine 10/22/2024 1:45 PM EDT Mixed hyperlipidemia HEMOGLOBIN A1C Routine 09/04/2024 11:00 AM EDT Type 2 diabetes mellitus with hyperglycemia, without long-term current use of insulin ([facility] V24, [facility] V28) HM URINE ALBUMIN CREATININE RATIO Routine 11/17/2023 DXA BONE DENSITY STUDY 1+ SITS AXIAL SKEL Routine 06/14/2022 1:39 PM EDT Encounter for screening for osteoporosis from Last 3 Months or Most Recently Relevant to Health Maintenance Results * ECG-Annotated (01/22/2025) us Provider Onbase MD ECG ORDERABLES Final Result * XR Shoulder 2+ Views Right (01/20/2025 9:32 PM EST) Anatomical Region Laterality Modality Upper Extremities, Shoulder Right Radi ographic Imaging 01/21/2025 8:38 AM EST Impressions 01/21/2025 8:40 AM EST 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 Otherwise, normal examination, without acute findings. Code 12589 -------- FINAL REPORT -------- Dictated By: Stephen Amin Dictated Date: 01/21/2025 08:38 ET Assigned Physician: Stephen Amin Reviewed and Electronically Signed By: Stephen Amin Signed Date: 01/21/2025 08:40 ET Workstation ID: [id number] Transcribed By: Self Edit Transcribed Date: 01/21/2025 08:38 ET Narrative 01/21/2025 8:40 AM EST HISTORY: The patient is an 84-year-old female with right shoulder pain, nontraumatic. FINDINGS: AP, right posterior oblique, and transscapular views of the right shoulder are obtained. The study demonstrates no fracture or dislocation. There is mild osteoarthritis of the acromioclavicular joint with a small osteophyte arising from the lateral end of the clavicle. There is also mild osteoarthritis of the glenohumeral joint with a small osteophyte arising from the inferior margin of the glenoid. No soft tissue abnormality is seen. Procedure Note Stephen Amin MD - 01/21/2025 HISTORY: The patient is an 84-year-old female with right shoulder pain,nontraumatic. FINDINGS: AP, right posterior oblique, and transscapular views of theright shoulder are obtained. The study demonstrates no fracture ordislocation. There is mild osteoarthritis of the acromioclavicular jointwith a small osteophyte arising from the lateral end of the clavicle.There is also mild osteoarthritis of the glenohumeral joint with a smallosteophyte arising from the inferior margin of the glenoid. No soft tissueabnormality is seen. 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 Code 51496 -------- FINAL REPORT -------- Dictated By: Stephen Amin Dictated Date: 01/21/2025 08:38 ET Assigned Physician: Stephne Amin Reviewed and Electronically Signed By: Stephen Amin Signed Date: 01/21/2025 08:40 ET Workstation ID: [id number] Transcribed By: Self Edit Transcribed Date: 01/21/2025 08:38 ET us David Domínguez MD IMG XR PROCEDURES Final R esult * (ABNORMAL) CBC auto differential (01/20/2025 9:12 PM EST) WBC 6.4 4.8 - 10.8 K/mcL LAB HEMETOLOGY METHOD 01/20/2025 9:[address] [facility] RBC 4.40 3.80 - 4.80 M/mcL LAB HEMETOLOGY METHOD 01/20/2025 9:[address] [facility] Hemoglobin 11.5 11.5 - 16.0 g/dL LAB HEMETOLOGY METHOD 01/20/2025 9:[address] [facility] Hematocrit 36.1 35.0 - 47.0 % LAB HEMETOLOGY METHOD 01/20/2025 9:[address] [facility] MCV 81.3 79.0 - 98.0 FL LAB HEMETOLOGY METHOD 01/20/2025 9:[address] [facility] MCH 25.9(L) 27.0 - 32.0 pcg LAB HEMETOLOGY METHOD 01/20/2025 9:[address] [facility] MCHC 31.9(L) 32.0 - 37.0 g/dL LAB HEMETOLOGY METHOD 01/20/2025 9:[address] [facility] RDW 14.9 11.0 - 15.0 % LAB HEMETOLOGY METHOD 01/20/2025 9:[address] [facility] Platelets 148 130 - 400 K/mcL LAB HEMETOLOGY METHOD 01/20/2025 9:[address] [facility] MPV 11.9(H) 7.0 - 11.0 FL LAB HEMETOLOGY METHOD 01/20/2025 9:[address] [facility] NRBC 0.0 <1.0 % LAB HEMETOLOGY METHOD 01/20/2025 9:[address] [facility] NRBC Absolute 0.00 <0.10 K/mcL LAB HEMETOLOGY METHOD 01/20/2025 9:[address] [facility] Neutrophils Relative 57.3 % LAB HEMETOLOGY METHOD 01/20/2025 9:[address] [facility] Lymphocytes Relative 31.0 % LAB HEMETOLOGY METHOD 01/20/2025 9:[address] [facility] Monocytes Relative 7.5 % LAB HEMETOLOGY METHOD 01/20/2025 9:[address] [facility] Eosinophils Relative 3.1 % LAB HEMETOLOGY METHOD 01/20/2025 9:[address] [facility] Basophils Relative 0.9 % LAB HEMETOLOGY METHOD 01/20/2025 9:[address] [facility] Immature Granulocytes Relative 0.2 % LAB HEMETOLOGY METHOD 01/20/2025 9:[address] [facility] Neutrophils Absolute 3.67 1.50 - 7.00 K/mcL LAB HEMETOLOGY METHOD 01/20/2025 9:[address] [facility] Lymphocytes Absolute 1.99 1.00 - 5.00 K/mcL LAB HEMETOLOGY METHOD 01/20/2025 9:[address] [facility] Monocytes Absolute 0.48 0.20 - 1.00 K/mcL LAB HEMETOLOGY METHOD 01/20/2025 9:[address] [facility] Eosinophils Absolute 0.20 0.00 - 0.50 K/mcL LAB HEMETOLOGY METHOD 01/20/2025 9:[address] [facility] Basophils Absolute 0.06 0.00 - 0.20 K/mcL LAB HEMETOLOGY METHOD 01/20/2025 9:[address] [facility] Immature Granulocytes Absolute 0.01 0.00 - 0.03 K/mcL LAB HEMETOLOGY METHOD 01/20/2025 9:[address] [facility] Blood Venous blood specimen / Unknown Venipuncture / Unknown 01/20/2025 9:12 PM EST 01/20/2025 9:18 PM EST us David Domínguez MD LAB BLOOD ORDERABLES Rosita l Result [facility] [address] [place] [address], * (ABNORMAL) Magnesium (01/20/2025 9:12 PM EST) Magnesium 1.7(L) 1.9 - 2.6 mg/dL 01/20/2025 9:[address] [facility] Blood Venous blood specimen / Unknown Venipuncture / Unknown 01/20/2025 9:12 PM EST 01/20/2025 9:18 PM EST David Domínguez MD LAB BLOOD ORDERABLES Rosita l Result [facility] [address] [place] [address], * (ABNORMAL) Comprehensive metabolic panel (01/20/2025 9:12 PM EST) Sodium 139 133 - 145 mmol/L 01/20/2025 9:[address] [facility] Potassium 4.3 3.5 - 5.5 mmol/L 01/20/2025 9:[address] [facility] Chloride 98 96 - 110 mmol/L 01/20/2025 9:[address] [facility] CO2 34(H) 21 - 32 mmol/L 01/20/2025 9:[address] [facility] Anion Gap 7 3 - 11 01/20/2025 9:[address] [facility] Glucose 116(H) 70 - 100 mg/dL 01/20/2025 9:[address] [facility] BUN 20 5 - 25 mg/dL 01/20/2025 9:[address] [facility] Creatinine 1.14(H) 0.50 - 1.10 mg/dL 01/20/2025 9:[address] [facility] eGFR 48(L) >=60 mL/min/1. 73m2 01/20/2025 9:[address] [facility] Comment:Calculation based on the Chronic Kidney Disease Epidemiology Collaboration (CKD-EPI) equation refit without adjustment for race. BUN/Creatinine Ratio 17.5 01/20/2025 9:[address] [facility] Calcium 9.4 8.5 - 10.5 mg/dL 01/20/2025 9:[address] [facility] AST (SGOT) 18 10 - 42 unit/L 01/20/2025 9:[address] [facility] ALT (SGPT) 11 10 - 60 unit/L 01/20/2025 9:[address] [facility] Alkaline Phosphatase 36(L) 42 - 121 unit/L 01/20/2025 9:[address] [facility] Total Protein 6.8 6.0 - 8.0 g/dL 01/20/2025 9:[address] [facility] Albumin 4.2 3.2 - 5.0 g/dL 01/20/2025 9:[address] [facility] Total Bilirubin 1.7(H) 0.0 - 1.4 mg/dL 01/20/2025 9:[address] [facility] Blood Venous blood specimen / Unknown Venipuncture / Unknown 01/20/2025 9:12 PM EST 01/20/2025 9:18 PM EST us David Domínguez MD LAB BLOOD ORDERABLES Rosita l Result [facility] [address] [place] [address], * ECG 12 lead (01/20/2025 7:10 PM EST) Ventricular Rate ECG 66 BPM GEMUSE Atrial Rate 66 BPM GEMUSE P-R Interval 176 ms GEMUSE QRS Duration 76 ms GEMUSE Q-T Interval 412 ms GEMUSE QTc 431 ms GEMUSE P Wave [place] 95 degrees GEMUSE R [place] 20 degrees GEMUSE T [place] 56 degrees GEMUSE ECG Interpretation Normal sinus rhythm Septal infarct , age undetermined Abnormal ECG No previous ECGs available Confirmed by HENRIK DREW ([id number]) on 01/21/2025 10:47:48 PM GEMUSE 01/20/2025 7:10 PM EST 01/21/2025 10:47 PM EST us David Domínguez MD ECG ORDERABLES Final Res ult GEMCONNIE * Lipid panel with reflex to direct LDL (10/22/2024 1:45 PM EDT) Cholesterol 104 0 - 200 mg/dL LAB CHEMISTRY METHOD 10/22/2024 5:[address] [facility] Triglycerides 118 0 - 150 mg/dL LAB CHEMISTRY METHOD 10/22/2024 5:[address] [facility] HDL 40 >=40 mg/dL LAB CHEMISTRY METHOD 10/22/2024 5:[address] [facility] LDL Calculated 40 0 - 100 mg/dL LAB CHEMISTRY METHOD 10/22/2024 5:[address] [facility] Comment:Estimated LDL Calcul ated using equation: Total cholesterol - HDL cholesterol - (Triglycerides/5) VLDL Cholesterol Den 23.6 mg/dL LAB CHEMISTRY METHOD 10/22/2024 5:[address] [facility] Non HDL Chol. (LDL+VLDL) 64 <145 mg/dL LAB CHEMISTRY METHOD 10/22/2024 5:[address] [facility] Chol/HDL Ratio 2.6 0.0 - 4.4 LAB CHEMISTRY METHOD 10/22/2024 5:[address] [facility] Blood Venous blood specimen / Unknown Venipuncture / Unknown 10/22/2024 1:45 PM EDT 10/22/2024 1:45 PM EDT us Bailey Dixon NP LAB BLOOD ORDERABLES Final R esult Performing Organization Address City/[facility]/ZIP Co de Phone Number [facility] [address] [place] [address], [place] [phone] * (ABNORMAL) Hemoglobin A1c (09/04/2024 11:00 AM EDT) Hemoglobin A1C 6.9(H) <6.5 % LAB CHEMISTRY METHOD 09/04/2024 2:[address] [facility] Mean Bld Glu Estim. 151 mg/dL LAB CHEMISTRY METHOD 09/04/2024 2:[address] [facility] Blood Venous blood specimen / Unknown Venipuncture / Unknown 09/04/2024 11:00 AM EDT 09/04/2024 11:00 AM EDT Zacarias Wisdom MD LAB BLOOD ORDERABLES Rosita l Result [facility] [address] [place] [address], * Urine Albumin Creatinine Ratio (11/17/2023) Pathologist [facility] Urine Albumin Creatinine Ratio abstracted Historical Provider HEALTH MAINTENANCE Final Result * DXA BONE DENSITY STUDY 1+ SITS AXIAL SKEL (06/14/2022 1:39 PM EDT) Anatomical Region Laterality Modality Bone Densitometr y 03/30/2022 3:35 PM EST Narrative 06/14/2022 2:11 PM EDT BONE DENSITY (DEXA) Lumbar Spine T-score is -1.1. (SD relative to 20-29 y/o adult) Z-score is 1.7. (SD relative to age matched peers) This is considered osteopenia by WHO criteria. Left Hip T-score is -2.6. Z-score is -0.2. This is considered osteoporosis by WHO criteria. Lateral view of the spine demonstrates vertebral heights to be maintained. IMPRESSION: This patient is considered to have osteoporosis by WHO criteria. The [facility] Department of Internal Medicine recommends using National Osteoporosis Foundation (NOF) guidelines in treatment decisions related to osteoporosis. NOF guidelines suggest considering treatment for postmenopausal women and men aged 50 or older presenting with the following: History of hip or vertebral fracture. T-score = -2.5 (DXA) at the femoral neck, total hip, or spine, after appropriate evaluation to exclude secondary causes. Low bone mass (T-score between -1.0 and -2.5 at the femoral neck or spine) AND a 10-year probability of a hip fracture = 3% OR a 10-year probability of a major osteoporosis-related fracture = 20% based on the [place]-adapted WHO algorithm Please note that all treatment decisions require clinical judgment and consideration of individual patient factors, including patient preferences, co-morbidities, previous drug use, risk factors not captured in the FRAX model (e.g., frailty, falls, vitamin D deficiency, increased bone turnover, interval significant decline in bone density) and possible under- or over-estimation of fracture risk by FRAX. Optional alternative screening schedule based on angel Maldonado., [facility] February 25, 2011 for patients with osteopenia (based on hip BMD T-score) is as follows: * advanced osteopenia (T scores -2.00 to -2.49), BMD testing every year * moderate osteopenia (T scores -1.50 to -1.99), BMD testing every 5 years mild osteopenia or normal BMD (T scores -1.50 and higher), BMD testing every 15 years Procedure Note Lois Tapia MD - 03/14/2023 BONE DENSITY (DEXA) Lumbar Spine T-score is -1.1. (SD relative to 20-29 y/o adult) Z-score is 1.7. (SD relative to age matched peers) This is considered osteopenia by WHO criteria. Left Hip T-score is -2.6. Z-score is -0.2. This is considered osteoporosis by WHO criteria. Lateral view of the spine demonstrates vertebral heights to be maintained. IMPRESSION: This patient is considered to have osteoporosis by WHO criteria. The [facility] Department of Internal Medicine recommendsusing National Osteoporosis Foundation (NOF) guidelines in treatment decisions related toosteoporosis. NOF guidelines suggest considering treatment for postmenopausal women and menaged 50 or older presenting with the following: History of hip or vertebral fracture. T-score = -2.5 (DXA) at the femoral neck, total hip, or spine, afterappropriate evaluation to exclude secondary causes. Low bone mass (T-score between -1.0 and -2.5 at the femoral neck or spine)AND a 10-year probability of a hip fracture = 3% OR a 10-year probability of a majorosteoporosis-related fracture = 20% based on the [place]-adapted WHO algorithm Please note that all treatment decisions require clinical judgment andconsideration of individual patient factors, including patient preferences, co- morbidities,previous drug use, risk factors not captured in the FRAX model (e.g., frailty, falls, vitaminD deficiency, increased bone turnover, interval significant decline in bone density) andpossible under- or over-estimation of fracture risk by FRAX. Optional alternative screening schedule based on angel Maldonado., [facility] for patients with osteopenia (based on hip BMD T-score) is as follows: * advanced osteopenia (T scores -2.00 to -2.49), BMD testing every year * moderate osteopenia (T scores -1.50 to -1.99), BMD testing every 5years mild osteopenia or normal BMD (T scores -1.50 and higher), BMD testingevery 15 years Zacarias Wisdom MD [facility] DXA PROCEDURES Final Result from Last 3 Months or Most Recently Relevant to Health Maintenance Insurance [facility] [employer] Member Subscriber Plan / Payer (Ef fective 2015-Present) Name:Sveta Lizama Relation to Subscriber:Self Name:Sveta Lizama Payer ID:[id number] Group ID:[id number] Type:Not on file Address: [facility] [address] [id number] [facility] MEDICAID Care Teams 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
--- OUTSIDE RECORDS SUMMARY | 2025-02-06 14:42 | XMS_ITS | Patient Health Record ---
Author Organization [facility] liance Address [address] [place] [address] Care Team Providers Care Greenhouse Florist Name Role Phone Zacarias Wisdom Primary Care Provider Unava ilable Alley Callahan Unavailable [phone] Chika Ansari Unavailable [phone] Clinical, Operations Unavailable Unavailable Bibi Roe Unavailable [phone] Opal Horan Unavailable [phone] Brittney House Unavailable [phone] Wanda Zuniga Unavailable [phone] Allergies Allergen (clinical drug ingredient) Drug/Non Drug Allergy documented on EMR Reaction Allergy Type Onset Date Status atorvastatin Lipitor hives Drug Allergy Acti ve lisinopril Lisinopril angioedema Drug Allergy Acti ve nitrofurantoin, macrocrystals / nitrofurantoin, monohydrate Macrobid vomiting Drug Allergy Active Results Component Value Reference Range Notes Electrocardiogram (ECG) Reviewed date:08/15/2024 09:15:34 AM Interpretation: Performing Lab: Notes/Report: HEMOGLOBIN A1c Reviewed date:11/05/2024 02:37:27 PM Interpretation: Performing Lab: Notes/Report: HEMOGLOBIN A1c 6.9 Reason For Referral Reason Member is an 84 year old female with significant chronic conditions including DM, HTN, Elevated Cholesterol, DJD, Depression, Pulmonary Emboli and Subsegmental PE who presents with memory issues. Family reports worsening memory and forgetfulness over the last year with concerns for dementia. Member has had x2 Mini-Cogs, one negative, one positive. Member would benefit from further work up/evaluation for possible dementia. Diagnosis 1 Forgetfulness (R68.8 9) Referral Organization [facility] Referring Provider First Name Wanda Referring Provider [facility] Name [facility] Referring Provider Speciality Nurse Alia rae Referred Provider Specialty Neuropsychia try Referral Priority Routine Reason 84 year old female p atient with significant chronic conditions including DM, HTN, Elevated Cholesterol, DJD, Depression, Pulmonary Emboli and Subsegmental PE who would benefit from work up/evaluation given history of DM II. Diagnosis 1 Type 2 diabetes vivien itus without complication, unspecified whether mcfp insulin use (E11.9) Referral Organization [facility] Referring Provider First Name Wanda Referring Provider Last Name [facility] Referring Provider Speciality Nurse Alia rae Referral Priority Routine Medications Medication SIG (Take, Route, Frequency, Duration) Notes Start Date End Date Status Vitamin B12 1000 MCG 1 tablet Orally Once a day Active Chlorthalidone 12.5 MG 0.5 tablet in the morning with food Orally daily Active Blood Glucose Test Strip - as directed; please provide stripes that are compatible with Onetouch Ultra Daily and PRN; Duration: 30 days Duplicate 10/05/2023 Active Rosuvastatin Calcium 20 MG 1 tablet Orally Once a day at bedtime Active Blood Glucose Test Strip - as directed; please provide strips compatible with Onetouch Ultra daily; Duration: 90 days E11.9 Type 2 diabetes mellitus without complication, unspecified whether mcfp insulin use Active Pill Box 7 Day - as directed; please provide one with AM and PM slots.; Duration: 99 days E11.9 Type 2 diabetes mellitus without complication, unspecified whether mcfp insulin use 11/04/2023 Active metFORMIN HCl 500 MG 1 tablet with a meal Orally Twice a day; Duration: 30 days Active Lidocaine 5 % 1 patch remove after 12 hours Externally Once a day as needed for low back pain; Duration: 30 days The member denies use. Active Heating Pad Moist/Dry - as directed Transdermal as needed for low back pain; Duration: 30 days The member denies use. Not-Taking Lancets - as directed; please provide lancets compatible with Onetouch Ultra.; Duration: 90 days Active Glucose 5 GM as directed Orally for POC less than 70; Duration: 30 days E11.9 Type 2 diabetes mellitus without complication, unspecified whether rat exterminator insulin use Not-Taking DME - PLEASE PROVIDE ONETOUCH ULTRA GLUCOMETER PRN to check POCs for DM; Duration: 99 days Diabetes - E11.9 10/12/2023 Active Vitamin D (Cholecalciferol) 25 MCG (1000 UT) 1 capsule Orally Once a day Active Ammonium Lactate 12 % 1 application Externally Twice a day; Duration: 30 days 10/30/2024 Active OneTouch Ultra - (Devices) as directed daily and as needed for POC checks; Duration: 99 days E11.9 Type 2 diabetes mellitus without complication, unspecified whether mcfp insulin use Active amLODIPine Besylate 2.5 MG 1 tablet Orally Once a day The member report not taking Active OneTouch Lancets - As Directed To Skin Daily; Duration: 90 days E11.9 Type 2 diabetes mellitus without complication, unspecified whether rat exterminator insulin use Active Alcohol Swabs 70 % as directed; daily for POC check; Duration: 90 days E11.9 Type 2 diabetes mellitus without complication, unspecified whether mcfp insulin use Active Olmesartan Medoxomil 40 MG 1 tablet Orally Once a day Active Albuterol Sulfate HFA 108 (90 Base) MCG/ACT 1 puff as needed Inhalation every 4 hrs Active Metoprolol Succinate ER 100 MG 1 tablet Orally Once a day Active Immunizations Vaccine Route Administration Date Status Comme nts Flu Vac NOC (vac given elsewhere/pt. refuse/ CI) Unknown 11/20/2019 Administered Flu Vac NOC (vac given elsewhere/pt. refuse/ CI) Unknown 01/01/2025 Refused Fluzone High-Dose Unknown 12/20/2018 Administered INFLUENZA TRIVALENT - Do not use Unknown 11/06/2014 Adm inistered INFLUENZA TRIVALENT - Do not use Unknown 11/27/2015 Adm inistered Pneumococcal Unknown 10/28/2005 Administered Pneumococcal Unknown 06/16/2018 Administered PNEUMOCOCCAL VAC (Prevnar 13), PFS Unknown 11/10/2016 A dministered TD ADSORBED 7 YR (adult) Unknown 08/30/2007 Administere d Zoster Vac ( Zostavax) Unknown 11/10/2016 Administered Social History Tobacco Use: Social History Observation Description Date Details (start date - stop date) Never Smoker NA - NA Tobacco Use/Smoking Question Answer Notes Are you a nonsmoker Tobacco use other than smoking: Question Answer Notes Are you an other tobacco user? No AUDIT-C (Standard) Question Answer Notes Did you have a drink containing alcohol in the p ast year? No Points 0 Interpretation Negative Section Notes: Lives alone. Has good suppor t from family who come over often. Lifetime non- smoker, does not drink alcohol or use illicit. Has 6th grade education, able to read, speaks a little Scottish. Lives alone. Has good suppor t from family who come over often. Lifetime non- smoker, does not drink alcohol or use illicit. Has 6th grade education, able to read, speaks a little Scottish. Lives alone. Has good suppor t from family who come over often. Lifetime non- smoker, does not drink alcohol or use illicit. Has 6th grade education, able to read, speaks a little Scottish. Lives alone. Has very good f amily support, radha with her remaining children. Lifetime non-smoker, does not drink alcohol or use illicit. Has 6th grade education, able to read, speaks a some Scottish. Lives alone. Has very good f amily support, radha with her remaining children. Lifetime non-smoker, does not drink alcohol or use illicit. Has 6th grade education, able to read, speaks a some Scottish. Lives alone. Has very good f amily support, radha with her remaining children. Lifetime non-smoker, does not drink alcohol or use illicit. Has 6th grade education, able to read, speaks a some Scottish. Lives alone, has very good f amily support, close with her remaining children. Lifetime non-smoker, does not drink alcohol or use illicit drugs, has 6th grade education, able to read, speaks a some Scottish. Lives alone, has very good f amily support, close with her remaining children. Lifetime non-smoker, does not drink alcohol or use illicit drugs, has 6th grade education, able to read, speaks a some Scottish. Lives alone, has very good f amily support, close with her remaining children. Lifetime non-smoker, does not drink alcohol or use illicit drugs, has 6th grade education, able to read, speaks a some Scottish. Lives alone at [facility]. Has very good family support, close with her remaining children. Lifetime non- smoker, does not drink alcohol or use illicit drugs, has 6th grade education, able to read, speaks a some Scottish. Lives alone at [facility]. Has very good family support, close with her remaining children. Lifetime non- smoker, does not drink alcohol or use illicit drugs, has 6th grade education, able to read, speaks a some Scottish. Lives alone at [facility]. Has very good family support, close with her remaining children. Lifetime non- smoker, does not drink alcohol or use illicit drugs, has 6th grade education, able to read, speaks a some Scottish. Lives alone at [facility]. Has very good family support, close with her remaining children. Lifetime non- smoker, does not drink alcohol or use illicit drugs, has 6th grade education, able to read, speaks a some Scottish. Lives alone at [facility]. Has very good family support, close with her remaining children. Lifetime non- smoker, does not drink alcohol or use illicit drugs, has 6th grade education, able to read, speaks a some Scottish. Lives alone at [facility]. Has very good family support, close with her remaining children. Lifetime non- smoker, does not drink alcohol or use illicit drugs, has 6th grade education, able to read, speaks a some Scottish. Lives alone at [facility]. Has very good family support, close with her remaining children. Lifetime non- smoker, does not drink alcohol or use illicit drugs, has 6th grade education, able to read, speaks a some Scottish. Lives alone at [facility]. Has very good family support, close with her remaining children. Lifetime non- smoker, does not drink alcohol or use illicit drugs, has 6th grade education, able to read, speaks a some Scottish. Lives alone at [facility]. Has very good family support, close with her remaining children. Lifetime non- smoker, does not drink alcohol or use illicit drugs, has 6th grade education, able to read, speaks a some Scottish. Lives alone at [facility]. Has very good family support, close with her remaining children. Lifetime non- smoker, does not drink alcohol or use illicit drugs, has 6th grade education, able to read, speaks a some Scottish. Lives alone. Has good suppor t from family who come over often. Lifetime non- smoker, does not drink alcohol or use illicit. Has 6th grade education, able to read, speaks a little Scottish. Lives alone. Has good suppor t from family who come over often. Lifetime non- smoker, does not drink alcohol or use illicit. Has 6th grade education, able to read, speaks a little Scottish. Lives alone. Has good suppor t from family who come over often. Lifetime non- smoker, does not drink alcohol or use illicit. Has 6th grade education, able to read, speaks a little Scottish. Problems Problem Type SNOMED Code ICD Code Onset Dates Problem Status W/U Status Risk Notes Problem Moderate major depression, single episode (68709953) Major depressive disorder, single episode, moderate (F32.1) Inactive confirmed Problem Age-related osteoporosis (856363603) Age-related osteoporosis without current pathological fracture (M81.0) Active confirmed Problem Gastro-esophageal reflux disease without esophagitis (864005264) Gastro-esophageal reflux disease without esophagitis (K21.9) Active confirmed Problem Hypertension (88849633) Hypertension (I10) Active confirmed Problem Pure hypercholesterolemia (725059350) Pure hypercholesterolemia (E78.0) Inactive confirmed Problem History of fall (582304448) History of falling (Z91.81) Active confirmed Problem Abnormal gait (85389193) Unspecified abnormalities of gait and mobility (R26.9) Active confirmed Problem Diabetic renal disease (650892000) Type 2 diabetes mellitus with diabetic chronic kidney disease (E11.22) Active confirmed Problem Degenerative joint disease (773642936) DJD (degenerative joint disease) (M19.90) Active confirmed Problem Chronic pulmonary embolism (852901056036935) Chronic pulmonary embolism (I27.82) Active confirmed Problem Dysphagia (93932004) Dysphagia, unspecified (R13.10) Active confirmed Problem Left shoulder pain (0051718740) Left shoulder pain (M25.512) Active confirmed Problem Atrophic vaginitis (25215819) Atrophic vaginitis (N95.2) Active confirmed Problem Diaphragmatic hernia (87545594) Diaphragmatic hernia without obstruction or gangrene (K44.9) Active confirmed Problem Vitamin B>12< deficiency anaemia (45699046) Vitamin B12 deficiency (dietary) anemia (D51.8) Active confirmed Problem Chronic fatigue syndrome (72566218) Chronic fatigue (R53.82) Active confirmed Problem 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) Active confirmed Problem Dilatation of aorta (34722523) Thoracic aortic ectasia (I77.810) Active confirmed Problem Osteoarthritis (539840820) Osteoarthritis, unspecified osteoarthritis type, unspecified site (M19.90) Inactive confirmed Problem Other specified symptoms and signs involving the circulatory and respiratory systems (R09.89) Active confirmed Problem Mild recurrent major depression (92673829) Mild episode of recurrent major depressive disorder (F33.0) Active confirmed Problem Pure hypercholesterolemia (863698242) Pure hypercholesterolemia , unspecified (E78.00) Active confirmed Problem Long-term current us e of drug therapy (203935149) predatory animal exterminator (current) use of oral hypoglycemic drugs (Z79.84) Active confirmed Problem Pulmonary Embolism (16553410) Multiple pulmonary emboli (I26.99) Inactive confirmed Problem Single subsegmen monica pulmonary embolism without acute cor pulmonale (I26.93) Inactive confirmed Problem Chronic kidney disease stage 3A (disorder) (972020873) Chronic kidney disease, stage 3a (N18.31) Active confirmed Vital Signs Heart Rate 64 /min 01/01/2025 Temperature 97.3 degrees Fahrenheit 01/01/2025 Respiratory Rate 16 /min 01/01/2025 Height-cm 165.1 cm 01/01/2025 Oximetry 97 % 01/01/2025 Blood pressure diastolic 68 mm Hg 01/01/2025 Weight-kg 58.51 kg 01/01/2025 Height 65 in 01/01/2025 Blood pressure systolic 120 mm Hg 01/01/2025 Weight 129 lbs 01/01/2025 BMI 21.46 kg/m2 01/01/2025 Encounters Encounter Location Date Provider Diagnosis [facility] [address] [facility] [address] [place] [address] 03/08/2024 Wanda Zuniga Type 2 diabetes vivien itus without complication, unspecified whether mcfp insulin use E11.9 ; Hypertension I10 ; snf current use of oral hypoglycemic drug Z79.84 and Forgetfulness R68.89 [facility] [address] [facility] [address] [place] [address] 03/08/2024 Chika Elan Diabetes E11.9 ; Vit cheek B12 deficiency (dietary) anemia D51.8 ; Edema, unspecified R60.9 ; Pure hypercholesterolemia E78.0 ; Hypertension I10 ; DJD (degenerative joint disease) M19.90 ; Atrophic vaginitis N95.2 ; Major depressive disorder, single episode, moderate F32.1 ; Left shoulder pain M25.512 ; History of falling Z91.81 ; Osteoarthritis, unspecified osteoarthritis type, unspecified site M19.90 ; Type 2 diabetes mellitus without complication, unspecified whether rat exterminator insulin use E11.9 ; Single subsegmental pulmonary embolism without acute cor pulmonale I26.93 ; Multiple pulmonary emboli I26.99 and Mild episode of recurrent major depressive disorder F33.[address] [address] 04/12/2024 Bibi Roe Vitamin B12 deficien cy (dietary) anemia D51.8 ; Diabetes E11.9 ; Mild episode of recurrent major depressive disorder F33.0 ; Hypertension I10 ; DJD (degenerative joint disease) M19.90 ; Left shoulder pain M25.512 ; Atrophic vaginitis N95.2 ; Edema, unspecified R60.9 ; History of falling Z91.81 ; Pure hypercholesterolemia, unspecified E78.00 ; Chronic pulmonary embolism I27.82 ; snf (current) use of oral hypoglycemic drugs Z79.84 ; Other specified symptoms and signs involving the circulatory and respiratory systems R09.89 ; Dysphagia, unspecified R13.10 ; Gastro-esophageal reflux disease without esophagitis K21.9 ; Diaphragmatic hernia without obstruction or gangrene K44.9 ; Thoracic aortic ectasia I77.810 ; Aneurysm of other specified arteries I72.8 ; Age-related osteoporosis without current pathological fracture M81.0 and Unspecified abnormalities of gait and mobility R26.[address] [address] 04/23/2024 [facility] Type 2 diabetes vivien itus without complication, unspecified whether rat exterminator insulin use E11.9 ; Hypertension I10 ; snf current use of oral hypoglycemic drug Z79.84 ; Forgetfulness R68.89 and Age-related osteoporosis without current pathological fracture M81.[address] [address] 06/25/2024 [facility] Type 2 diabetes vivien itus without complication, unspecified whether mcfp insulin use E11.9 ; Hypertension I10 ; snf current use of oral hypoglycemic drug Z79.84 ; Forgetfulness R68.89 and Chronic fatigue R53.[address] [address] 07/16/2024 Operations Clinical Vitamin B12 deficiency (dietary) anemia D51.8 ; Diabetes E11.9 ; Mild episode of recurrent major depressive disorder F33.0 ; Hypertension I10 ; DJD (degenerative joint disease) M19.90 ; Left shoulder pain M25.512 ; Atrophic vaginitis N95.2 ; Edema, unspecified R60.9 ; History of falling Z91.81 ; Pure hypercholesterolemia, unspecified E78.00 ; Chronic pulmonary embolism I27.82 ; predatory animal exterminator (current) use of oral hypoglycemic drugs Z79.84 ; Other specified symptoms and signs involving the circulatory and respiratory systems R09.89 ; Dysphagia, unspecified R13.10 ; Gastro-esophageal reflux disease without esophagitis K21.9 ; Diaphragmatic hernia without obstruction or gangrene K44.9 ; Thoracic aortic ectasia I77.810 ; Aneurysm of other specified arteries I72.8 ; Age-related osteoporosis without current pathological fracture M81.0 ; Unspecified abnormalities of gait and mobility R26.9 and Chronic fatigue R53.[address] [address] 08/13/2024 Alley Corkum Pneumonia, unspecifi ed organism J18.9 ; Encounter for follow-up examination after completed treatment for conditions other than malignant neoplasm Z09 ; Type 2 diabetes mellitus with diabetic chronic kidney disease E11.22 ; Chronic kidney disease, stage 3a N18.31 and Hypertension I10 [address] [address] 08/14/2024 Opal Leeki Diabetes E11.9 ; Hypertension I10 ; History of falling Z91.81 and Type 2 diabetes mellitus with diabetic chronic kidney disease E11.[address] [address] 08/27/2024 Alley Corkum Type 2 diabetes vivien itus with diabetic chronic kidney disease E11.22 ; snf (current) use of oral hypoglycemic drugs Z79.84 and Chronic kidney disease, stage 3a N18.[address] [address] 10/30/2024 Alley Corkum Type 2 diabetes vivien itus with diabetic chronic kidney disease E11.22 ; Xerosis cutis L85.3 ; Chronic kidney disease, stage 3a N18.31 ; Hypertension I10 ; snf (current) use of oral hypoglycemic drugs Z79.84 and Localized edema R60.[address] [address] 11/27/2024 Alley Callahan Type 2 diabetes vivien itus with diabetic chronic kidney disease E11.22 ; Chronic kidney disease, stage 3a N18.31 ; Hypertension I10 and predatory animal exterminator (current) use of oral hypoglycemic drugs Z79.84 [facility] [employer] [address] [place] [address] 12/21/2024 Operations Clinical Vitamin B12 deficiency (dietary) anemia D51.8 ; Mild episode of recurrent major depressive disorder F33.0 ; Hypertension I10 ; DJD (degenerative joint disease) M19.90 ; Left shoulder pain M25.512 ; Atrophic vaginitis N95.2 ; History of falling Z91.81 ; Pure hypercholesterolemia, unspecified E78.00 ; Chronic pulmonary embolism I27.82 ; snf (current) use of oral hypoglycemic drugs Z79.84 ; Other specified symptoms and signs involving the circulatory and respiratory systems R09.89 ; Dysphagia, unspecified R13.10 ; Gastro-esophageal reflux disease without esophagitis K21.9 ; Diaphragmatic hernia without obstruction or gangrene K44.9 ; Thoracic aortic ectasia I77.810 ; Aneurysm of other specified arteries I72.8 ; Age-related osteoporosis without current pathological fracture M81.0 ; Unspecified abnormalities of gait and mobility R26.9 ; Chronic fatigue R53.82 ; Type 2 diabetes mellitus with diabetic chronic kidney disease E11.22 and Chronic kidney disease, stage 3a N18.[address] [address] 01/01/2025 Alley Callahan Type 2 diabetes vivien itus with diabetic chronic kidney disease E11.22 ; Chronic kidney disease, stage 3a N18.31 ; Hypertension I10 ; snf (current) use of oral hypoglycemic drugs Z79.84 and Acute cough R05.[address] [address] 03/08/[address] [address] 06/15/2024 Wanda LaFountain [address] [address] 08/07/2024 Brittney House [facility] [address] [place] [address] 08/09/2024 Alley Corkum [facility] [address] [place] [address] 08/15/2024 Operations Clinical [facility] [address] [place] [address] 08/21/2024 Alley Corkum [facility] [address] [place] [address] 08/27/2024 Alley Corkum [facility] [address] [place] [address] 10/29/2024 Alley Corkum [facility] [address] [place] [address] 11/05/2024 Alley Corkum [facility] [address] [place] [address] 11/05/2024 Alley Corkum Assessments Encounter Date Diagnosis (ICD Code) Assessment Notes Treatment Notes Treatment Clinical Notes Section Notes 03/08/2024 Diabetes (ICD-10 - E11.9) 03/08/2024 Type 2 diabetes mellitus without complication, unspecified whether mcfp insulin use (ICD-10 - E11.9) Chronic/Stable predatory animal exterminator (current) use oral hypoglycemic/anti diabetic- Z79.84 - Please continue with diabetic medication regiment. - [facility] re-ordered glucometer kit for member (fourthtime). - Educated on importance of following at low sugar diet. - Please continue with bloodwork (Renal, A1c) as recommended. - Glucose tablets for hypoglycemic episode(s). - Podiatry Referral Placed to [facility] as [facility] is backed up (over 400 referrals processing). - Please continue to follow with PCP. - For any concerns or worsening symptoms, please reach out to PCP. 04/12/2024 Vitamin B12 deficien cy (dietary) anemia (ICD-10 - D51.8) Problem list updated from claims data in [employer]. 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 - Member to start checking glucometer 3x/week and PRN. - Educated on importance of following at low sugar diet. - Continue with bloodwork (Renal, A1c) as recommended. - Glucose tablets for hypoglycemic episode(s). - Podiatry Referral pending. - Please continue to follow with PCP. - For any concerns or worsening symptoms, please reach out to PCP. 06/25/2024 Type 2 diabetes mellitus without complication, unspecified whether mcfp insulin use (ICD-10 - E11.9) Chronic/Stable snf (current) use oral hypoglycemic/anti diabetic- Z79.84 - Continue with diabetic medication regiment. - Member to start checking glucometer 3x/week and PRN. - Educated on importance of following at low sugar diet. - Continue with bloodwork (Renal, A1c) as recommended. - Glucose tablets for hypoglycemic episode(s). - Podiatry Referral pending. - Please continue to follow with PCP. - For any concerns or worsening symptoms, please reach out to PCP. 07/16/2024 Vitamin B12 deficien cy (dietary) anemia (ICD-10 - D51.8) 08/13/2024 Pneumonia, unspecifi ed organism (ICD-10 - J18.9) Patient reports improvement in breathing. Reports cough is improving as well. No significant sputum production. She still has 2 more doses of her antibiotics. Provided education on importance of completing antibiotic course. Patient aware to call or seek care if experiencing increased shortness of breath, increased sputum production, fever, chills, malaise. 08/13/2024 Encounter for follow-up examination after completed treatment for conditions other than malignant neoplasm (ICD-10 - Z09) Posthospital discharge visit completed via telephone today with efficiency analyst since patient does not have video capabilities. Date of initial contact was 08/07/24. Call into [facility] regarding question of appropriateness of discontinuing metoprolol succinate 100 mg and to inquire if they can assist with education on glucometer. Short-term rehab was recommended but patient declined. Patient discharged with home [facility]. Patient scheduled to follow-up with her PCP this on 08/16/2024. 08/14/2024 Diabetes (ICD-10 - E11.9) 08/27/2024 Type 2 diabetes mellitus with diabetic chronic kidney disease (ICD-10 - E11.22) Denies S&S of hypoglycemia. Patient declines checking BS d/t needle phobia. Will request latest A1C and UACR from PCP. Continue current regimen of metformin 500 mg twice daily. 10/30/2024 Type 2 diabetes mellitus with diabetic chronic kidney disease (ICD-10 - E11.22) Reviewed importance of daily foot checks and potential complications related to negligence of this. Patient denies signs and symptoms of hypo-/hyperglycem ia. Reviewed signs and symptoms as well as management. Continue metformin twice a day (correction made to medication box). latest A1C and uacr requested from PCP. 10/30/2024 Xerosis cutis (ICD-1 0 - L85.3) RX sent for ammonium lactate; discussed use with patient and daughter. Will continue to monitor. 11/27/2024 Type 2 diabetes mellitus with diabetic chronic kidney disease (ICD-10 - E11.22) Latest A1C 6.9. Patient denies signs and symptoms of hypo-/hyperglycem ia. Reviewed signs and symptoms as well as management. Continue metformin twice a day and f/u with PCP. 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 Patient denies signs and symptoms of hypo-/hyperglycem ia. Reviewed signs and symptoms as well as management. Continue metformin twice a day and f/u with PCP. Needs gang plank workman; requested CP to send list. 01/01/2025 Chronic kidney disease, stage 3a (ICD-10 - N18.31) BP appears to be well controlled now with addition of chlorathaladone. Continue current regimen. Avoid nephrotoxic medications. 12/21/2024 Mild episode of recurrent major depressive disorder (ICD-10 - F33.0) 10/30/2024 Chronic kidney disease, stage 3a (ICD-10 - N18.31) Encourage frequent monitoring of BP and to report changes/elevation . Continue current regimen. Avoid nephrotoxic medications. 08/13/2024 Type 2 diabetes mellitus with diabetic chronic kidney disease (ICD-10 - E11.22) Patient reports she has not been taking her blood sugars because she does not know how to use her glucometer. Call into [facility] to see if they can assist with education. Continue current regimen of metformin 500 mg twice daily. 11/27/2024 Chronic kidney disease, stage 3a (ICD-10 - N18.31) Improved control of BP with chlorathaladone. Continue current regimen. Avoid nephrotoxic medications. 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 08/14/2024 Hypertension (ICD-10 - I10) 07/16/2024 Diabetes (ICD-10 - E11.9) 06/25/2024 Hypertension (ICD-10 - I10) Chronic/Stable - Continue with cardiac medications. - Continue to monitor BP BID and record results and follow medication directions to obtain accurate results. - For SBP greater than 175 or less that 90, please contact [facility] or PCP. - For severe chest pain please contact EMS - Continue to have labwork (Renal, Lipid) done as recommended. - Continue to follow with [facility]iology [facility]. - For any concerns or worsening symptoms, please reach out to PCP/APC/CARDIA C. 04/23/2024 Hypertension (ICD-10 - I10) Chronic/Stable - Continue with cardiac medications. - Continue to monitor BP BID and record results and follow medication directions to obtain accurate results. - For SBP greater than 175 or less that 90, please contact [facility] or PCP. - For severe chest pain please contact EMS - Continue to have labwork (Renal, Lipid) done as recommended. - Continue to follow with Cardiology [facility]. - For any concerns or worsening symptoms, please reach out to PCP/APC/CARDIA C. 03/08/2024 Hypertension (ICD-10 - I10) Chronic/Stable - Please continue with cardiac medications. - Please continue to monitor BP BID and record results and follow directions to obtain accurate results. - For SBP greater than 175 or less that 90, please contact [facility] or PCP. - For severe chest pain please contact EMS - Please continue to have labwork (Renal, Lipid) done as recommended. - Please continue to follow with Cardiology and [facility]. - For any concerns or worsening symptoms, please reach out to PCP/APC/CARDIA C. 04/12/2024 Diabetes (ICD-10 - E11.9) Problem list updated from claims data in [employer]. 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 06/25/2024 snf current us e of oral hypoglycemic drug (ICD-10 - Z79.84) 08/14/2024 History of falling (ICD-10 - Z91.81) 08/27/2024 Chronic kidney disease, stage 3a (ICD-10 - N18.31) BP now well controlled on olmesartan and metoprolol. Continue current regimen with daily home monitoring. 10/30/2024 Hypertension (ICD-10 - I10) Discussed medication discrepancy with patient and daughter, Teresa. They agree to change their pharmacy to [facility] and getting prefilled blister packs. Profile set up with [facility] for prefilled blister packs and delivery. Call into PCPs office to update them on this; spoke with RN; they will be sending new prescriptions to [facility] for blister packs. Continue current regimen of olmesartan and metoprolol succinate once daily. Discussed when to call or seek care if blood pressure is elevated. Reminded patient of CRU line. Continue routine monitoring of blood pressures. 08/13/2024 Chronic kidney disease, stage 3a (ICD-10 - N18.31) Creatinine back to baseline at time of discharge. Blood pressures running slightly high since returning home. Patient takes her blood pressure before she takes her morning dose of the olmesartan. Continue current regimen with call into [facility] to inquire about discontinuation of metoprolol. 07/16/2024 Mild episode of recurrent major depressive disorder (ICD-10 - F33.0) 12/21/2024 Hypertension (ICD-10 - I10) 11/27/2024 Hypertension (ICD-10 - I10) Improved BP control with chlorathalodone. Provided education on normal gardenia of BP and when to seek care. Continue daily BP checks. Continue current regimen. 01/01/2025 Hypertension (ICD-10 - I10) Improved BP control with chlorathalodone addition. Provided education on normal range of BP and when to seek care. Continue daily BP checks. Continue current regimen. 01/01/2025 snf (current) use of oral hypoglycemic drugs (ICD-10 - Z79.84) Continue metformin BID. 11/27/2024 snf (current) use of oral hypoglycemic drugs (ICD-10 - Z79.84) Continue metformin BID. 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 12/21/2024 DJD (degenerative joint disease) (ICD-10 - M19.90) 08/13/2024 Hypertension (ICD-10 - I10) Valsartan changed to olmesartan. Chlorthalidone discontinued due to near syncopal episode and concern with dehydration. Patient reports that [facility] discontinued metoprolol succinate. Question appropriateness of this. Call into [facility] to inquire. Updated PCP as well on situation. They will assess BP and medications on f/u on . Updated patient after speaking with PCP office. Continue current olmesartan regimen. Patient aware to call or seek care if BP increases or experiences CP, vision changes. 08/14/2024 Type 2 diabetes mellitus with diabetic chronic kidney disease (ICD-10 - E11.22) 07/16/2024 Hypertension (ICD-10 - I10) 04/23/2024 Forgetfulness (ICD-1 0 - R68.89) Chronic/Stable - Continue to monitor. - Continue to F/U with PCP for further dementia work up. - Neuropsych referral placed for further work up. - Present for lab work to r/o other causes of memory impairment/for getfulness. - For any concerns or worsening symptoms, please contact PCP/APC. 06/25/2024 Forgetfulness (ICD-1 0 - R68.89) Chronic/Stable - Continue to monitor. - Continue to F/U with PCP for further dementia work up. - Neuropsych referral placed for further work up. - Present for lab work to r/o other causes of memory impairment/for getfulness. - For any concerns or worsening symptoms, please contact PCP/APC. 03/08/2024 Forgetfulness (ICD-1 0 - R68.89) Chronic/Stable - Continue to monitor. - Continue to F/U with PCP for further dementia work up. - Neuropsych referral placed for further work up. - For any concerns or worsening symptoms, please contact PCP/APC. 04/12/2024 Hypertension (ICD-10 - I10) Problem list updated from claims data in [employer]. 03/08/2024 Pure hypercholesterolemia (ICD-10 - E78.0) 03/08/2024 Hypertension (ICD-10 - I10) 06/25/2024 Chronic fatigue (ICD-10 - R53.82) Chronic/Stable - Continue to monitor. - Education provided on proper sleep hygiene (avoiding electronic 60 min prior to bed, avoiding caffeine, establishing a routine to follow). - Please have lab work done to help r/o other causes of fatigue. - For any concerns or worsening symptoms, please contact PCP/APC. 04/23/2024 Age-related osteoporosis without current pathological fracture (ICD-10 - M81.0) 04/12/2024 DJD (degenerative joint disease) (ICD-10 - M19.90) Problem list updated from claims data in [employer]. 07/16/2024 DJD (degenerative joint disease) (ICD-10 - M19.90) 10/30/2024 Localized edema (ICD-10 - R60.0) Trace edema in bilateral ankles. Encouraged frequent ambulation as tolerated and elevation of legs when sitting. Patient aware to call or seek care if worsens. 01/01/2025 Acute cough (ICD-10 - R05.1) Vitals stable. Patient does not appear unwell. Good appetite. Coughing up small amount of white/yellow sputum; offered expectorant RX; patient declined. Lung sounds clear. Denies SOB, fevers, chills, malaise, n/v, or chest pain. Encouraged fluids and rest. Discussed that patient may need further treatment if symptoms persist or worsen. Provided patient with information for CRU line. Reviewed warning signs and when to seek care. Patient voiced understanding. 12/21/2024 Left shoulder pain (ICD-10 - M25.512) 12/21/2024 Atrophic vaginitis (ICD-10 - N95.2) 07/16/2024 Left shoulder pain (ICD-10 - M25.512) 03/08/2024 DJD (degenerative joint disease) (ICD-10 - M19.90) 04/12/2024 Left shoulder pain (ICD-10 - M25.512) Problem list updated from claims data in [employer]. 04/12/2024 Atrophic vaginitis (ICD-10 - N95.2) Problem list updated from claims data in [employer]. 03/08/2024 Atrophic vaginitis (ICD-10 - N95.2) 07/16/2024 Atrophic vaginitis (ICD-10 - N95.2) 12/21/2024 History of falling (ICD-10 - Z91.81) 07/16/2024 Edema, unspecified (ICD-10 - R60.9) 12/21/2024 Pure hypercholesterolemia, unspecified (ICD-10 - E78.00) 03/08/2024 Major depressive disorder, single episode, moderate (ICD-10 - F32.1) 04/12/2024 Edema, unspecified (ICD-10 - R60.9) Problem list updated from claims data in [employer]. 04/12/2024 History of falling (ICD-10 - Z91.81) Problem list updated from claims data in [employer]. 03/08/2024 Left shoulder pain (ICD-10 - M25.512) 07/16/2024 History of falling (ICD-10 - Z91.81) 12/21/2024 Chronic pulmonary embolism (ICD-10 - I27.82) 07/16/2024 Pure hypercholesterolemia, unspecified (ICD-10 - E78.00) 04/12/2024 Pure hypercholesterolemia, unspecified (ICD-10 - E78.00) Problem list updated from claims data in [employer]. 12/21/2024 snf (current) use of oral hypoglycemic drugs (ICD-10 - Z79.84) 03/08/2024 History of falling (ICD-10 - Z91.81) 03/08/2024 Osteoarthritis, unspecified osteoarthritis type, unspecified site (ICD-10 - M19.90) 12/21/2024 Other specified symptoms and signs involving the circulatory and respiratory systems (ICD-10 - R09.89) 04/12/2024 Chronic pulmonary embolism (ICD-10 - I27.82) Problem list updated from claims data in [employer]. 07/16/2024 Chronic pulmonary embolism (ICD-10 - I27.82) 04/12/2024 snf (current) use of oral hypoglycemic drugs (ICD-10 - Z79.84) Problem list updated from claims data in [facility]. 07/16/2024 snf (current) use of oral hypoglycemic drugs (ICD-10 - Z79.84) 12/21/2024 Dysphagia, unspecifi ed (ICD-10 - R13.10) 03/08/2024 Type 2 diabetes mellitus without complication, unspecified whether rat exterminator insulin use (ICD-10 - E11.9) 03/08/2024 Single subsegmental pulmonary embolism without acute cor pulmonale (ICD-10 - I26.93) 07/16/2024 Other specified symptoms and signs involving the circulatory and respiratory systems (ICD-10 - R09.89) 04/12/2024 Other specified symptoms and signs involving the circulatory and respiratory systems (ICD-10 - R09.89) Problem list updated from claims data in [facility] 12/21/2024 Gastro-esophageal reflux disease without esophagitis (ICD-10 - K21.9) 12/21/2024 Diaphragmatic hernia without obstruction or gangrene (ICD-10 - K44.9) 04/12/2024 Dysphagia, unspecifi ed (ICD-10 - R13.10) Problem list updated from claims data in [facility]. 07/16/2024 Dysphagia, unspecifi ed (ICD-10 - R13.10) 03/08/2024 Multiple pulmonary emboli (ICD-10 - I26.99) 03/08/2024 Mild episode of recurrent major depressive disorder (ICD-10 - F33.0) 04/12/2024 Gastro-esophageal reflux disease without esophagitis (ICD-10 - K21.9) Problem list updated from claims data in [facility] 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 04/12/2024 Thoracic aortic ectasia (ICD-10 - I77.810) Problem list updated from claims data in [facility]. 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 07/16/2024 Age-related osteoporosis without current pathological fracture (ICD-10 - M81.0) 12/21/2024 Chronic fatigue (ICD-10 - R53.82) 04/12/2024 Age-related osteoporosis without current pathological fracture (ICD-10 - M81.0) Problem list updated from claims data in [employer]. 04/12/2024 Unspecified abnormalities of gait and mobility (ICD-10 - R26.9) Problem list updated from claims data in [facility]. 07/16/2024 Unspecified abnormalities of gait and mobility (ICD-10 - R26.9) 12/21/2024 Type 2 diabetes mellitus with diabetic chronic kidney disease (ICD-10 - E11.22) 07/16/2024 Chronic fatigue (ICD-10 - R53.82) 12/21/2024 Chronic kidney disease, stage 3a (ICD-10 - N18.31) Plan Of Treatment Pending Test Test Name Order Date Vitamin [id number] 04/23/2024 Folate (Folic Acid), Serum-[id number] 2024 CBC, Platelet, No [id number] Vitamin D, [id number] 04/23/2024 Albumin/Creatinine Ratio,Urine-[id number] Lipid [id number] 04/23/2024 Comp. Metabolic Panel [id number] 2024 A1c w/[employer](R) [id number] 025 TSH reflex to [id number] 04/23/2024 Insurance Providers Payer Name Payer Address Payer Phone Subscriber Number Group Number Insured Name Patient Relationship to Insured Coverage Start Date Coverage End Date [facility] [employer] ([id number]) [id number] [place] [address] [id number] Sveta Lizama Self - patient is the insured 6 9 Medical (General) History Medical History History ICD Code DM HTN Elevated Cholesterol DJD Depression Pulmonary Emboli RIght Subsegemental PE Acute midline low back pain, unspecified whether sciatica present (resolved 02/18/2022) undefined Surgical History Surgery Date(Month/Year) hysterectomy bilat cataract surgery-Dr Redding 03/2011 umbilical hernia EGD and duodenal biopsy sinus surgery age 50 cholecystectomy Hospitalization History Reason Date(Month/Year) [facility]: Syncope, PNA 07/2024 [facility] ED: Multiple complaints (CP, chronic fatigue, weakness). 06/13/2024 [facility] COVID-19 PNA 03/10/23-03/14/23 [facility] ED: Chest Pain & PEs 01/11/22 [facility]: Multiple PEs 01/12-01/14/22 [facility]: Chest Pain & R Subsegmental PE 12/09-01/06/22
--- OUTSIDE RECORDS SUMMARY | 2025-02-06 14:42 | XMS_ITS | Data Portability ---
Author Organization [employer], [facility] Address [address] [place] [address] Care Team Providers Care Software Support Analyst Name Role Phone [facility] Referring Provider Assessment Encounter Date Assessment Date Assessment LastModified by Organization Details LastModified Time 12/17/2021 12/17/2021 I have reviewed and agree with the assessment and plan as documented by the boiler house mechanic. I provided real time medical direction for this encounter and was immediately available to provide additional phone based assistance as needed. History as noted by boiler house mechanic. Pt with 3 days of cough productive of white sputum, chest pain with cough only, and intermittent SOB. She is also feeling feverish. She has had mild nausea and some loose stool but no vomiting or documented fevers. On exam, pt appears well and comfortable, no distress. Vitals are normal, O2 sat normal 97%. Lungs clear. Rapid Covid-19 Ag positive. Impression: Pt with acute Covid-19 infection with 3 days of symptoms. She appears well with normal vitals and clear lungs. No indication for ED visit or hospitalization. Pt is unvaccinated for Covid-19. I discuss treatment with Paxlovid with the pt and she is interested (family is helping to translate). Adverse effects of paxlovid discussed. Pt with no known history of renal disease. I review the pt's current medication list. She is told that she will have to stop taking her rosuvastatin and amlodipine (only taking 2.5 mg dose) for 8 days after starting the Paxlovid. Pt is also taking Valsartan. This can continued but the recommendation is that the pt's K+ be monitored. Paxlovid is prescribed as well as benzonatate prn cough. Patient's primary care team needs to f/u with the pt in the next 2-3 days to ensure she is improved on the Paxlovid. They also need to arrange a home visit to have her BMP checked to monitor her K+ on the Paxlovid. Pt and her son instructed to go to the ED if she develops any worsening symptoms. [email or web address] Not available 12/17/2021 14:59:55 Plan of Treatment Reminders Order Date Submit Date Provider Last Modified By Organization Details Last Modified Time Details Appointments None recorded. Lab rapid SARS CoV 2 Ag, QL IA, respiratory specimen 2021 [facility], [address] [place] [address], [id number] 14:45:16 Referral None recorded. Procedures None recorded. Surgeries None recorded. Imaging None recorded. Medication Orders Paxlovid 300 mg (150 mg x 2)-100 mg tablets in a dose pack 2021 [facility][id number], [address] [place] [address], [id number], 14:48:41 benzonatate 100 mg capsule 2021 [id number], [address] [place] [address], [id number], 14:48:44 Patient TargetsNo targets recorded. Patient InstructionsNo instructions recorded. Reason for Referral None Reported. Results Created Date Observation Date Name Description Value Unit Range Abnormal Flag Note LastModifiedBy Organization Detail LastModifiedTime 12/18/19 22 12/17/2021 rapid SARS CoV 2 Ag, QL IA, respi rator y speci men rapid SARS CoV 2 Ag, QL IA, respiratory specimen positi ve Not Available [facility] [address] [place] [address], [phone] 12/17/2021 14:44:55 Result Notes None recorded. Medical Equipment None Reported. Medications Name Sig Start Date Stop Date Status Note LastModified by Organization Details LastModified Time acetaminophe n 325 mg tablet TAKE 3 TABLETS (975 MG) BY MOUTH EVERY 8 HOURS NEEDED FOR TEMPERATURE GREATER THAN 100.5. active Not Available Not Available Not Available oxacillin 10 gram solution for injection active Not Available Not Available No t Available azithromycin 250 mg tablet TAKE 2 TABLETS BY MOUTH TODAY, THEN TAKE 1 TABLET DAILY FOR 4 DAYS active Not Available Not Available No t Available FreeStyle Lancets 28 gauge USE DIRECTED TO CHECK BLOOD SUGAR TWICE DAILY. active Not Available Not Available No t Available metoprolol succinate ER 100 mg tablet,exten ded release 24 hr TAKE 1 TABLET BY MOUTH EVERY DAY active Not Available Not Available No t Available metformin 850 mg tablet TAKE 1 TABLET BY MOUTH TWICE A DAY active Not Available Not Available No t Available clobetasol 0.05 % topical cream APPLY TO AFFECTED AREA(S) BY TOPICAL ROUTE TWICE DAILY FOR 14 DAYS THEN USE TWICE WEEKLY active Not Available Not Available No t Available amlodipine 2.5 mg tablet TAKE 1 TABLET BY MOUTH EVERY DAY active Not Available Not Available No t Available prednisolone acetate 1 % eye drops,suspen alvarado PLEASE SEE ATTACHED FOR DETAILED DIRECTIONS active Not Available Not Available N ot Available benzonatate 100 mg capsule TAKE 1 CAPSULE BY MOUTH THREE TIMES A DAY FOR 10 DAYS *NOT COVERED* active Not Available Not Available No t Available cephalexin 500 mg capsule TAKE 1 CAPSULE BY MOUTH EVERY 12 HOURS FOR 14 DAYS active Not Available Not Available Not Available albuterol sulfate HFA 90 mcg/actuatio n aerosol inhaler INHALE 2 PUFFS BY MOUTH 4 TIMES A DAY active Not Available Not Available Not Available loratadine 10 mg tablet TAKE 1 TABLET BY MOUTH EVERY DAY active Not Available Not Available No t Available amoxicillin 875 mg-potassium clavulanate 125 mg tablet TAKE 1 TABLET BY MOUTH EVERY 12 HOURS FOR 7 DAYS active Not Available Not Available N ot Available oxycodone 5 mg tablet TAKE 1 TABLET BY MOUTH EVERY 6 HOURS NEEDED FOR SEVERE PAIN active Not Available Not Available Not Available rosuvastatin 20 mg tablet TAKE 1 TABLET BY MOUTH EVERYDAY AT BEDTIME active Not Available Not Available No t Available mirtazapine 7.5 mg tablet TAKE 1 TABLET BY MOUTH EVERYDAY AT BEDTIME active Not Available Not Available No t Available Flovent HFA 110 mcg/actuatio n aerosol inhaler INHALE 2 PUFFS BY MOUTH TWICE A DAY active Not Available Not Available No t Available valsartan 320 mg-hydrochlo rothiazide 25 mg tablet TAKE 1 TABLET BY MOUTH EVERY DAY active Not Available Not Available No t Available FreeStyle Lite Strips USE DIRECTED TO CHECK BLOOD SUGAR ONCE DAILY. active Not Available Not Available No t Available Paxlovid 300 mg (150 mg x 2)-100 mg tablets in a dose pack TAKE BY MOUTH DIRECTED ON PACKAGE TWICE DAILY active Not Available Not Available Not Available Vitals Date Recorded Body height Oxygen saturation Body weight Heart rate Body temperature Respiratory rate Oxygen saturation Heart rate Respiratory rate Body temperature Body height Body weight Provider Name and Address Organization Details Last Updated DateTime 2 167.64 cm 97 % 85712.5 52 g 68 /min 97.7 [degF] 18 /min 97 % 68 /min 18 /min 97.7 [degF] 167.64 cm 35317.5 52 g Not Available [facility] - production 2 15:37:15 Date Recorded Systolic And Diastolic Systolic And Diastolic Provider Name and Address Organization Details Last Updated DateTime 12/17/2021 105/63 mm[Hg] 105/63 mm[Hg] Not Available [facility] - [facility] 12/17/2021 15:37:15 Social History None recorded. Functional Status None recorded. Mental Status None recorded. Family History Nothing Reported. Medical History No medical history recorded. Gynecological HistoryNo gynecological history recorded. Obstetrics History GPAL:G 0 P 0 0 0 0 Past Encounters Encounter ID Performer Location Encounter Start Date Encounter Closed Date Diagnosis/Indication Diagnosis SNOMED-CT Code Diagnosis ICD10 Code Diagnosis IMO Codes Diagnosis Note [id number] Tae Mondragon MD [facility] - [facility] [address] [place] [id number] 12/17/2021 14:34:50 12/21/2021 13:23:39 COVID-19 [id number] U07.1 [id number] Magno Gomes MD Main - [address] [phone] 01/11/2022 12:33:24 01/13/2022 10:49:59 History of pulmonary embolus [id number] Z86.711 This 81-year-ol d female was recently hospitaliz ed with a PE and treatment was initiated with Eliquis. [facility] right sided pleuritic chest pain and dyspnea. I am concerned about another PE and recommende d she be sent to the ER for further evaluation and treatment. The patient agreed with this plan. Health Concerns Section Related Observation LastModified by Organization Detai ls LastModified Time None Recorded Concern Status LastModified by Organization Details LastModified Time None Recorded Advance Directives Directive None Recorded Payers Insurance Date Sequence Insurance Name Policy Number Policy Araujo Covered Member ID Araujo Member ID Guarantor Name 09/08/2023 1 [facility] - DOS PRIOR TO 2022 - DUAL ELIGIBLE (MEDICARE REPLACEMENT/ADV ANTAGE - HMO) Sveta Lizama [id number] Sveta Lizama 09/08/2023 1 [facility] - DOS ON OR AFTER 2022 - DUAL ELIGIBLE - [facility] OPTIONS AND ONE CARE (MEDICARE REPLACEMENT/ADV ANTAGE - HMO) Sveta Lizama [id number] Sveta Lizama Notes Date Note Type Note Provider Name and Address Organization Details Recorded Time 12/17/2021 text/html ROS as noted in the HPI This was a supervised home visit with boiler house mechanic Emily Rivera. [facility] Nursing Assessment: Patient Reports: Cough, fever greater than 2 days ; Sputum increase ; Cough; Shortness of breath with exertionDenies: Lower extremity swelling History of asthma, increased use of inhaler COPD COVID Exposure Pain with inspiration Chief Complaints: Cough, Shortness of Breath/DyspneaPMH: Diabetes, Hypertension, OtherAllergies: No KnownComments: Member c/o Cough/ SOB / F/C for 3 days . Member c/o Nausea , loose stool yesterday .Member is unable to eat or drink well . Member has a PMH OF HLD / HTN / DM .................... .................... .................... .................... .................... .................... .................... . Inorganic Chemistry Professor Note: Sent to a call for a pt [...] Oropharynx: erythema, no edema or exudate; Lung sounds: clear bilaterally; Abdomen: soft, slight tenderness (epigastric), no distention, (+)bowel sounds; Skin: pink, warm, dry; Rapid flu test: neg, rapid strep test: neg, rapid covid test: positive; [facility] [place] pharmacy for Paxlovid and cough medicine. Pt advised to stop Rosuvastatin and Amlodipine x 1 week. [facility] [place] PCP to follow up with pt to check K+ level due to Valsartan. Red flags discussed. Pt/family has no further questions. .................... .................... .................... .................... .................... .................... .................... . Disposition: Fulfilled Tae Mondragon MD [address] [facility],[address], [place], [phone], [employer] 12/17/2021 18:28:37 01/11/2022 text/html ROS as noted in the HPI [facility] Nursing Assessment: Chief Complaints: Chest Pain, Shortness of Breath/Dyspnea PMH: Diabetes, Hypertension, Other Allergies: No Known Comments: Daughter states that member was recently hospitalized last week with dx of a heart embolism. Started taking coumadin. Since yesterday, member has been experiencing constant R sided chest pain with sob. Member refusing 911 after education of life threatening risks, verbalize understanding. Would like [facility] visit today after education of recommendation to go to MARTY Gomes MD [address] [facility],[address], [place], [phone], [employer] [employer] 01/11/2022 12:36:56 OBGyn Episode No OBEpisode recorded.
--- OUTSIDE RECORDS SUMMARY | 2025-02-06 14:42 | XMS_ITS | Clinical Summary ---
Author Organization [facility] Address [address] [place] [address] Care Team Providers Care Gynecologist Name Role Phone Zacarias Wisdom MD Primary Care Provider Un available Allergies Active Allergy Reactions Criticality Noted Date Comments Atorvastatin Unknown/Patient and Family Unable to Define Medium 01/11/2022 Lisinopril Unknown/Patient and Family Unable to Define Medium 01/11/2022 Nitrofurantoin Unknown/Patient and Family Unable to Define Medium 01/11/2022 Medications amLODIPine (NORVASC) 5 MG tabletIndication s:Primary hypertension Take 1 tablet (5 mg total) by mouth daily. Do not start before January 15, 2022. 30 tablet 2 Active apixaban (ELIQUIS) 5 MG tabletIndication s:Pulmonary embolism on right Take 1 tablet (5 mg total) by mouth every 12 (twelve) hours around the clock. 60 tablet 2 Active calcium carbonate (TUMS) 500 MG chewable tabletIndication s:Primary hypertension Chew 2 tablets (1,000 mg total) 2 times daily (every 12 hours) as needed for indigestion or heartburn. 2 Active hydrochlorothiaz mickey (HYDRODIURIL) 25 MG tabletIndication s:Primary hypertension Take 1 tablet (25 mg total) by mouth daily. Do not start before January 15, 2022. 30 tablet 2 Active losartan (COZAAR) 100 MG tabletIndication s:Primary hypertension Take 1 tablet (100 mg total) by mouth daily. Do not start before January 15, 2022. 30 tablet 2 Active metFORMIN (GLUCOPHAGE) 850 MG tabletIndication s:Type 2 diabetes mellitus without complication, without long-term current use of insulin (HCC) Take 1 tablet (850 mg total) by mouth 2 (two) times a day with breakfast and dinner. 60 tablet 2 Active metoPROLOL SUCCINATE (TOPROL-XL) 100 MG 24 hr tabletIndication s:Primary hypertension Take 1 tablet (100 mg total) by mouth daily. Do not start before January 15, 2022. 30 tablet 2 Active mirtazapine (REMERON) 7.5 MG tabletIndication s:Primary insomnia Take 1 tablet (7.5 mg total) by mouth nightly. 30 tablet 2 Active rosuvastatin (CRESTOR) 20 MG tabletIndication s:Dyslipidemia Take 1 tablet (20 mg total) by mouth daily. Do not start before January 15, 2022. 30 tablet 2 Active Active Problems Problem Noted Date Diagnosed Date Pulmonary embolism on right 01/12/2022 Social History Tobacco Use Types Packs/Day Years Used Date Smoking Tobacco: Never Assessed Overall Financial Resource Strain (CARDIA) Answe r Date Recorded How hard is it for you to pa y for the very basics like food, housing, medical care, and heating? Somewhat hard 01/13/2022 Comments Unknown Sex and Gender Information Value Date Recorded Sex Assigned at Not on file Legal Sex Female 6:40 PM EST Gender Identity Not on file Sexual Orientation Not on file Last Filed Vital Signs Vital Sign Reading Time Taken Comments Blood Pressure 97/53 01/14/2022 2:09 PM EST Pulse 74 01/14/2022 2:09 PM EST Temperature 36.8 C (98.2 F) 01/14/2022 2:09 PM EST Respiratory Rate 16 01/14/2022 2:09 PM EST Oxygen Saturation 98% 01/14/2022 2:09 PM EST Inhaled Oxygen Concentration - - Weight 57.6 kg (127 lb) 01/11/2022 9:18 PM EST Height 165.1 cm (5' 5 ) 01/11/2022 9:18 PM EST Body Mass Index 21.13 01/11/2022 9:18 PM EST Plan of Treatment Health Maintenance Due Date Last Done Comments Advance Care Planning 1940 DTaP/Tdap/Td Vaccines (1 - Tdap) 1959 Pneumococcal Vaccines 50+ (1 of 1 - PCV) 1990 Zoster (Shingles) Vaccine (1 of 2) 1990 DXA Bone Density (Females,Ages 65 and older) 2005 RSV Vaccine 50 years and older and Patients (1 - 1-dose 75+ series) 2015 Influenza Vaccine 09/07/2024 11/14/2019, 12/20/2018 COVID-19 Vaccine (1 - 2024-2 6 season) 2024 Hepatitis B Vaccines Aged Out No long er eligible based on patient's age to complete this topic Insurance [facility] [place] OUT OF NETWORK MEDICAID OUT OF STATE [facility] on file Advance Directives * Full Code (Latest Code Status on File) Date Activated Date Inactivated Comments 01/12/2022 5:38 AM Care Teams Gynecologist Relationship Specialty Start Date End Date Zacarias Wisdom MD PCP - General Internal Medicine 01/13/22
[2025-02-06] MEDS: iohexoL 350 MG/ML 100 ML INFUS..BTL IV (15:26)
[2025-02-06 17:21] VITALS: BP 157/77; PULSE 75; RESP 20; TEMP 36.9; O2SAT 98
== END 2025-02-06 17:21 | disposition home or self-care (01) ==
PROVIDERS: Registered Nurse Emergency; Emergency Provider Emergency Medicine Emergency Medical Services
DX: J18.9 Pneumonia, unspecified organism (principal); I26.92 Saddle embolus of pulmonary artery without acute cor pulmonale; I10 Essential (primary) hypertension; E11.9 Type 2 diabetes mellitus without complications; Z86.711 Personal history of pulmonary embolism; Z79.899 Other long term (current) drug therapy; Z03.818 Encounter for observation for suspected exposure to other biological agents ruled out; Z87.01 Personal history of pneumonia (recurrent)
CPT/HCPCS: 36415; 71046; 71275; 80053; 81001; 84484; 85025; 85379; 87637; 93005; 99283; 99285; Q9967

== ENCOUNTER → 2025-02-06 12:08 | Outpatient (BNV) | payer OTHER, SELFPAY | PROVIDERS: Emergency Provider Emergency Medicine Emergency Medical Services; Visit Provider Internal Medicine | DX: I25.2 Old myocardial infarction (principal) | CPT/HCPCS: 93010 ==

== ENCOUNTER → 2025-02-06 12:15 | Outpatient (BNV) | payer OTHER, SELFPAY | PROVIDERS: Emergency Provider Emergency Medicine Emergency Medical Services; Visit Provider Radiology Diagnostic Radiology | DX: I51.7 Cardiomegaly (principal); E04.1 Nontoxic single thyroid nodule; J44.9 Chronic obstructive pulmonary disease, unspecified; R19.8 Other specified symptoms and signs involving the digestive system and abdomen | CPT/HCPCS: 71046; 71275 ==